=== PATIENT | female | born 1955 | race Caucasian/White ===

== ENCOUNTER → 2017-01-03 | Outpatient (CLI) | payer MEDICARE, OTHER ==
[2017-01-03 11:48] LABS: Basophils # (A) 0.1 k/uL (0-0.2); Basophils % (A) 1 %; CH 28.5; CHCM 31.5; Eosinophils # (A) 0.2 k/uL (0-0.7); Eosinophils % (A) 2 %; HCT 40.1 % (34.0-46.0); HDW 2.63; HGB 12.7 gm/dL (11.4-16.0); Hypochromasia Slight; Luc # (Auto) 0.17; Luc % (Auto) 3; Lymphocytes # (A) 1.4 k/uL (1.0-4.8); Lymphocytes % (A) 22 %; MCH 28.7 pg (25.0-35.0); MCHC 31.8 g/dL (31.0-37.0); MCV 90.5 fL (80.0-100.0); Mean Platelet Volume 6.4; Monocytes # (A) 0.2 k/uL (0-1.0); Monocytes % (A) 3 %; Neutrophils # (A) 4.5 k/uL (1.3-7.7); Neutrophils % (A) 69 %; RBC 4.43 m/uL (3.80-5.40); RDW 15.6 % (11.5-15.5); WBC 6.5 k/uL (3.8-10.6)
[2017-01-03 12:15] LABS: C Reactive Protein 9.5 mg/L (<10.0); Calcium 9.4 mg/dL (8.4-10.2); Potassium 4.6 mmol/L (3.5-5.1); Total Bilirubin 0.3 mg/dL (0.2-1.3); Total Protein 6.6 g/dL (6.3-8.2)
[2017-01-03 15:15] LABS: Appearance,CSF Clear
[2017-01-15 16:39] LABS: Mis test requested (Non-blood) ADmark Tau/AB42 CSF
== END | disposition home or self-care (01) ==
LOC: LABWHC1 10:58
PROVIDERS: ATTEND Psychiatry & Neurology Neurology
DX: R41.3 Other amnesia (principal)
CPT/HCPCS: 36415; 80053; 82306; 82607; 83520; 84157; 84207; 84439; 84443; 84481; 85025; 86140; 89050

== ENCOUNTER → 2017-01-10 | Outpatient (CLI) | payer MEDICARE, OTHER ==
--- NOTE | 2017-01-11 07:41 | NM ---
EXAMINATION TYPE: NM DatScan Brain SPECT DATE OF EXAM: 01/10/2017 3:07 PM COMPARISON: NONE HISTORY: Dissociation of amnesia TECHNIQUE: 10 drops of Lugol's solution was administered 1 hour prior to injection as a thyroid bloc maynor agent. After the administration of 4.44 mCi I-123 Ioflupane DaTscan. Images obtained 3 hours p ost injection. SPECT images of the brain were acquired with axial and coronal reconstructions. FINDINGS: There is normal focal uptake of radiotracer in the basal ganglia. A normal, shaped appearance is main tained. No abnormal uptake is seen. IMPRESSION: Normal nuclear medicine DATscan.
== END | disposition home or self-care (01) ==
LOC: RADNMMAIN 12-21 10:06
PROVIDERS: ATTEND Psychiatry & Neurology Neurology
DX: R41.3 Other amnesia (principal); G30.9 Alzheimer's disease, unspecified; F02.80 Dementia in other diseases classified elsewhere, unspecified severity, without behavioral disturbance, psychotic disturbance, mood disturbance, and anxiety
CPT/HCPCS: 78607; A9584

== ENCOUNTER → 2017-01-31 | Outpatient (CLI) | payer MEDICARE, OTHER ==
--- NOTE | 2017-01-31 14:20 | MR ---
EXAMINATION TYPE: MR brain wo/w con DATE OF EXAM: 01/31/2017 10:39 AM COMPARISON: NONE HISTORY: Memory loss CONTRAST: Performed utilizing 10 mL intravenous MultiHance gadolinium contrast. TECHNIQUE: Multiplanar, multiecho imaging on a 3.0 Iman magnet is performed through the brain. Stud y is performed within 24 hours of arrival to the hospital. The craniovertebral junction is normal. The pituitary is normal. 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 The cerebellar lobes appear hypoplastic. Large fluid-filled col lection is in the posterior fossa space. There is marked dilatation of the lateral ventricles. Temporal horns do not appear dilated. Third laron tricle is dilated. Sulci appear appropriate. Diffusion-weighted imaging is performed. No abnormal hyperintensity is present to suggest an acute i ntracranial infarct or acute ischemic change. Signal within the remaining visualized portions of the brain appear normal. Postcontrast imaging is performed. No suspicious enhancement is evident. IMPRESSIONS: 1. 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 2. Prominence of the ventricles without hydrocephalus.
== END ==
LOC: RADMRIMAIN 09:57
PROVIDERS: ATTEND Psychiatry & Neurology Pain Medicine
DX: Q04.3 Other reduction deformities of brain (principal); R41.3 Other amnesia
CPT/HCPCS: 70553; A9577

== ENCOUNTER → 2017-07-26 | Outpatient (CLI) | payer MEDICARE, OTHER ==
--- NOTE | 2017-07-26 10:23 | MR ---
EXAMINATION TYPE: MR knee RT wo con DATE OF EXAM: 07/26/2017 COMPARISON: NONE HISTORY: Rt Knee pain TECHNIQUE: Multiplanar, multisequence imaging of the right knee is performed without IV contrast. FINDINGS: MEDIAL MENISCUS: There is increased signal within the substance of the posterior horn medial meniscus . Radial tear may be present posteriorly. This could be some internal derangement. This greater than expected for typical ligament attachment. LATERAL MENISCUS: Anterior horn lateral meniscus has some increased signal within its substance clive tible with internal derangement. This may have some minimal communication with the inferior articular surface near the midline. Small tear is not excluded. There is increased signal within the substance of the lateral horn lateral meniscus with communication to the inferior articular surface compatible with an oblique tear and internal derangement. CRUCIATE LIGAMENTS: The anterior and posterior cruciate ligaments are intact and unremarkable. COLLATERAL LIGAMENTS: The medial collateral ligament and lateral collateral ligament complex are inta ct and unremarkable. EXTENSOR MECHANISM: Visualized quadriceps and patellar tendons are intact. EFFUSION: Small joint effusion is present. POPLITEAL CYST: There is a 6.3 x 1.4 cm popliteal cyst. TRICOMPARTMENT SPACES: There is narrowing of the joint space of the medial and lateral compartments. Patellofemoral joint space is moderately narrowed. CARTILAGE: There is thinning of the articular cartilage, greatest within the medial compartment. BONE MARROW SIGNAL: No focal abnormal marrow signal is appreciated. OTHER: No additional significant abnormality is appreciated. IMPRESSION: 1. Oblique tears of the anterior and posterior lateral meniscus. 2. Possible radial tear posterior horn medial meniscus. 3. Osteoarthritic degenerative change. 4. Small joint effusion. 5. Popliteal cyst
== END | disposition home or self-care (01) ==
LOC: RADMRIMAIN 07:53
PROVIDERS: ATTEND Orthopaedic Surgery
DX: S83.281A Other tear of lateral meniscus, current injury, right knee, initial encounter (principal); M17.11 Unilateral primary osteoarthritis, right knee; M71.21 Synovial cyst of popliteal space [Baker], right knee

== ENCOUNTER → 2017-08-23 | Outpatient (CLI) | payer MEDICARE, OTHER ==
[2017-08-23 10:54] LABS: EKG EKG PERFORMED
[2017-08-23 11:12] LABS: Basophils # (A) 0.1 k/uL (0-0.2); Basophils % (A) 1 %; CHCM 32.7; Eosinophils # (A) 0.2 k/uL (0-0.7); Eosinophils % (A) 3 %; HCT 41.3 % (34.0-46.0); HDW 2.55; HGB 13.7 gm/dL (11.4-16.0); Luc # (Auto) 0.18; Luc % (Auto) 3; Lymphocytes # (A) 1.7 k/uL (1.0-4.8); Lymphocytes % (A) 28 %; MCH 31.6 pg (25.0-35.0); MCHC 33.3 g/dL (31.0-37.0); Mean Platelet Volume 6.9; Monocytes # (A) 0.3 k/uL (0-1.0); Monocytes % (A) 5 %; Neutrophils # (A) 3.8 k/uL (1.3-7.7); Neutrophils % (A) 61 %; RBC 4.34 m/uL (3.80-5.40); WBC 6.2 k/uL (3.8-10.6); WBC (Perox) 6.41
[2017-08-23 12:16] LABS: Anion Gap 10 mmol/L; Carbon Dioxide 26 mmol/L (22-30); Chloride 106 mmol/L (98-107); Potassium 4.6 mmol/L (3.5-5.1); Sodium 142 mmol/L (137-145)
== END | disposition home or self-care (01) ==
LOC: LABPAT 10:18
PROVIDERS: ATTEND Orthopaedic Surgery
DX: Z01.810 Encounter for preprocedural cardiovascular examination (principal); Z01.812 Encounter for preprocedural laboratory examination
CPT/HCPCS: 36415; 80051; 85025; 93005

== ENCOUNTER 2017-09-19 08:02 | Day surgery (SDC) | payer MEDICARE, OTHER ==
[2017-09-12 13:18] VITALS: BMI 23.8
--- NOTE | 2017-09-18 14:34 | HP ---
HISTORY AND PHYSICAL REASON FOR ADMISSION: Surgery is 09/19/2017 HISTORY OF PRESENT ILLNESS: Tarsha Tobias is a 62-year-old patient seen with progressive right knee pain. After treatment options were discussed she elected to proceed with right knee arthroscopy, consent was obtained. Medical clearance provided by Dr. Olivarez. PAST MEDICAL HISTORY: Asthma, depression, [id number] diabetes, hyperlipidemia. PAST SURGICAL HISTORY: section. Knee arthroscopy, back surgery. MEDICATIONS: 1. Advair. 2. Albuterol. 3. Bentyl. 4. Flonase. 5. Lomotil. 6. Metformin. 7. Nystatin. 8. Premarin. 9. Symbicort. 10.Zetia. 11.Neurontin. ALLERGIES: PENICILLIN. SOCIAL HISTORY: The patient denies tobacco use. PHYSICAL EVALUATION: Evaluation of the right knee: Range of motion 0-120 degrees. Tenderness medial joint line. Tenderness lateral joint line. Positive medial Dorina's. Positive lateral Dorina's. Ligaments stable. Crepitus. Medial and patellofemoral compartments with range of motion. Hip rotation without pain. Distal neurovascular exam intact. Right knee radiographs revealed moderate medial and moderate patellofemoral compartment osteoarthritis. MRI right knee revealed lateral meniscal tear. Possible medial meniscal tear and osteoarthritis. IMPRESSION: Internal derangement, right knee with meniscal tears. PLAN: Right knee arthroscopy with partial meniscectomy and debridement. Surgery is scheduled for 09/19/2017. MMODL / IJN: [id number] /
[~2017-09-19 08:02] MED LIST: DEXAMETHASONE SOD PHOSPHATE 10 MG/ML 1 ML VIAL IV ONE; LACTATED RINGERS 1,000 ML IV SCH; MIDAZOLAM 2 MG/2 ML VIAL IV PRN; ONDANSETRON 4 MG/2 ML VIAL IVP ONE; ceFAZolin 1,000 MG in DEXTROSE/WATER 1 50ML.BAG IV ONE
[2017-09-19] MEDS ORDERED: LIDOCAINE 1% 20 ML VIAL (10MG/ML) FOR IV START INTRADERMA ONE (08:20)
[2017-09-19 08:22] LABS: Glucose,Whole Blood 119 mg/dL (75-99)
[2017-09-19] MEDS ORDERED: MIDAZOLAM 2 MG/2 ML VIAL ONE (09:38)
[2017-09-19] MEDS ORDERED: PROPOFOL 10 MG/ML 20 ML VIAL IV ONE (09:38)
[2017-09-19] MEDS ORDERED: SUCCINYLCHOLINE CHLORIDE 100 MG/5 ML SYR IV ONE (09:38)
[2017-09-19] MEDS ORDERED: LIDOCAINE 1% INJ 10MG/ML (20 ML MDV) ONE (09:38)
[2017-09-19] MEDS ORDERED: fentaNYL (PF) 50 MCG/ML 2 ML AMP ONE (09:38)
[2017-09-19] MEDS ORDERED: BUPIVACAINE (PF) 0.25% 30 ML VIAL INTRAARTIC ONE (10:07)
--- NOTE | 2017-09-19 10:36 | P.OP ---
Date of Procedure: 09/19/17 Preoperative Diagnosis: Internal derangement right knee Postoperative Diagnosis: 1. Tear medial and lateral meniscus right knee 2. Grade 2/3 chondromalacia medial femoral condyle right knee 3. 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 Partial ACL tear right knee 5. Reactive synovitis medial and suprapatellar compartments right knee Procedure(s) Performed: 1. Arthroscopic partial medial and lateral meniscectomy right knee 2. Arthroscopic chondroplasty medial femoral condyle right knee 3. Arthroscopic chondroplasty patella and femoral sulcus right knee 4. Arthroscopic debridement partial ACL tear right knee 5. Arthroscopic partial synovectomy medial and suprapatellar compartments right knee Anesthesia: ANICETOA, local Surgeon: Joseph Mcclain Estimated Blood Loss (ml): 10 Pathology: none sent Condition: stable Disposition: PACU Indications for Procedure: 62-year-old patient seen with progressive right knee pain. After treatment options were discussed, she elected to proceed with arthroscopy. Operative Findings: See description of procedure Description of Procedure: Patient was taken to the operative suite. Patient underwent a general anesthetic by the department of anesthesia. Patient was given preoperative antibiotics. The right lower extremity was placed in a well-padded arthroscopic leg cooper. The right leg was prepped and draped in the normal sterile orthopedic fashion. A lateral parapatellar and suprapatellar incision was made. Trochars were inserted. Arthroscopy was initiated. Suprapatellar pouch revealed thick reactive synovitis. The patellofemoral joint appeared to articulate congruently. There as grade 3/4 chondromalacia patella and grade 4 chondromalacia of the femoral sulcus. Diffuse osteochondral tears were present on both size.. The scope was guided into the medial gutter. No loose bodies or plica were identified The scope was then guided into the medial compartment. A medial parapatellar incision was made. Trocar inserted followed by probe. There was a complex tear involving the posterior horn of the medial meniscus. There were grade 2/3 Minna malacia changes of the medial femoral condyle with some osteochondral tears present. There was reactive synovitis anteriorly. A partial medial meniscectomy was performed down to stable tissue. I performed a chondroplasty of the medial femoral condyle down to stable tissue and partial synovectomy. The residual meniscus was stable as was the residual osteochondral surface. Scope and probe were then guided into the intercondylar notch. Cruciates were identified, there was some partial tearing of the ACL present anteriorly. I introduced a motorized shaver and debrided that area. It was approximately 20 or 30% of the ACL and the remaining 70-80% was stable. The PCL was stable.. The scope and probe were then guided into lateral compartment. There was a radial tear involving the midbody and posterior horn lateral meniscus. There were grade 1 chondromalacia changes lateral condyle and tibial plateau. I performed a partial lateral meniscectomy down to stable tissue. The residual meniscus was stable. The scope was in guided back into the suprapatellar compartment. I introduced a motorized shaver into the suprapatellar compartment. I performed a chondroplasty of both the patella and femoral sulcus getting down to stable articular tissue. There were again grade 4 chondromalacia changes with exposed bone on both size. I debrided some piecemeal fragments of meniscus I encountered and performed a partial synovectomy. I took one more look on the entire knee, no residual debris. Instruments were now removed from the joint. The joint was infiltrated with .25% Marcaine. Steri-Strips were applied to the portal sites. Sterile dressings were applied. The patient was placed into a OSKAR hose. No tourniquet was utilized. The patient was awakened, transferred to a bed and taken to recovery stable satisfactory condition.
[2017-09-19 10:37] VITALS: TEMP 97
[2017-09-19 10:57] LABS: Glucose,Whole Blood 136 mg/dL (75-99)
[2017-09-19 10:58] VITALS: RESP 16
[2017-09-19 11:38] VITALS: BP 121/73; PULSE 95
== END 2017-09-19 12:24 | disposition home or self-care (01) ==
LOC: OR 08:02
PROVIDERS: ATTEND Orthopaedic Surgery
DX: S83.231A Complex tear of medial meniscus, current injury, right knee, initial encounter (principal); S83.281A Other tear of lateral meniscus, current injury, right knee, initial encounter; M94.261 Chondromalacia, right knee; M22.41 Chondromalacia patellae, right knee; S83.511A Sprain of anterior cruciate ligament of right knee, initial encounter; M65.861 Other synovitis and tenosynovitis, right lower leg; X58.XXXA Exposure to other specified factors, initial encounter; J32.9 Chronic sinusitis, unspecified; Z96.659 Presence of unspecified artificial knee joint; J45.909 Unspecified asthma, uncomplicated; Q03.1 Atresia of foramina of Magendie and Luschka; F03.90 Unspecified dementia, unspecified severity, without behavioral disturbance, psychotic disturbance, mood disturbance, and anxiety; F32.9 Major depressive disorder, single episode, unspecified; E11.9 Type 2 diabetes mellitus without complications; E78.5 Hyperlipidemia, unspecified; Z88.0 Allergy status to penicillin; Z79.82 Long term (current) use of aspirin; Z79.51 Long term (current) use of inhaled steroids; Z79.899 Other long term (current) drug therapy; Z79.84 Long term (current) use of oral hypoglycemic drugs; Z79.1 Long term (current) use of non-steroidal anti-inflammatories (NSAID)
CPT/HCPCS: 29880; J2250; J1100; J2405; J2001; J3010; J0690; J0330; J2704

== ENCOUNTER → 2017-12-25 | Outpatient (CLI) | payer MEDICARE, OTHER ==
--- NOTE | 2017-12-25 13:11 | MR ---
MR brain without contrast HISTORY: R 41.3, amnesia Exam correlated to prior brain MRI 01/31/2017 Multiplanar multisequence imaging through the brain There is no restricted diffusion. 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 Ventricles are pr ominent as on prior exam. No evident hemorrhage. Corpus callosum, pituitary, cervical medullary junct ion, cerebellopontine angles show a stable appearance. There are normal vascular flow voids. Mucosal changes present within the right maxillary sinus, slight mucosal irregularity present along the phary ngeal soft tissues is indeterminate, recommend direct visualization. Brain signal is stable, some sca ttered hyperintensities are present within the deep white matter periventricular location inversion c overing and T2-weighted sequences as on prior. Orbits show symmetric appearance. IMPRESSION: Stable exam. Findings compatible with Dandy-Walker malformation. Consider direct visualiz ation of the posterior pharyngeal soft tissues. Nonspecific white matter demyelination is stable.
== END | disposition home or self-care (01) ==
LOC: RADMRIMAIN 10:39
PROVIDERS: ATTEND Psychiatry & Neurology Pain Medicine
DX: G37.8 Other specified demyelinating diseases of central nervous system (principal); R41.3 Other amnesia
CPT/HCPCS: 70551

== ENCOUNTER → 2018-04-10 | Outpatient (CLI) | payer MEDICARE, OTHER ==
--- NOTE | 2018-04-11 13:17 | MM ---
Reason for exam: screening (asymptomatic). Last mammogram was performed 4 years and 7 months ago. History: Patient is postmenopausal. Reductions of both breasts, 1979. Physical Findings: A clinical breast exam by your physician is recommended on an annual basis and results should be correlated with mammographic findings. MG 3D Screening Mammo W/Cad Bilateral CC and MLO view(s) were taken. Prior study comparison: August 26, 2013, mammogram, performed at [facility]. August 22, 2011, mammogram, performed at [facility]. August 03, 2010, mammogram, performed at [facility]. February 08, 2010, mammogram, performed at [facility]. The breast tissue is heterogeneously dense. This may lower the sensitivity of mammography. No suspicious abnormality. No significant changes when compared with prior studies. ASSESSMENT: Negative, BI-RAD 1 RECOMMENDATION: Routine screening mammogram of both breasts in 1 year.
== END | disposition home or self-care (01) ==
LOC: RADMAMWWP 17:07
PROVIDERS: ATTEND Family Medicine
DX: Z12.31 Encounter for screening mammogram for malignant neoplasm of breast (principal)
CPT/HCPCS: 77063; 77067

== ENCOUNTER 2019-03-02 13:19 | Emergency (ER) | payer MEDICARE, OTHER ==
[2019-03-02 13:26] VITALS: TEMP 97.6
[2019-03-02] MEDS ORDERED: SODIUM CHLORIDE 0.9% 1,000 ML IV STA (14:01)
[2019-03-02] MEDS ORDERED: FAMOTIDINE 20 MG/2 ML VIAL IV STA (14:02)
[2019-03-02] MEDS ORDERED: MORPHINE SULFATE 2 MG/ML SYRINGE IVP STA (14:02)
--- NOTE | 2019-03-02 14:07 | ED ---
General Adult HPI - General Chief complaint: Nausea/Vomiting/Diarrhea Stated complaint: Diarrhea Time Seen by Provider: 03/02/19 13:42 Source: patient, family, RN notes reviewed Mode of arrival: ambulatory - History of Present Illness Initial comments: Patient is a pleasant 63-year-old female presenting to the emergency Department with complaints of diarrhea. Symptoms have been occurring for the past one to 2 weeks. Patient is having multiple episodes per day, sometimes up to 8. Patient has abdominal cramping. Patient has had decreased appetite. Patient feels whenever she eats she has diarrhea. No fevers. No vomiting. Daughter helps provide history secondary to patient having history of dementia. - Related Data Home Medications Medication Instructions Recorded Confirmed Amitriptyline HCl [Elavil] 10 mg PO HS 07/09/14 03/02/19 Citalopram Hydrobromide 60 mg PO QAM 07/09/14 03/02/19 [Citalopram HBr] Docusate Sodium [Stool Softener] 100 mg PO BID 07/09/14 03/02/19 Ibuprofen [Motrin] 800 mg PO Q8HR PRN 07/09/14 03/02/19 Montelukast [Singulair] 10 mg PO HS 07/09/14 03/02/19 Fluticasone Nasal Nora [Flonase 2 spray EA NOSTRIL DAILY 09/21/15 03/02/19 Nasal Nora] Levocetirizine Dihydrochloride 5 mg PO HS 09/21/15 03/02/19 [Xyzal] Multivitamins, Thera [Theragran] 1 tab PO DAILY 09/21/15 03/02/19 Gabapentin [Neurontin] 300 mg PO TID 05/10/16 03/02/19 Albuterol Inhaler [Ventolin Hfa 1 - 2 puff INHALATION RT-Q6H PRN 09/12/17 03/02/19 Inhaler] Cetirizine HCl 10 mg PO DAILY 09/12/17 03/02/19 Fluticasone/Salmeterol [Advair 1 puff INHALATION RT-BID 09/12/17 03/02/19 500-50 Diskus] Omeprazole 20 mg PO QAM 09/12/17 03/02/19 Turmeric Root Extract [Turmeric] 500 mg PO DAILY 09/12/17 03/02/19 metFORMIN HCL [Glucophage] 500 mg PO BID 09/12/17 03/02/19 Aspirin EC [Ecotrin Low Dose] 81 mg PO Q48H 03/02/19 03/02/19 Bismuth Subsalicylate 524 mg PO Q4H PRN 03/02/19 03/02/19 [Pepto-Bismol] Donepezil [Aricept] 10 mg PO HS 03/02/19 03/02/19 Ezetimibe [Zetia] 10 mg PO DAILY 03/02/19 03/02/19 Glucosamine Sulfate 500 mg PO DAILY 03/02/19 03/02/19 Loperamide HCl [Imodium A-D] 2 mg PO Q2H PRN 03/02/19 03/02/19 Memantine [Namenda] 10 mg PO DAILY 03/02/19 03/02/19 Ranitidine HCl [Zantac] 150 mg PO BID 03/02/19 03/02/19 levOCARNitine [l-Carnitine] 500 mg PO DAILY 03/02/19 03/02/19 Previous Rx's Medication Instructions Recorded Dicyclomine [Bentyl] 20 mg PO QID #15 tablet 03/02/19 Allergies Allergy/AdvReac Type Severity Reaction Status Date / Time nickel Allergy Itchy Red Verified 03/02/19 13:59 Skin & Area gets infected Penicillins AdvReac Severe Severe Verified 03/02/19 13:59 Headache, Nausea & Vomiting Review of Systems ROS Statement: Those systems with pertinent positive or pertinent negative responses have been documented in the HPI. ROS Other: All systems not noted in ROS Statement are negative. Constitutional: Denies: fever Eyes: Denies: eye pain ENT: Denies: ear pain Respiratory: Denies: cough Cardiovascular: Denies: chest pain Endocrine: Denies: fatigue Gastrointestinal: Reports: abdominal pain, diarrhea. Denies: nausea, vomiting Genitourinary: Denies: dysuria Musculoskeletal: Denies: back pain Skin: Denies: rash Past Medical History Past Medical History: Asthma, Dementia, GERD/Reflux, Musculoskeletal Disorder, Neurologic Disorder, Osteoarthritis (OA) Additional Past Medical History / Comment(s): FELL 2012 ON BACK & INJURED LT KNEE, LOW BACK PAIN, SOME SHORT TERM MEMORY DYSFUNCTION, DX. with Dandy-Walker Syndrome. History of Any Multi-Drug Resistant Organisms: None Reported Past Surgical History: Back Surgery, Joint Replacement, Orthopedic Surgery, Tubal Ligation Additional Past Surgical History / Comment(s): TOTAL L knee replacement, had a allergic reaction to the hardware and had it removed.-BACK SURGERY(LUMBAR FUSION) 2011,EGD/COLONOSCOPY. Past Anesthesia/Blood Transfusion Reactions: Postoperative Nausea & Vomiting (PONV) Past Psychological History: Anxiety, Depression Smoking Status: Former smoker Past Alcohol Use History: Rare Past Drug Use History: None Reported - Past Family History Mother Family Medical History: Dementia Father Family Medical History: Coronary Artery Disease (CAD), Deep Vein Thrombosis (DVT) Additional Family Medical History / Comment(s): CABG X 2 General Exam Limitations: no limitations General appearance: alert, in no apparent distress Head exam: Present: atraumatic Eye exam: Present: normal appearance, PERRL ENT exam: Present: normal oropharynx Neck exam: Present: normal inspection Respiratory exam: Present: normal lung sounds bilaterally Cardiovascular Exam: Present: regular rate, normal rhythm GI/Abdominal exam: Present: soft, tenderness (Patient is mild to moderate diffuse tenderness), normal bowel sounds. Absent: distended, guarding, rebound, rigid, pulsatile mass Extremities exam: Present: normal inspection Neurological exam: Present: alert Psychiatric exam: Present: normal affect, normal mood Skin exam: Present: normal color Course Vital Signs 03/02/19 13:21 Temperature 97.6 F Pulse Rate 106 H Respiratory 18 Rate Blood Pressure 143/82 O2 Sat by Pulse 98 Oximetry Medical Decision Making - Medical Decision Making Patient reevaluated and is somewhat improved. Patient and family updated on results and need for follow-up. Patient has not had a bowel movement while in the emergency department. - Lab Data Result diagrams: 03/02/19 14:10 03/02/19 14:10 Lab Results 03/02/19 03/02/19 03/02/19 Range/Units 14:10 14:10 14:10 WBC 6.0 (3.8-10.6) k/uL RBC 4.77 (3.80-5.40) m/uL Hgb 13.6 (11.4-16.0) gm/dL Hct 41.7 (34.0-46.0) % MCV 87.5 (80.0-100.0) fL MCH 28.5 (25.0-35.0) pg MCHC 32.5 (31.0-37.0) g/dL RDW 13.5 (11.5-15.5) % Plt Count 348 (150-450) k/uL Neutrophils % 63 % Lymphocytes % 25 % Monocytes % 5 % Eosinophils % 3 % Basophils % 1 % Neutrophils # 3.8 (1.3-7.7) k/uL Lymphocytes # 1.5 (1.0-4.8) k/uL Monocytes # 0.3 (0-1.0) k/uL Eosinophils # 0.2 (0-0.7) k/uL Basophils # 0.0 (0-0.2) k/uL Sodium 140 (137-145) mmol/L Potassium 5.0 (3.5-5.1) mmol/L Chloride 105 (98-107) mmol/L Carbon Dioxide 27 (22-30) mmol/L Anion Gap 8 mmol/L BUN 19 H (7-17) mg/dL Creatinine 0.93 (0.52-1.04) mg/dL Est GFR (CKD-EPI)AfAm 77 (>60 ml/min/1.73 sqM) Est GFR (CKD-EPI)NonAf 67 (>60 ml/min/1.73 sqM) Glucose 125 H (74-99) mg/dL Calcium 9.9 (8.4-10.2) mg/dL Total Bilirubin 0.4 (0.2-1.3) mg/dL AST 21 (14-36) U/L ALT 27 (9-52) U/L Alkaline Phosphatase 75 (38-126) U/L Total Protein 6.8 (6.3-8.2) g/dL Albumin 4.1 (3.5-5.0) g/dL Amylase 47 (30-110) U/L Lipase 83 (23-300) U/L Urine Color Yellow Urine Appearance Cloudy H (Clear) Urine pH 5.5 (5.0-8.0) Ur Specific [place] 1.021 (1.001-1.035) Urine Protein Negative (Negative) Urine Glucose (UA) Negative (Negative) Urine Ketones Negative (Negative) Urine Blood Negative (Negative) Urine Nitrite Negative (Negative) Urine Bilirubin Negative (Negative) Urine Urobilinogen <2.0 (<2.0) mg/dL Ur Leukocyte Esterase Negative (Negative) Urine RBC 1 (0-5) /hpf Urine WBC 4 (0-5) /hpf Ur Squamous Epith Cells <1 (0-4) /hpf Urine Mucus Few H (None) /hpf - Radiology Data Radiology results: report reviewed (Computed tomography scan of the abdomen pelvis: Correlate for enteritis.) Disposition Clinical Impression: Diarrhea in adult patient Disposition: HOME SELF-CARE Condition: Stable Instructions (If sedation given, give patient instructions): Acute Diarrhea (ED) Additional Instructions: Please follow-up with primary care physician in the next couple days for recheck. If diarrhea continues stool studies may be needed. Return for fevers, increased pain, uncontrolled diarrhea, not tolerating oral intake, worsening symptoms or other concerns. Prescriptions: Dicyclomine [Bentyl] 20 mg PO QID #15 tablet Is patient prescribed a controlled substance at d/c from ED?: No Referrals: Jv Olivarez MD [Primary Care Provider] - 1-2 days Time of Disposition: 16:05
[2019-03-02 14:28] LABS: Basophils % (A) 1 %; Eosinophils # (A) 0.2 k/uL (0-0.7); Eosinophils % (A) 3 %; HCT 41.7 % (34.0-46.0); HGB 13.6 gm/dL (11.4-16.0); Lymphocytes # (A) 1.5 k/uL (1.0-4.8); Lymphocytes % (A) 25 %; MCH 28.5 pg (25.0-35.0); MCHC 32.5 g/dL (31.0-37.0); MCV 87.5 fL (80.0-100.0); Mean Platelet Volume 6.8; Monocytes # (A) 0.3 k/uL (0-1.0); Monocytes % (A) 5 %; Neutrophils # (A) 3.8 k/uL (1.3-7.7); Neutrophils % (A) 63 %; Platelet Count 348 k/uL (150-450); RBC 4.77 m/uL (3.80-5.40); RDW 13.5 % (11.5-15.5)
[2019-03-02 14:34] LABS: Albumin 4.1 g/dL (3.5-5.0); Calcium 9.9 mg/dL (8.4-10.2); Total Bilirubin 0.4 mg/dL (0.2-1.3); Total Protein 6.8 g/dL (6.3-8.2)
[2019-03-02 15:03] LABS: Appearance,Urine Cloudy (Clear); Bilirubin,Urine Negative (Negative); Blood,Urine Negative (Negative); Color,Urine Yellow; Glucose,Urine (UA) Negative (Negative); Ketones,Urine Negative (Negative); Leukocyte Esterase,Urine Negative (Negative); Mucus,Urine Few /hpf; Nitrite,Urine Negative (Negative); PH, Urine 5.5 (5.0-8.0); Protein,Urine Negative (Negative); RBC,Urine 1 /hpf (0-5); Specific Gravity,Urine 1.021 (1.001-1.035); Squamous Epithelial Cell,Urine <1 /hpf (0-4); Urobilinogen,Urine <2.0 mg/dL (<2.0); WBC,Urine 4 /hpf (0-5)
--- NOTE | 2019-03-02 15:24 | CT ---
EXAMINATION TYPE: CT abdomen pelvis w con DATE OF EXAM: 03/02/2019 COMPARISON: CT 08/11/2014 HISTORY: Abdominal pain and diarrhea x [address] DLP: 637.8 mGycm Automated exposure control for dose reduction was used. TECHNIQUE: Helical acquisition of images from the lung bases through the pelvis have been completed. CONTRAST: Performed without Oral Contrast and with IV Contrast, patient injected with 100 mL of Isovue M300. FINDINGS: There is a hiatal hernia with partial intrathoracic stomach present LUNG BASES: No significant abnormality is appreciated. AORTA: No significant abnormality is appreciated. LIVER/GB: No significant abnormality is appreciated. PANCREAS: No significant abnormality is seen. SPLEEN: No significant abnormality is seen. ADRENALS: No significant abnormality is seen. 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 Postop change noted to the sigmoid colon as on p revious exam, appendix not seen with certainty, some small bowel folds are somewhat thickened. FREE AIR: No Free Air visible. ASCITES: None visible. PELVIC ADENOPATHY: None visualized. RETROPERITONEAL ADENOPATHY: No Retroperitoneal Adenopathy visible. URINARY BLADDER: No significant abnormality is seen. OSSEOUS STRUCTURES: Postop change to the lumbar spine, degenerative disc changes again noted. Superi or endplate T11 shows some mild loss of height. Vacuum phenomenon present at the intervertebral level s. There is a spinal curvature. IMPRESSION: CORRELATE FOR POSSIBLE ENTERITIS. HIATAL HERNIA WITH PARTIAL INTRATHORACIC STOMACH HAS PROGRESSED IN THE INTERVAL. POSTOP CHANGES.
[2019-03-02 16:24] VITALS: BP 124/88; PULSE 100; RESP 16
== END 2019-03-02 16:25 | disposition home or self-care (01) ==
LOC: EC 13:19
DX: R19.7 Diarrhea, unspecified (principal); R63.8 Other symptoms and signs concerning food and fluid intake; R25.2 Cramp and spasm; F03.90 Unspecified dementia, unspecified severity, without behavioral disturbance, psychotic disturbance, mood disturbance, and anxiety; Q03.1 Atresia of foramina of Magendie and Luschka; J45.909 Unspecified asthma, uncomplicated; K21.9 Gastro-esophageal reflux disease without esophagitis; M19.90 Unspecified osteoarthritis, unspecified site; F32.9 Major depressive disorder, single episode, unspecified; F41.9 Anxiety disorder, unspecified; Z87.891 Personal history of nicotine dependence; Z88.0 Allergy status to penicillin; Z91.048 Other nonmedicinal substance allergy status; Z79.51 Long term (current) use of inhaled steroids; Z79.82 Long term (current) use of aspirin; Z79.84 Long term (current) use of oral hypoglycemic drugs; Z79.899 Other long term (current) drug therapy; Z96.652 Presence of left artificial knee joint; Z98.1 Arthrodesis status
CPT/HCPCS: 36415; 80053; 82150; 83690; 85025; 81001; 74177; 99284; 96374; 96375; 96361; J2270; Q9967

== ENCOUNTER → 2019-07-23 | Outpatient (CLI) | payer MEDICARE, OTHER ==
--- NOTE | 2019-07-23 16:08 | CT ---
EXAMINATION TYPE: CT lumbar spine wo con DATE OF EXAM: 07/23/2019 4:01 PM COMPARISON: CT abdomen and pelvis of 12/21/2018 HISTORY: Lumbar pain. Pt fall injury around 9 years ago. Having pain when essentially doing any activ ity CT DLP: 525.70 mGycm Automated exposure control for dose reduction was used. Unenhanced CT of the lumbar spine was performed. Bone and soft tissue window settings are submitted as well as coronal and sagittal reconstructions. There are 5 lumbar type vertebra redemonstrated. There is persistent fairly severe narrowing with mod erate spurring and subchondral cystic change T12-L1 level. There is mild compression fracture T11 lev el redemonstrated. Posterior interpedicular rods and screws transfix L4-S1 levels bilaterally. Artifi cial disc material at these levels is again seen. There is grade 1 anterolisthesis L4 on L5 redemonst rated. Stable measuring 7 mm on sagittal images. Spinal canal is grossly preserved on sagittal images . Axial images at T12-L1 level show posterior spurring mildly effaces the anterior thecal sac. Axial images at L2-L3 level show mild to moderate broad disc bulge mildly effacing anterior thecal sa c. There is posterior decompression lower lumbar levels on axial images. Artifact from metallic hardware makes evaluation suboptimal. No suspicious incidental adjacent finding. IMPRESSION: Postsurgical changes L4-S1 level with stable spondylolisthesis of L4 on L5. Fairly advanc ed degenerative change T12-L1 level redemonstrated. Mild chronic compression fracture T11 level redem onstrated. Other findings as noted above.
== END ==
LOC: RADCTMAIN 15:28
PROVIDERS: ATTEND Family Medicine
DX: M51.26 Other intervertebral disc displacement, lumbar region (principal); M43.16 Spondylolisthesis, lumbar region; M48.54XA Collapsed vertebra, not elsewhere classified, thoracic region, initial encounter for fracture; Z98.890 Other specified postprocedural states
CPT/HCPCS: 72131

== ENCOUNTER 2019-08-03 17:18 | Emergency (ER) | payer MEDICARE, OTHER ==
[2019-08-03 17:27] VITALS: RESP 18
[2019-08-03] MEDS ORDERED: ORPHENADRINE 30 MG/ML 2 ML VIAL IVP STA (17:41)
[2019-08-03] MEDS ORDERED: KETOROLAC 30 MG/ML 1 ML VIAL IVP STA (17:41)
--- NOTE | 2019-08-03 17:47 | ED ---
Chest Pain HPI - General Chief Complaint: Chest Pain Stated Complaint: chest pain Time Seen by Provider: 08/03/19 17:35 Source: patient, RN notes reviewed Mode of arrival: wheelchair Limitations: no limitations - History of Present Illness Initial Comments: This is a 64-year-old female who states she had the onset this morning of chest pain sharp in nature very severe 8 or 9/10 severity she states it starts in her left sided mid to lateral back and shoots to the front. She does state his shoots to the right side. She does relate this possibly starting after she was told by a dog was on a leash. She also complains of pain underneath her right breast. Slight cough no fevers chills nausea vomiting sweats or other symptoms she did take a Motrin this morning without any relief. She denies any other trauma any other symptoms no other modifying factors MD Complaint: chest pain - Related Data Home Medications Medication Instructions Recorded Confirmed Amitriptyline HCl [Elavil] 10 mg PO HS 07/09/14 08/03/19 Citalopram Hydrobromide 60 mg PO DAILY 07/09/14 08/03/19 [Citalopram HBr] Docusate Sodium [Stool Softener] 100 mg PO BID 07/09/14 08/03/19 Ibuprofen [Motrin] 800 mg PO BID 07/09/14 08/03/19 Montelukast [Singulair] 10 mg PO HS 07/09/14 08/03/19 Fluticasone Nasal [place] [Flonase 1 spray EA NOSTRIL BID 09/21/15 08/03/19 Nasal [place]] Levocetirizine Dihydrochloride 5 mg PO HS 09/21/15 08/03/19 [Xyzal] Multivitamins, Thera [Theragran] 1 tab PO DAILY 09/21/15 08/03/19 Gabapentin [Neurontin] 300 mg PO TID 05/10/16 08/03/19 Albuterol Inhaler [Ventolin Hfa 1 - 2 puff INHALATION RT-Q6H PRN 09/12/17 08/03/19 Inhaler] Cetirizine HCl 10 mg PO DAILY 09/12/17 08/03/19 Fluticasone/Salmeterol [Advair 1 puff INHALATION RT-BID 10/12/17 09/02/19 500-50 Diskus] Omeprazole 20 mg PO BID 09/12/17 08/03/19 Turmeric Root Extract [Turmeric] 500 mg PO DAILY 09/12/17 08/03/19 metFORMIN HCL [Glucophage] 500 mg PO BID 09/12/17 08/03/19 Aspirin EC [Ecotrin Low Dose] 81 mg PO MOWEFR 03/02/19 08/03/19 Bismuth Subsalicylate 524 mg PO Q4H PRN 03/02/19 08/03/19 [Pepto-Bismol] Donepezil [Aricept] 10 mg PO HS 03/02/19 08/03/19 Ezetimibe [Zetia] 10 mg PO DAILY 03/02/19 08/03/19 Glucosamine Sulfate 500 mg PO DAILY 03/02/19 08/03/19 Loperamide HCl [Imodium A-D] 2 mg PO Q2H PRN 03/02/19 08/03/19 Memantine [Namenda] 10 mg PO DAILY 03/02/19 08/03/19 Ranitidine HCl [Zantac] 150 mg PO BID 03/02/19 08/03/19 Previous Rx's Medication Instructions Recorded Cyclobenzaprine [Flexeril] 10 mg PO TID #14 tab 08/03/19 Ibuprofen 800 mg PO Q6HR PRN #20 tablet 08/03/19 Allergies Allergy/AdvReac Type Severity Reaction Status Date / Time nickel Allergy Itchy Red Verified 08/03/19 18:16 Skin & Area gets infected Penicillins AdvReac Severe Severe Verified 08/03/19 18:16 Headache, Nausea & Vomiting Review of Systems ROS Statement: Those systems with pertinent positive or pertinent negative responses have been documented in the HPI. ROS Other: All systems not noted in ROS Statement are negative. EKG Findings - EKG Results: EKG: interpreted by ERMD, sinus rhythm (EKG doesn't time of his admission showed a normal sinus rhythm a 94. Interval 134 QRS duration 100 QT since QTC 390/47 minimal voltage criteria for LVH poor R-wave progression noted) Past Medical History Past Medical History: Asthma, Dementia, GERD/Reflux, Musculoskeletal Disorder, Neurologic Disorder, Osteoarthritis (OA) Additional Past Medical History / Comment(s): FELL 2011 ON BACK & INJURED LT KNEE, LOW BACK PAIN, SOME SHORT TERM MEMORY DYSFUNCTION, DX. with Dandy-Walker Syndrome. History of Any Multi-Drug Resistant Organisms: None Reported Past Surgical History: Back Surgery, Joint Replacement, Orthopedic Surgery, Tubal Ligation Additional Past Surgical History / Comment(s): TOTAL L knee replacement, had a allergic reaction to the hardware and had it removed.-BACK SURGERY(LUMBAR FUSION) 2011,EGD/COLONOSCOPY. Past Anesthesia/Blood Transfusion Reactions: Postoperative Nausea & Vomiting (PONV) Past Psychological History: Anxiety, Depression Smoking Status: Former smoker Past Alcohol Use History: Rare Past Drug Use History: None Reported - Past Family History Mother Family Medical History: Dementia Father Family Medical History: Coronary Artery Disease (CAD), Deep Vein Thrombosis (DVT) Additional Family Medical History / Comment(s): CABG X 2 General Exam - General Exam Comments Initial Comments: This is a well-developed sec appearing female was awake alert oriented 3 Limitations: no limitations General appearance: alert, anxious Head exam: Present: atraumatic, normocephalic, normal inspection Eye exam: Present: normal appearance, PERRL, EOMI. Absent: scleral icterus, conjunctival injection, periorbital swelling ENT exam: Present: normal exam, mucous membranes moist Neck exam: Present: normal inspection, full ROM, other (No stridor JVD or bruits). Absent: tenderness, meningismus, lymphadenopathy Respiratory exam: Present: normal lung sounds bilaterally, chest wall tenderness (Tenderness palpation of left anterior chest wall and breast area no step-off or crepitation also tenderness palpation along the paraspinous muscles on the left the level was shoulder blade and paraspinous musculature.). Absent: respiratory distress, wheezes, rales, rhonchi, stridor Cardiovascular Exam: Present: regular rate, normal rhythm, normal heart sounds. Absent: systolic murmur, diastolic murmur, rubs, gallop, clicks GI/Abdominal exam: Present: soft, normal bowel sounds. Absent: distended, tenderness, guarding, rebound, rigid Extremities exam: Present: normal inspection, full ROM, normal capillary refill. Absent: tenderness, pedal edema, joint swelling, calf tenderness Back exam: Present: normal inspection Neurological exam: Present: alert, oriented X3, CN II-XII intact Psychiatric exam: Present: normal affect, normal mood Skin exam: Present: warm, dry, intact, normal color. Absent: rash Course Vital Signs 08/03/19 08/03/19 08/03/19 17:26 17:52 19:21 Temperature 98.4 F Pulse Rate 90 86 Pulse Rate [ 75 [employer] ] Respiratory 18 18 Rate Blood Pressure 153/94 145/95 O2 Sat by Pulse 98 96 Oximetry 08/03/19 21:02 Temperature Pulse Rate 84 Pulse Rate [ Ski [employer]r ] Respiratory 18 Rate Blood Pressure 160/97 O2 Sat by Pulse 94 L Oximetry - Reevaluation(s) Reevaluation #1: 08/03/19 17:50 PA supervision: I personally do a [id number] evaluation the patient did discuss the findings with her and her . Patient does demonstrate evidence of abdominal pain likely secondary to spastic colon versus enteritis. Patient is showing much improved at this time will be discharged. I do agree with the assessment and plan. Reevaluation #2: 08/03/19 21:31 Was feeling improved after the medication rendered. Chest Pain MDM - MDM I did review the imaging and report no evidence of pulmonary emboli. No acute findings. Patient did get improvement she presents with chest pain consistent with myofascial strain. She'll be discharged on appropriate medication she is a follow-up with her doctor for further evaluation of her abdominal pain that she did also complain of this patient going on for quite some time to continue the workup. Disposition Clinical Impression: Costalchondritis, Chest wall syndrome, Acute myofascial strain Disposition: HOME SELF-CARE Condition: Good Instructions (If sedation given, give patient instructions): Costochondritis (ED), Chest Wall Pain (ED) Additional Instructions: Prescription sent to your [facility] pharmacy Prescriptions: Cyclobenzaprine [Flexeril] 10 mg PO TID #14 tab Ibuprofen 800 mg PO Q6HR PRN #20 tablet PRN Reason: Pain Is patient prescribed a controlled substance at d/c from ED?: No Referrals: Jv Olivarez MD [Primary Care Provider] - 1-2 days
[2019-08-03 18:01] LABS: Basophils # (A) 0.1 k/uL (0-0.2); Basophils % (A) 1 %; Eosinophils # (A) 0.2 k/uL (0-0.7); Eosinophils % (A) 3 %; HCT 40.2 % (34.0-46.0); HGB 13.2 gm/dL (11.4-16.0); Lymphocytes # (A) 1.3 k/uL (1.0-4.8); Lymphocytes % (A) 14 %; MCHC 32.8 g/dL (31.0-37.0); MCV 91.6 fL (80.0-100.0); Mean Platelet Volume 7.1; Monocytes # (A) 0.4 k/uL (0-1.0); Monocytes % (A) 4 %; Neutrophils # (A) 7.2 k/uL (1.3-7.7); Neutrophils % (A) 78 %; Platelet Count 287 k/uL (150-450); RBC 4.39 m/uL (3.80-5.40); RDW 15.1 % (11.5-15.5); WBC 9.2 k/uL (3.8-10.6)
[2019-08-03 18:12] LABS: Albumin 4.2 g/dL (3.5-5.0); Calcium 9.4 mg/dL (8.4-10.2); Magnesium 1.7 mg/dL (1.6-2.3); Potassium 4.3 mmol/L (3.5-5.1); Total Bilirubin 0.2 mg/dL (0.2-1.3); Total Protein 6.7 g/dL (6.3-8.2)
[2019-08-03 18:15] LABS: INR 0.9 (<1.2); Partial Thromboplastin Time 23.8 sec (22.0-30.0); Prothrombin Time 9.8 sec (9.0-12.0)
[2019-08-03 18:31] LABS: D-Dimer 1.45 mg/L FEU (<0.60)
[2019-08-03] MEDS ORDERED: SODIUM CHLORIDE 0.9% 1,000 ML IV STA (18:36)
--- NOTE | 2019-08-03 20:42 | XR ---
EXAMINATION TYPE: XR chest 2V DATE OF EXAM: 08/03/2019 COMPARISON: 08/10/2014 HISTORY: Short of breath TECHNIQUE: Frontal and lateral views of the chest are obtained. FINDINGS: There is no heart failure nor confluent pneumonic infiltrate. Costophrenic angles are yennifer r. There are chest leads. Thoracic aorta is atheromatous. There is mild anterior wedging of T12 and L 1. IMPRESSION: No active cardiopulmonary disease. No change.
--- NOTE | 2019-08-03 20:45 | CT ---
EXAMINATION TYPE: CT angio chest DATE OF EXAM: 08/03/2019 8:28 PM COMPARISON: None HISTORY: Right sided chest pain. CT DLP: 318.8 mGycm Automated exposure control for dose reduction was used. CONTRAST: CTA scan of the thorax is performed with IV Contrast, patient injected with 80 mL of Isovue 370, pulm onary embolism protocol. There are 3-D post processed images.. FINDINGS: There is mild scarring and subsegmental atelectasis at the lung bases. There is no pleural effusion. There is no evidence of a pulmonary mass. There is hiatal hernia. There is no pericardial effusion. Thoracic aorta shows no evidence of aneurysm or dissection. I see no filling defects in the pulmonary arteries. There is anterior wedging of T11 and T12 vertebra with up to 25% loss of height. There is degenerative spur formation in the thoracic spine. I see no definite acute fracture. IMPRESSION: NO EVIDENCE OF PULMONARY EMBOLISM. MINIMAL FIBROTIC CHANGES OR SUBSEGMENTAL ATELECTASIS AT THE LUNG B ASES. HIATAL HERNIA.
[2019-08-03 21:50] VITALS: BP 156/89; PULSE 74; TEMP 97.8
== END 2019-08-03 21:50 | disposition home or self-care (01) ==
LOC: EC 17:18
DX: S29.011A Strain of muscle and tendon of front wall of thorax, initial encounter (principal); J45.909 Unspecified asthma, uncomplicated; F03.90 Unspecified dementia, unspecified severity, without behavioral disturbance, psychotic disturbance, mood disturbance, and anxiety; K21.9 Gastro-esophageal reflux disease without esophagitis; M19.90 Unspecified osteoarthritis, unspecified site; F32.9 Major depressive disorder, single episode, unspecified; F41.9 Anxiety disorder, unspecified; Z87.891 Personal history of nicotine dependence; Z88.0 Allergy status to penicillin; Z91.048 Other nonmedicinal substance allergy status; Z79.1 Long term (current) use of non-steroidal anti-inflammatories (NSAID); Z79.51 Long term (current) use of inhaled steroids; Z79.82 Long term (current) use of aspirin; Z79.84 Long term (current) use of oral hypoglycemic drugs; Z79.899 Other long term (current) drug therapy; Z98.1 Arthrodesis status; Z96.652 Presence of left artificial knee joint; Z82.49 Family history of ischemic heart disease and other diseases of the circulatory system; X58.XXXA Exposure to other specified factors, initial encounter
CPT/HCPCS: 99285; 96374; 96375; 96361 ×3; 36415; 93005; 85379; 83880; 80053; 82550; 83690; 83735; 84484; 85025; 85610; 85730; 71046; 71275; J2360; J1885; Q9967

== ENCOUNTER → 2019-08-25 | Outpatient (CLI) | payer MEDICARE, OTHER ==
[2019-08-25 11:42] VITALS: BP 164/97; PULSE 95; RESP 18
--- NOTE | 2019-08-25 14:07 | P.PAINPG ---
Subjective Progress Note Date: 08/25/19 Krishna is a 64-year-old diabetic female who is well-known to our clinic. She was last seen 2 years ago for bilateral SI joint injections. She had excellent results with the injections essentially 100% pain relief for about a year. In the past year she is been trying to put off the injection, however pain associated significant that she would like another injection. Otherwise she is in the same state of her health, she does report that she has some dementia. Her daughter was in the room with her. She is taking Neurontin 300 times a day and Motrin 800 times a day, not prescribed by us. He is using director of critical care and massage therapy. Today she states that all of her pain is centrally on the right side, there is the same pain she had prior to her bilateral SI joint injection. Objective - Vital Signs Vital signs: Vital Signs Temp Pulse 95 08/25/19 11:38 Resp 18 08/25/19 11:38 BP 164/97 08/25/19 11:38 Pulse Ox 98 08/25/19 11:38 Intake & Output 08/24/19 08/25/19 08/25/19 18:59 06:59 18:59 Weight 57.606 kg 58.967 kg - Exam Vital Signs: Reviewed in EMR GENERAL: Well appearing, in no acute distress, daughter present in the room PSYCH: Mood and affect is appropriate. Awake, alert, and oriented SKIN: Skin color, texture, turgor normal, no rashes or lesions HEENT: Normocephalic, atraumatic. EOM intact CV: No pedal edema RESP: Respirations are unlabored, no audible wheezing GI: Abdomen non-distended MUSCULOSKELETAL: Bilateral upper and lower extremity strength is normal and symmetric. She does appear to have some lower extremity atrophy Buttocks: Pain to palpation over the right PSIS. Faustino's test, SI joint compression and Charleston's test were positive Extremities: Peripheral joint ROM is full and pain free without obvious instability or laxity in all four extremities. No edema or skin discolorations noted. Gait: Gait is anantalgic NEUR: Bilateral upper and lower extremity coordination and muscle stretch reflexes are physiologic and symmetric. No loss of sensation is noted. Cranial nerves are grossly intact. Assessment and Plan Assessment: Assessment: 1. Right SI joint dysfunction 2. Obesity 3. Diabetes mellitus Plan: 1. Explanation: I explained to her the procedure. She did have greater than one year pain relief with the last injection.. 2. Opioid agreement: None 3. Counseling: The patient was counseled extensively on BODY MASS INDEX, EXERCISE. Specifically, the patient was instructed regarding the importance of weight control, and exercise in the context of both chronic pain and overall health. 4. Procedures: Right SI joint injection, will likely continue with just steroid injections as she gets such prolonged benefit with these. 5. Consultations: None 6. Investigations: MRI reviewed 7. Medications: Encouraged patient to have discussions with primary care physician 8. Disposition: For right SI joint injection , PQRS Measure Charge Sheet PQRS Narrative: Smoking Status Former smoker Blood Pressure 164/97 Pain Intensity [Back] 8 Scale Used Numeric (1 - 10) Hx Alcohol Use (MH) No Home Medications: Ambulatory Orders Amitriptyline HCl [Elavil] 10 mg PO HS 07/09/14 Citalopram Hydrobromide [Citalopram HBr] 60 mg PO DAILY 07/09/14 Docusate Sodium [Stool Softener] 100 mg PO BID 07/09/14 Ibuprofen [Motrin] 800 mg PO TID 07/09/14 Montelukast [Singulair] 10 mg PO HS 07/09/14 Fluticasone Nasal [place] [Flonase Nasal [place]] 1 spray EA NOSTRIL BID 09/21/15 Levocetirizine Dihydrochloride [Xyzal] 5 mg PO HS 09/21/15 Multivitamins, Thera [Theragran] 1 tab PO DAILY 09/21/15 Gabapentin [Neurontin] 300 mg PO TID 05/10/16 Albuterol Inhaler [Ventolin Hfa Inhaler] 1 - 2 puff INHALATION RT-Q6H PRN 09/12/17 Cetirizine HCl 10 mg PO DAILY 09/12/17 Fluticasone/Salmeterol [Advair 500-50 Diskus] 1 puff INHALATION RT-BID 09/12/17 Omeprazole 20 mg PO BID 09/12/17 Turmeric Root Extract [Turmeric] 500 mg PO DAILY 09/12/17 metFORMIN HCL [Glucophage] 500 mg PO BID 09/12/17 Aspirin EC [Ecotrin Low Dose] 81 mg PO MOWEFR 03/02/19 Ezetimibe [Zetia] 10 mg PO DAILY 03/02/19 Glucosamine Sulfate 500 mg PO DAILY 03/02/19 Loperamide HCl [Imodium A-D] 2 mg PO Q2H PRN 03/02/19 Memantine [Namenda] 10 mg PO DAILY 03/02/19 Ranitidine HCl [Zantac] 150 mg PO BID 03/02/19 Controlled Substance Measures - Controlled Substance Measures Is patient prescribed a controlled substance at discharge?: No
== END | disposition home or self-care (01) ==
LOC: PNWHC3 11:24
PROVIDERS: ATTEND Student in an Organized Health Care Education/Training Program
DX: M53.3 Sacrococcygeal disorders, not elsewhere classified (principal); E11.9 Type 2 diabetes mellitus without complications; E66.9 Obesity, unspecified; Z87.891 Personal history of nicotine dependence; Z79.891 Long term (current) use of opiate analgesic; Z79.82 Long term (current) use of aspirin; Z79.84 Long term (current) use of oral hypoglycemic drugs; Z79.899 Other long term (current) drug therapy
CPT/HCPCS: 99211

== ENCOUNTER 2019-09-03 06:24 | Day surgery (SDC) | payer MEDICARE, OTHER ==
[2019-09-02 13:14] VITALS: BMI 22.6
[~2019-09-03 06:24] MED LIST changes: -DEXAMETHASONE SOD PHOSPHATE 10 MG/ML 1 ML VIAL IV ONE; -MIDAZOLAM 2 MG/2 ML VIAL IV PRN; -ONDANSETRON 4 MG/2 ML VIAL IVP ONE; -ceFAZolin 1,000 MG in DEXTROSE/WATER 1 50ML.BAG IV ONE
[2019-09-03 07:11] LABS: Glucose,Whole Blood 119 mg/dL (75-99)
[2019-09-03 07:13] VITALS: TEMP 97.7
[2019-09-03] MEDS ORDERED: LIDOCAINE 1% 20 ML VIAL (10MG/ML) FOR IV START INTRADERMA ONE (07:13)
--- NOTE | 2019-09-03 07:45 | P.PCN ---
Date of Procedure: 09/03/19 Surgeon: Jeny Linda Pathology: none sent Condition: stable Disposition: PACU Description of Procedure: Preoperative diagnoses= sacroiliac joint dysfunction and sacroiliitis on the Rt side Postoperative diagnoses= same as preoperative diagnosis. Procedure= sacroiliac joint steroid injection under fluoroscopic guidance. Anesthesia= local anesthesia with lidocaine 1% and IV moderate conscious sedation with fentanyl and Versed Estimated blood loss=minimal. Procedure indication= the patient had a history of severe chronic low back pain, diagnosed with sacroiliitis and lumbar sacral facet arthropathy unresponsive to conservative treatment. Procedure description= the patient was seen and identified in the preoperative holding area, risks and benefits and alternative of the procedure and possible complications discussed with the patient, patient signed the consent. an IV was started, and vital signs were monitored and were stable throughout the proce dure, patient was placed in the prone position or table and the lumbosacral area was prepped and draped with a sterile fashion, vital signs were closely monitored during the procedure.The sacroiliac joint was identified on the AP view of fluoroscopy then the C-arm was tilted to the contralateral oblique position to superimpose the anterior and posterior joint lines on each other and to have a unified joint line with the target point at the inferior one third of this line. I used 22-gauge 3-1/2 inch Quincke spinal needle for this procedure and after getting into the sacroiliac joint I injected 40 mg of Kenalog +2 MLS of Ropivacaine 0.5%. Patient tolerated the procedure well without any complication, The patient returned to supine position after the back was cleaned and a Band- Aid applied, the patient transported to recovery room in stable condition and he was monitored for 30 minutes before he was discharged home and then patient was reexamined before going home and patient was discharged in stable condition and patient will follow up with the pain clinic in a few weeks
[2019-09-03] MEDS ORDERED: IV FLUID CONTINUATION 600 ML IV ONE (07:52)
[2019-09-03 07:58] VITALS: RESP 18
[2019-09-03 08:10] VITALS: BP 151/90; PULSE 90
== END 2019-09-03 08:23 | disposition home or self-care (01) ==
LOC: ORPAIN 06:24
PROVIDERS: ATTEND Anesthesiology
DX: G89.29 Other chronic pain (principal); M53.3 Sacrococcygeal disorders, not elsewhere classified; M46.1 Sacroiliitis, not elsewhere classified; E11.9 Type 2 diabetes mellitus without complications; Z79.899 Other long term (current) drug therapy; E66.9 Obesity, unspecified; Z68.24 Body mass index [BMI] 24.0-24.9, adult; Z87.891 Personal history of nicotine dependence; Z79.1 Long term (current) use of non-steroidal anti-inflammatories (NSAID); Z79.51 Long term (current) use of inhaled steroids
CPT/HCPCS: J2250; J3301; G0260; 27096

== ENCOUNTER 2019-09-07 06:52 | Day surgery (SDC) | payer MEDICARE, OTHER ==
[2019-09-02 13:28] VITALS: BMI 22.6
--- NOTE | 2019-09-03 08:40 | FL ---
EXAMINATION TYPE: FL guided pain mgmt statistic DATE OF EXAM: 09/03/2019 FLUOROSCOPY Fluoroscopy time of 9 seconds was used during right SI joint injection. 1 image/s document/s the pro cedure.
[~2019-09-07 06:52] MED LIST changes: +LIDOCAINE 1% 20 ML VIAL (10MG/ML) FOR IV START INTRADERMA PRN
[2019-09-07 07:14] VITALS: TEMP 97.6
[2019-09-07] MEDS ORDERED: SCOPOLAMINE 1.5MG/72HR PATCH TRANSDERM ONE (07:30)
[2019-09-07] MEDS ORDERED: ONDANSETRON 4 MG/2 ML VIAL IVP ONE (07:30)
[2019-09-07] MEDS ORDERED: DEXAMETHASONE SOD PHOSPHATE 10 MG/ML 1 ML VIAL IV ONE (07:30)
[2019-09-07 07:32] LABS: Glucose,Whole Blood 143 mg/dL (75-99)
[2019-09-07] MEDS ORDERED: LIDOCAINE 1% INJ 10MG/ML (20 ML MDV) ONE (07:39)
[2019-09-07] MEDS ORDERED: PROPOFOL 10 MG/ML 20 ML VIAL IV ONE (07:39)
[2019-09-07 08:21] VITALS: RESP 16
--- NOTE | 2019-09-07 08:26 | P.PCN ---
Date of Procedure: 09/07/19 Description of Procedure: Brief history: Patient is a pleasant scheduled for an elective upper endoscopy as well as colonoscopy as a part of evaluation of Procedure performed: Esophagogastroduodenoscopy with biopsy Colonoscopy with polypectomy Estimated blood loss: Minimal. Preoperative diagnosis: Bloating, abdominal pain, change in bowel habits Anesthesia: MAC Procedure: After informed consent was obtained from the patient was brought into the endoscopy unit and IV sedation was administered by anesthesia under continuous monitoring. Initially upper endoscopy was done. The Olympus GF 190 video endoscope was inserted inserted into the mouth and esophagus intubated without any difficulty and was gradually advanced into the stomach and duodenum and carefully examined. The bulb and second part of the duodenum appeared normal, with biopsies taken. The scope was then withdrawn into the stomach adequately insufflated with air and upon careful examination the antrum and body, cardia and fundus appeared normal, with erythema and superficial erosions in the antrum and body suggestive of moderate gastritis with biopsies of the antrum and body taken. The scope was then withdrawn into the esophagus. The GE junction was located at 41 cm to the incisors, with a 3 cm hiatal hernia noted. LA grade a esophagitis in the distal esophagus noted with biopsies of the distal esophagus taken. Patient tolerated the procedure well. At this time the patient continued to remain sedation. Initial digital rectal examination was normal. Olympus CF 190 video colonoscope was then inserted into the rectum and gradually advanced to the cecum without any difficulty. Careful examination was performed as the scope was gradually being withdrawn. The prep was good. The cecum, ascending colon, transverse colon, descending colon, sigmoid colon and rectum appeared normal, with sessile 1 mm hepatic flexure polyp removed with cold forcep polypectomy. Retroflexion was performed in the rectum and no lesions were noted. Patient tolerated the procedure well. Impression: 1. Moderate gastritis antrum and body, biopsied. Distal LA grade a esophagitis with the distal esophagus biopsied. Duodenal biopsies. 2. Diminutive hepatic flexure polyp removed with cold forceps. Otherwise normal-appearing colon from rectum to cecum. Recommendations: Findings of this examination were discussed with the patient as well as and her [id number]. Okay to resume diet and medications. Await pathology from polypectomy and biopsies. Anticipate repeat colonoscopy in 5 years for history of colon polyps. Continue omeprazole therapy.
[2019-09-07 08:42] VITALS: BP 141/73; PULSE 89
== END 2019-09-07 09:27 | disposition home or self-care (01) ==
LOC: ORWHC2ENDO 06:52
PROVIDERS: ATTEND Internal Medicine
DX: K63.5 Polyp of colon (principal); K29.50 Unspecified chronic gastritis without bleeding; K31.89 Other diseases of stomach and duodenum; K44.9 Diaphragmatic hernia without obstruction or gangrene; K20.9 Esophagitis, unspecified; Z86.010 Personal history of colon polyps; E78.5 Hyperlipidemia, unspecified; J45.909 Unspecified asthma, uncomplicated; F03.90 Unspecified dementia, unspecified severity, without behavioral disturbance, psychotic disturbance, mood disturbance, and anxiety; M19.90 Unspecified osteoarthritis, unspecified site; Q03.1 Atresia of foramina of Magendie and Luschka; K21.9 Gastro-esophageal reflux disease without esophagitis; Z87.891 Personal history of nicotine dependence; Z90.710 Acquired absence of both cervix and uterus; Z98.51 Tubal ligation status; Z96.652 Presence of left artificial knee joint; Z79.84 Long term (current) use of oral hypoglycemic drugs; Z79.1 Long term (current) use of non-steroidal anti-inflammatories (NSAID); Z79.82 Long term (current) use of aspirin; Z79.899 Other long term (current) drug therapy; Z88.0 Allergy status to penicillin; Z91.048 Other nonmedicinal substance allergy status; Z91.09 Other allergy status, other than to drugs and biological substances
CPT/HCPCS: 88305; 45380; 43239; J1100; J2405; J2001; J2704

== ENCOUNTER → 2019-10-20 | Outpatient (CLI) | payer MEDICARE, OTHER ==
[2019-10-20 13:50] VITALS: BP 147/91; PULSE 105; RESP 18
--- NOTE | 2019-10-20 14:41 | P.PAINPG ---
Subjective Progress Note Date: 10/20/19 This is 64-year-old diabetic female who is well-known to our clinic. Have prolonged benefit with previous bilateral SI joint injections, she most recently had a right SI joint injection. However now she is having pain in both sides. She is interested in having another injection, she states that her hemoglobin A1c is well controlled to 6 and 7. Of note she was diagnosed with dementia, however she is a good historian. Otherwise she denies any new symptoms Objective - Vital Signs Vital signs: Vital Signs Temp Pulse 105 H 10/20/19 13:40 Resp 18 10/20/19 13:40 BP 147/91 10/20/19 13:40 Pulse Ox 96 10/20/19 13:40 - Exam Vital Signs: Reviewed in EMR GENERAL: Well appearing, in no acute distress, PSYCH: Mood and affect is appropriate. Awake, alert, and oriented SKIN: Skin color, texture, turgor normal, no rashes or lesions HEENT: Normocephalic, atraumatic. EOM intact CV: No pedal edema RESP: Respirations are unlabored, no audible wheezing GI: Abdomen non-distended MUSCULOSKELETAL: Bilateral upper and lower extremity strength is normal and symmetric. No atrophy or tone abnormalities are noted. Buttocks: Positive to palpation on the PSIS, while the Faustino's test is negative, her Carol is positive, Extremities: Peripheral joint ROM is full and pain free without obvious instability or laxity in all four extremities. No edema or skin discolorations noted. Gait: Gait is anantalgic NEUR:No loss of sensation is noted. Cranial nerves are grossly intact. , Assessment and Plan Assessment: Assessment: 1. Bilateral SI joint dysfunction 2. Diabetes 3. Early dementia Plan: 1. Explanation: I explained to her how the injections work, and how we are not changing and it anatomy rather we are just reducing inflammation 2. Opioid agreement: None 3. Counseling: The patient was counseled extensively on BODY MASS INDEX, EXERCISE. Specifically, the patient was instructed regarding the importance of weight control, and exercise in the context of both chronic pain and overall health. 4. Procedures: Bilateral SI joint injections 5. Consultations: None 6. Investigations: None 7. Medications: Encouraged patient to have discussions with primary care physician 8. Disposition: For her Bilateral SI joint injections , PQRS Measure Charge Sheet Measure #226: Tobacco Use: Screen & Cessation Intervention: Pt not a tobacco user Measure #111: Pneumonia Vaccination: Pneumococcal vaccine administered or previously received Measure #47: Advance Care Plan: Advance care planning discussed & documented, pt chose/unable to give Measure #412: Opioid Treatment Agreement: No documentation of signed opioid treatment agreement Measure #131: Pain Assessment & Follow-up: Pain positive & plan documented, Follow-up scheduled PQRS Narrative: Smoking Status Former smoker Blood Pressure 147/91 Pain Intensity [Bilateral 10 Lower Posterior Back] Scale Used Numeric (1 - 10) Hx Alcohol Use (MH) No Home Medications: Ambulatory Orders Amitriptyline HCl [Elavil] 10 mg PO HS 07/09/14 Citalopram Hydrobromide [Citalopram HBr] 60 mg PO QAM 07/09/14 Docusate Sodium [Stool Softener] 100 mg PO BID 07/09/14 Ibuprofen [Motrin] 800 mg PO TID 07/09/14 Montelukast [Singulair] 10 mg PO HS 07/09/14 Fluticasone Nasal [place] [Flonase Nasal [place]] 1 spray EA NOSTRIL BID 09/21/15 Multivitamins, Thera [Theragran] 1 tab PO DAILY 09/21/15 Gabapentin [Neurontin] 300 mg PO TID 05/10/16 Albuterol Inhaler [Ventolin Hfa Inhaler] 1 - 2 puff INHALATION RT-Q6H PRN 09/12/17 Cetirizine HCl 10 mg PO DAILY 09/12/17 Fluticasone/Salmeterol [Advair 500-50 Diskus] 1 puff INHALATION RT-BID 09/12/17 Turmeric Root Extract [Turmeric] 500 mg PO DAILY 09/12/17 metFORMIN HCL [Glucophage] 500 mg PO BID 09/12/17 Aspirin EC [Ecotrin Low Dose] 81 mg PO MOWEFR 03/02/19 Ezetimibe [Zetia] 10 mg PO DAILY 03/02/19 Glucosamine Sulfate 500 mg PO DAILY 03/02/19 Memantine [Namenda] 10 mg PO DAILY 03/02/19 Acetylcarnitine 1 tab PO DAILY 09/02/19 Cannabidiol (Cbd) Extract [Epidiolex] 1 dose PO DAILY PRN 09/02/19 Levocetirizine Dihydrochloride [Xyzal] 5 mg PO DAILY 09/02/19 Pantoprazole Sodium [Protonix] 40 mg PO DAILY 10/20/19 Controlled Substance Measures - Controlled Substance Measures Is patient prescribed a controlled substance at discharge?: No
== END | disposition home or self-care (01) ==
LOC: PNWHC3 13:10
PROVIDERS: ATTEND Student in an Organized Health Care Education/Training Program
DX: M53.3 Sacrococcygeal disorders, not elsewhere classified (principal); E11.9 Type 2 diabetes mellitus without complications; F03.90 Unspecified dementia, unspecified severity, without behavioral disturbance, psychotic disturbance, mood disturbance, and anxiety; Z87.891 Personal history of nicotine dependence; Z79.1 Long term (current) use of non-steroidal anti-inflammatories (NSAID); Z79.51 Long term (current) use of inhaled steroids; Z79.84 Long term (current) use of oral hypoglycemic drugs; Z79.82 Long term (current) use of aspirin; Z79.899 Other long term (current) drug therapy
CPT/HCPCS: 99211

== ENCOUNTER → 2019-10-27 | Day surgery (SDC) | payer MEDICARE, OTHER ==
[2019-10-26 11:11] VITALS: BMI 23.8
[~2019-10-27] MED LIST changes: +IV FLUID CONTINUATION 1,000 ML IV ONE; +LACTATED RINGERS 1,000 ML IV ONE; +LIDOCAINE 1% 20 ML VIAL (10MG/ML) FOR IV START INTRADERMA ONE; -LIDOCAINE 1% 20 ML VIAL (10MG/ML) FOR IV START INTRADERMA PRN
[2019-10-27 07:33] VITALS: RESP 18; TEMP 99
[2019-10-27 07:45] LABS: Glucose,Whole Blood 127 mg/dL (75-99)
--- NOTE | 2019-10-27 08:02 | P.PCN ---
Date of Procedure: 10/27/19 Procedure(s) Performed: Procedure= bilateral sacral iliac joints steroid injection under fluoroscopy guidance (fluoroscopy image stored on file in the radiology Department ) Preoperative diagnosis= 1-sacroiliitis 2-sacroiliac joint dysfunction Postoperative diagnosis=1-sacroiliitis 2-sacroiliac joint dysfunction Complication = none Condition= stable Fluoroscopy time = seconds Anesthesia= moderate sedation with intravenous Versed 2 mg , and fentanyl 50 micrograms and local infiltration with lidocaine 1% 4 mL Indication for the procedure= patient complaining of low back pain , examination was positive for severe tenderness over the sacroiliac joints bilaterally and patient diagnosed with sacroiliitis, for this reason , she was good candidate for sacroiliac joint steroid injection. Description of the procedure= procedure risk and benefits discussed with the patient, including but not limited, risk of infection and bleeding, and ALLERGIC reaction to the medication and not complete pain relief and patient agreed with the preceding patient taken to the operating room, placed in prone position or standard monitors applied to the patient then after induction of anesthesia back prepped with chlorhexidine 3 times , Then under strict sterile technique, first I did the right sacroiliac joint the which was identified under fluoroscopy guidance been local infiltration of the skin and subcu interstitial with lidocaine 1% then 22-gauge Quincke Needle advanced slowly under fluoroscopy and placed in the right sacroiliac joint needle placement confirmed with AP and oblique and lateral view and after appropriate needle placement confirmed and after negative aspiration, or heme , then Ropivacaine 0.5% 3 mL, and 40 mg of Depo-Medrol mixed together and injected in the right sacroiliac joint after negative aspiration patient tolerated the procedure well without any complication. Then the left sacroiliac joint steroid injection done under strict sterile technique local infiltration of the skin and subcu interstitial at the location of the left sacroiliac joint then a 22-gauge Quincke Needle advanced slowly under fluoroscopy time placed in the left sacroiliac joint, needle placement confirmed with AP and oblique and lateral view then after appropriate needle placement confirmed and after negative aspiration 0.5% Marcaine 3 mL and 40 mg of Depo-Medrol injected in the left sacroiliac joint after negative aspiration patient tolerated the procedure well that any complications and she will follow up in clinic 3 weeks
--- NOTE | 2019-10-27 08:20 | FL ---
EXAMINATION TYPE: FL guided pain mgmt statistic DATE OF EXAM: 10/27/2019 FLUOROSCOPY Fluoroscopy time of 3 seconds was used during bilateral SI joint injection. 2 image/s document/s the procedure.
[2019-10-27 08:34] VITALS: BP 123/74; PULSE 88
== END ==
LOC: ORPAIN 07:04
PROVIDERS: ATTEND Specialist
DX: Z91.09 Other allergy status, other than to drugs and biological substances (principal)
CPT/HCPCS: J2250; J1030; J3010; G0260

== ENCOUNTER → 2019-12-03 | Outpatient (CLI) | payer MEDICARE, OTHER ==
[2019-12-03 13:39] VITALS: BP 131/84; PULSE 98; RESP 16
--- NOTE | 2019-12-04 09:51 | P.PAINPG ---
Subjective Progress Note Date: 12/03/19 This is 64-year-old diabetic female who is well-known to our clinic, patient gets prolonged benefit with previous bilateral SI joint injections, she most recently had bilateral SI joint injections on 10/27/2019. She returns today for follow-up. She reports good relief from this procedure, almost 100% for 1 month, and greater than 50% lasting approximately 2 and half months. Her pain is rated as 3/10 today. For medications, she takes Motrin 800 when necessary and gabapentin. She denies side effects from the medications. Of note she was diagnosed with dementia, however she is a good historian. Otherwise she denies any new symptoms Review of systems is negative for chest pain, shortness of breath, new onset weakness, numbness/tingling, abdominal pain, malaise, fever, night sweats, chills, homicidal or suicidal ideation, or bowel or bladder incontinence. Objective - Exam Vital Signs: Reviewed in EMR GENERAL: Well appearing, in no acute distress, PSYCH: Mood and affect is appropriate. Awake, alert, and oriented SKIN: Skin color, texture, turgor normal, no rashes or lesions HEENT: Normocephalic, atraumatic. EOM intact CV: No pedal edema RESP: Respirations are unlabored, no audible wheezing GI: Abdomen non-distended MUSCULOSKELETAL: Bilateral lower extremity strength is normal and symmetric. No atrophy or tone abnormalities are noted. Buttocks: Positive to palpation on the bilateral PSIS, while the Faustino's test is negative, her Carol is positive bilaterally, sacral thrust positive bilaterally Extremities: Peripheral joint ROM is full and pain free without obvious instability or laxity in all four extremities. No edema or skin discolorations noted. Gait: Gait is anantalgic NEUR:No loss of sensation is noted. Cranial nerves are grossly intact. Assessment and Plan Assessment: Assessment: 1. Bilateral SI joint dysfunction 2. Diabetes 3. Early dementia Plan: 1. Explanation: I explained the long-term side effects of steroids and the need to perform physical therapy to focus on SI joint dysfunction. 2. Opioid agreement: None 3. Counseling: The patient was counseled extensively on the importance of EXERCISE. 4. Procedures: Bilateral SI joint injections in approximately 4 weeks 5. Consultations: Referral to physical therapy given for SI joint exercises 6. Investigations: None 7. Medications: No changes 8. Disposition: For her Bilateral SI joint injections , PQRS Measure Charge Sheet Measure #130: Documentation of Current Meds in Medical Chart: Patient's medications documented in chart Measure #226: Tobacco Use: Screen & Cessation Intervention: Pt not a tobacco user Measure #111: Pneumonia Vaccination: Pneumococcal vaccine NOT administered or previously given Measure #47: Advance Care Plan: Advance care planning discussed & documented, pt chose/unable to give Measure #412: Opioid Treatment Agreement: No documentation of signed opioid treatment agreement Measure #408: Opioid Therapy Follow-up Evaluation: Patient had NO f/u eval minimum every 3 months during opioid therapy Measure #317: Preventitive Care & Scrn High Bld Press & F/U: Normal blood pressure, f/u not required Measure #128: Body Mass Index (BMI) Screening & Follow-up: BMI documented within normal parameters Measure #131: Pain Assessment & Follow-up: Pain positive & plan documented, Follow-up scheduled Measure #431: Unhealthy Alcohol Use Preventative Care & Scrn: Patient not identified as an unhealthy alcohol user PQRS Narrative: Smoking Status Former smoker Hx Alcohol Use (MH) No Home Medications: Ambulatory Orders Amitriptyline HCl [Elavil] 10 mg PO HS 07/09/14 Citalopram Hydrobromide [Citalopram HBr] 60 mg PO QAM 07/09/14 Docusate Sodium [Stool Softener] 100 mg PO BID 07/09/14 Ibuprofen [Motrin] 800 mg PO TID 07/09/14 Montelukast [Singulair] 10 mg PO HS 07/09/14 Fluticasone Nasal [place] [Flonase Nasal [place]] 1 spray EA NOSTRIL BID 09/21/15 Multivitamins, Thera [Theragran] 1 tab PO DAILY 09/21/15 Gabapentin [Neurontin] 300 mg PO TID 05/10/16 Albuterol Inhaler [Ventolin Hfa Inhaler] 1 - 2 puff INHALATION RT-Q6H PRN 09/12/17 Cetirizine HCl 10 mg PO DAILY 09/12/17 Fluticasone/Salmeterol [Advair 500-50 Diskus] 1 puff INHALATION RT-BID 09/12/17 Turmeric Root Extract [Turmeric] 500 mg PO DAILY 09/12/17 metFORMIN HCL [Glucophage] 500 mg PO BID 09/12/17 Aspirin EC [Ecotrin Low Dose] 81 mg PO MOWEFR 03/02/19 Ezetimibe [Zetia] 10 mg PO DAILY 03/02/19 Glucosamine Sulfate 500 mg PO DAILY 03/02/19 Memantine [Namenda] 10 mg PO DAILY 03/02/19 Acetylcarnitine 1 tab PO DAILY 09/02/19 Cannabidiol (Cbd) Extract [Epidiolex] 1 dose PO DAILY PRN 09/02/19 Levocetirizine Dihydrochloride [Xyzal] 5 mg PO DAILY 09/02/19 Pantoprazole Sodium [Protonix] 40 mg PO DAILY 10/20/19 Controlled Substance Measures - Controlled Substance Measures Is patient prescribed a controlled substance at discharge?: No
== END | disposition home or self-care (01) ==
LOC: PNWHC3 13:03
PROVIDERS: ATTEND Anesthesiology
DX: M53.3 Sacrococcygeal disorders, not elsewhere classified (principal); E11.9 Type 2 diabetes mellitus without complications; F03.90 Unspecified dementia, unspecified severity, without behavioral disturbance, psychotic disturbance, mood disturbance, and anxiety; Z87.891 Personal history of nicotine dependence; Z79.1 Long term (current) use of non-steroidal anti-inflammatories (NSAID); Z79.84 Long term (current) use of oral hypoglycemic drugs; Z79.82 Long term (current) use of aspirin; Z79.899 Other long term (current) drug therapy
CPT/HCPCS: 99211

== ENCOUNTER → 2020-01-11 | Day surgery (SDC) | payer MEDICARE, OTHER ==
[2020-01-08 09:46] VITALS: BMI 23.6
[~2020-01-11] MED LIST changes: +BUPIVACAINE (PF) 0.5% 30 ML VIAL ONE; -LIDOCAINE 1% 20 ML VIAL (10MG/ML) FOR IV START INTRADERMA ONE; +MIDAZOLAM 2 MG/2 ML VIAL ONE; +fentaNYL (PF) 50 MCG/ML 2 ML AMP ONE; +methylPREDNISolone ACETATE 40 MG/ML 1 ML VIAL ONE
[2020-01-11 09:44] VITALS: RESP 18; TEMP 97.8
[2020-01-11 09:50] LABS: Glucose,Whole Blood 126 mg/dL (75-99)
--- NOTE | 2020-01-11 10:32 | P.PCN ---
Date of Procedure: 01/11/20 Procedure(s) Performed: Procedure= bilateral sacral iliac joints steroid injection under fluoroscopy guidance (fluoroscopy image stored on file in the radiology Department ) Preoperative diagnosis= 1-sacroiliitis 2-sacroiliac joint dysfunction Postoperative diagnosis=1-sacroiliitis 2-sacroiliac joint dysfunction Complication = none Condition= stable Anesthesia= moderate sedation with intravenous Versed 2 mg , and fentanyl 50 micrograms and local infiltration with lidocaine 1% 4 mL Indication for the procedure= patient complaining of low back pain , examination was positive for severe tenderness over the sacroiliac joints bilaterally and patient diagnosed with sacroiliitis, for this reason , she was good candidate for sacroiliac joint steroid injection. Description of the procedure= procedure risk and benefits discussed with the patient, including but not limited, risk of infection and bleeding, and ALLERGIC reaction to the medication and not complete pain relief and patient agreed with the preceding patient taken to the operating room, placed in prone position or standard monitors applied to the patient then after induction of anesthesia back prepped with chlorhexidine 3 times , Then under strict sterile technique, first I did the right sacroiliac joint the which was identified under fluoroscopy guidance been local infiltration of the skin and subcu interstitial with lidocaine 1% then 22-gauge Quincke Needle advanced slowly under fluoroscopy and placed in the right sacroiliac joint needle placement confirmed with AP and oblique and lateral view and after appropriate needle placement confirmed and after negative aspiration, or heme , then Ropivacaine 0.5% 3 mL, and 20 mg of Depo-Medrol mixed together and injected in the right sacroiliac joint after negative aspiration patient tolerated the procedure well without any complication. Then the left sacroiliac joint steroid injection done under strict sterile technique local infiltration of the skin and subcu interstitial at the location of the left sacroiliac joint then a 22-gauge Quincke Needle advanced slowly under fluoroscopy time placed in the left sacroiliac joint, needle placement confirmed with AP and oblique and lateral view then after appropriate needle placement confirmed and after negative aspiration 0.5% Marcaine 3 mL and 20 mg of Depo-Medrol injected in the left sacroiliac joint after negative aspiration patient tolerated the procedure well that any complications and she will follow up in clinic 3 weeks
--- NOTE | 2020-01-11 10:53 | FL ---
Fluoroscopy INDICATION: Pain FINDINGS: Fluoroscopy time: 7 seconds. Images obtained: 2. IMPRESSIONS: 1. Documentation of fluoroscopy.
[2020-01-11 11:01] VITALS: BP 138/70; PULSE 86
== END ==
LOC: ORPAIN 09:25
PROVIDERS: ATTEND Specialist
DX: M46.1 Sacroiliitis, not elsewhere classified (principal); M53.3 Sacrococcygeal disorders, not elsewhere classified; Z90.710 Acquired absence of both cervix and uterus; Z91.048 Other nonmedicinal substance allergy status; Z91.09 Other allergy status, other than to drugs and biological substances; Z88.0 Allergy status to penicillin; Z91.018 Allergy to other foods
CPT/HCPCS: J2250; J1030; J3010; G0260

== ENCOUNTER → 2020-02-02 | Outpatient (CLI) | payer MEDICARE, OTHER ==
--- NOTE | 2020-02-02 12:43 | P.PAINPG ---
Subjective Progress Note Date: 02/02/20 This is a follow-up visit for this 65 years old female with a chronic history of severe low back pain she is diagnosed with, sacroiliitis, bilateral sacroiliac joint dysfunction, and lumbar spondylosis, previously we have done bilateral sacroiliac joint steroid injections 2, she got excellent pain relief for a few weeks, her pain level was 8/10 dropped to 2-3/10 for several weeks, currently she is complaining of severe low back pain,more sever on the left side radiated to the buttock bilaterally, she is able to ambulate on her own she denies any motor or sensory deficit she denies any fever or night sweats which she denies any change in the bowel movement or urination, she continue to use Motrin when necessary, amitriptyline 10 mg daily at bedtime and she is getting prescription refills from her primary care Objective - Exam Physical Examinations : -Constitutiona : Cooperative , not in acute distress . -HEENT : nech : supple , no Lymphadenopathy , normal thyroid size . : eyes : no ptosis , no icterus, no photophobia . - neurologic : Cranial nerve II to XII intact , no focal neurological deffecit . -psychatric : alert , oriented X 3 , appropriate affect , intact judgment and insight . -Lymphatic : no Lymphadenopathy . - musculoskeltal : Lumber spine moter stegnth lower extremities ,thigh and legs 5/5 Right side , 5/5 Left side deep tendon reflexes : normal Knee Jerk , normal ankle Jerk lumber facet Loading Test =positive Right , positive Left Range of motion of the lumbar spine Flexion 30 degrees, extension 10 degrees strait leg raising test = negative Fabere test= negative Sever tenderness over the Sacroiliac joint on the Right , and Left sides Gaenslen test= positive right ,and positive left . Seated flexion test= positive right ,and positive Left . Assessment and Plan Plan: Assessment and plan=1-bilateral sacroiliitis. 2-bilateral sacroiliac joint dysfunction. 3-lumbar spondylosis. Patient had 70% improvement of her low back pain after bilateral sacroiliac joint steroid injection,x2 , She will be good candidate to have RFA of the L5- S1 dorsal ramus ,and RFA lateral branches S1,S2,S3 Time with Patient: Less than 30 PQRS Measure Charge Sheet Measure #130: Documentation of Current Meds in Medical Chart: Patient's medications documented in chart Measure #226: Tobacco Use: Screen & Cessation Intervention: Pt not a tobacco user Measure #111: Pneumonia Vaccination: Pneumococcal vaccine NOT administered or previously given Measure #47: Advance Care Plan: Advance care planning discussed & documented, pt chose/unable to give Measure #412: Opioid Treatment Agreement: No documentation of signed opioid treatment agreement Measure #408: Opioid Therapy Follow-up Evaluation: Patient had NO f/u eval min imum every 3 months during opioid therapy Measure #317: Preventitive Care & Scrn High Bld Press & F/U: Normal blood pressure, f/u not required Measure #128: Body Mass Index (BMI) Screening & Follow-up: BMI documented within normal parameters Measure #131: Pain Assessment & Follow-up: Pain positive & plan documented, Follow-up scheduled Measure #431: Unhealthy Alcohol Use Preventative Care & Scrn: Patient not identified as an unhealthy alcohol user PQRS Narrative: Smoking Status Former smoker Pain Intensity [Back] 4 Scale Used Numeric (1 - 10) Hx Alcohol Use (MH) No Home Medications: Ambulatory Orders Amitriptyline HCl [Elavil] 10 mg PO HS 07/09/14 Citalopram Hydrobromide [Citalopram HBr] 60 mg PO QAM 07/09/14 Docusate Sodium [Stool Softener] 100 mg PO BID 07/09/14 Ibuprofen [Motrin] 800 mg PO TID 07/09/14 Montelukast [Singulair] 10 mg PO HS 07/09/14 Fluticasone Nasal [place] [Flonase Nasal [place]] 1 spray EA NOSTRIL BID 09/21/15 Multivitamins, Thera [Theragran] 1 tab PO DAILY 09/21/15 Albuterol Inhaler [Ventolin Hfa Inhaler] 1 - 2 puff INHALATION RT-Q6H PRN 09/12/17 Fluticasone/Salmeterol [Advair 500-50 Diskus] 1 puff INHALATION RT-BID 09/12/17 Turmeric Root Extract [Turmeric] 500 mg PO DAILY 09/12/17 metFORMIN HCL [Glucophage] 500 mg PO BID 09/12/17 Aspirin EC [Ecotrin Low Dose] 81 mg PO MOWEFR 03/02/19 Ezetimibe [Zetia] 10 mg PO DAILY 03/02/19 Glucosamine Sulfate 500 mg PO DAILY 03/02/19 Memantine [Namenda] 10 mg PO DAILY 03/02/19 Acetylcarnitine 1 tab PO DAILY 09/02/19 Cannabidiol (Cbd) Extract [Epidiolex] 1 dose PO DAILY PRN 09/02/19 Levocetirizine Dihydrochloride [Xyzal] 5 mg PO DAILY 09/02/19 Pantoprazole Sodium [Protonix] 60 mg PO DAILY 10/20/19 Controlled Substance Measures - Controlled Substance Measures Is patient prescribed a controlled substance at discharge?: No
== END | disposition home or self-care (01) ==
LOC: PNWHC3 12:00
PROVIDERS: ATTEND Anesthesiology
DX: G89.29 Other chronic pain (principal); M47.816 Spondylosis without myelopathy or radiculopathy, lumbar region; M46.1 Sacroiliitis, not elsewhere classified; M53.3 Sacrococcygeal disorders, not elsewhere classified; Z87.891 Personal history of nicotine dependence; Z79.84 Long term (current) use of oral hypoglycemic drugs; Z79.82 Long term (current) use of aspirin; Z79.1 Long term (current) use of non-steroidal anti-inflammatories (NSAID); Z79.899 Other long term (current) drug therapy
CPT/HCPCS: 99211

== ENCOUNTER → 2021-02-02 | Outpatient (CLI) | payer MEDICARE, OTHER ==
--- NOTE | 2021-02-02 14:05 | CT ---
EXAMINATION TYPE: CT ChestAbdPelvis w con DATE OF EXAM: 02/02/2021 COMPARISON: CT chest 08/03/[address] abdomen and pelvis 03/02/2019 HISTORY: 65-year-old female R63.4 Abnormal weight loss TECHNIQUE: Contiguous axial scanning of the chest, abdomen, and pelvis performed with IV Contrast, pa tient injected with 80 mL of Isovue 300. Delayed images through the kidneys were obtained. Coronal/sa gittal reconstructions performed. CT DLP: 872 mGycm Automated exposure control for dose reduction was used. FINDINGS: CHEST: Heart normal size without pericardial effusion. Aorta normal caliber with conventional arch vessel branching anatomy. No thoracic lymphadenopathy by CT size criteria. Some strandy atelectasis in the lower lungs. No consolidation or pleural effusion. ABDOMEN: Moderate sized hiatal hernia. No focal liver lesion or biliary ductal dilatation. Portal venous system is patent. Gallbladder, adrenal glands, left kidney, spleen, and pancreas appear within normal limits. Redemonstrated slightly malrotated right kidney. There are scattered prominent small bowel loops throughout. Loops in the pelvis have not yet opacifie d and show prominent fluid. There may be some scattered wall thickening throughout the jejunal loops in the left side of the abdomen. No abnormal dilatation is identified. There is some mild twisting of the mesentery in the right lower quadrant and secondary short segment narrowing of the distal ileum, refer to axial image 69 and further, images 66 through 70. The cecum i s located in the right upper quadrant and there is a large overall stool burden. There appears to be surgical material at the distal sigmoid related to previous resection and re-anas tomosis. PELVIS: Bladder partially distended. Multiple pelvic phleboliths. Uterus is anteverted. Both ovaries are visu alized. No abnormal fluid collection in the pelvis. A few borderline size left external iliac chain lymph nodes measuring up to 7 mm are unchanged. BONES: Moderate degenerative changes left SI joint. Mild degenerative changes both hips. Previous L4-S1 post erior fusion with a fixed grade 1 anterolisthesis at L4-L5. Mild superior end plate deformity of T11 unchanged from 03/02/2019. Moderately advanced degenerative disc disease lower thoracic spine. No osseo us destructive process seen. IMPRESSION: 1. THE CECUM IS NOW LOCATED IN THE RIGHT UPPER QUADRANT. SMALL BOWEL LOOPS SHOW PROMINENT FLUID THROU GHOUT. THERE IS THE APPEARANCE OF SLIGHT TWISTING OF THE MESENTERY IN THE RIGHT LOWER QUADRANT. [place] AN INTERMITTENT SUBTLE MESENTERIC VOLVULUS AND RESULTING PARTIAL SMALL BOWEL OBSTRUCTION. 2. ALTERNATIVELY, GIVEN THE APPEARANCE OF SOME FOLD THICKENING OF LEFT-SIDED JEJUNAL LOOPS AND PROMIN ENT SMALL BOWEL FLUID, CORRELATE TO EXCLUDE ENTERITIS INCLUDING ETIOLOGIES SUCH CELIAC DISEASE. 3. LARGE STOOL BURDEN SUGGESTING CONSTIPATION. CONSIDER A CLEANSING ENEMA. PREVIOUS RESECTION AND CYNTHIA NASTOMOSIS AT THE DISTAL SIGMOID COLON. 4. REDEMONSTRATED MODERATE-SIZED HIATAL HERNIA.
== END ==
LOC: RADCTMAIN 10:56
PROVIDERS: ATTEND Internal Medicine Gastroenterology
DX: K44.9 Diaphragmatic hernia without obstruction or gangrene (principal); R63.4 Abnormal weight loss
CPT/HCPCS: 82565; 84520; 71260; 74177; 36415; Q9967 ×2

== ENCOUNTER 2021-04-27 00:05 | Emergency (ER) | payer MEDICARE, OTHER ==
[2021-04-27] MEDS ORDERED: LIDOCAINE VISCOUS 2% 15 ML CUP MUCOUS MEM STA (00:40)
--- NOTE | 2021-04-27 00:44 | ED ---
ENT HPI - General Chief complaint: ENT Stated complaint: Sore Throat Time Seen by Provider: 04/27/21 00:07 Source: patient, EMS Mode of arrival: EMS Limitations: no limitations - History of Present Illness MD complaint: sore throat, difficulty swallowing Onset/Timin -: hour(s) Location: throat Severity: moderate Quality: burning, aching Consistency: constant Improves with: none Worsens with: swallowing, eating Associated Symptoms: sore throat - Related Data Home Medications Medication Instructions Recorded Confirmed Amitriptyline HCl [Elavil] 10 mg PO HS 07/09/14 02/02/20 Citalopram Hydrobromide 60 mg PO QAM 07/09/14 02/02/20 [Citalopram HBr] Docusate Sodium [Stool Softener] 100 mg PO BID 07/09/14 02/02/20 Ibuprofen [Motrin] 800 mg PO TID 07/09/14 02/02/20 Montelukast [Singulair] 10 mg PO HS 07/09/14 02/02/20 Fluticasone Nasal Nelson [Flonase 1 spray EA NOSTRIL BID 09/21/15 02/02/20 Nasal Nelson] Multivitamins, Thera [Theragran] 1 tab PO DAILY 09/21/15 02/02/20 Albuterol Inhaler (Mhu) [Ventolin 1 - 2 puff INHALATION RT-Q6H PRN 09/12/17 02/02/20 Hfa Inhaler] Fluticasone/Salmeterol [Advair 1 puff INHALATION RT-BID 09/12/17 02/02/20 500-50 Diskus] Turmeric Root Extract [Turmeric] 500 mg PO DAILY 09/12/17 02/02/20 metFORMIN HCL [Glucophage] 500 mg PO BID 09/12/17 02/02/20 Aspirin EC [Ecotrin Low Dose] 81 mg PO MOWEFR 03/02/19 02/02/20 Ezetimibe [Zetia] 10 mg PO DAILY 03/02/19 02/02/20 Glucosamine Sulfate 500 mg PO DAILY 03/02/19 02/02/20 Memantine [Namenda] 10 mg PO DAILY 03/02/19 02/02/20 Acetylcarnitine 1 tab PO DAILY 09/02/19 02/02/20 Cannabidiol (Cbd) [Epidiolex] 1 dose PO DAILY PRN 09/02/19 02/02/20 Levocetirizine Dihydrochloride 5 mg PO DAILY 09/02/19 02/02/20 [Xyzal] Pantoprazole Sodium [Protonix] 60 mg PO DAILY 10/20/19 02/02/20 Previous Rx's Medication Instructions Recorded Cephalexin [Keflex] 500 mg PO Q6HR #28 cap 04/27/21 Allergies Allergy/AdvReac Type Severity Reaction Status Date / Time adhesive tape Allergy tears skin Verified 02/02/20 12:12 "paper tape is ok" chocolate flavor Allergy Itching Verified 02/02/20 12:12 grass pollen Allergy Itching Verified 02/02/20 12:12 mold Allergy Itching Verified 02/02/20 12:12 nickel Allergy Itchy Red Verified 02/02/20 12:12 Skin & Area gets infected tomato Allergy Itching Verified 02/02/20 12:12 Penicillins AdvReac Severe Severe Verified 02/02/20 12:12 Headache, Nausea & Vomiting Review of Systems ROS Statement: Those systems with pertinent positive or pertinent negative responses have been documented in the HPI. ROS Other: All systems not noted in ROS Statement are negative. Constitutional: Denies: fever, chills ENT: Reports: throat pain. 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 with Dandy-Walker Syndrome. History of Any Multi-Drug Resistant Organisms: None Reported Past Surgical History: Back Surgery, Section, Hysterectomy, Joint Replacement, Orthopedic Surgery, Tubal Ligation Additional Past Surgical History / Comment(s): epidurals for pain, TOTAL L knee replacement, had a allergic reaction to the hardware and had it removed.-BACK SURGERY(LUMBAR FUSION) 2011,EGD/COLONOSCOPY. pain clinic procedure Past Anesthesia/Blood Transfusion Reactions: Postoperative Nausea & Vomiting (PONV) Past Psychological History: Anxiety, Depression Smoking Status: Never smoker Past Alcohol Use History: Rare Past Drug Use History: None Reported - Past Family History Mother Family Medical History: Dementia Father Family Medical History: Coronary Artery Disease (CAD), Deep Vein Thrombosis (DVT) Additional Family Medical History / Comment(s): CABG X 2 General Exam Limitations: no limitations General appearance: alert, in no apparent distress Head exam: Present: atraumatic, normocephalic Eye exam: Present: normal appearance. Absent: scleral icterus, conjunctival injection Respiratory exam: Present: normal lung sounds bilaterally. Absent: respiratory distress, wheezes, rales, rhonchi, stridor Cardiovascular Exam: Present: regular rate, normal rhythm, normal heart sounds. Absent: systolic murmur, diastolic murmur, rubs, gallop GI/Abdominal exam: Present: soft. Absent: tenderness Neurological exam: Present: alert Skin exam: Present: warm, dry, intact, normal color. Absent: rash Course Vital Signs 04/27/21 00:07 Temperature 98.4 F Pulse Rate 87 Respiratory 16 Rate Blood Pressure 143/84 O2 Sat by Pulse 97 Oximetry Medical Decision Making - Lab Data Result diagrams: 04/27/21 02:25 04/27/21 02:25 Lab Results 04/27/21 04/27/21 04/27/21 Range/Units 00:53 02:25 02:25 WBC 13.1 H (3.8-10.6) k/uL RBC 4.25 (3.80-5.40) m/uL Hgb 12.9 (11.4-16.0) gm/dL Hct 40.3 (34.0-46.0) % MCV 94.8 (80.0-100.0) fL MCH 30.4 (25.0-35.0) pg MCHC 32.1 (31.0-37.0) g/dL RDW 13.4 (11.5-15.5) % Plt Count 237 (150-450) k/uL MPV 6.7 Neutrophils % 87 % Lymphocytes % 7 % Monocytes % 3 % Eosinophils % 2 % Basophils % 0 % Neutrophils # 11.4 H (1.3-7.7) k/uL Lymphocytes # 0.9 L (1.0-4.8) k/uL Monocytes # 0.4 (0-1.0) k/uL Eosinophils # 0.3 (0-0.7) k/uL Basophils # 0.0 (0-0.2) k/uL Sodium 135 L (137-145) mmol/L Potassium 3.7 (3.5-5.1) mmol/L Chloride 103 (98-107) mmol/L Carbon Dioxide 27 (22-30) mmol/L Anion Gap 5 mmol/L BUN 20 H (7-17) mg/dL Creatinine 0.98 (0.52-1.04) mg/dL Est GFR (CKD-EPI)AfAm 71 (>60 ml/min/1.73 sqM) Est GFR (CKD-EPI)NonAf 61 (>60 ml/min/1.73 sqM) Glucose 143 H (74-99) mg/dL Calcium 9.2 (8.4-10.2) mg/dL Group A Strep Rapid Negative (Negative) Disposition Clinical Impression: Pharyngitis Disposition: HOME SELF-CARE Condition: Good Instructions (If sedation given, give patient instructions): Pharyngitis (ED) Prescriptions: Cephalexin [Keflex] 500 mg PO Q6HR #28 cap Is patient prescribed a controlled substance at d/c from ED?: No Referrals: Jv Olivarez MD [Primary Care Provider] - 1-2 days
[2021-04-27 01:16] VITALS: TEMP 98.4
--- NOTE | 2021-04-27 01:50 | XR ---
EXAM: XR Soft Tissue Neck CLINICAL HISTORY: ITS.REASON XR Reason: dysphagia TECHNIQUE: Frontal and lateral views of the soft tissues of the neck. COMPARISON: No relevant prior studies available. FINDINGS: Airway: The hypopharynx is distended with air. Abnormal soft tissue in the lower aspect of the hypopharynx is below the level of hyoid. No air is seen in the upper cervical esophagus. The epiglottis is not well defined but does not appear enlarged. Bones/joints: Advanced degenerative changes in the cervical spine with reversal of the normal cervical lordosis. No acute bone changes. Soft tissues: Unremarkable. No abnormal soft tissue prominence. Normal epiglottis. IMPRESSION: Appearance of abnormally prominent soft tissue in the inferior aspect of the hypopharynx. Direct visualization and/or CT recommended.
[2021-04-27 02:43] LABS: Basophils % (A) 0 %; Eosinophils # (A) 0.3 k/uL (0-0.7); Eosinophils % (A) 2 %; HCT 40.3 % (34.0-46.0); HGB 12.9 gm/dL (11.4-16.0); Lymphocytes # (A) 0.9 k/uL (1.0-4.8); Lymphocytes % (A) 7 %; MCH 30.4 pg (25.0-35.0); MCHC 32.1 g/dL (31.0-37.0); MCV 94.8 fL (80.0-100.0); Mean Platelet Volume 6.7; Monocytes # (A) 0.4 k/uL (0-1.0); Monocytes % (A) 3 %; Neutrophils # (A) 11.4 k/uL (1.3-7.7); Neutrophils % (A) 87 %; Platelet Count 237 k/uL (150-450); RBC 4.25 m/uL (3.80-5.40); RDW 13.4 % (11.5-15.5); WBC 13.1 k/uL (3.8-10.6)
[2021-04-27] MEDS ORDERED: MORPHINE SULFATE 4 MG/ML SYRINGE IV STA (02:43)
[2021-04-27 02:59] LABS: Calcium 9.2 mg/dL (8.4-10.2); Potassium 3.7 mmol/L (3.5-5.1)
--- NOTE | 2021-04-27 04:12 | CT ---
EXAM: CT Neck With Intravenous Contrast CLINICAL HISTORY: ITS.REASON CT Reason: infection TECHNIQUE: Axial computed tomography images of the neck with intravenous contrast. CTDI is 7.4 mGy and DLP is 231.5 mGy-cm. This CT exam was performed using one or more of the following dose reduction techniques: automated exposure control, adjustment of the mA and/or kV according to patient size, and/or use of iterative reconstruction technique. COMPARISON: No relevant prior studies available. 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 Oropharynx: No significant tonsillar enlargement. No peritonsillar abscess. Hypopharynx: Swollen and thickened hypopharynx Larynx: Normal epiglottis. Trachea: Unremarkable. Retropharyngeal space: Unremarkable. Submandibular/parotid glands: Glands are normal in size. Thyroid: No nodules. Bones/joints: No acute fracture. Soft tissues: Unremarkable. Vasculature: Unremarkable. Lymph nodes: No lymphadenopathy. Sinuses: Unremarkable. No acute sinusitis. Mastoid air cells: Unremarkable. No mastoid effusion. Lung apices: Unremarkable. IMPRESSION: Thickened and swollen hypopharynx consistent with pharyngitis. This results in moderate airway narrowing at this level. 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 This is chronic.
[2021-04-27] MEDS ORDERED: CEPHALEXIN 500MG STARTER PACK 4 CAP BTL PO STA (04:23)
[2021-04-27 04:52] VITALS: BP 116/74; PULSE 94; RESP 18
== END 2021-04-27 04:51 | disposition home or self-care (01) ==
LOC: EC 00:05
DX: J02.9 Acute pharyngitis, unspecified (principal); E78.5 Hyperlipidemia, unspecified; F03.90 Unspecified dementia, unspecified severity, without behavioral disturbance, psychotic disturbance, mood disturbance, and anxiety; F32.9 Major depressive disorder, single episode, unspecified; J45.909 Unspecified asthma, uncomplicated; K21.9 Gastro-esophageal reflux disease without esophagitis; M19.90 Unspecified osteoarthritis, unspecified site; Z79.1 Long term (current) use of non-steroidal anti-inflammatories (NSAID); Z79.51 Long term (current) use of inhaled steroids; Z79.82 Long term (current) use of aspirin; Z79.84 Long term (current) use of oral hypoglycemic drugs; Z79.899 Other long term (current) drug therapy; Z82.49 Family history of ischemic heart disease and other diseases of the circulatory system; Z88.0 Allergy status to penicillin; Z88.8 Allergy status to other drugs, medicaments and biological substances
CPT/HCPCS: 36415; 80048; 85025; 87081; 87430; 70360; 70491; 99284; 96374; J2270; Q9967

== ENCOUNTER → 2021-08-02 | Outpatient (CLI) | payer MEDICARE, OTHER ==
[2021-08-04 22:55] LABS: Chocolate IgG 2.7 mcg/mL (<2.0); Cow's Milk IgG 82.2 mcg/mL (<2.0); Peanut IgG 5.7 mcg/mL (<2.0); Pork IgG 8.4 mcg/mL (<2.0); Soybean IgG 3.2 mcg/mL (<2.0); Tomato IgG 2.6 mcg/mL (<2.0)
[2021-08-04 22:56] LABS: Chicken Meat IgG <2.0 mcg/mL (<2.0); Corn IgG 8.2 mcg/mL (<2.0); Potato IgG <2.0 mcg/mL (<2.0); Wheat IgG 5.4 mcg/mL (<2.0)
== END | disposition home or self-care (01) ==
LOC: LABWHC1 12:03
PROVIDERS: ATTEND Otolaryngology
DX: J30.89 Other allergic rhinitis (principal)
CPT/HCPCS: 36415; 86001

== ENCOUNTER → 2021-10-05 | Outpatient (CLI) | payer MEDICARE, OTHER ==
--- NOTE | 2021-10-05 08:35 | CT ---
EXAMINATION TYPE: CT knee LT wo con DATE OF EXAM: 10/05/2021 COMPARISON: Outside left knee x-ray September 26, 2021 HISTORY: Left TKA instability, pain after surgery CT DLP: 444 mGycm Automated exposure control for dose reduction was used. FINDINGS: Longstem metallic prosthesis in the distal femur and proximal tibia are redemonstrated. Streak artif act particularly at the distal femoral articulation makes evaluation suboptimal. Prosthetic Position felt satisfactory. There is posterior positioning of the tibial prosthesis relative to the distal fem oral prosthesis and sagittal images corresponding with lateral x-ray. Subtle lucency at the graft mat erial bone interface posteriorly proximal tibial level correlates with the x-ray from reference sagit dany image 22, this lucency measures up to 2.8 mm in thickness on axial image 74. No cortical breakthr ough noted. Subtle lucency anterior aspect of the distal femoral diaphysis is noted seen better on pl ain film. There is a curvilinear bony projection anteriorly seen best sagittal image 22 corresponding to plain film just above the lucency. This could reflect product of postsurgical change. Muscle bulk fairly well maintained. No concerning focal fluid collection is seen. IMPRESSION: Findings as detailed above. Instability is present. Subtle lucent areas should be correla symone with more immediate postoperative films to assess for possible loosening.
== END | disposition home or self-care (01) ==
LOC: RADCTMAIN 07:44
PROVIDERS: ATTEND Orthopaedic Surgery
DX: M25.362 Other instability, left knee (principal); Z96.652 Presence of left artificial knee joint

== ENCOUNTER 2022-06-01 12:03 | Inpatient (IN) | payer MEDICARE, OTHER ==
[2022-06-01] MEDS ORDERED: SODIUM CHLORIDE 0.9% 1,000 ML IV STA (12:26)
[2022-06-01] MEDS ORDERED: MORPHINE SULFATE 4 MG/ML SYRINGE IV STA (12:26)
--- NOTE | 2022-06-01 12:39 | ED ---
General Adult HPI - General Chief complaint: Abdominal Pain Stated complaint: Nausea,Abd pain Time Seen by Provider: 06/01/22 12:05 Source: patient, EMS Mode of arrival: EMS Limitations: no limitations - History of Present Illness Initial comments: Dictation was produced using [employer] dictation software. please excuse any grammatical, word or spelling errors. Chief Complaint: 67-year-old female presents to the emergency department for abdominal pain History of Present Illness: An is a 67-year-old female she has multiple comorbidities she states that she is here today for evaluation of abdominal pain. Patient specifies that her abdominal pain has been ongoing for the last couple days. She states that it's epigastric but radiates to the bilateral flanks. Patient has nausea and bilious vomiting. She still passing gas. Faraz es diarrhea or constitutional symptoms. Patient does have history of bowel obstruction. She does have history of abdominal surgery. Patient states that it is painful constant and severe. She feels as though her abdomen is distended. Patient denies any history of widened aorta The ROS documented in this emergency department record has been reviewed and confirmed by me. Those systems with pertinent positive or negative responses have been documented in the HPI. All other systems are other negative and/or noncontributory. PHYSICAL EXAM: General Impression: Alert and oriented x3, acute distress secondary to pain HEENT: Normocephalic atraumatic, extra-ocular movements intact, pupils equal and reactive to light bilaterally, mucous membranes moist. Cardiovascular: Heart regular rate and rhythm Chest: Able to complete full sentences, no retractions, no tachypnea Abdomen: abdomen soft, diffuse palpatory tenderness to the bilateral upper quadrants, mildly tympany to percussion Musculoskeletal: Pulses present and equal in all extremities, no peripheral edema Motor: no focal deficits noted Neurological: CN II-XII grossly intact, no focal motor or sensory deficits noted Skin: Intact with no visualized rashes Psych: Normal affect and mood ED course: 67-year-old female presents emergency department for acute abdominal pain. Vital signs upon arrival are within acceptable limits. Laboratory evaluation shows leukocytosis of 14.9, coag panels within acceptable limits. Metabolic panel is unremarkable. Abdominal labs are negative. Computed tomography scan of the abdomen pelvis shows mild acute diverticulitis, hydropic gallbladder. Patient reevaluated at the bedside at 3:30 PM. She is still having some mild pain however slightly improved. Disposition options were discussed. Patient is worried about being discharged home if her pain starts to become severe again. Patient be admitted to [facility] hospitalist group. Case discussed with Dr. Staton who is willing to be on consult. started on antibiotics. EKG interpretation: Ventricular rate 91, sinus rhythm, IL interval 135, QRS 108, QTC 452. No IL prolongation, no QTC prolongation, no ST or T-wave changes noted. EKG compared to August 03 2019 showing no changes. Overall, this EKG is unremarkable - Related Data Home Medications Medication Instructions Recorded Confirmed Amitriptyline HCl [Elavil] 10 mg PO HS 07/09/14 02/02/20 Citalopram Hydrobromide 60 mg PO QAM 07/09/14 02/02/20 [Citalopram HBr] Docusate Sodium [Stool Softener] 100 mg PO BID 07/09/14 02/02/20 Ibuprofen [Motrin] 800 mg PO TID 07/09/14 02/02/20 Montelukast [Singulair] 10 mg PO HS 07/09/14 02/02/20 Fluticasone Nasal Golden [Flonase 1 spray EA NOSTRIL BID 09/21/15 02/02/20 Nasal Golden] Multivitamins, Thera [Theragran] 1 tab PO DAILY 09/21/15 02/02/20 Albuterol Inhaler [Ventolin Hfa 1 - 2 puff INHALATION RT-Q6H PRN 09/12/17 02/02/20 Inhaler] Fluticasone Propion/Salmeterol 1 puff INHALATION RT-BID 09/12/17 02/02/20 [Advair 500-50 Diskus] Turmeric Root Extract [Turmeric] 500 mg PO DAILY 09/12/17 02/02/20 metFORMIN HCL [Glucophage] 500 mg PO BID 09/12/17 02/02/20 Aspirin EC [Ecotrin Low Dose] 81 mg PO MOWEFR 03/02/19 02/02/20 Ezetimibe [Zetia] 10 mg PO DAILY 03/02/19 02/02/20 Glucosamine Sulfate 500 mg PO DAILY 03/02/19 02/02/20 Memantine [Namenda] 10 mg PO DAILY 03/02/19 02/02/20 Acetylcarnitine 1 tab PO DAILY 09/02/19 02/02/20 Cannabidiol (Cbd) [Epidiolex] 1 dose PO DAILY PRN 09/02/19 02/02/20 Levocetirizine Dihydrochloride 5 mg PO DAILY 09/02/19 02/02/20 [Xyzal] Pantoprazole Sodium [Protonix] 60 mg PO DAILY 10/20/19 02/02/20 Previous Rx's Medication Instructions Recorded Cephalexin [Keflex] 500 mg PO Q6HR #28 cap 04/27/21 Allergies Allergy/AdvReac Type Severity Reaction Status Date / Time adhesive tape Allergy tears skin Verified 02/02/20 12:12 "paper tape is ok" chocolate flavor Allergy Itching Verified 02/02/20 12:12 grass pollen Allergy Itching Verified 02/02/20 12:12 mold Allergy Itching Verified 02/02/20 12:12 nickel Allergy Itchy Red Verified 02/02/20 12:12 Skin & Area gets infected tomato Allergy Itching Verified 02/02/20 12:12 Penicillins AdvReac Severe Severe Verified 02/02/20 12:12 Headache, Nausea & Vomiting Review of Systems ROS Statement: Those systems with pertinent positive or pertinent negative responses have been documented in the HPI. ROS Other: All systems not noted in ROS Statement are negative. 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 with Dandy-Walker Syndrome. History of Any Multi-Drug Resistant Organisms: None Reported Past Surgical History: Back Surgery, Section, Hysterectomy, Joint Replacement, Orthopedic Surgery, Tubal Ligation Additional Past Surgical History / Comment(s): epidurals for pain, TOTAL L knee replacement, had a allergic reaction to the hardware and had it removed.-BACK SURGERY(LUMBAR FUSION) 2011,EGD/COLONOSCOPY. pain clinic procedure Past Anesthesia/Blood Transfusion Reactions: Postoperative Nausea & Vomiting (PONV) Past Psychological History: Anxiety, Depression Smoking Status: Never smoker Past Alcohol Use History: Rare Past Drug Use History: None Reported - Past Family History Mother Family Medical History: Dementia Father Family Medical History: Coronary Artery Disease (CAD), Deep Vein Thrombosis (DVT) Additional Family Medical History / Comment(s): CABG X 2 General Exam Limitations: no limitations Course Vital Signs 06/01/22 06/01/22 12:07 14:39 Temperature 98.3 F Pulse Rate 86 92 Respiratory 18 18 Rate Blood Pressure 165/101 147/95 O2 Sat by Pulse 100 95 Oximetry Medical Decision Making - Lab Data Result diagrams: 06/01/22 12:30 06/01/22 12:30 Lab Results 06/01/22 06/01/22 06/01/22 Range/Units 12:30 12:30 12:30 WBC 14.9 H (3.8-10.6) k/uL RBC 4.58 (3.80-5.40) m/uL Hgb 14.3 (11.4-16.0) gm/dL Hct 42.4 (34.0-46.0) % MCV 92.6 (80.0-100.0) fL MCH 31.1 (25.0-35.0) pg MCHC 33.6 (31.0-37.0) g/dL RDW 13.4 (11.5-15.5) % Plt Count 280 (150-450) k/uL MPV 7.7 Neutrophils % 85 % Lymphocytes % 8 % Monocytes % 4 % Eosinophils % 2 % Basophils % 1 % Neutrophils # 12.7 H (1.3-7.7) k/uL Lymphocytes # 1.1 (1.0-4.8) k/uL Monocytes # 0.6 (0-1.0) k/uL Eosinophils # 0.2 (0-0.7) k/uL Basophils # 0.1 (0-0.2) k/uL PT 11.1 (9.0-12.0) sec INR 1.0 (<1.2) APTT 21.4 L (22.0-30.0) sec Sodium 136 L (137-145) mmol/L Potassium 3.8 (3.5-5.1) mmol/L Chloride 101 (98-107) mmol/L Carbon Dioxide 23 (22-30) mmol/L Anion Gap 12 mmol/L BUN 14 (7-17) mg/dL Creatinine 0.84 (0.52-1.04) mg/dL Est GFR (CKD-EPI)AfAm 84 (>60 ml/min/1.73 sqM) Est GFR (CKD-EPI)NonAf 73 (>60 ml/min/1.73 sqM) Glucose 200 H (74-99) mg/dL Plasma Lactic Acid Robert (0.7-2.0) mmol/L Calcium 9.7 (8.4-10.2) mg/dL Magnesium 1.3 L (1.6-2.3) mg/dL Total Bilirubin 0.7 (0.2-1.3) mg/dL AST 24 (14-36) U/L ALT 17 (4-34) U/L Alkaline Phosphatase 79 (38-126) U/L Troponin I (0.000-0.034) ng/mL Total Protein 7.1 (6.3-8.2) g/dL Albumin 4.6 (3.5-5.0) g/dL Lipase 75 (23-300) U/L 06/01/22 06/01/22 Range/Units 12:30 12:30 WBC (3.8-10.6) k/uL RBC (3.80-5.40) m/uL Hgb (11.4-16.0) gm/dL Hct (34.0-46.0) % MCV (80.0-100.0) fL MCH (25.0-35.0) pg MCHC (31.0-37.0) g/dL RDW (11.5-15.5) % Plt Count (150-450) k/uL MPV Neutrophils % % Lymphocytes % % Monocytes % % Eosinophils % % Basophils % % Neutrophils # (1.3-7.7) k/uL Lymphocytes # (1.0-4.8) k/uL Monocytes # (0-1.0) k/uL Eosinophils # (0-0.7) k/uL Basophils # (0-0.2) k/uL PT (9.0-12.0) sec INR (<1.2) APTT (22.0-30.0) sec Sodium (137-145) mmol/L Potassium (3.5-5.1) mmol/L Chloride (98-107) mmol/L Carbon Dioxide (22-30) mmol/L Anion Gap mmol/L BUN (7-17) mg/dL Creatinine (0.52-1.04) mg/dL Est GFR (CKD-EPI)AfAm (>60 ml/min/1.73 sqM) Est GFR (CKD-EPI)NonAf (>60 ml/min/1.73 sqM) Glucose (74-99) mg/dL Plasma Lactic Acid Robert 1.8 (0.7-2.0) mmol/L Calcium (8.4-10.2) mg/dL Magnesium (1.6-2.3) mg/dL Total Bilirubin (0.2-1.3) mg/dL AST (14-36) U/L ALT (4-34) U/L Alkaline Phosphatase (38-126) U/L Troponin I <0.012 (0.000-0.034) ng/mL Total Protein (6.3-8.2) g/dL Albumin (3.5-5.0) g/dL Lipase (23-300) U/L Disposition Clinical Impression: Diverticulitis Disposition: ADMITTED IP TO THIS [facility] Condition: Fair Referrals: Jv Olivarez MD [Primary Care Provider] - 1-2 days Decision Time: 15:29
[2022-06-01 12:59] LABS: Basophils # (A) 0.1 k/uL (0-0.2); Basophils % (A) 1 %; Eosinophils # (A) 0.2 k/uL (0-0.7); Eosinophils % (A) 2 %; HCT 42.4 % (34.0-46.0); HGB 14.3 gm/dL (11.4-16.0); Lymphocytes # (A) 1.1 k/uL (1.0-4.8); Lymphocytes % (A) 8 %; MCH 31.1 pg (25.0-35.0); MCHC 33.6 g/dL (31.0-37.0); MCV 92.6 fL (80.0-100.0); Mean Platelet Volume 7.7; Monocytes # (A) 0.6 k/uL (0-1.0); Monocytes % (A) 4 %; Neutrophils # (A) 12.7 k/uL (1.3-7.7); Neutrophils % (A) 85 %; Platelet Count 280 k/uL (150-450); RBC 4.58 m/uL (3.80-5.40); RDW 13.4 % (11.5-15.5); WBC 14.9 k/uL (3.8-10.6)
[2022-06-01 13:09] LABS: Albumin 4.6 g/dL (3.5-5.0); Calcium 9.7 mg/dL (8.4-10.2); Magnesium 1.3 mg/dL (1.6-2.3); Potassium 3.8 mmol/L (3.5-5.1); Total Bilirubin 0.7 mg/dL (0.2-1.3); Total Protein 7.1 g/dL (6.3-8.2)
[2022-06-01 13:19] LABS: Partial Thromboplastin Time 21.4 sec (22.0-30.0); Prothrombin Time 11.1 sec (9.0-12.0)
[2022-06-01] MEDS: MAGNESIUM SULFATE-D5W PMX 1 GM in DEXTROSE/WATER 1 100ML.BAG IVPB SCH ×2 (14:39→18:20)
--- NOTE | 2022-06-01 15:01 | CT ---
EXAMINATION TYPE: CT abdomen pelvis w con DATE OF EXAM: 06/01/2022 COMPARISON: 02/02/2021 HISTORY: 67-year-old female severe abdominal pain TECHNIQUE: Contiguous axial scanning of the abdomen and pelvis following administration of 100 ml Iso [place] 300 IV contrast. Delayed images through the kidneys and coronal/sagittal reconstructions perform ed. CT DLP: 595.8 mGycm Automated exposure control for dose reduction was used. FINDINGS: Heart upper limits of normal in size without pericardial effusion. Lung bases clear without pleural e ffusion. There is a moderate-sized hilar hernia involving approximately half of the stomach in the lower chest . No focal liver lesion or biliary ductal dilatation. Portal venous system is patent. Gallbladder hydropic measuring 5.5 mm wide. No surrounding inflammatory change. Adrenal glands and spleen within normal limits. Some excreted contrast is noted from the bilateral kidneys. The right kidney is slightly malrotated. There is a 1.3 cm nodule along the anterior pancreatic body, superiorly, axial image 17 not well seen previously. When correlating with the other planes, this appears to represent partial volume averagi ng artifact between the fractured fat and a pancreatic lobule. Mild to moderate atherosclerotic calcifications abdominal aorta. Moderate atelectatic change common i liac arteries. No dilated small bowel, free fluid, or free air. However, there appears to be a large, 4.7 cm round d iverticulum extending off the left abdominal jejunal lobe, axial image 31 and coronal image 20. There is subtle surrounding inflammatory fat stranding here. There is moderate to large stool burden. Redundant ascending colon. Staple line related to prior rese ction and re-anastomosis of the distal sigmoid. Bladder is nondistended. Uterus anteverted. Unable to exclude some endometrial thickening up to 9 mm, sagittal image 67. Nonemergent follow-up pelvic ultrasound can be performed in the absence of any po stmenopausal bleeding. Numerous pelvic phlebolith. Prominent distention of the rectum with stool up t o 5.9 cm wide. No abnormal fluid collection in the pelvis or pelvic lymphadenopathy. Bones: Status post L4-S1 posterior and interbody fusion with laminectomies at L5. Grade 1, nearly gra de 2 retrolisthesis L2-L3 with severe degenerative disc disease. Chronic superior endplate deformity of T11. Baastrup's disease. 6 grade 2 anterolisthesis L4-L5. IMPRESSION: 1. THERE APPEARS TO BE A LARGE 4.7 CM DIVERTICULUM FILLED WITH STOOL COMING OFF A JEJUNAL LOOP IN THE ANTERIOR LEFT PARAMEDIAN MID ABDOMEN (AXIAL IMAGE 31 AND CORONAL IMAGE 20). THERE IS SUBTLE SURROUND ING INFLAMMATORY FAT STRANDING HERE SUGGESTING MILD ACUTE DIVERTICULITIS OF THIS SMALL BOWEL DIVERTIC ULUM. NO ABSCESS OR FREE AIR. 2. MODERATE TO LARGE STOOL BURDEN. CORRELATE FOR CONSTIPATION. 3. HYDROPIC GALLBLADDER BUT WITHOUT ANY SURROUNDING INFLAMMATORY CHANGE. IF RIGHT UPPER QUADRANT PAIN DEVELOPS OR THERE IS CONCERN FOR EARLY ACUTE CHOLECYSTITIS, HIDA SCAN CAN BE PERFORMED. 4. REDEMONSTRATED MODERATE-SIZED HIATAL HERNIA WITH HALF THE STOMACH IN THE LOWER CHEST.
[2022-06-01] MEDS ORDERED: CEFEPIME 2 GM in SODIUM CHLORIDE 0.9% 100 ML IVPB STA (15:17)
[2022-06-01] MEDS ORDERED: NALOXONE 0.4 MG/ML 1 ML VIAL IV PRN (15:26)
--- NOTE | 2022-06-01 17:14 | XR ---
EXAMINATION TYPE: XR chest 1V portable DATE OF EXAM: 06/01/2022 4:57 PM COMPARISON: Multiple radiographs, with the most recent on 08/03/2019 TECHNIQUE: XR chest 1V portable Frontal view of the chest. CLINICAL INDICATION:Female, 67 years old with history of chf; FINDINGS: Lungs/Pleura: There is no evidence of pleural effusion, focal consolidation, or pneumothorax. Pulmonary vascularity: Unremarkable. Heart/mediastinum: Cardiomediastinal silhouette is prominent in size. Musculoskeletal: No acute osseous pathology. IMPRESSION: No acute cardiopulmonary disease/process.
[2022-06-01] MEDS: MORPHINE SULFATE 4 MG/ML SYRINGE IV PRN ×2 (17:18→21:40)
[2022-06-01] MEDS: ACETAMINOPHEN TAB 325 MG TAB PO PRN (18:19)
[2022-06-01] MEDS: SODIUM CHLORIDE 0.9% 1,000 ML IV SCH (18:22)
--- NOTE | 2022-06-01 19:44 | HP ---
HISTORY AND PHYSICAL CHIEF COMPLAINT: Abdominal pain. HISTORY OF PRESENT ILLNESS: This 67-year-old woman with a past medical history of multiple medical problems, including asthma, dementia and GERD had severe abdominal pain. Abdominal pain was diffuse in character, mostly situated in the lower part of the abdomen, with some tenderness. The patient was found to have features of acute diverticulitis in the CT scan of the abdomen and pelvis, which was reviewed personally by me. CT scan of the abdomen and pelvis also showed a 4.7 cm diverticulum filled with stool, coming off a jejunal loop in the anterior left abdomen. Mild diverticulosis is also suspected. There is no history of fever, rigor or chills at this time. PAST MEDICAL HISTORY: History includes asthma, dementia, GERD. MEDICATIONS: Home medications are reviewed and include metformin. Doses and the rest of the medications are noted. ALLERGIES: ALLERGIES INCLUDE ADHESIVES. FAMILY HISTORY: History of dementia, CABG. SOCIAL HISTORY: No history of smoking. REVIEW OF SYSTEMS: Fourteen-point review of systems negative except as mentioned earlier. PHYSICAL EXAMINATION: Pulse is 92, blood pressure 147/94, respiration 18. HEENT: Conjunctivae normal. NECK: No jugular venous distention. CARDIOVASCULAR: S1, S2 muffled. RESPIRATION: Breath sounds diminished at the bases. No rhonchi. No crackles. ABDOMEN: Soft. Diffuse distention present. Mild diffuse tenderness also present. No guarding. No rigidity. Bowel sounds diminished. LEGS: No edema. No swelling. NERVOUS SYSTEM: Higher functions as mentioned earlier. Moves all 4 limbs. No focal motor or sensory deficit. LYMPHATICS: No lymph node palpable in neck, axillae or groin. SKIN: No ulcer, rash, bleeding. JOINTS: No active deforming arthropathy. LABS: WBC 14.9. ASSESSMENT: 1. Abdominal pain with possible jejunal diverticulitis. Rule out peritonitis. 2. Hydropic gallbladder. 3. History of asthma. 4. Dementia. 5. Hyperlipidemia. 6. Multiple medical issues. RECOMMENDATIONS AND DISCUSSION: In this 67-year-old woman who presented with multiple complex medical issues, we will monitor the patient closely. Will initiate cultures. Broad-spectrum antibiotics for possible sepsis. I would also recommend infectious disease evaluation and surgical evaluation. Prognosis is guarded because of multiple complex medical issues. Further recommendations to follow. See orders for further details. DVT prophylaxis. Resume the home medications. Further recommendations to follow. MMODL / IJN: [id number] / MTDD
[2022-06-01] MEDS ORDERED: ALBUTEROL NEBULIZED 2.5 MG/3 ML INHALATION PRN (20:30)
[2022-06-01 20:31] LABS: Glucose,Whole Blood 208 mg/dL (70-110)
[2022-06-01] MEDS: metFORMIN 500 MG TAB PO SCH (21:32)
[2022-06-01] MEDS: FAMOTIDINE 20 MG TAB PO SCH (21:32)
[2022-06-01] MEDS: DOCUSATE 100 MG CAP PO SCH (21:32)
[2022-06-01] MEDS: MONTELUKAST 10 MG TAB PO SCH (21:32)
[2022-06-01] MEDS: ASPIRIN 81 MG PO SCH (21:33)
[2022-06-01] MEDS: traZODone HCL 100 MG TAB PO SCH (21:33)
[2022-06-01] MEDS: GABAPENTIN 300 MG CAP PO SCH (21:33)
[2022-06-01] MEDS: MEMANTINE 10 MG TAB PO SCH (21:33)
[2022-06-01] MEDS: PANTOPRAZOLE 40 MG TABLET PO SCH (21:35)
[2022-06-01] MEDS: AMITRIPTYLINE HCL 10 MG TAB PO SCH (22:53)
[2022-06-02] MEDS: SODIUM CHLORIDE 0.9% 1,000 ML IV SCH ×2 (05:59→08:04)
[2022-06-02 07:03] LABS: Glucose,Whole Blood 164 mg/dL (70-110)
[2022-06-02] MEDS: SYMBICORT 160-4.5 MCG INHALER INHALATION SCH ×2 (07:28→20:47)
[2022-06-02] MEDS: MORPHINE SULFATE 4 MG/ML SYRINGE IV PRN ×3 (08:03→22:21)
[2022-06-02] MEDS: INSULIN ASPART (NovoLOG) 100 UNIT/ML VIAL SQ SCH ×4 (09:10→22:18)
[2022-06-02] MEDS: metFORMIN 500 MG TAB PO SCH ×2 (09:11→22:16)
[2022-06-02] MEDS: PANTOPRAZOLE 40 MG TABLET PO SCH ×2 (09:11→17:18)
[2022-06-02] MEDS: GABAPENTIN 300 MG CAP PO SCH ×3 (09:11→22:14)
[2022-06-02] MEDS: MULTIVITAMINS, THERA 1 EACH TAB PO SCH (09:11)
[2022-06-02] MEDS: LORATADINE 10 MG TAB PO SCH (09:11)
[2022-06-02] MEDS: DOCUSATE 100 MG CAP PO SCH ×2 (09:11→22:15)
[2022-06-02] MEDS: EZETIMIBE 10 MG TAB PO SCH (09:11)
[2022-06-02] MEDS: CITALOPRAM HYDROBROMIDE 20 MG TAB PO SCH (09:12)
[2022-06-02] MEDS: FLUTICASONE 50MCG/SPRAY NASAL 16GM EA NOSTRIL SCH (09:12)
[2022-06-02] MEDS: levOCARNitine (WITH SUGAR) 100 MG/ML BOTTLE PO SCH (09:13)
--- NOTE | 2022-06-02 11:28 | P.GSCN ---
History of Present Illness Consult date: 06/02/22 Reason for Consult: Abdominal pain, diverticulitis, intrathoracic stomach History of present illness: Is a 67-year-old female is in the hospital complaints of abdominal pain. Patient was worked up on CAT scan found evidence of diverticulitis as well as a jejunal 4 cm diverticular pocket. Patient states her pain is better. Patient also has a intrathoracic stomach. Approximately August stomach is in her chest due to a large paraesophageal hiatal hernia. She's had intermittent problems with dysphagia. 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 with Dandy-Walker Syndrome. History of Any Multi-Drug Resistant Organisms: None Reported Past Surgical History: Back Surgery, Section, Hysterectomy, Joint Replacement, Orthopedic Surgery, Tubal Ligation Additional Past Surgical History / Comment(s): epidurals for pain, TOTAL L knee replacement, had a allergic reaction to the hardware and had it removed.-BACK SURGERY(LUMBAR FUSION) 2011,EGD/COLONOSCOPY. pain clinic procedure Past Anesthesia/Blood Transfusion Reactions: Postoperative Nausea & Vomiting (PONV) Past Psychological History: Anxiety, Depression Smoking Status: Former smoker Past Alcohol Use History: Rare Additional Past Alcohol Use History / Comment(s): QUIT IN THE 1970S. ONLY SOCIAL. Past Drug Use History: None Reported - Past Family History Mother Family Medical History: Dementia Father Family Medical History: Coronary Artery Disease (CAD), Deep Vein Thrombosis (DVT) Additional Family Medical History / Comment(s): CABG X 2 Medications and Allergies Home Medications Medication Instructions Recorded Confirmed Type Amitriptyline HCl [Elavil] 10 mg PO HS 07/09/14 06/01/22 History Citalopram Hydrobromide 60 mg PO DAILY 07/09/14 06/01/22 History [Citalopram HBr] Docusate Sodium [Stool Softener] 100 mg PO BID 07/09/14 06/01/22 History Ibuprofen [Motrin] 800 mg PO TID 07/09/14 06/01/22 History Montelukast [Singulair] 10 mg PO HS 07/09/14 06/01/22 History Fluticasone Nasal [place] [Flonase 2 spr EA NOSTRIL DAILY 09/21/15 06/01/22 His tory Nasal [place]] Multivitamins, Thera [Theragran] 1 tab PO DAILY 09/21/15 06/01/22 History Albuterol Inhaler [Ventolin Hfa 2 puff INHALATION RT-Q6H PRN 09/12/17 06/01/22 History Inhaler] Fluticasone Propion/Salmeterol 1 puff INHALATION RT-BID 09/12/17 06/01/22 History [Advair 500-50 Diskus] Turmeric Root Extract [Turmeric] 1,500 mg PO DAILY 09/12/17 06/01/22 History metFORMIN HCL [Glucophage] 500 mg PO BID 09/12/17 06/01/22 History Aspirin EC [Ecotrin Low Dose] 81 mg PO Q48H 03/02/19 06/01/22 History Ezetimibe [Zetia] 10 mg PO DAILY 03/02/19 06/01/22 History Memantine [Namenda] 20 mg PO HS 03/02/19 06/01/22 History Levocetirizine Dihydrochloride 5 mg PO HS 09/02/19 06/01/22 History [Xyzal] Acetyl L Carnitine Hcl 1000mg 1 tab PO DAILY 06/01/22 06/01/22 History Cetirizine HCl [Zyrtec] 10 mg PO DAILY 06/01/22 06/01/22 History Famotidine 20 mg PO HS 06/01/22 06/01/22 History Gabapentin 300 mg PO TID 06/01/22 06/01/22 History Glucosam/Gonzalo-Msm1/C/Christian/Bosw 1 tab PO DAILY 06/01/22 06/01/22 History [Glucosamine-Chondroitin Tablet] Mexiletine [Mexitil] 150 mg PO HS 06/01/22 06/01/22 History Pantoprazole [Protonix] 40 mg PO BID 06/01/22 06/01/22 History Sucralfate [Carafate] 1 gm PO AC-TID 06/01/22 06/01/22 History predniSONE 1 dose PO DIRECTED 06/01/22 06/01/22 History traZODone HCL [Desyrel] 100 mg PO HS 06/01/22 06/01/22 History Allergies Allergy/AdvReac Type Severity Reaction Status Date / Time adhesive tape Allergy tears skin Verified 06/01/22 17:30 "paper tape is ok" chocolate flavor Allergy Itching Verified 06/01/22 17:30 grass pollen Allergy Itching Verified 06/01/22 17:30 mold Allergy Itching Verified 06/01/22 17:30 nickel Allergy Itchy Red Verified 06/01/22 17:30 Skin & Area gets infected tomato Allergy Itching Verified 06/01/22 17:30 Penicillins AdvReac Severe Severe Verified 06/01/22 17:30 Headache, Nausea & Vomiting Surgical - Exam Vital Signs Temp Pulse Resp BP Pulse Ox 98.3 F 86 18 165/101 100 06/01/22 12:07 06/01/22 12:07 06/01/22 12:07 06/01/22 12:07 06/01/22 12:07 - General well developed, well nourished, no distress - Eyes PERRL, normal ocular movement - ENT normal pinna - Neck no masses - Respiratory normal expansion - Cardiovascular Rhythm: regular - Abdomen Minimal tenderness. There is no rebound or guarding. Abdomen: soft Results - Labs 06/01/22 12:30 06/01/22 12:30 Abnormal Lab Results - Last 24 Hours (Table) 06/01/22 06/01/22 06/01/22 Range/Units 12:30 12:30 12:30 WBC 14.9 H (3.8-10.6) k/uL Neutrophils # 12.7 H (1.3-7.7) k/uL APTT 21.4 L (22.0-30.0) sec Sodium 136 L (137-145) mmol/L Glucose 200 H (74-99) mg/dL POC Glucose (mg/dL) (70-110) mg/dL Magnesium 1.3 L (1.6-2.3) mg/dL 06/01/22 06/02/22 Range/Units 20:29 07:00 WBC (3.8-10.6) k/uL Neutrophils # (1.3-7.7) k/uL APTT (22.0-30.0) sec Sodium (137-145) mmol/L Glucose (74-99) mg/dL POC Glucose (mg/dL) 208 H 164 H (70-110) mg/dL Magnesium (1.6-2.3) mg/dL Diabetes panel 06/01/22 Range/Units 12:30 Sodium 136 L (137-145) mmol/L Potassium 3.8 (3.5-5.1) mmol/L Chloride 101 (98-107) mmol/L Carbon Dioxide 23 (22-30) mmol/L BUN 14 (7-17) mg/dL Creatinine 0.84 (0.52-1.04) mg/dL Glucose 200 H (74-99) mg/dL Calcium 9.7 (8.4-10.2) mg/dL AST 24 (14-36) U/L ALT 17 (4-34) U/L Alkaline Phosphatase 79 (38-126) U/L Total Protein 7.1 (6.3-8.2) g/dL Albumin 4.6 (3.5-5.0) g/dL Calcium panel 06/01/22 Range/Units 12:30 Calcium 9.7 (8.4-10.2) mg/dL Albumin 4.6 (3.5-5.0) g/dL Pituitary panel 06/01/22 Range/Units 12:30 Sodium 136 L (137-145) mmol/L Potassium 3.8 (3.5-5.1) mmol/L Chloride 101 (98-107) mmol/L Carbon Dioxide 23 (22-30) mmol/L BUN 14 (7-17) mg/dL Creatinine 0.84 (0.52-1.04) mg/dL Glucose 200 H (74-99) mg/dL Calcium 9.7 (8.4-10.2) mg/dL Adrenal panel 06/01/22 Range/Units 12:30 Sodium 136 L (137-145) mmol/L Potassium 3.8 (3.5-5.1) mmol/L Chloride 101 (98-107) mmol/L Carbon Dioxide 23 (22-30) mmol/L BUN 14 (7-17) mg/dL Creatinine 0.84 (0.52-1.04) mg/dL Glucose 200 H (74-99) mg/dL Calcium 9.7 (8.4-10.2) mg/dL Total Bilirubin 0.7 (0.2-1.3) mg/dL AST 24 (14-36) U/L ALT 17 (4-34) U/L Alkaline Phosphatase 79 (38-126) U/L Total Protein 7.1 (6.3-8.2) g/dL Albumin 4.6 (3.5-5.0) g/dL Assessment and Plan Plan: Diverticulitis Large paraesophageal hernia Patient will be observed currently. She'll continue IV antibiotics.
[2022-06-02 11:34] LABS: Basophils # (A) 0.03 X 10*3/uL (0.00-0.10); Basophils % (A) 0.2 %; Eosinophils # (A) 0.01 X 10*3/uL (0.04-0.35); Eosinophils % (A) 0.1 %; HCT 36.4 % (37.2-46.3); HGB 11.5 g/dL (12.0-15.0); Immature Grans, Automated 0.5 %; Lymphocytes # (A) 0.62 X 10*3/uL (0.90-5.00); Lymphocytes % (A) 5.2 %; MCHC 31.6 g/dL (32.0-37.0); MCV 91.7 fL (80.0-97.0); Monocytes % (A) 7.5 %; NRBC Per 100 WBC 0 /100 WBCS (0.0-0.0); Neutrophils % (A) 86.5 %; Platelet Count 239 X 10*3/uL (140-440); RBC 3.97 X 10*6/uL (4.10-5.20); RDW 14.2 % (11.5-14.5); WBC 12.02 X 10*3/uL (4.50-10.00)
[2022-06-02 11:47] LABS: African American GFR (CKD) 77.8 (60.0-200.0); Anion Gap 8.9 mmol/L (10.00-18.00); Blood Urea Nitrogen 14.4 mg/dL (9.0-27.0); Calcium 8.7 mg/dL (8.7-10.3); Carbon Dioxide 23.1 mmol/L (20.0-27.5); Non-African American GFR(CKD) 67.1 (60.0-200.0); Potassium 3.6 mmol/L (3.5-5.5)
[2022-06-02 11:59] LABS: Glucose,Whole Blood 123 mg/dL (70-110)
--- NOTE | 2022-06-02 14:42 | PN ---
PROGRESS NOTE DATE OF SERVICE: 06/02/2022 This 67-year-old woman who was admitted with abdominal pain with possible acute jejunal diverticulitis is being closely monitored. No chest pain. No palpitations. No fever. Dr. Staton is following the patient closely. The patient is still complaining of abdominal pain and some distention, also. The patient also had intrathoracic stomach. PHYSICAL EXAMINATION: Pulse 87, blood pressure 97/53, respirations 16. HEENT: Conjunctivae normal. NECK: No jugular venous distention. CARDIOVASCULAR: S1, S2 muffled. RESPIRATION: Breath sounds diminished at the bases. ABDOMEN: Soft. Diffuse distention. Tenderness also present. No guarding. No rigidity. LEGS: No edema. No swelling. NERVOUS SYSTEM: No focal deficit. LABS: WBC 12.2. ASSESSMENT: 1. Abdominal pain with possible acute jejunal diverticulitis. Rule out peritonitis. 2. Hydropic gallbladder. 3. Intrathoracic stomach. 4. History of asthma. 5. Dementia. 6. Hyperlipidemia. 7. Multiple medical issues. RECOMMENDATIONS AND DISCUSSION: I recommend to continue current medications, continue with the monitoring, symptomatic treatment. Continue with the broad-spectrum IV antibiotics. Follow closely. Follow the cultures. Prognosis guarded. Further recommendations to follow. MMODL / IJN: [id number] /
[2022-06-02] MEDS: ACETAMINOPHEN TAB 325 MG TAB PO PRN (15:42)
[2022-06-02 16:38] LABS: Glucose,Whole Blood 146 mg/dL (70-110)
[2022-06-02 20:30] LABS: Glucose,Whole Blood 207 mg/dL (70-110)
[2022-06-02] MEDS: AMITRIPTYLINE HCL 10 MG TAB PO SCH (22:14)
[2022-06-02] MEDS: MEMANTINE 10 MG TAB PO SCH (22:14)
[2022-06-02] MEDS: traZODone HCL 100 MG TAB PO SCH (22:15)
[2022-06-02] MEDS: MONTELUKAST 10 MG TAB PO SCH (22:16)
[2022-06-02] MEDS: FAMOTIDINE 20 MG TAB PO SCH (22:16)
[2022-06-03 07:06] LABS: Glucose,Whole Blood 116 mg/dL (70-110)
[2022-06-03] MEDS: SYMBICORT 160-4.5 MCG INHALER INHALATION SCH ×2 (07:44→20:10)
[2022-06-03] MEDS: INSULIN ASPART (NovoLOG) 100 UNIT/ML VIAL SQ SCH ×4 (08:11→21:27)
[2022-06-03] MEDS: PANTOPRAZOLE 40 MG TABLET PO SCH ×2 (08:16→17:14)
[2022-06-03] MEDS: GABAPENTIN 300 MG CAP PO SCH ×3 (08:16→19:55)
[2022-06-03] MEDS: MULTIVITAMINS, THERA 1 EACH TAB PO SCH (08:16)
[2022-06-03] MEDS: SODIUM CHLORIDE 0.9% 1,000 ML IV SCH ×2 (08:16→23:13)
[2022-06-03] MEDS: LORATADINE 10 MG TAB PO SCH (08:16)
[2022-06-03] MEDS: CITALOPRAM HYDROBROMIDE 20 MG TAB PO SCH (08:16)
[2022-06-03] MEDS: DOCUSATE 100 MG CAP PO SCH ×2 (08:16→19:55)
[2022-06-03] MEDS: EZETIMIBE 10 MG TAB PO SCH (08:16)
[2022-06-03] MEDS: metFORMIN 500 MG TAB PO SCH ×2 (08:16→19:57)
[2022-06-03] MEDS: levOCARNitine (WITH SUGAR) 100 MG/ML BOTTLE PO SCH (08:17)
[2022-06-03] MEDS: FLUTICASONE 50MCG/SPRAY NASAL 16GM EA NOSTRIL SCH (08:19)
--- NOTE | 2022-06-03 10:18 | P.PN ---
Progress Note - Text Progress Note Date: 06/03/22 Patient feels slightly better. On exam vital signs are stable. Abdomen soft. There is some mild distention. There is no rebound or guarding. Resolving diverticulitis. Patient received supportive care. We will plan for outpatient repair of her paraesophageal hernia and jejunal diverticulum
[2022-06-03] MEDS: MORPHINE SULFATE 4 MG/ML SYRINGE IV PRN (10:47)
[2022-06-03] MEDS: ENOXAPARIN 40 MG/0.4 ML SYRINGE SQ SCH (10:55)
[2022-06-03] MEDS: CEFEPIME 2 GM in SODIUM CHLORIDE 0.9% 100 ML IVPB SCH ×2 (10:55→19:54)
[2022-06-03 11:43] LABS: Glucose,Whole Blood 105 mg/dL (70-110)
[2022-06-03] MEDS: ACETAMINOPHEN TAB 325 MG TAB PO PRN (14:28)
--- NOTE | 2022-06-03 14:30 | P.PN ---
Progress Note - Text Progress Note Date: 06/03/22 Hospital course: Patient with acute jejunal diverticulitis. 06/03/2022: I assumed care of patient today from [facility] hospitalist. Having abdominal pain. Clear liquids. IV cefepime added. Subcu Lovenox. Discussed with patient. At the patient sit up in a chair. Active Medications Acetaminophen (Acetaminophen Tab 325 Mg Tab) 650 mg PO Q6HR PRN PRN Reason: Mild Pain or Fever > 100.5 Last Admin: 06/02/22 15:42 Dose: 650 mg Albuterol Sulfate (Albuterol Nebulized 2.5 Mg/3 Ml) 2.5 mg INHALATION RT-Q6H PRN PRN Reason: Shortness Of Breath Amitriptyline HCl (Amitriptyline Hcl 10 Mg Tab) 10 mg PO [facility] Last Admin: 06/02/22 22:14 Dose: 10 mg Aspirin (Aspirin 81 Mg) 81 mg PO Q48H [facility] Last Admin: 06/01/22 21:33 Dose: 81 mg Budesonide/Formoterol Fumarate (Symbicort 160-4.5 Mcg Inhaler) 2 puff INHALATION RT-BID [facility] Last Admin: 06/03/22 07:44 Dose: 2 puff Citalopram Hydrobromide (Citalopram Hydrobromide 20 Mg Tab) 60 mg PO DAILY [facility] Last Admin: 06/03/22 08:16 Dose: 60 mg Docusate Sodium (Docusate 100 Mg Cap) 100 mg PO BID [facility] Last Admin: 06/03/22 08:16 Dose: 100 mg Ezetimibe (Ezetimibe 10 Mg Tab) 10 mg PO DAILY [facility] Last Admin: 06/03/22 08:16 Dose: 10 mg Enoxaparin Sodium (Enoxaparin 40 Mg/0.4 Ml Syringe) 40 mg SQ DAILY [facility] Last Admin: 06/03/22 10:55 Dose: 40 mg Famotidine (Famotidine 20 Mg Tab) 20 mg PO [facility] Last Admin: 06/02/22 22:16 Dose: 20 mg Fluticasone Propionate (Fluticasone 50mcg/[place] Nasal 16gm) 2 spray EA NOSTRIL DAILY [facility] Last Admin: 06/03/22 08:19 Dose: 2 spray Gabapentin (Gabapentin 300 Mg Cap) 300 mg PO TID [facility] Last Admin: 06/03/22 08:16 Dose: 300 mg Sodium Chloride (Saline 0.9%) 1,000 mls @ 75 mls/hr IV .[id number] [facility] Last Admin: 06/03/22 08:16 Dose: 75 mls/hr Cefepime HCl 2 gm/ Sodium (Chloride) 100 mls @ 25 mls/hr IVPB Q8H [facility]; Protocol Last Admin: 06/03/22 10:55 Dose: 25 mls/hr Insulin Aspart (Insulin Aspart (Novolog) 100 Unit/Ml Vial) 0 unit SQ ACHS [facility]; Protocol Last Admin: 06/03/22 12:10 Dose: Not Given Levocarnitine (Levocarnitine (With Sugar) 100 Mg/Ml Bottle) 1,000 mg PO DAILY [facility] Last Admin: 06/03/22 08:17 Dose: 1,000 mg Loratadine (Loratadine 10 Mg Tab) 10 mg PO DAILY [facility] Last Admin: 06/03/22 08:16 Dose: 10 mg Memantine (Memantine 10 Mg Tab) 20 mg PO [facility] Last Admin: 06/02/22 22:14 Dose: 20 mg Metformin HCl (Metformin 500 Mg Tab) 500 mg PO BID [facility] Last Admin: 06/03/22 08:16 Dose: 500 mg Montelukast Sodium (Montelukast 10 Mg Tab) 10 mg PO [facility] Last Admin: 06/02/22 22:16 Dose: 10 mg Morphine Sulfate (Morphine Sulfate 4 Mg/Ml Syringe) 4 mg IV Q4HR PRN PRN Reason: Severe Pain Last Admin: 06/03/22 10:47 Dose: 4 mg Multivitamins (Multivitamins, Thera 1 Each Tab) 1 each PO DAILY [facility] Last Admin: 06/03/22 08:16 Dose: 1 each Naloxone HCl (Naloxone 0.4 Mg/Ml 1 Ml Vial) 0.2 mg IV Q2M PRN PRN Reason: Opioid Reversal Pantoprazole Sodium (Pantoprazole 40 Mg Tablet) 40 mg PO AC-BID [facility] Last Admin: 06/03/22 08:16 Dose: 40 mg Trazodone HCl (Trazodone Hcl 100 Mg Tab) 100 mg PO HS [facility] Last Admin: 06/02/22 22:15 Dose: 100 mg On examination: VITAL SIGNS: [99, 92, 14, 120/74, 93% room air] GENERAL APPEARANCE: Laying in bed, tired HEENT: Normal external appearance of nose and ear. Oral cavity normal EYES: Pupils equal. Conjunctiva normal. NECK: JVD not raised. Mass not palpable. RESPIRATORY: Respiratory effort normal. Lungs clear to auscultation. CARDIOVASCULAR: First and second sounds normal. No edema. ABDOMEN: Soft. Liver and spleen not palpable. Tender/no guarding rigidity. No mass palpable. PSYCHIATRY: Alert and oriented x3. Mood and affect normal. INVESTIGATIONS, reviewed in the clinical context: June 02: White count 12 hemoglobin 11.5 platelets 239 potassium 3.6 creatinine 0.9 Computed tomography scan of the abdomen: Large 4.7 cm diverticulum coming of occasional low. Surrounding subtle inflammation. Hydropic gallbladder. Moderate-sized hiatal hernia. Assessment and plan: -Acute jejunal diverticulitis: Slow to respond IV cefepime. Clear liquid diet. -Hiatal hernia -Primary osteoarthritis -GERD Protonix 40 mg twice a day -Hyperlipidemia Zetia 10 mg a day -Mild cognitive impairment Namenda 20 mg daily at bedtime -Diabetes mellitus type 2 on oral hypoglycemic -Moderate persistent asthma Advair 500/50 one puff twice a day. Ventolin when necessary -Anxiety and depression IV cefepime. Clear liquid diet. Other medications to continue. Had a patient sitting up in a chair. Subcu Lovenox. Repeat labs. Discussed with patient.
[2022-06-03 17:01] LABS: Glucose,Whole Blood 132 mg/dL (70-110)
[2022-06-03] MEDS: MONTELUKAST 10 MG TAB PO SCH (19:55)
[2022-06-03] MEDS: FAMOTIDINE 20 MG TAB PO SCH (19:55)
[2022-06-03] MEDS: traZODone HCL 100 MG TAB PO SCH (19:55)
[2022-06-03] MEDS: ASPIRIN 81 MG PO SCH (19:55)
[2022-06-03] MEDS: AMITRIPTYLINE HCL 10 MG TAB PO SCH (19:55)
[2022-06-03] MEDS: MEMANTINE 10 MG TAB PO SCH (19:57)
[2022-06-03 20:18] LABS: Glucose,Whole Blood 144 mg/dL (70-110)
[2022-06-04] MEDS: CEFEPIME 2 GM in SODIUM CHLORIDE 0.9% 100 ML IVPB SCH ×3 (04:32→19:35)
[2022-06-04] MEDS: MORPHINE SULFATE 4 MG/ML SYRINGE IV PRN ×3 (06:26→22:26)
[2022-06-04 06:49] LABS: Glucose,Whole Blood 114 mg/dL (70-110)
[2022-06-04] MEDS: INSULIN ASPART (NovoLOG) 100 UNIT/ML VIAL SQ SCH ×4 (08:03→20:46)
[2022-06-04] MEDS: PANTOPRAZOLE 40 MG TABLET PO SCH ×2 (08:07→16:12)
[2022-06-04] MEDS: GABAPENTIN 300 MG CAP PO SCH ×3 (08:07→22:26)
[2022-06-04] MEDS: DOCUSATE 100 MG CAP PO SCH ×2 (08:07→20:41)
[2022-06-04] MEDS: MULTIVITAMINS, THERA 1 EACH TAB PO SCH (08:07)
[2022-06-04] MEDS: ENOXAPARIN 40 MG/0.4 ML SYRINGE SQ SCH (08:07)
[2022-06-04] MEDS: EZETIMIBE 10 MG TAB PO SCH (08:07)
[2022-06-04] MEDS: metFORMIN 500 MG TAB PO SCH ×2 (08:07→20:41)
[2022-06-04] MEDS: LORATADINE 10 MG TAB PO SCH (08:07)
[2022-06-04] MEDS: CITALOPRAM HYDROBROMIDE 20 MG TAB PO SCH (08:07)
[2022-06-04] MEDS: FLUTICASONE 50MCG/SPRAY NASAL 16GM EA NOSTRIL SCH (08:07)
[2022-06-04] MEDS: levOCARNitine (WITH SUGAR) 100 MG/ML BOTTLE PO SCH (08:12)
[2022-06-04] MEDS: SYMBICORT 160-4.5 MCG INHALER INHALATION SCH ×2 (08:49→20:25)
--- NOTE | 2022-06-04 10:13 | P.PN ---
Progress Note - Text Progress Note Date: 06/04/22 Patient feels better today. On exam vital signs are stable. Abdomen is soft. There is minimal tenderness. There is no rebound or guarding. Resolving diverticula is. Patient will have her diet advanced.
[2022-06-04 11:24] LABS: Glucose,Whole Blood 108 mg/dL (70-110)
[2022-06-04] MEDS: SODIUM CHLORIDE 0.9% 1,000 ML IV SCH (11:38)
--- NOTE | 2022-06-04 15:42 | P.PN ---
Progress Note - Text Progress Note Date: 06/04/22 Hospital course: Patient with acute jejunal diverticulitis. 06/03/2022: I assumed care of patient today from [facility] hospitalist. Having abdominal pain. Clear liquids. IV cefepime added. Subcu Lovenox. Discussed with patient. At the patient sit up in a chair. 06/04/2022: On IV cefepime. Some improvement in abdominal pain. Had a BM. Diet advanced by surgery. Had a BM today. Active Medications Acetaminophen (Acetaminophen Tab 325 Mg Tab) 650 mg PO Q6HR PRN PRN Reason: Mild Pain or Fever > 100.5 Last Admin: 06/03/22 14:28 Dose: 650 mg Albuterol Sulfate (Albuterol Nebulized 2.5 Mg/3 Ml) 2.5 mg INHALATION RT-Q6H PRN PRN Reason: Shortness Of Breath Amitriptyline HCl (Amitriptyline Hcl 10 Mg Tab) 10 mg PO HS [facility] Last Admin: 06/03/22 19:55 Dose: 10 mg Aspirin (Aspirin 81 Mg) 81 mg PO Q48H [facility] Last Admin: 06/03/22 19:55 Dose: 81 mg Budesonide/Formoterol Fumarate (Symbicort 160-4.5 Mcg Inhaler) 2 puff INHALATION RT-BID [facility] Last Admin: 06/04/22 08:49 Dose: 2 puff Citalopram Hydrobromide (Citalopram Hydrobromide 20 Mg Tab) 60 mg PO DAILY [facility] Last Admin: 06/04/22 08:07 Dose: 60 mg Docusate Sodium (Docusate 100 Mg Cap) 100 mg PO BID [facility] Last Admin: 06/04/22 08:07 Dose: 100 mg Ezetimibe (Ezetimibe 10 Mg Tab) 10 mg PO DAILY [facility] Last Admin: 06/04/22 08:07 Dose: 10 mg Enoxaparin Sodium (Enoxaparin 40 Mg/0.4 Ml Syringe) 40 mg SQ DAILY [facility] Last Admin: 06/04/22 08:07 Dose: 40 mg Famotidine (Famotidine 20 Mg Tab) 20 mg PO HS [facility] Last Admin: 06/03/22 19:55 Dose: 20 mg Fluticasone Propionate (Fluticasone 50mcg/[place] Nasal 16gm) 2 spray EA NOSTRIL DAILY [facility] Last Admin: 06/04/22 08:07 Dose: 2 spray Gabapentin (Gabapentin 300 Mg Cap) 300 mg PO TID [facility] Last Admin: 06/04/22 08:07 Dose: 300 mg Sodium Chloride (Saline 0.9%) 1,000 mls @ 75 mls/hr IV .[id number] [facility] Last Admin: 06/04/22 11:38 Dose: Not Given Cefepime HCl 2 gm/ Sodium (Chloride) 100 mls @ 25 mls/hr IVPB Q8H [facility]; Protocol Last Admin: 06/04/22 11:56 Dose: 25 mls/hr Insulin Aspart (Insulin Aspart (Novolog) 100 Unit/Ml Vial) 0 unit SQ ACHS [facility]; Protocol Last Admin: 06/04/22 11:41 Dose: Not Given Levocarnitine (Levocarnitine (With Sugar) 100 Mg/Ml Bottle) 1,000 mg PO DAILY [facility] Last Admin: 06/04/22 08:12 Dose: 1,000 mg Loratadine (Loratadine 10 Mg Tab) 10 mg PO DAILY [facility] Last Admin: 06/04/22 08:07 Dose: 10 mg Memantine (Memantine 10 Mg Tab) 20 mg PO HS [facility] Last Admin: 06/03/22 19:57 Dose: 20 mg Metformin HCl (Metformin 500 Mg Tab) 500 mg PO BID [facility] Last Admin: 06/04/22 08:07 Dose: 500 mg Montelukast Sodium (Montelukast 10 Mg Tab) 10 mg PO HS [facility] Last Admin: 06/03/22 19:55 Dose: 10 mg Morphine Sulfate (Morphine Sulfate 4 Mg/Ml Syringe) 4 mg IV Q4HR PRN PRN Reason: Severe Pain Last Admin: 06/04/22 06:26 Dose: 4 mg Multivitamins (Multivitamins, Thera 1 Each Tab) 1 each PO DAILY [facility] Last Admin: 06/04/22 08:07 Dose: 1 each Naloxone HCl (Naloxone 0.4 Mg/Ml 1 Ml Vial) 0.2 mg IV Q2M PRN PRN Reason: Opioid Reversal Pantoprazole Sodium (Pantoprazole 40 Mg Tablet) 40 mg PO AC-BID [facility] Last Admin: 06/04/22 08:07 Dose: 40 mg Trazodone HCl (Trazodone Hcl 100 Mg Tab) 100 mg PO [facility] Last Admin: 06/03/22 19:55 Dose: 100 mg On examination: VITAL SIGNS: 98.9, 95, 16, 120 on the 71, 92% room air GENERAL APPEARANCE: Laying in bed, tired HEENT: Normal external appearance of nose and ear. Oral cavity normal EYES: Pupils equal. Conjunctiva normal. NECK: JVD not raised. Mass not palpable. RESPIRATORY: Respiratory effort normal. Lungs clear to auscultation. CARDIOVASCULAR: First and second sounds normal. No edema. ABDOMEN: Soft. Liver and spleen not palpable. Decreased Tender/no guarding rigidity. No mass palpable. PSYCHIATRY: Alert and oriented x3. Mood and affect normal. INVESTIGATIONS, reviewed in the clinical context: June 02: White count 12 hemoglobin 11.5 platelets 239 potassium 3.6 creatinine 0.9 Computed tomography scan of the abdomen: Large 4.7 cm diverticulum coming of occasional low. Surrounding subtle inflammation. Hydropic gallbladder. Moderate-sized hiatal hernia. Assessment and plan: -Acute jejunal diverticulitis: Some improvement IV cefepime. Diet advanced -Hiatal hernia -Primary osteoarthritis -GERD Protonix 40 mg twice a day -Hyperlipidemia Zetia 10 mg a day -Mild cognitive impairment Namenda 20 mg daily at bedtime -Diabetes mellitus type 2 on oral hypoglycemic -Moderate persistent asthma Advair 500/50 one puff twice a day. Ventolin when necessary -Anxiety and depression IV cefepime. Diet advanced per surgery. Discussed with patient.
[2022-06-04 16:23] LABS: Glucose,Whole Blood 165 mg/dL (70-110)
[2022-06-04 20:15] LABS: Glucose,Whole Blood 158 mg/dL (70-110)
[2022-06-04] MEDS: MONTELUKAST 10 MG TAB PO SCH (20:41)
[2022-06-04] MEDS: FAMOTIDINE 20 MG TAB PO SCH (20:41)
[2022-06-04] MEDS: traZODone HCL 100 MG TAB PO SCH (20:41)
[2022-06-04] MEDS: MEMANTINE 10 MG TAB PO SCH (20:41)
[2022-06-04] MEDS: AMITRIPTYLINE HCL 10 MG TAB PO SCH (20:41)
[2022-06-04] MEDS ORDERED: IPRATROPIUM-ALBUTEROL 3 ML NEB INHALATION STA (22:16)
[2022-06-05] MEDS: CEFEPIME 2 GM in SODIUM CHLORIDE 0.9% 100 ML IVPB SCH ×2 (03:50→16:19)
[2022-06-05 07:10] LABS: Glucose,Whole Blood 127 mg/dL (70-110)
[2022-06-05 08:00] LABS: Basophils % (A) 0 %; Eosinophils # (A) 0.2 k/uL (0-0.7); Eosinophils % (A) 2 %; Lymphocytes # (A) 0.7 k/uL (1.0-4.8); Lymphocytes % (A) 10 %; MCH 31.1 pg (25.0-35.0); MCHC 32.8 g/dL (31.0-37.0); MCV 94.9 fL (80.0-100.0); Monocytes # (A) 0.5 k/uL (0-1.0); Monocytes % (A) 8 %; Neutrophils # (A) 5.3 k/uL (1.3-7.7); Neutrophils % (A) 78 %; Platelet Count 226 k/uL (150-450); RBC 3.16 m/uL (3.80-5.40); RDW 14.2 % (11.5-15.5); WBC 6.9 k/uL (3.8-10.6)
[2022-06-05] MEDS: INSULIN ASPART (NovoLOG) 100 UNIT/ML VIAL SQ SCH ×4 (08:01→21:06)
[2022-06-05 08:03] LABS: HGB 9.8 gm/dL (11.4-16.0)
[2022-06-05] MEDS: PANTOPRAZOLE 40 MG TABLET PO SCH ×2 (08:12→16:28)
[2022-06-05] MEDS: SYMBICORT 160-4.5 MCG INHALER INHALATION SCH ×2 (08:51→19:58)
[2022-06-05 11:12] LABS: Glucose,Whole Blood 138 mg/dL (70-110)
[2022-06-05] MEDS: ENOXAPARIN 40 MG/0.4 ML SYRINGE SQ SCH (11:38)
[2022-06-05] MEDS: GABAPENTIN 300 MG CAP PO SCH ×3 (11:39→21:06)
[2022-06-05] MEDS: MULTIVITAMINS, THERA 1 EACH TAB PO SCH (11:39)
[2022-06-05] MEDS: CITALOPRAM HYDROBROMIDE 20 MG TAB PO SCH (11:40)
[2022-06-05] MEDS: EZETIMIBE 10 MG TAB PO SCH (11:41)
[2022-06-05] MEDS: metFORMIN 500 MG TAB PO SCH ×2 (11:41→21:05)
[2022-06-05] MEDS: LORATADINE 10 MG TAB PO SCH (11:41)
[2022-06-05] MEDS: FLUTICASONE 50MCG/SPRAY NASAL 16GM EA NOSTRIL SCH (11:47)
[2022-06-05] MEDS: levOCARNitine (WITH SUGAR) 100 MG/ML BOTTLE PO SCH (11:47)
--- NOTE | 2022-06-05 12:09 | XR ---
EXAMINATION TYPE: XR abdomen acute w cxr DATE OF EXAM: 06/05/2022 COMPARISON: NONE HISTORY: Pain TECHNIQUE: Single view of the chest and 2 views of the abdomen are submitted. FINDINGS: Single view of the chest fails demonstrate evidence for acute pulmonary disease. Basilar atelectasis noted. There is no evidence for pneumoperitoneum. The bowel gas pattern is unremarkable as there is air throughout nondilated small and large bowel. No sizeable air fluid levels.No mass effects are seen. No unusual calcifications. IMPRESSION: 1. Nonspecific nonobstructive bowel gas pattern.
[2022-06-05] MEDS: DOCUSATE 100 MG CAP PO SCH (12:52)
--- NOTE | 2022-06-05 13:30 | P.PN ---
Progress Note - Text Progress Note Date: 06/05/22 Hospital course: Patient with acute jejunal diverticulitis. 06/03/2022: I assumed care of patient today from [facility] hospitalist. Having abdominal pain. Clear liquids. IV cefepime added. Subcu Lovenox. Discussed with patient. At the patient sit up in a chair. 06/04/2022: On IV cefepime. Some improvement in abdominal pain. Had a BM. Diet advanced by surgery. Had a BM today. 06/05/2022: On IV cefepime. Slight decrease in abdominal distention. Had a BM. We will change diet to a ground diet. Abdominal tenderness still present though. Discussed with patient. Will watch another 24 hours. Abdominal x-ray reviewed. Some stool. No free air Active Medications Acetaminophen (Acetaminophen Tab 325 Mg Tab) 650 mg PO Q6HR PRN PRN Reason: Mild Pain or Fever > 100.5 Last Admin: 06/03/22 14:28 Dose: 650 mg Albuterol Sulfate (Albuterol Nebulized 2.5 Mg/3 Ml) 2.5 mg INHALATION RT-Q6H PRN PRN Reason: Shortness Of Breath Last Admin: 06/04/22 16:04 Dose: 2.5 mg Amitriptyline HCl (Amitriptyline Hcl 10 Mg Tab) 10 mg PO HS [facility] Last Admin: 06/04/22 20:41 Dose: 10 mg Aspirin (Aspirin 81 Mg) 81 mg PO Q48H [facility] Last Admin: 06/03/22 19:55 Dose: 81 mg Budesonide/Formoterol Fumarate (Symbicort 160-4.5 Mcg Inhaler) 2 puff INHALATION RT-BID [facility] Last Admin: 06/05/22 08:51 Dose: 2 puff Citalopram Hydrobromide (Citalopram Hydrobromide 20 Mg Tab) 60 mg PO DAILY [facility] Last Admin: 06/05/22 11:40 Dose: 60 mg Ezetimibe (Ezetimibe 10 Mg Tab) 10 mg PO DAILY [facility] Last Admin: 06/05/22 11:41 Dose: 10 mg Enoxaparin Sodium (Enoxaparin 40 Mg/0.4 Ml Syringe) 40 mg SQ DAILY [facility] Last Admin: 06/05/22 11:38 Dose: 40 mg Famotidine (Famotidine 20 Mg Tab) 20 mg PO HS [facility] Last Admin: 06/04/22 20:41 Dose: 20 mg Fluticasone Propionate (Fluticasone 50mcg/[place] Nasal 16gm) 2 spray EA NOSTRIL DAILY [facility] Last Admin: 06/05/22 11:47 Dose: 2 spray Gabapentin (Gabapentin 300 Mg Cap) 300 mg PO TID [facility] Last Admin: 06/05/22 11:39 Dose: 300 mg Cefepime HCl 2 gm/ Sodium (Chloride) 100 mls @ 25 mls/hr IVPB Q8H [facility]; Protocol Last Admin: 06/05/22 03:50 Dose: 25 mls/hr Insulin Aspart (Insulin Aspart (Novolog) 100 Unit/Ml Vial) 0 unit SQ ACHS [facility]; Protocol Last Admin: 06/05/22 12:59 Dose: 1 unit Levocarnitine (Levocarnitine (With Sugar) 100 Mg/Ml Bottle) 1,000 mg PO DAILY [facility] Last Admin: 06/05/22 11:47 Dose: 1,000 mg Loratadine (Loratadine 10 Mg Tab) 10 mg PO DAILY [facility] Last Admin: 06/05/22 11:41 Dose: 10 mg Memantine (Memantine 10 Mg Tab) 20 mg PO [facility] Last Admin: 06/04/22 20:41 Dose: 20 mg Metformin HCl (Metformin 500 Mg Tab) 500 mg PO BID [facility] Last Admin: 06/05/22 11:41 Dose: 500 mg Montelukast Sodium (Montelukast 10 Mg Tab) 10 mg PO [facility] Last Admin: 06/04/22 20:41 Dose: 10 mg Multivitamins (Multivitamins, Thera 1 Each Tab) 1 each PO DAILY [facility] Last Admin: 06/05/22 11:39 Dose: 1 each Naloxone HCl (Naloxone 0.4 Mg/Ml 1 Ml Vial) 0.2 mg IV Q2M PRN PRN Reason: Opioid Reversal Pantoprazole Sodium (Pantoprazole 40 Mg Tablet) 40 mg PO AC-BID [facility] Last Admin: 06/05/22 08:12 Dose: 40 mg Trazodone HCl (Trazodone Hcl 100 Mg Tab) 100 mg PO [facility] Last Admin: 06/04/22 20:41 Dose: 100 mg On examination: VITAL SIGNS: 98.3, 93, 19, 1 27 x 80, 92% room air GENERAL APPEARANCE: Laying in bed, tired HEENT: Normal external appearance of nose and ear. Oral cavity normal EYES: Pupils equal. Conjunctiva normal. NECK: JVD not raised. Mass not palpable. RESPIRATORY: Respiratory effort normal. Lungs clear to auscultation. CARDIOVASCULAR: First and second sounds normal. No edema. ABDOMEN: Soft. Liver and spleen not palpable. Some tenderness/no guarding rigidity. No mass palpable. PSYCHIATRY: Alert and oriented x3. Mood and affect normal. INVESTIGATIONS, reviewed in the clinical context: June 05: WBC 6.9 hemoglobin 9.8 pro-calcitonin 0.39 June 02: White count 12 hemoglobin 11.5 platelets 239 potassium 3.6 creatinine 0.9 Computed tomography scan of the abdomen: Large 4.7 cm diverticulum coming of occasional low. Surrounding subtle inflammation. Hydropic gallbladder. Moderate-sized hiatal hernia. Assessment and plan: -Acute jejunal diverticulitis: Slow improvement IV cefepime. Change diet to ground. -Hiatal hernia -Primary osteoarthritis -GERD Protonix 40 mg twice a day -Hyperlipidemia Zetia 10 mg a day -Mild cognitive impairment Namenda 20 mg daily at bedtime -Diabetes mellitus type 2 on oral hypoglycemic -Moderate persistent asthma Advair 500/50 one puff twice a day. Ventolin when necessary -Anxiety and depression IV cefepime. Change diet to ground diet. Abdominal x-ray reviewed. We will repeat a computed tomography scan of the abdomen. Discussed with patient and nurse. I spent today about 40 minutes with over 25 minutes of discussion.
[2022-06-05] MEDS: ACETAMINOPHEN TAB 325 MG TAB PO PRN (14:43)
[2022-06-05 16:18] LABS: Glucose,Whole Blood 120 mg/dL (70-110)
--- NOTE | 2022-06-05 17:30 | P.PN ---
Progress Note - Text Progress Note Date: 06/05/22 Patient's complaints of some abdominal pain today. On exam her vascular silk. Abdomen soft. There is decreased tenderness throughout. Resolving diverticulitis. Patient can receive supportive care.
[2022-06-05 20:15] LABS: Glucose,Whole Blood 168 mg/dL (70-110)
[2022-06-05] MEDS: AMITRIPTYLINE HCL 10 MG TAB PO SCH (21:05)
[2022-06-05] MEDS: MEMANTINE 10 MG TAB PO SCH (21:05)
[2022-06-05] MEDS: MONTELUKAST 10 MG TAB PO SCH (21:05)
[2022-06-05] MEDS: ASPIRIN 81 MG PO SCH (21:05)
[2022-06-05] MEDS: traZODone HCL 100 MG TAB PO SCH (21:06)
[2022-06-05] MEDS: FAMOTIDINE 20 MG TAB PO SCH (21:06)
[2022-06-06] MEDS: CEFEPIME 2 GM in SODIUM CHLORIDE 0.9% 100 ML IVPB SCH ×4 (01:30→23:37)
[2022-06-06 06:59] LABS: Glucose,Whole Blood 106 mg/dL (70-110)
[2022-06-06] MEDS: INSULIN ASPART (NovoLOG) 100 UNIT/ML VIAL SQ SCH ×4 (07:56→21:55)
[2022-06-06] MEDS: SYMBICORT 160-4.5 MCG INHALER INHALATION SCH ×2 (08:10→19:55)
[2022-06-06] MEDS: GABAPENTIN 300 MG CAP PO SCH ×3 (08:16→21:57)
[2022-06-06] MEDS: MULTIVITAMINS, THERA 1 EACH TAB PO SCH (08:16)
[2022-06-06] MEDS: CITALOPRAM HYDROBROMIDE 20 MG TAB PO SCH (08:16)
[2022-06-06] MEDS: metFORMIN 500 MG TAB PO SCH (08:16)
[2022-06-06] MEDS: PANTOPRAZOLE 40 MG TABLET PO SCH ×2 (08:16→17:19)
[2022-06-06] MEDS: LORATADINE 10 MG TAB PO SCH (08:16)
[2022-06-06] MEDS: ENOXAPARIN 40 MG/0.4 ML SYRINGE SQ SCH (08:17)
[2022-06-06] MEDS: FLUTICASONE 50MCG/SPRAY NASAL 16GM EA NOSTRIL SCH (08:17)
[2022-06-06] MEDS: EZETIMIBE 10 MG TAB PO SCH (08:17)
[2022-06-06] MEDS: levOCARNitine (WITH SUGAR) 100 MG/ML BOTTLE PO SCH (08:18)
[2022-06-06] MEDS: ACETAMINOPHEN TAB 325 MG TAB PO PRN ×2 (08:20→15:46)
[2022-06-06 11:33] LABS: Glucose,Whole Blood 175 mg/dL (70-110)
[2022-06-06] MEDS: IOPAMIDOL CONTRAST (ORAL USE) VIAL PO PRN ×2 (12:03→13:03)
--- NOTE | 2022-06-06 13:11 | P.PN ---
Subjective Progress Note Date: 06/06/22 CHIEF COMPLAINT: Abdominal pain HISTORY OF PRESENT ILLNESS: Patient is complaining of abdominal pain that is worse with movement. She rates her pain about a 5-8 out of 10. She complains more of a left-sided lower back pain. She reports that pain is chronic. She denies any nausea or vomiting. She has been having bowel movements. White count is normal at 6.9 she's afebrile. She reported to the medicine doctor that she was having more of right upper quadrant pain. They have ordered a computed tomography scan of the abdomen and pelvis with oral contrast. Patient reports no increase in pain after eating. Currently on a ground diet. Patient seen and examined with Dr. lemus PHYSICAL EXAM: VITAL SIGNS: Reviewed. GENERAL: Well-developed in no acute distress. HEENT: No sclera icterus. Extraocular movements grossly intact. Moist buccal mucosa. Head is atraumatic, normocephalic. ABDOMEN: Soft. Nondistended. Decreased abdominal tenderness NEUROLOGIC: Alert and oriented. Cranial nerves II through XII grossly intact. ASSESSMENT: 1. Acute sigmoid diverticulitis 2. Jejunal diverticulum 3. Moderate sized Paraesophageal hernia PLAN: -Follow up on repeat computed tomography scan abdomen and pelvis with oral contrast -Continue antibiotics -Continue supportive care -Continue ground diet Physician [employer] Operative note has been reviewed by physician. Signing provider agrees with the documented findings, assessment, and plan of care. Objective - Vital Signs Vital signs: Vital Signs Temp 98.7 F 06/06/22 06:56 Pulse 89 06/06/22 06:56 Resp 12 06/06/22 08:20 BP 135/72 06/06/22 06:56 Pulse Ox 90 L 06/06/22 06:56 FiO2 Intake & Output 06/05/22 06/06/22 06/06/22 18:59 06:59 18:59 Intake Total 360 Balance 360 Intake: Oral 360 Other: Voiding Method Toilet # Voids 4 # Bowel Movements 1 - Labs CBC & Chem 7: 06/05/22 05:41 06/02/22 07:04 Labs: Abnormal Lab Results - Last 24 Hours (Table) 06/05/22 06/05/22 06/06/22 Range/Units 16:17 20:12 11:32 POC Glucose (mg/dL) 120 H 168 H 175 H (70-110) mg/dL
--- NOTE | 2022-06-06 15:15 | CT ---
EXAMINATION TYPE: CT abdomen pelvis w con CT DLP: 749.1 mGycm, Automated exposure control for dose reduction was used. DATE OF EXAM: 06/06/2022 1:58 PM COMPARISON: CT abdomen pelvis most recent from 06/01/2022. CLINICAL INDICATION:Female, 67 years old with history of f/u diverticulitis; abdominal pain TECHNIQUE: Standard CT of the abdomen and pelvis following the administration of 100 cc of Isovue 3 00 IV contrast material and oral contrast. Coronal and sagittal reformats were performed. FINDINGS: LOWER CHEST: New trace bilateral pleural effusions, left greater than right. ABDOMEN LIVER: Unremarkable GALLBLADDER AND BILE DUCTS: Unremarkable. PANCREAS: Unremarkable. SPLEEN: Unremarkable. ADRENAL GLANDS: Unremarkable. KIDNEYS AND URETERS: No evidence of hydronephrosis or renal calculus. The ureters are unremarkable. PELVIS BLADDER: Unremarkable REPRODUCTIVE: Unremarkable. ABDOMEN & PELVIS STOMACH AND BOWEL: There is a large diverticulum again measuring up to 4.7 cm in the left upper quadr ant containing oral contrast. There is inflammation changes around this diverticulum. There is a larg e stool burden throughout the colon. No evidence of bowel obstruction. There is a moderate sized hiat al hernia present. PERITONEUM: No evidence of pneumoperitoneum or free fluid. VASCULATURE: No evidence of aortic aneurysm. MUSCULOSKELETAL: No acute osseous abnormalities. Post fixation changes to L4-L5 and S1. There is mult ilevel disc degeneration changes seen throughout the spine. LYMPH NODES: No gross evidence for lymphadenopathy. SOFT TISSUE/ABDOMINAL WALL: Subcutaneous gas seen in the anterior abdomen likely from medicine inject ions. IMPRESSION: 1. Small bowel Jejunum diverticulitis which now has increased surrounding inflammation changes clive red to 06/01/2022. No evidence of organizing fluid collection or perforation/pneumoperitoneum. 2. Moderate hiatal hernia. 3. Large stool burden throughout the colon. 4. New trace bilateral pleural effusions left greater than right.
[2022-06-06 16:19] LABS: Glucose,Whole Blood 168 mg/dL (70-110)
--- NOTE | 2022-06-06 16:36 | P.PN ---
Progress Note - Text Progress Note Date: 06/06/22 Hospital course: Patient with acute jejunal diverticulitis. 06/03/2022: I assumed care of patient today from [facility] hospitalist. Having abdominal pain. Clear liquids. IV cefepime added. Subcu Lovenox. Discussed with patient. At the patient sit up in a chair. 06/04/2022: On IV cefepime. Some improvement in abdominal pain. Had a BM. Diet advanced by surgery. Had a BM today. 06/05/2022: On IV cefepime. Slight decrease in abdominal distention. Had a BM. We will change diet to a ground diet. Abdominal tenderness still present though. Discussed with patient. Will watch another 24 hours. Abdominal x-ray reviewed. Some stool. No free air 06/06/2022: Remains on IV cefepime. Still having significant right sided abdominal pain. Had a small BM. Discussed with surgery. Repeat computed tomography scan showing worsening diverticulitis in the jejunal area. No perforation. Change diet to clear liquids. Significant stool burden. Soapsuds enema ordered. Active Medications Acetaminophen (Acetaminophen Tab 325 Mg Tab) 650 mg PO Q6HR PRN PRN Reason: Mild Pain or Fever > 100.5 Last Admin: 06/06/22 15:46 Dose: 650 mg Albuterol Sulfate (Albuterol Nebulized 2.5 Mg/3 Ml) 2.5 mg INHALATION RT-Q6H PRN PRN Reason: Shortness Of Breath Last Admin: 06/04/22 16:04 Dose: 2.5 mg Amitriptyline HCl (Amitriptyline Hcl 10 Mg Tab) 10 mg PO HS [facility] Last Admin: 06/05/22 21:05 Dose: 10 mg Aspirin (Aspirin 81 Mg) 81 mg PO Q48H [facility] Last Admin: 06/05/22 21:05 Dose: 81 mg Budesonide/Formoterol Fumarate (Symbicort 160-4.5 Mcg Inhaler) 2 puff INHALATION RT-BID [facility] Last Admin: 06/06/22 08:10 Dose: 2 puff Citalopram Hydrobromide (Citalopram Hydrobromide 20 Mg Tab) 60 mg PO DAILY [facility] Last Admin: 06/06/22 08:16 Dose: 60 mg Ezetimibe (Ezetimibe 10 Mg Tab) 10 mg PO DAILY [facility] Last Admin: 06/06/22 08:17 Dose: 10 mg Enoxaparin Sodium (Enoxaparin 40 Mg/0.4 Ml Syringe) 40 mg SQ DAILY [facility] Last Admin: 06/06/22 08:17 Dose: 40 mg Famotidine (Famotidine 20 Mg Tab) 20 mg PO HS [facility] Last Admin: 06/05/22 21:06 Dose: 20 mg Fluticasone Propionate (Fluticasone 50mcg/[place] Nasal 16gm) 2 spray EA NOSTRIL DAILY [facility] Last Admin: 06/06/22 08:17 Dose: 2 spray Gabapentin (Gabapentin 300 Mg Cap) 300 mg PO TID [facility] Last Admin: 06/06/22 15:46 Dose: 300 mg Cefepime HCl 2 gm/ Sodium (Chloride) 100 mls @ 25 mls/hr IVPB Q8HR [facility]; Protocol Last Admin: 06/06/22 15:47 Dose: 25 mls/hr Insulin Aspart (Insulin Aspart (Novolog) 100 Unit/Ml Vial) 0 unit SQ ACHS [facility]; Protocol Last Admin: 06/06/22 12:52 Dose: Not Given Levocarnitine (Levocarnitine (With Sugar) 100 Mg/Ml Bottle) 1,000 mg PO DAILY [facility] Last Admin: 06/06/22 08:18 Dose: 1,000 mg Loratadine (Loratadine 10 Mg Tab) 10 mg PO DAILY [facility] Last Admin: 06/06/22 08:16 Dose: 10 mg Memantine (Memantine 10 Mg Tab) 20 mg PO HS [facility] Last Admin: 06/05/22 21:05 Dose: 20 mg Metformin HCl (Metformin 500 Mg Tab) 500 mg PO BID [facility] Montelukast Sodium (Montelukast 10 Mg Tab) 10 mg PO HS [facility] Last Admin: 06/05/22 21:05 Dose: 10 mg Multivitamins (Multivitamins, Thera 1 Each Tab) 1 each PO DAILY [facility] Last Admin: 06/06/22 08:16 Dose: 1 each Naloxone HCl (Naloxone 0.4 Mg/Ml 1 Ml Vial) 0.2 mg IV Q2M PRN PRN Reason: Opioid Reversal Pantoprazole Sodium (Pantoprazole 40 Mg Tablet) 40 mg PO AC-BID [facility] Last Admin: 06/06/22 08:16 Dose: 40 mg Trazodone HCl (Trazodone Hcl 100 Mg Tab) 100 mg PO HS [facility] Last Admin: 06/05/22 21:06 Dose: 100 mg On examination: VITAL SIGNS: 98.7, 89, 20, 1:30/72, 90% on room air GENERAL APPEARANCE: Laying in bed, not in distress HEENT: Normal external appearance of nose and ear. Oral cavity normal EYES: Pupils equal. Conjunctiva normal. NECK: JVD not raised. Mass not palpable. RESPIRATORY: Respiratory effort normal. Lungs clear to auscultation. CARDIOVASCULAR: First and second sounds normal. No edema. ABDOMEN: Soft. Liver and spleen not palpable. Tenderness on the right site./no guarding rigidity. No mass palpable. PSYCHIATRY: Alert and oriented x3. Mood and affect normal. INVESTIGATIONS, reviewed in the clinical context: June 05: WBC 6.9 hemoglobin 9.8 pro-calcitonin 0.39 June 02: White count 12 hemoglobin 11.5 platelets 239 potassium 3.6 creatinine 0.9 Computed tomography scan of the abdomen: Large 4.7 cm diverticulum coming of occasional low. Surrounding subtle inflammation. Hydropic gallbladder. Moderate-sized hiatal hernia. Assessment and plan: -Acute jejunal diverticulitis: With radiological worsening. No perforation.: Slow to respond IV cefepime. Change diet to clear liquids -Hiatal hernia -Primary osteoarthritis Tylenol as needed -GERD Protonix 40 mg twice a day -Hyperlipidemia Zetia 10 mg a day -Mild cognitive impairment Namenda 20 mg daily at bedtime -Diabetes mellitus type 2 on oral hypoglycemic -Moderate persistent asthma Advair 500/50 one puff twice a day. Ventolin when necessary -Anxiety and depression -Significant constipation Soapsuds enema Computed tomography scan showing worsening diverticulitis. No perforation. Change diet to clear liquids. Continue IV cefepime. Soapsuds enema today.
[2022-06-06] MEDS: metroNIDAZOLE 500 MG TAB PO SCH ×2 (17:19→21:52)
[2022-06-06 21:28] LABS: Glucose,Whole Blood 221 mg/dL (70-110)
[2022-06-06] MEDS: MONTELUKAST 10 MG TAB PO SCH (21:52)
[2022-06-06] MEDS: MEMANTINE 10 MG TAB PO SCH (21:52)
[2022-06-06] MEDS: traZODone HCL 100 MG TAB PO SCH (21:53)
[2022-06-06] MEDS: FAMOTIDINE 20 MG TAB PO SCH (21:53)
[2022-06-06] MEDS: AMITRIPTYLINE HCL 10 MG TAB PO SCH (21:53)
[2022-06-07] MEDS: SYMBICORT 160-4.5 MCG INHALER INHALATION SCH ×2 (07:06→20:15)
[2022-06-07 07:11] LABS: Glucose,Whole Blood 128 mg/dL (70-110)
[2022-06-07] MEDS: INSULIN ASPART (NovoLOG) 100 UNIT/ML VIAL SQ SCH ×4 (07:23→21:43)
[2022-06-07] MEDS: PANTOPRAZOLE 40 MG TABLET PO SCH ×2 (07:27→17:22)
[2022-06-07] MEDS: CITALOPRAM HYDROBROMIDE 20 MG TAB PO SCH (09:29)
[2022-06-07] MEDS: MULTIVITAMINS, THERA 1 EACH TAB PO SCH (09:29)
[2022-06-07] MEDS: GABAPENTIN 300 MG CAP PO SCH ×3 (09:30→21:44)
[2022-06-07] MEDS: LORATADINE 10 MG TAB PO SCH (09:30)
[2022-06-07] MEDS: ENOXAPARIN 40 MG/0.4 ML SYRINGE SQ SCH (09:30)
[2022-06-07] MEDS: EZETIMIBE 10 MG TAB PO SCH (09:30)
[2022-06-07] MEDS: ACETAMINOPHEN TAB 325 MG TAB PO PRN ×2 (09:32→15:47)
[2022-06-07] MEDS: metroNIDAZOLE 500 MG TAB PO SCH ×4 (09:33→21:44)
[2022-06-07] MEDS: FLUTICASONE 50MCG/SPRAY NASAL 16GM EA NOSTRIL SCH (09:34)
[2022-06-07] MEDS: levOCARNitine (WITH SUGAR) 100 MG/ML BOTTLE PO SCH (09:34)
[2022-06-07 09:48] LABS: Basophils % (A) 1 %; Eosinophils # (A) 0.3 k/uL (0-0.7); Eosinophils % (A) 6 %; HCT 32.5 % (34.0-46.0); HGB 10.8 gm/dL (11.4-16.0); Lymphocytes # (A) 0.9 k/uL (1.0-4.8); Lymphocytes % (A) 18 %; MCH 30.7 pg (25.0-35.0); MCHC 33.3 g/dL (31.0-37.0); MCV 92.2 fL (80.0-100.0); Mean Platelet Volume 7.8; Monocytes # (A) 0.4 k/uL (0-1.0); Monocytes % (A) 8 %; Neutrophils % (A) 65 %; Platelet Count 294 k/uL (150-450); RBC 3.52 m/uL (3.80-5.40); RDW 13.7 % (11.5-15.5); WBC 4.7 k/uL (3.8-10.6)
[2022-06-07] MEDS: CEFEPIME 2 GM in SODIUM CHLORIDE 0.9% 100 ML IVPB SCH ×2 (10:21→15:42)
[2022-06-07 11:38] LABS: Glucose,Whole Blood 182 mg/dL (70-110)
--- NOTE | 2022-06-07 12:54 | P.PN ---
Progress Note - Text Progress Note Date: 06/07/22 Hospital course: Patient with acute jejunal diverticulitis. 06/03/2022: I assumed care of patient today from [facility] hospitalist. Having abdominal pain. Clear liquids. IV cefepime added. Subcu Lovenox. Discussed with patient. At the patient sit up in a chair. 06/04/2022: On IV cefepime. Some improvement in abdominal pain. Had a BM. Diet advanced by surgery. Had a BM today. 06/05/2022: On IV cefepime. Slight decrease in abdominal distention. Had a BM. We will change diet to a ground diet. Abdominal tenderness still present though. Discussed with patient. Will watch another 24 hours. Abdominal x-ray reviewed. Some stool. No free air 06/06/2022: Remains on IV cefepime. Still having significant right sided abdominal pain. Had a small BM. Discussed with surgery. Repeat computed tomography scan showing worsening diverticulitis in the jejunal area. No perforation. Change diet to clear liquids. Significant stool burden. Soapsuds enema ordered. June 07 2222: Patient is put on clear liquids yesterday. Slight improvement in abdominal pain. Some nausea. Also patient sit up in a chair. Increase activity. IV Flagyl was added yesterday. Active Medications Acetaminophen (Acetaminophen Tab 325 Mg Tab) 650 mg PO Q6HR PRN PRN Reason: Mild Pain or Fever > 100.5 Last Admin: 06/07/22 09:32 Dose: 650 mg Albuterol Sulfate (Albuterol Nebulized 2.5 Mg/3 Ml) 2.5 mg INHALATION RT-Q6H PRN PRN Reason: Shortness Of Breath Last Admin: 06/04/22 16:04 Dose: 2.5 mg Amitriptyline HCl (Amitriptyline Hcl 10 Mg Tab) 10 mg PO HS [facility] Last Admin: 06/06/22 21:53 Dose: 10 mg Aspirin (Aspirin 81 Mg) 81 mg PO Q48H [facility] Last Admin: 06/05/22 21:05 Dose: 81 mg Budesonide/Formoterol Fumarate (Symbicort 160-4.5 Mcg Inhaler) 2 puff INHALATION RT-BID [facility] Last Admin: 06/07/22 07:06 Dose: 2 puff Citalopram Hydrobromide (Citalopram Hydrobromide 20 Mg Tab) 60 mg PO DAILY [facility] Last Admin: 06/07/22 09:29 Dose: 60 mg Ezetimibe (Ezetimibe 10 Mg Tab) 10 mg PO DAILY [facility] Last Admin: 06/07/22 09:30 Dose: 10 mg Enoxaparin Sodium (Enoxaparin 40 Mg/0.4 Ml Syringe) 40 mg SQ DAILY [facility] Last Admin: 06/07/22 09:30 Dose: 40 mg Famotidine (Famotidine 20 Mg Tab) 20 mg PO [facility] Last Admin: 06/06/22 21:53 Dose: 20 mg Fluticasone Propionate (Fluticasone 50mcg/[place] Nasal 16gm) 2 spray EA NOSTRIL DAILY [facility] Last Admin: 06/07/22 09:34 Dose: 2 spray Gabapentin (Gabapentin 300 Mg Cap) 300 mg PO TID [facility] Last Admin: 06/07/22 09:30 Dose: 300 mg Cefepime HCl 2 gm/ Sodium (Chloride) 100 mls @ 25 mls/hr IVPB Q8HR [facility]; Protocol Last Admin: 06/07/22 10:21 Dose: 25 mls/hr Insulin Aspart (Insulin Aspart (Novolog) 100 Unit/Ml Vial) 0 unit SQ ACHS [facility]; Protocol Last Admin: 06/07/22 07:23 Dose: Not Given Levocarnitine (Levocarnitine (With Sugar) 100 Mg/Ml Bottle) 1,000 mg PO DAILY [facility] Last Admin: 06/07/22 09:34 Dose: 1,000 mg Loratadine (Loratadine 10 Mg Tab) 10 mg PO DAILY [facility] Last Admin: 06/07/22 09:30 Dose: 10 mg Memantine (Memantine 10 Mg Tab) 20 mg PO [facility] Last Admin: 06/06/22 21:52 Dose: 20 mg Metformin HCl (Metformin 500 Mg Tab) 500 mg PO BID [facility] Metronidazole (Metronidazole 500 Mg Tab) 500 mg PO QID [facility]; Protocol Last Admin: 06/07/22 09:33 Dose: 500 mg Montelukast Sodium (Montelukast 10 Mg Tab) 10 mg PO [facility] Last Admin: 06/06/22 21:52 Dose: 10 mg Multivitamins (Multivitamins, Thera 1 Each Tab) 1 each PO DAILY [facility] Last Admin: 06/07/22 09:29 Dose: 1 each Naloxone HCl (Naloxone 0.4 Mg/Ml 1 Ml Vial) 0.2 mg IV Q2M PRN PRN Reason: Opioid Reversal Pantoprazole Sodium (Pantoprazole 40 Mg Tablet) 40 mg PO AC-BID [facility] Last Admin: 06/07/22 07:27 Dose: 40 mg Trazodone HCl (Trazodone Hcl 100 Mg Tab) 100 mg PO HS [facility] Last Admin: 06/06/22 21:53 Dose: 100 mg On examination: VITAL SIGNS: 97.9, 80, 16, 139/80, 96% room air GENERAL APPEARANCE: Laying in bed, not in distress HEENT: Normal external appearance of nose and ear. Oral cavity normal EYES: Pupils equal. Conjunctiva normal. NECK: JVD not raised. Mass not palpable. RESPIRATORY: Respiratory effort normal. Lungs clear to auscultation. CARDIOVASCULAR: First and second sounds normal. No edema. ABDOMEN: Soft. Liver and spleen not palpable. Tenderness on the right abdomen./no guarding rigidity. No mass palpable. PSYCHIATRY: Alert and oriented x3. Mood and affect normal. INVESTIGATIONS, reviewed in the clinical context: June 07: WBC 4.7 hemoglobin 10.8 June 05: WBC 6.9 hemoglobin 9.8 pro-calcitonin 0.39 June 02: White count 12 hemoglobin 11.5 platelets 239 potassium 3.6 creatinine 0.9 Computed tomography scan of the abdomen: Large 4.7 cm diverticulum coming of occasional low. Surrounding subtle inflammation. Hydropic gallbladder. Moderate-sized hiatal hernia. Assessment and plan: -Acute jejunal diverticulitis: With radiological worsening. No perforation.: Slow to respond IV cefepime. IV Flagyl Continue clear liquids -Hiatal hernia -Primary osteoarthritis Tylenol as needed -GERD Protonix 40 mg twice a day -Hyperlipidemia Zetia 10 mg a day -Mild cognitive impairment Namenda 20 mg daily at bedtime -Diabetes mellitus type 2 on oral hypoglycemic -Moderate persistent asthma Advair 500/50 one puff twice a day. Ventolin when necessary -Anxiety and depression -Significant constipation Soapsuds enema Continue with clear liquids. IV cefepime IV Flagyl. May advance to full liquids tomorrow morning. Increase activity.
[2022-06-07 13:41] VITALS: BMI 20.1
--- NOTE | 2022-06-07 13:42 | P.PN ---
Subjective Progress Note Date: 06/07/22 CHIEF COMPLAINT: Abdominal pain HISTORY OF PRESENT ILLNESS: Patient complains of left lower quadrant abdominal pain. She reports that she has not had much improvement in her pain. She does rate her pain about a 4 out of 10. Also complains of nausea. Computed tomography scan from yesterday show small bowel jejunal diverticulitis which now has increased surrounding inflammation changes compared to the 06/01/2022 CAT scan. No evidence of organized fluid collection or perforation/no peritoneum. Moderate hiatal hernia. Large stool burden throughout the colon. New trace bilateral pleural effusions left greater than right. Patient does report having bowel movements after the enema she received yesterday. WBC 4.7 Hgb 10.8 platelets 294 Patient seen and examined with Dr. lemus PHYSICAL EXAM: VITAL SIGNS: Reviewed. GENERAL: Well-developed in no acute distress. HEENT: No sclera icterus. Extraocular movements grossly intact. Moist buccal mucosa. Head is atraumatic, normocephalic. ABDOMEN: Soft. Nondistended. Tenderness to palpation left lower quadrant NEUROLOGIC: Alert and oriented. Cranial nerves II through XII grossly intact. ASSESSMENT: 1. Acute sigmoid diverticulitis 2. Jejunal diverticulitis 3. Moderate sized Paraesophageal hernia PLAN: -Patient scheduled for small bowel resection of the jejunum diverticulum 06/11/[address] lemus -Downgrade diet nothing by mouth -Continue antibiotics -Continue supportive care Physician [employer] Adviser note has been reviewed by physician. Signing provider agrees with the documented findings, assessment, and plan of care. Objective - Vital Signs Vital signs: Vital Signs Temp 97.9 F 06/07/22 02:00 Pulse 80 06/07/22 02:00 Resp 16 06/07/22 02:00 BP 139/80 06/07/22 02:00 Pulse Ox 96 06/07/22 02:00 FiO2 Intake & Output 06/06/22 06/07/22 06/07/22 18:59 06:59 18:59 Intake Total 1080 180 Balance 1080 180 Intake: Oral 1080 180 Other: Voiding Method Toilet # Voids 3 # Bowel Movements 2 - Labs CBC & Chem 7: 06/07/22 09:19 06/02/22 07:04 Labs: Abnormal Lab Results - Last 24 Hours (Table) 06/06/22 06/06/22 06/07/22 Range/Units 16:18 21:27 07:09 RBC (3.80-5.40) m/uL Hgb (11.4-16.0) gm/dL Hct (34.0-46.0) % Lymphocytes # (1.0-4.8) k/uL POC Glucose (mg/dL) 168 H 221 H 128 H (70-110) mg/dL 06/07/22 06/07/22 Range/Units 09:19 11:36 RBC 3.52 L (3.80-5.40) m/uL Hgb 10.8 L (11.4-16.0) gm/dL Hct 32.5 L (34.0-46.0) % Lymphocytes # 0.9 L (1.0-4.8) k/uL POC Glucose (mg/dL) 182 H (70-110) mg/dL
[2022-06-07 16:23] LABS: Glucose,Whole Blood 85 mg/dL (70-110)
[2022-06-07 20:49] LABS: Glucose,Whole Blood 141 mg/dL (70-110)
[2022-06-07] MEDS: ASPIRIN 81 MG PO SCH (20:50)
[2022-06-07] MEDS: traZODone HCL 100 MG TAB PO SCH (21:44)
[2022-06-07] MEDS: FAMOTIDINE 20 MG TAB PO SCH (21:44)
[2022-06-07] MEDS: MEMANTINE 10 MG TAB PO SCH (21:44)
[2022-06-07] MEDS: MONTELUKAST 10 MG TAB PO SCH (21:44)
[2022-06-07] MEDS: AMITRIPTYLINE HCL 10 MG TAB PO SCH (21:44)
[2022-06-08] MEDS: CEFEPIME 2 GM in SODIUM CHLORIDE 0.9% 100 ML IVPB SCH ×3 (00:58→16:52)
[2022-06-08 07:20] LABS: Glucose,Whole Blood 126 mg/dL (70-110)
[2022-06-08] MEDS: INSULIN ASPART (NovoLOG) 100 UNIT/ML VIAL SQ SCH ×4 (07:28→22:05)
[2022-06-08] MEDS: SYMBICORT 160-4.5 MCG INHALER INHALATION SCH ×2 (08:25→20:15)
[2022-06-08] MEDS: MULTIVITAMINS, THERA 1 EACH TAB PO SCH (08:27)
[2022-06-08] MEDS: PANTOPRAZOLE 40 MG TABLET PO SCH ×2 (08:27→18:06)
[2022-06-08] MEDS: metroNIDAZOLE 500 MG TAB PO SCH ×4 (08:27→22:03)
[2022-06-08] MEDS: EZETIMIBE 10 MG TAB PO SCH (08:27)
[2022-06-08] MEDS: LORATADINE 10 MG TAB PO SCH (08:27)
[2022-06-08] MEDS: GABAPENTIN 300 MG CAP PO SCH ×3 (08:27→22:03)
[2022-06-08] MEDS: CITALOPRAM HYDROBROMIDE 20 MG TAB PO SCH (08:27)
[2022-06-08] MEDS: levOCARNitine (WITH SUGAR) 100 MG/ML BOTTLE PO SCH (08:28)
[2022-06-08] MEDS: ENOXAPARIN 40 MG/0.4 ML SYRINGE SQ SCH (08:28)
[2022-06-08] MEDS: FLUTICASONE 50MCG/SPRAY NASAL 16GM EA NOSTRIL SCH (08:29)
[2022-06-08 10:43] LABS: Basophils # (A) 0.08 X 10*3/uL (0.00-0.10); Basophils % (A) 1.6 %; Eosinophils # (A) 0.28 X 10*3/uL (0.04-0.35); Eosinophils % (A) 5.7 %; HCT 33.9 % (37.2-46.3); HGB 10.8 g/dL (12.0-15.0); Lymphocytes % (A) 22.4 %; MCHC 31.9 g/dL (32.0-37.0); MCV 90.9 fL (80.0-97.0); Mean Platelet Volume 9.9 fL (9.5-12.2); Monocytes # (A) 0.59 X 10*3/uL (0.20-1.00); NRBC Per 100 WBC 0 /100 WBCS (0.0-0.0); Neutrophils # (A) 2.76 X 10*3/uL (1.80-7.70); Neutrophils % (A) 56.3 %; Platelet Count 330 X 10*3/uL (140-440); RBC 3.73 X 10*6/uL (4.10-5.20); RDW 14.2 % (11.5-14.5); WBC 4.91 X 10*3/uL (4.50-10.00)
[2022-06-08 11:11] LABS: Glucose,Whole Blood 128 mg/dL (70-110)
[2022-06-08] MEDS: ACETAMINOPHEN TAB 325 MG TAB PO PRN (11:41)
--- NOTE | 2022-06-08 13:07 | P.PN ---
Subjective Progress Note Date: 06/08/22 CHIEF COMPLAINT: Abdominal pain HISTORY OF PRESENT ILLNESS: Patient's abdominal pain has shown improvement. She was made nothing by mouth yesterday. She rates her pain about a 1 out of 10. Pain still located in the left lower quadrant and mid upper abdomen. Denies any nausea or vomiting. Afebrile. WBC is 4.7. Patient seen and examined with Dr. lemus PHYSICAL EXAM: VITAL SIGNS: Reviewed. GENERAL: Well-developed in no acute distress. HEENT: No sclera icterus. Extraocular movements grossly intact. Moist buccal mucosa. Head is atraumatic, normocephalic. ABDOMEN: Soft. Nondistended. Tenderness to palpation left lower quadrant and mid upper abdomen NEUROLOGIC: Alert and oriented. Cranial nerves II through XII grossly intact. ASSESSMENT: 1. Acute sigmoid diverticulitis 2. Jejunal diverticulitis 3. Moderate sized Paraesophageal hernia PLAN: -Patient scheduled for small bowel resection of the jejunum diverticulum 06/11/[address] lemus -Advance diet to full liquids -Continue antibiotics -Continue supportive care Physician [employer] note has been reviewed by physician. Signing provider agrees with the documented findings, assessment, and plan of care. Objective - Vital Signs Vital signs: Vital Signs Temp 98.7 F 06/08/22 05:47 Pulse 81 06/08/22 05:47 Resp 16 06/08/22 05:47 BP 147/87 06/08/22 05:47 Pulse Ox 95 06/08/22 05:47 FiO2 Intake & Output 06/07/22 06/08/22 06/08/22 18:59 06:59 18:59 Intake Total 180 1080 Balance 180 1080 Weight 49.895 kg Intake: Oral 180 1080 Other: # Voids 5 # Bowel Movements 0 - Labs CBC & Chem 7: 06/08/22 06:48 06/02/22 07:04 Labs: Abnormal Lab Results - Last 24 Hours (Table) 06/07/22 06/07/22 06/08/22 Range/Units 06:22 20:47 06:48 RBC 3.73 L (4.10-5.20) X 10*6/uL Hgb 10.8 L (12.0-15.0) g/dL Hct 33.9 L (37.2-46.3) % MCHC 31.9 L (32.0-37.0) g/dL Immature Gran # 0.10 H (0.00-0.04) X 10*3/uL POC Glucose (mg/dL) 141 H (70-110) mg/dL Procalcitonin 0.27 H (0.02-0.09) ng/mL 06/08/22 06/08/22 Range/Units 07:19 11:09 RBC (4.10-5.20) X 10*6/uL Hgb (12.0-15.0) g/dL Hct (37.2-46.3) % MCHC (32.0-37.0) g/dL Immature Gran # (0.00-0.04) X 10*3/uL POC Glucose (mg/dL) 126 H 128 H (70-110) mg/dL Procalcitonin (0.02-0.09) ng/mL
[2022-06-08 16:51] LABS: Glucose,Whole Blood 314 mg/dL (70-110)
--- NOTE | 2022-06-08 17:18 | P.PN ---
Progress Note - Text Progress Note Date: 06/08/22 Hospital course: Patient with acute jejunal diverticulitis. 06/03/2022: I assumed care of patient today from [facility] hospitalist. Having abdominal pain. Clear liquids. IV cefepime added. Subcu Lovenox. Discussed with patient. At the patient sit up in a chair. 06/04/2022: On IV cefepime. Some improvement in abdominal pain. Had a BM. Diet advanced by surgery. Had a BM today. 06/05/2022: On IV cefepime. Slight decrease in abdominal distention. Had a BM. We will change diet to a ground diet. Abdominal tenderness still present though. Discussed with patient. Will watch another 24 hours. Abdominal x-ray reviewed. Some stool. No free air 06/06/2022: Remains on IV cefepime. Still having significant right sided abdominal pain. Had a small BM. Discussed with surgery. Repeat computed tomography scan showing worsening diverticulitis in the jejunal area. No perforation. Change diet to clear liquids. Significant stool burden. Soapsuds enema ordered. June 07 2222: Patient is put on clear liquids yesterday. Slight improvement in abdominal pain. Some nausea. Also patient sit up in a chair. Increase activity. IV Flagyl was added yesterday. June 08: 2021: Abdominal pain better. On clear liquids. A small bowel movement. Feeling better. Only taking Tylenol for pain. Has been scheduled for surgery by Dr. Staton on Saturday. Active Medications Acetaminophen (Acetaminophen Tab 325 Mg Tab) 650 mg PO Q6HR PRN PRN Reason: Mild Pain or Fever > 100.5 Last Admin: 06/08/22 11:41 Dose: 650 mg Albuterol Sulfate (Albuterol Nebulized 2.5 Mg/3 Ml) 2.5 mg INHALATION RT-Q6H PRN PRN Reason: Shortness Of Breath Last Admin: 06/04/22 16:04 Dose: 2.5 mg Amitriptyline HCl (Amitriptyline Hcl 10 Mg Tab) 10 mg PO HS [facility] Last Admin: 06/07/22 21:44 Dose: 10 mg Aspirin (Aspirin 81 Mg) 81 mg PO Q48H [facility] Last Admin: 06/07/22 20:50 Dose: 81 mg Budesonide/Formoterol Fumarate (Symbicort 160-4.5 Mcg Inhaler) 2 puff INHALATION RT-BID [facility] Last Admin: 06/08/22 08:25 Dose: 2 puff Citalopram Hydrobromide (Citalopram Hydrobromide 20 Mg Tab) 60 mg PO DAILY [facility] Last Admin: 06/08/22 08:27 Dose: 60 mg Ezetimibe (Ezetimibe 10 Mg Tab) 10 mg PO DAILY [facility] Last Admin: 06/08/22 08:27 Dose: 10 mg Enoxaparin Sodium (Enoxaparin 40 Mg/0.4 Ml Syringe) 40 mg SQ DAILY [facility] Last Admin: 06/08/22 08:28 Dose: 40 mg Famotidine (Famotidine 20 Mg Tab) 20 mg PO [facility] Last Admin: 06/07/22 21:44 Dose: 20 mg Fluticasone Propionate (Fluticasone 50mcg/[place] Nasal 16gm) 2 spray EA NOSTRIL DAILY [facility] Last Admin: 06/08/22 08:29 Dose: 2 spray Gabapentin (Gabapentin 300 Mg Cap) 300 mg PO TID [facility] Last Admin: 06/08/22 16:52 Dose: 300 mg Cefepime HCl 2 gm/ Sodium (Chloride) 100 mls @ 25 mls/hr IVPB Q8HR [facility]; Protocol Last Admin: 06/08/22 16:52 Dose: 25 mls/hr Insulin Aspart (Insulin Aspart (Novolog) 100 Unit/Ml Vial) 0 unit SQ ACHS [facility]; Protocol Last Admin: 06/08/22 11:44 Dose: Not Given Levocarnitine (Levocarnitine (With Sugar) 100 Mg/Ml Bottle) 1,000 mg PO DAILY [facility] Last Admin: 06/08/22 08:28 Dose: 1,000 mg Loratadine (Loratadine 10 Mg Tab) 10 mg PO DAILY [facility] Last Admin: 06/08/22 08:27 Dose: 10 mg Memantine (Memantine 10 Mg Tab) 20 mg PO [facility] Last Admin: 06/07/22 21:44 Dose: 20 mg Metformin HCl (Metformin 500 Mg Tab) 500 mg PO BID [facility] Metronidazole (Metronidazole 500 Mg Tab) 500 mg PO QID [facility]; Protocol Last Admin: 06/08/22 13:20 Dose: 500 mg Montelukast Sodium (Montelukast 10 Mg Tab) 10 mg PO [facility] Last Admin: 06/07/22 21:44 Dose: 10 mg Multivitamins (Multivitamins, Thera 1 Each Tab) 1 each PO DAILY [facility] Last Admin: 06/08/22 08:27 Dose: 1 each Naloxone HCl (Naloxone 0.4 Mg/Ml 1 Ml Vial) 0.2 mg IV Q2M PRN PRN Reason: Opioid Reversal Pantoprazole Sodium (Pantoprazole 40 Mg Tablet) 40 mg PO AC-BID [facility] Last Admin: 06/08/22 08:27 Dose: 40 mg Trazodone HCl (Trazodone Hcl 100 Mg Tab) 100 mg PO HS [facility] Last Admin: 06/07/22 21:44 Dose: 100 mg On examination: VITAL SIGNS: 98.8, 86, 18, 1 5787, 95% room air GENERAL APPEARANCE: Laying in bed, more comfortable HEENT: Normal external appearance of nose and ear. Oral cavity normal EYES: Pupils equal. Conjunctiva normal. NECK: JVD not raised. Mass not palpable. RESPIRATORY: Respiratory effort normal. Lungs clear to auscultation. CARDIOVASCULAR: First and second sounds normal. No edema. ABDOMEN: Soft. Liver and spleen not palpable. Much improved Tenderness on the right abdomen./no guarding rigidity. No mass palpable. PSYCHIATRY: Alert and oriented x3. Mood and affect normal. INVESTIGATIONS, reviewed in the clinical context: June 08: WBC 4.19 in the globin 10.8 June 07: WBC 4.7 hemoglobin 10.8 June 05: WBC 6.9 hemoglobin 9.8 pro-calcitonin 0.39 June 02: White count 12 hemoglobin 11.5 platelets 239 potassium 3.6 creatinine 0.9 Computed tomography scan of the abdomen: Large 4.7 cm diverticulum coming of occasional low. Surrounding subtle inflammation. Hydropic gallbladder. Moderate-sized hiatal hernia. Assessment and plan: -Acute jejunal diverticulitis: With radiological worsening. No perforation.: Improving IV cefepime. IV Flagyl advanced to full liquids. Being scheduled for surgery by Dr. Staton -Hiatal hernia -Primary osteoarthritis Tylenol as needed -GERD Protonix 40 mg twice a day -Hyperlipidemia Zetia 10 mg a day -Mild cognitive impairment Namenda 20 mg daily at bedtime -Diabetes mellitus type 2 on oral hypoglycemic -Moderate persistent asthma Advair 500/50 one puff twice a day. Ventolin when necessary -Anxiety and depression -Significant constipation Soapsuds enema Doing better. Continue IV cefepime IV Flagyl. Full liquids. Dr. Staton's clinic for surgery on Saturday.
[2022-06-08 20:56] LABS: Glucose,Whole Blood 65 mg/dL (70-110)
[2022-06-08 21:29] LABS: Glucose,Whole Blood 141 mg/dL (70-110)
[2022-06-08] MEDS: FAMOTIDINE 20 MG TAB PO SCH (22:03)
[2022-06-08] MEDS: MEMANTINE 10 MG TAB PO SCH (22:03)
[2022-06-08] MEDS: AMITRIPTYLINE HCL 10 MG TAB PO SCH (22:03)
[2022-06-08] MEDS: MONTELUKAST 10 MG TAB PO SCH (22:03)
[2022-06-08] MEDS: traZODone HCL 100 MG TAB PO SCH (22:04)
[2022-06-08] MEDS: metFORMIN 500 MG TAB PO SCH (22:32)
[2022-06-09] MEDS: CEFEPIME 2 GM in SODIUM CHLORIDE 0.9% 100 ML IVPB SCH ×3 (00:10→15:41)
[2022-06-09] MEDS: ACETAMINOPHEN TAB 325 MG TAB PO PRN ×2 (00:13→16:25)
[2022-06-09 06:55] LABS: Glucose,Whole Blood 136 mg/dL (70-110)
[2022-06-09] MEDS: INSULIN ASPART (NovoLOG) 100 UNIT/ML VIAL SQ SCH ×4 (07:19→21:32)
[2022-06-09] MEDS: CITALOPRAM HYDROBROMIDE 20 MG TAB PO SCH (07:55)
[2022-06-09] MEDS: PANTOPRAZOLE 40 MG TABLET PO SCH ×2 (07:55→17:05)
[2022-06-09] MEDS: ENOXAPARIN 40 MG/0.4 ML SYRINGE SQ SCH (07:56)
[2022-06-09] MEDS: EZETIMIBE 10 MG TAB PO SCH (07:56)
[2022-06-09] MEDS: LORATADINE 10 MG TAB PO SCH (07:56)
[2022-06-09] MEDS: GABAPENTIN 300 MG CAP PO SCH ×3 (07:56→21:32)
[2022-06-09] MEDS: FLUTICASONE 50MCG/SPRAY NASAL 16GM EA NOSTRIL SCH (07:56)
[2022-06-09] MEDS: metroNIDAZOLE 500 MG TAB PO SCH ×4 (07:57→21:32)
[2022-06-09] MEDS: metFORMIN 500 MG TAB PO SCH ×2 (07:57→21:32)
[2022-06-09] MEDS: MULTIVITAMINS, THERA 1 EACH TAB PO SCH (07:57)
[2022-06-09] MEDS: levOCARNitine (WITH SUGAR) 100 MG/ML BOTTLE PO SCH (07:57)
--- NOTE | 2022-06-09 09:05 | P.PN ---
Subjective Progress Note Date: 06/09/22 Principal diagnosis: Diverticulitis Patient doing well today. Says her pain is improved. Tolerating full liquid diet. No nausea or vomiting. Objective - Vital Signs Vital signs: Vital Signs Temp 98.4 F 06/09/22 08:00 Pulse 82 06/09/22 08:00 Resp 17 06/09/22 08:00 BP 135/81 06/09/22 08:00 Pulse Ox 98 06/09/22 08:00 FiO2 Intake & Output 06/08/22 06/09/22 06/09/22 18:59 06:59 18:59 Intake Total 600 120 Balance 600 120 Intake: Intake, IV Titration 100 Amount Cefepime 2 gm In Sodium 100 Chloride 0.9% 100 ml @ 25 mls/hr IVPB Q8HR [facility] Rx# :[id number] Oral 500 120 Other: # Voids 7 3 - Exam Abdomen: Soft, nondistended, mild left-sided tenderness - Labs CBC & Chem 7: 06/08/22 06:48 06/02/22 07:04 Labs: Abnormal Lab Results - Last 24 Hours (Table) 06/08/22 06/08/22 06/08/22 Range/Units 06:48 11:09 16:49 RBC 3.73 L (4.10-5.20) X 10*6/uL Hgb 10.8 L (12.0-15.0) g/dL Hct 33.9 L (37.2-46.3) % MCHC 31.9 L (32.0-37.0) g/dL Immature Gran # 0.10 H (0.00-0.04) X 10*3/uL POC Glucose (mg/dL) 128 H 314 H (70-110) mg/dL 06/08/22 06/08/22 06/09/22 Range/Units 20:54 21:28 06:52 RBC (4.10-5.20) X 10*6/uL Hgb (12.0-15.0) g/dL Hct (37.2-46.3) % MCHC (32.0-37.0) g/dL Immature Gran # (0.00-0.04) X 10*3/uL POC Glucose (mg/dL) 65 L 141 H 136 H (70-110) mg/dL Assessment and Plan (1) Diverticulitis Narrative/Plan: Patient doing well at this time. Continue antibiotics. Plans for jejunal resection on Saturday. Current Visit: Yes Status: Acute Code(s): K57.92 - DVTRCLI OF INTEST, PART UNSP, W/O PERF OR ABSCESS W/O BLEED SNOMED Code(s): 130475236
[2022-06-09] MEDS: SYMBICORT 160-4.5 MCG INHALER INHALATION SCH ×2 (09:10→20:35)
[2022-06-09 11:08] LABS: Glucose,Whole Blood 198 mg/dL (70-110)
[2022-06-09 16:33] LABS: Glucose,Whole Blood 125 mg/dL (70-110)
--- NOTE | 2022-06-09 16:56 | P.PN ---
Progress Note - Text Progress Note Date: 06/09/22 Hospital course: Patient with acute jejunal diverticulitis. 06/03/2022: I assumed care of patient today from [facility] hospitalist. Having abdominal pain. Clear liquids. IV cefepime added. Subcu Lovenox. Discussed with patient. At the patient sit up in a chair. 06/04/2022: On IV cefepime. Some improvement in abdominal pain. Had a BM. Diet advanced by surgery. Had a BM today. 06/05/2022: On IV cefepime. Slight decrease in abdominal distention. Had a BM. We will change diet to a ground diet. Abdominal tenderness still present though. Discussed with patient. Will watch another 24 hours. Abdominal x-ray reviewed. Some stool. No free air 06/06/2022: Remains on IV cefepime. Still having significant right sided abdominal pain. Had a small BM. Discussed with surgery. Repeat computed tomography scan showing worsening diverticulitis in the jejunal area. No perforation. Change diet to clear liquids. Significant stool burden. Soapsuds enema ordered. June 07 2222: Patient is put on clear liquids yesterday. Slight improvement in abdominal pain. Some nausea. Also patient sit up in a chair. Increase activity. IV Flagyl was added yesterday. June 08: 2021: Abdominal pain better. On clear liquids. A small bowel movement. Feeling better. Only taking Tylenol for pain. Has been scheduled for surgery by Dr. Staton on Saturday. 06/19/2022: Abdominal pain pretty much resolved. On full liquids. Advance to ground diet. Current antibiotics. Discussed with patient.. Active Medications Acetaminophen (Acetaminophen Tab 325 Mg Tab) 650 mg PO Q6HR PRN PRN Reason: Mild Pain or Fever > 100.5 Last Admin: 06/09/22 16:25 Dose: 650 mg Albuterol Sulfate (Albuterol Nebulized 2.5 Mg/3 Ml) 2.5 mg INHALATION RT-Q6H PRN PRN Reason: Shortness Of Breath Last Admin: 06/04/22 16:04 Dose: 2.5 mg Amitriptyline HCl (Amitriptyline Hcl 10 Mg Tab) 10 mg PO HS [facility] Last Admin: 06/08/22 22:03 Dose: 10 mg Aspirin (Aspirin 81 Mg) 81 mg PO Q48H [facility] Last Admin: 06/07/22 20:50 Dose: 81 mg Budesonide/Formoterol Fumarate (Symbicort 160-4.5 Mcg Inhaler) 2 puff INHALATION RT-BID [facility] Last Admin: 06/09/22 09:10 Dose: 2 puff Citalopram Hydrobromide (Citalopram Hydrobromide 20 Mg Tab) 60 mg PO DAILY [facility] Last Admin: 06/09/22 07:55 Dose: 60 mg Ezetimibe (Ezetimibe 10 Mg Tab) 10 mg PO DAILY [facility] Last Admin: 06/09/22 07:56 Dose: 10 mg Enoxaparin Sodium (Enoxaparin 40 Mg/0.4 Ml Syringe) 40 mg SQ DAILY [facility] Last Admin: 06/09/22 07:56 Dose: 40 mg Famotidine (Famotidine 20 Mg Tab) 20 mg PO HS [facility] Last Admin: 06/08/22 22:03 Dose: 20 mg Fluticasone Propionate (Fluticasone 50mcg/[place] Nasal 16gm) 2 spray EA NOSTRIL DAILY [facility] Last Admin: 06/09/22 07:56 Dose: 2 spray Gabapentin (Gabapentin 300 Mg Cap) 300 mg PO TID [facility] Last Admin: 06/09/22 15:42 Dose: 300 mg Cefepime HCl 2 gm/ Sodium (Chloride) 100 mls @ 25 mls/hr IVPB Q8HR [facility]; Protocol Last Admin: 06/09/22 15:41 Dose: 25 mls/hr Insulin Aspart (Insulin Aspart (Novolog) 100 Unit/Ml Vial) 0 unit SQ ACHS [facility]; Protocol Last Admin: 06/09/22 16:46 Dose: Not Given Levocarnitine (Levocarnitine (With Sugar) 100 Mg/Ml Bottle) 1,000 mg PO DAILY [facility] Last Admin: 06/09/22 07:57 Dose: 1,000 mg Loratadine (Loratadine 10 Mg Tab) 10 mg PO DAILY [facility] Last Admin: 06/09/22 07:56 Dose: 10 mg Memantine (Memantine 10 Mg Tab) 20 mg PO HS [facility] Last Admin: 06/08/22 22:03 Dose: 20 mg Metformin HCl (Metformin 500 Mg Tab) 500 mg PO BID [facility] Last Admin: 06/09/22 07:57 Dose: 500 mg Metronidazole (Metronidazole 500 Mg Tab) 500 mg PO QID [facility]; Protocol Last Admin: 06/09/22 12:02 Dose: 500 mg Montelukast Sodium (Montelukast 10 Mg Tab) 10 mg PO [facility] Last Admin: 06/08/22 22:03 Dose: 10 mg Multivitamins (Multivitamins, Thera 1 Each Tab) 1 each PO DAILY [facility] Last Admin: 06/09/22 07:57 Dose: 1 each Naloxone HCl (Naloxone 0.4 Mg/Ml 1 Ml Vial) 0.2 mg IV Q2M PRN PRN Reason: Opioid Reversal Pantoprazole Sodium (Pantoprazole 40 Mg Tablet) 40 mg PO AC-BID [facility] Last Admin: 06/09/22 07:55 Dose: 40 mg Trazodone HCl (Trazodone Hcl 100 Mg Tab) 100 mg PO [facility] Last Admin: 06/08/22 22:04 Dose: 100 mg On examination: VITAL SIGNS: 98.7, 95, 18, 120 with 79, 97% room air GENERAL APPEARANCE: Laying in bed, comfortable HEENT: Normal external appearance of nose and ear. Oral cavity normal EYES: Pupils equal. Conjunctiva normal. NECK: JVD not raised. Mass not palpable. RESPIRATORY: Respiratory effort normal. Lungs clear to auscultation. CARDIOVASCULAR: First and second sounds normal. No edema. ABDOMEN: Soft. Liver and spleen not palpable. No tenderness,/no guarding rigidity. No mass palpable. PSYCHIATRY: Alert and oriented x3. Mood and affect normal. INVESTIGATIONS, reviewed in the clinical context: June 08: WBC 4.19 in the globin 10.8 June 07: WBC 4.7 hemoglobin 10.8 June 05: WBC 6.9 hemoglobin 9.8 pro-calcitonin 0.39 June 02: White count 12 hemoglobin 11.5 platelets 239 potassium 3.6 creatinine 0.9 Computed tomography scan of the abdomen: Large 4.7 cm diverticulum coming of occasional low. Surrounding subtle inflammation. Hydropic gallbladder. Moderate-sized hiatal hernia. Assessment and plan: -Acute jejunal diverticulitis: With radiological worsening. No perforation.: Much improved IV cefepime. IV Flagyl . Advance diet to ground diet. -Hiatal hernia -Primary osteoarthritis Tylenol as needed -GERD Protonix 40 mg twice a day -Hyperlipidemia Zetia 10 mg a day -Mild cognitive impairment Namenda 20 mg daily at bedtime -Diabetes mellitus type 2 on oral hypoglycemic -Moderate persistent asthma Advair 500/50 one puff twice a day. Ventolin when necessary -Anxiety and depression -Significant constipation Soapsuds enema No abdominal pain. Continue IV antibiotics. Change to ground diet. Discussed with patient. Possibility of sending home with antibiotics and follow with Dr. Staton's outpatient evaluated for surgery
[2022-06-09 21:00] LABS: Glucose,Whole Blood 147 mg/dL (70-110)
[2022-06-09] MEDS: ASPIRIN 81 MG PO SCH (21:32)
[2022-06-09] MEDS: MEMANTINE 10 MG TAB PO SCH (21:32)
[2022-06-09] MEDS: FAMOTIDINE 20 MG TAB PO SCH (21:32)
[2022-06-09] MEDS: MONTELUKAST 10 MG TAB PO SCH (21:32)
[2022-06-09] MEDS: traZODone HCL 100 MG TAB PO SCH (21:32)
[2022-06-09] MEDS: AMITRIPTYLINE HCL 10 MG TAB PO SCH (21:47)
[2022-06-10] MEDS: CEFEPIME 2 GM in SODIUM CHLORIDE 0.9% 100 ML IVPB SCH ×3 (00:16→15:26)
[2022-06-10] MEDS: ACETAMINOPHEN TAB 325 MG TAB PO PRN ×3 (00:16→19:04)
[2022-06-10 07:13] LABS: Glucose,Whole Blood 129 mg/dL (70-110)
[2022-06-10 07:42] LABS: Basophils # (A) 0.1 k/uL (0-0.2); Basophils % (A) 2 %; Eosinophils # (A) 0.4 k/uL (0-0.7); Eosinophils % (A) 6 %; HCT 37.3 % (34.0-46.0); HGB 11.9 gm/dL (11.4-16.0); Lymphocytes # (A) 1.3 k/uL (1.0-4.8); Lymphocytes % (A) 20 %; MCH 29.8 pg (25.0-35.0); MCHC 31.8 g/dL (31.0-37.0); MCV 93.8 fL (80.0-100.0); Monocytes # (A) 0.4 k/uL (0-1.0); Monocytes % (A) 6 %; Neutrophils # (A) 3.9 k/uL (1.3-7.7); Neutrophils % (A) 63 %; Platelet Count 433 k/uL (150-450); RBC 3.98 m/uL (3.80-5.40); WBC 6.2 k/uL (3.8-10.6)
[2022-06-10] MEDS: SYMBICORT 160-4.5 MCG INHALER INHALATION SCH ×2 (07:48→19:33)
[2022-06-10] MEDS: INSULIN ASPART (NovoLOG) 100 UNIT/ML VIAL SQ SCH ×4 (08:48→21:16)
[2022-06-10] MEDS: MULTIVITAMINS, THERA 1 EACH TAB PO SCH (08:55)
[2022-06-10] MEDS: metFORMIN 500 MG TAB PO SCH ×2 (08:55→21:14)
[2022-06-10] MEDS: LORATADINE 10 MG TAB PO SCH (08:55)
[2022-06-10] MEDS: GABAPENTIN 300 MG CAP PO SCH ×3 (08:55→21:14)
[2022-06-10] MEDS: EZETIMIBE 10 MG TAB PO SCH (08:55)
[2022-06-10] MEDS: CITALOPRAM HYDROBROMIDE 20 MG TAB PO SCH (08:55)
[2022-06-10] MEDS: PANTOPRAZOLE 40 MG TABLET PO SCH ×2 (08:56→17:08)
[2022-06-10] MEDS: FLUTICASONE 50MCG/SPRAY NASAL 16GM EA NOSTRIL SCH (08:57)
[2022-06-10] MEDS: ENOXAPARIN 40 MG/0.4 ML SYRINGE SQ SCH (08:58)
[2022-06-10] MEDS: levOCARNitine (WITH SUGAR) 100 MG/ML BOTTLE PO SCH (09:01)
[2022-06-10] MEDS: metroNIDAZOLE 500 MG TAB PO SCH ×4 (09:04→21:14)
--- NOTE | 2022-06-10 09:24 | P.PN ---
Subjective Progress Note Date: 06/10/22 Principal diagnosis: Diverticulitis Patient says her pain is morning is worse again in the left upper quadrant. No nausea or vomiting. She has been tolerating her diet today she apparently was provided with regular food and she ate at. Objective - Vital Signs Vital signs: Vital Signs Temp 98.4 F 06/10/22 07:43 Pulse 86 06/10/22 07:43 Resp 17 06/10/22 07:43 BP 148/83 06/10/22 07:43 Pulse Ox 99 06/10/22 07:43 FiO2 Intake & Output 06/09/22 06/10/22 06/10/22 18:59 06:59 18:59 Intake Total 360 700 Balance 360 700 Intake: Intake, IV Titration 200 Amount Cefepime 2 gm In Sodium 200 Chloride 0.9% 100 ml @ 25 mls/hr IVPB Q8HR [facility] Rx# :[id number] Oral 360 500 Other: Voiding Method Toilet # Voids 3 3 - Exam Abdomen: Soft, nondistended, mild left upper quadrant tenderness - Labs CBC & Chem 7: 06/10/22 07:14 06/02/22 07:04 Labs: Abnormal Lab Results - Last 24 Hours (Table) 06/09/22 06/09/22 06/09/22 Range/Units 11:07 16:31 20:58 POC Glucose (mg/dL) 198 H 125 H 147 H (70-110) mg/dL 06/10/22 Range/Units 07:11 POC Glucose (mg/dL) 129 H (70-110) mg/dL Assessment and Plan (1) Diverticulitis Narrative/Plan: Switched to clear liquids for now. Nothing by mouth after midnight. Patient scheduled for surgery tomorrow. Current Visit: Yes Status: Acute Code(s): K57.92 - DVTRCLI OF INTEST, PART UNSP, W/O PERF OR ABSCESS W/O BLEED SNOMED Code(s): 367882065
[2022-06-10 11:18] LABS: Glucose,Whole Blood 157 mg/dL (70-110)
--- NOTE | 2022-06-10 15:36 | P.PN ---
Progress Note - Text Progress Note Date: 06/10/22 Hospital course: Patient with acute jejunal diverticulitis. 06/03/2022: I assumed care of patient today from [facility] hospitalist. Having abdominal pain. Clear liquids. IV cefepime added. Subcu Lovenox. Discussed with patient. At the patient sit up in a chair. 06/04/2022: On IV cefepime. Some improvement in abdominal pain. Had a BM. Diet advanced by surgery. Had a BM today. 06/05/2022: On IV cefepime. Slight decrease in abdominal distention. Had a BM. We will change diet to a ground diet. Abdominal tenderness still present though. Discussed with patient. Will watch another 24 hours. Abdominal x-ray reviewed. Some stool. No free air 06/06/2022: Remains on IV cefepime. Still having significant right sided abdominal pain. Had a small BM. Discussed with surgery. Repeat computed tomography scan showing worsening diverticulitis in the jejunal area. No perforation. Change diet to clear liquids. Significant stool burden. Soapsuds enema ordered. June 07 2222: Patient is put on clear liquids yesterday. Slight improvement in abdominal pain. Some nausea. Also patient sit up in a chair. Increase activity. IV Flagyl was added yesterday. June 082021: Abdominal pain better. On clear liquids. A small bowel movement. Feeling better. Only taking Tylenol for pain. Has been scheduled for surgery by Dr. Staton on Saturday. 06/09/2022: Abdominal pain pretty much resolved. On full liquids. Advance to ground diet. Current antibiotics. Discussed with patient.. 06/10/2022: Abdominal pain has resurfaced. Put back on clear liquids. Discussed with patient. For surgery tomorrow by Dr. Staton. Active Medications Acetaminophen (Acetaminophen Tab 325 Mg Tab) 650 mg PO Q6HR PRN PRN Reason: Mild Pain or Fever > 100.5 Last Admin: 06/10/22 10:51 Dose: 650 mg Albuterol Sulfate (Albuterol Nebulized 2.5 Mg/3 Ml) 2.5 mg INHALATION RT-Q6H PRN PRN Reason: Shortness Of Breath Last Admin: 06/04/22 16:04 Dose: 2.5 mg Amitriptyline HCl (Amitriptyline Hcl 10 Mg Tab) 10 mg PO HS [facility] Last Admin: 06/09/22 21:47 Dose: 10 mg Aspirin (Aspirin 81 Mg) 81 mg PO Q48H [facility] Last Admin: 06/09/22 21:32 Dose: 81 mg Budesonide/Formoterol Fumarate (Symbicort 160-4.5 Mcg Inhaler) 2 puff INHALATION RT-BID [facility] Last Admin: 06/10/22 07:48 Dose: 2 puff Citalopram Hydrobromide (Citalopram Hydrobromide 20 Mg Tab) 60 mg PO DAILY [facility] Last Admin: 06/10/22 08:55 Dose: 60 mg Ezetimibe (Ezetimibe 10 Mg Tab) 10 mg PO DAILY [facility] Last Admin: 06/10/22 08:55 Dose: 10 mg Enoxaparin Sodium (Enoxaparin 40 Mg/0.4 Ml Syringe) 40 mg SQ DAILY [facility] Last Admin: 06/10/22 08:58 Dose: 40 mg Famotidine (Famotidine 20 Mg Tab) 20 mg PO HS [facility] Last Admin: 06/09/22 21:32 Dose: 20 mg Fluticasone Propionate (Fluticasone 50mcg/[place] Nasal 16gm) 2 spray EA NOSTRIL DAILY [facility] Last Admin: 06/10/22 08:57 Dose: 2 spray Gabapentin (Gabapentin 300 Mg Cap) 300 mg PO TID [facility] Last Admin: 06/10/22 15:26 Dose: 300 mg Cefepime HCl 2 gm/ Sodium (Chloride) 100 mls @ 25 mls/hr IVPB Q8HR [facility]; Protocol Last Admin: 06/10/22 15:26 Dose: 25 mls/hr Insulin Aspart (Insulin Aspart (Novolog) 100 Unit/Ml Vial) 0 unit SQ ACHS [facility]; Protocol Last Admin: 06/10/22 12:01 Dose: 1 unit Levocarnitine (Levocarnitine (With Sugar) 100 Mg/Ml Bottle) 1,000 mg PO DAILY [facility] Last Admin: 06/10/22 09:01 Dose: 1,000 mg Loratadine (Loratadine 10 Mg Tab) 10 mg PO DAILY [facility] Last Admin: 06/10/22 08:55 Dose: 10 mg Memantine (Memantine 10 Mg Tab) 20 mg PO HS [facility] Last Admin: 06/09/22 21:32 Dose: 20 mg Metformin HCl (Metformin 500 Mg Tab) 500 mg PO BID [facility] Last Admin: 06/10/22 08:55 Dose: 500 mg Metronidazole (Metronidazole 500 Mg Tab) 500 mg PO QID [facility]; Protocol Last Admin: 06/10/22 12:02 Dose: 500 mg Montelukast Sodium (Montelukast 10 Mg Tab) 10 mg PO [facility] Last Admin: 06/09/22 21:32 Dose: 10 mg Multivitamins (Multivitamins, Thera 1 Each Tab) 1 each PO DAILY [facility] Last Admin: 06/10/22 08:55 Dose: Not Given Naloxone HCl (Naloxone 0.4 Mg/Ml 1 Ml Vial) 0.2 mg IV Q2M PRN PRN Reason: Opioid Reversal Pantoprazole Sodium (Pantoprazole 40 Mg Tablet) 40 mg PO AC-BID [facility] Last Admin: 06/10/22 08:56 Dose: 40 mg Trazodone HCl (Trazodone Hcl 100 Mg Tab) 100 mg PO [facility] Last Admin: 06/09/22 21:32 Dose: 100 mg On examination: VITAL SIGNS: 98.5, 96, 17, 1:30 with 79, 99% room air GENERAL APPEARANCE: Laying in bed, awake HEENT: Normal external appearance of nose and ear. Oral cavity normal EYES: Pupils equal. Conjunctiva normal. NECK: JVD not raised. Mass not palpable. RESPIRATORY: Respiratory effort normal. Lungs clear to auscultation. CARDIOVASCULAR: First and second sounds normal. No edema. ABDOMEN: Soft. Liver and spleen not palpable. Right abdominal tenderness,/no guarding rigidity. No mass palpable. PSYCHIATRY: Alert and oriented x3. Mood and affect normal. INVESTIGATIONS, reviewed in the clinical context: June 10: WBC 6.2 hemoglobin 11.9 June 08: WBC 4.19 in the globin 10.8 June 07: WBC 4.7 hemoglobin 10.8 June 05: WBC 6.9 hemoglobin 9.8 pro-calcitonin 0.39 June 02: White count 12 hemoglobin 11.5 platelets 239 potassium 3.6 creatinine 0.9 Computed tomography scan of the abdomen: Large 4.7 cm diverticulum coming of occasional low. Surrounding subtle inflammation. Hydropic gallbladder. Moderate-sized hiatal hernia. Assessment and plan: -Acute jejunal diverticulitis: With radiological worsening. No perforation.: Worsening IV cefepime. IV Flagyl . Change diet to clear liquids. Pending surgery -Hiatal hernia -Primary osteoarthritis Tylenol as needed -GERD Protonix 40 mg twice a day -Hyperlipidemia Zetia 10 mg a day -Mild cognitive impairment Namenda 20 mg daily at bedtime -Diabetes mellitus type 2 on oral hypoglycemic Follow Accu-Cheks -Moderate persistent asthma Advair 500/50 one puff twice a day. Ventolin when necessary -Anxiety and depression -Significant constipation Soapsuds enema Continue IV by antibiotics. Clear liquids. Discussed with patient. This scheduled for surgery with Dr. Staton tomorrow.
[2022-06-10 16:33] LABS: Glucose,Whole Blood 121 mg/dL (70-110)
[2022-06-10 20:46] LABS: Glucose,Whole Blood 171 mg/dL (70-110)
[2022-06-10] MEDS: AMITRIPTYLINE HCL 10 MG TAB PO SCH (21:13)
[2022-06-10] MEDS: MEMANTINE 10 MG TAB PO SCH (21:14)
[2022-06-10] MEDS: MONTELUKAST 10 MG TAB PO SCH (21:14)
[2022-06-10] MEDS: FAMOTIDINE 20 MG TAB PO SCH (21:14)
[2022-06-10] MEDS: traZODone HCL 100 MG TAB PO SCH (21:14)
[2022-06-11] MEDS: CEFEPIME 2 GM in SODIUM CHLORIDE 0.9% 100 ML IVPB SCH ×3 (00:03→16:32)
[2022-06-11 07:02] LABS: Glucose,Whole Blood 125 mg/dL (70-110)
[2022-06-11] MEDS: INSULIN ASPART (NovoLOG) 100 UNIT/ML VIAL SQ SCH ×4 (07:06→21:19)
[2022-06-11] MEDS: SYMBICORT 160-4.5 MCG INHALER INHALATION SCH ×2 (07:36→20:14)
[2022-06-11] MEDS: ENOXAPARIN 40 MG/0.4 ML SYRINGE SQ SCH ×2 (08:35→14:15)
[2022-06-11] MEDS: metFORMIN 500 MG TAB PO SCH ×2 (08:36→21:14)
[2022-06-11] MEDS: EZETIMIBE 10 MG TAB PO SCH (08:37)
[2022-06-11] MEDS: CITALOPRAM HYDROBROMIDE 20 MG TAB PO SCH (08:37)
[2022-06-11] MEDS: GABAPENTIN 300 MG CAP PO SCH ×3 (08:37→22:24)
[2022-06-11] MEDS: metroNIDAZOLE 500 MG TAB PO SCH ×4 (08:37→22:24)
[2022-06-11] MEDS: LORATADINE 10 MG TAB PO SCH (08:37)
[2022-06-11] MEDS: PANTOPRAZOLE 40 MG TABLET PO SCH ×2 (08:37→16:31)
[2022-06-11] MEDS: FLUTICASONE 50MCG/SPRAY NASAL 16GM EA NOSTRIL SCH (08:38)
[2022-06-11] MEDS: levOCARNitine (WITH SUGAR) 100 MG/ML BOTTLE PO SCH (08:38)
[2022-06-11] MEDS: MULTIVITAMINS, THERA 1 EACH TAB PO SCH (08:39)
[2022-06-11 11:14] LABS: Glucose,Whole Blood 127 mg/dL (70-110)
[2022-06-11 11:18] LABS: ALT 28 U/L (4-34); AST 46 U/L (14-36); African American GFR (CKD) 83 (>60 ml/min/1.73 sqM); Albumin 3.6 g/dL (3.5-5.0); Albumin/Globulin Ratio 1.4; Alkaline Phosphatase 75 U/L (38-126); Anion Gap 10 mmol/L; Blood Urea Nitrogen 9 mg/dL (7-17); Calcium 9.2 mg/dL (8.4-10.2); Carbon Dioxide 21 mmol/L (22-30); Chloride 106 mmol/L (98-107); Globulin 2.5 g/dL; Glucose 126 mg/dL (74-99); Non-African American GFR(CKD) 72 (>60 ml/min/1.73 sqM); Potassium 5.1 mmol/L (3.5-5.1); Sodium 137 mmol/L (137-145); Total Bilirubin 0.3 mg/dL (0.2-1.3); Total Protein 6.1 g/dL (6.3-8.2)
[2022-06-11 11:38] LABS: INR 1.2 (<1.2); Partial Thromboplastin Time 25.7 sec (22.0-30.0); Prothrombin Time 12.4 sec (9.0-12.0)
[2022-06-11] MEDS ORDERED: ONDANSETRON 4 MG/2 ML VIAL ONE (13:37)
[2022-06-11 13:40] LABS: Glucose,Whole Blood 122 mg/dL (70-110)
[2022-06-11] MEDS ORDERED: MIDAZOLAM 2 MG/2 ML VIAL IVP ONE (13:43)
[2022-06-11] MEDS ORDERED: LACTATED RINGERS 1,000 ML IV ONE (13:46)
[2022-06-11] MEDS ORDERED: DEXAMETHASONE SOD PHOSPHATE 4 MG/ML 1 ML VIAL IVP ONE (13:47)
[2022-06-11] MEDS ORDERED: ONDANSETRON 4 MG/2 ML VIAL IVP ONE (13:47)
[2022-06-11] MEDS ORDERED: SUCCINYLCHOLINE CHLORIDE 100 MG/5 ML SYR IV ONE (14:13)
[2022-06-11] MEDS ORDERED: NEOSTIGMINE 1 MG/ML 10 ML VIAL ONE (14:13)
[2022-06-11] MEDS ORDERED: GLYCOPYRROLATE 0.2 MG/ML 2 ML VIAL ONE (14:13)
[2022-06-11] MEDS ORDERED: fentaNYL (PF) 50 MCG/ML 2 ML AMP ONE (14:13)
[2022-06-11] MEDS ORDERED: ROPIVACAINE 5 MG/ML 30 ML VIAL ONE (14:13)
[2022-06-11] MEDS ORDERED: MIDAZOLAM 2 MG/2 ML VIAL ONE (14:13)
[2022-06-11] MEDS ORDERED: ROCURONIUM 10 MG/ML (5 ML VIAL) IV ONE (14:13)
[2022-06-11] MEDS ORDERED: PROPOFOL 10 MG/ML 20 ML VIAL IV ONE (14:13)
[2022-06-11] MEDS ORDERED: PHENYLEPHRINE-0.9% NACL SYG 1,000 MCG/10 ML SYRINGE ONE (14:13)
[2022-06-11] MEDS ORDERED: LIDOCAINE 2% INJ 20 MG/ML (2 ML VIAL) ONE (14:13)
--- NOTE | 2022-06-11 14:31 | P.ANPRN ---
Procedure Note - Anesthesia - Nerve Block Performed Bilateral Rectus Abdominis Single Time Out Performed: Yes (1343) Date of Procedure: 06/11/22 Procedure Start Time: 13:44 Procedure Stop Time: 13:48 Location of Patient: PreOp Indication: Acute Post-Operative Pain, Requested by Surgeon Specifically requested for management of pain by DrMilo: Karan Staton Sedation Type: Sedate with meaningful contact maintained Preparation: Sterile Prep Position: Supine Catheter: None Needle Types: Pajunk Needle Gauge: 21 Ultrasound used to visualize needle placement: Yes Ultrasound used to observe medication spread: Yes Injectate: 0.5% Ropivacaine (see comment for volume) (15cc + 10cc nacl each side) Blood Aspirated: No Pain Paresthesia on Injection Noted: No Resistance on Injection: Normal Image Stored and Saved: Yes Events: Uneventful and Well Tolerated
[2022-06-11] MEDS ORDERED: BENZOCAINE/MENTHOL LOZENG 1 EACH LOZENGE MUCOUS MEM PRN (15:06)
--- NOTE | 2022-06-11 15:06 | P.OP ---
Date of Procedure: 06/11/22 Preoperative Diagnosis: Jejunal diverticulitis Postoperative Diagnosis: Jejunal diverticulitis Procedure(s) Performed: Exploratory laparotomy Small bowel resection Anesthesia: AMIRAH Surgeon: Karan Staton Estimated Blood Loss (ml): 5 Pathology: other (Jejunum) Condition: stable Disposition: PACU Description of Procedure: The patient's placed on the operating table in supine position. She received general endotracheal tube anesthesia. Her abdomen was prepped and draped usual fashion. The skin was incised through a midline incision. The Bookwalterwound in the wound.. The bowel was then run. There was a small bowel inflammatory mass in the proximal jejunum adhered to the omentum. There were several other small diverticulum seen in this area. At this point decided do a small bowel resection. The bowel was transected proximally and distally. With a GI stapler. Then using the Enseal device mesentery the bowel was divided. A [id number] functional end-to-end staple anastomosis created with the NEFTALI and TA stapler. A 3-0 GI silks suture was used as a crotch stitch. The window in the mesentery was a large enough size. It was not closed suture. The fascia was then closed with looped #1 PDS suture. Skin was then closed henny. Patient top she will was sent to recovery room stable condition.
[2022-06-11] MEDS ORDERED: HYDROmorphone 0.5 MG/0.5 ML SYRINGE IVP ONE ×2 (15:20→15:26)
[2022-06-11] MEDS: KETOROLAC 15 MG/ML 1 ML VIAL IVP PRN ×2 (15:20→22:40)
[2022-06-11 15:37] LABS: Glucose,Whole Blood 154 mg/dL (70-110)
[2022-06-11] MEDS ORDERED: SODIUM CHLORIDE 0.9% 1,000 ML IV ONE (16:05)
[2022-06-11 16:28] LABS: Glucose,Whole Blood 187 mg/dL (70-110)
--- NOTE | 2022-06-11 17:33 | P.PN ---
Progress Note - Text Progress Note Date: 06/11/22 Hospital course: Patient with acute jejunal diverticulitis. 06/03/2022: I assumed care of patient today from [facility] hospitalist. Having abdominal pain. Clear liquids. IV cefepime added. Subcu Lovenox. Discussed with patient. At the patient sit up in a chair. 06/04/2022: On IV cefepime. Some improvement in abdominal pain. Had a BM. Diet advanced by surgery. Had a BM today. 06/05/2022: On IV cefepime. Slight decrease in abdominal distention. Had a BM. We will change diet to a ground diet. Abdominal tenderness still present though. Discussed with patient. Will watch another 24 hours. Abdominal x-ray reviewed. Some stool. No free air 06/06/2022: Remains on IV cefepime. Still having significant right sided abdominal pain. Had a small BM. Discussed with surgery. Repeat computed tomography scan showing worsening diverticulitis in the jejunal area. No perforation. Change diet to clear liquids. Significant stool burden. Soapsuds enema ordered. June 07 2222: Patient is put on clear liquids yesterday. Slight improvement in abdominal pain. Some nausea. Also patient sit up in a chair. Increase activity. IV Flagyl was added yesterday. June 082021: Abdominal pain better. On clear liquids. A small bowel movement. Feeling better. Only taking Tylenol for pain. Has been scheduled for surgery by Dr. Staton on Saturday. 06/09/2022: Abdominal pain pretty much resolved. On full liquids. Advance to ground diet. Current antibiotics. Discussed with patient.. 06/10/2022: Abdominal pain has resurfaced. Put back on clear liquids. Discussed with patient. For surgery tomorrow by Dr. Staton. 06/11/2022: Patient was seen this morning. Abdominal pain significant. Tender. Later patient went down for surgery. Small bowel resection carried out. Active Medications Acetaminophen (Acetaminophen Tab 325 Mg Tab) 650 mg PO Q6HR PRN PRN Reason: Mild Pain or Fever > 100.5 Last Admin: 06/10/22 19:04 Dose: 650 mg Albuterol Sulfate (Albuterol Nebulized 2.5 Mg/3 Ml) 2.5 mg INHALATION RT-Q6H PRN PRN Reason: Shortness Of Breath Last Admin: 06/04/22 16:04 Dose: 2.5 mg Alvimopan (Alvimopan 12 Mg Capsule) 12 mg PO BID [facility] Stop: 06/18/22 21:01 Amitriptyline HCl (Amitriptyline Hcl 10 Mg Tab) 10 mg PO HS [facility] Last Admin: 06/10/22 21:13 Dose: 10 mg Aspirin (Aspirin 81 Mg) 81 mg PO Q48H [facility] Last Admin: 06/09/22 21:32 Dose: 81 mg Benzocaine/Menthol (Benzocaine/Menthol Lozeng 1 Each Lozenge) 1 each MUCOUS MEM Q1HR PRN PRN Reason: Sore Throat Budesonide/Formoterol Fumarate (Symbicort 160-4.5 Mcg Inhaler) 2 puff INHALATION RT-BID [facility] Last Admin: 06/11/22 07:36 Dose: 2 puff Citalopram Hydrobromide (Citalopram Hydrobromide 20 Mg Tab) 60 mg PO DAILY [facility] Last Admin: 06/11/22 08:37 Dose: 60 mg Ezetimibe (Ezetimibe 10 Mg Tab) 10 mg PO DAILY [facility] Last Admin: 06/11/22 08:37 Dose: 10 mg Enoxaparin Sodium (Enoxaparin 40 Mg/0.4 Ml Syringe) 40 mg SQ DAILY [facility] Last Admin: 06/11/22 14:15 Dose: 40 mg Famotidine (Famotidine 20 Mg Tab) 20 mg PO HS [facility] Last Admin: 06/10/22 21:14 Dose: 20 mg Fluticasone Propionate (Fluticasone 50mcg/[place] Nasal 16gm) 2 spray EA NOSTRIL DAILY [facility] Last Admin: 06/11/22 08:38 Dose: 2 spray Gabapentin (Gabapentin 300 Mg Cap) 300 mg PO TID [facility] Last Admin: 06/11/22 16:31 Dose: Not Given Cefepime HCl 2 gm/ Sodium (Chloride) 100 mls @ 25 mls/hr IVPB Q8HR [facility]; Protocol Last Admin: 06/11/22 16:32 Dose: 25 mls/hr Potassium Chloride/Dextrose/Sod Cl (D5%-1/2ns-Kcl 20 Meq/L Iv Solution) 1,000 mls @ 125 mls/hr IV .Q8H [facility] Insulin Aspart (Insulin Aspart (Novolog) 100 Unit/Ml Vial) 0 unit SQ ACHS [facility]; Protocol Last Admin: 06/11/22 16:36 Dose: 2 unit Ketorolac Tromethamine (Ketorolac 15 Mg/Ml 1 Ml Vial) 15 mg IVP Q6HR PRN PRN Reason: Mild to Moderate Pain Stop: 06/13/22 15:07 Last Admin: 06/11/22 15:20 Dose: 15 mg Levocarnitine (Levocarnitine (With Sugar) 100 Mg/Ml Bottle) 1,000 mg PO DAILY [facility] Last Admin: 06/11/22 08:38 Dose: 1,000 mg Loratadine (Loratadine 10 Mg Tab) 10 mg PO DAILY [facility] Last Admin: 06/11/22 08:37 Dose: 10 mg Memantine (Memantine 10 Mg Tab) [address] [facility] Last Admin: 06/10/22 21:14 Dose: 20 mg Metformin HCl (Metformin 500 Mg Tab) 500 mg PO BID [facility] Last Admin: 06/11/22 08:36 Dose: Not Given Metronidazole (Metronidazole 500 Mg Tab) 500 mg PO QID [facility]; Protocol Last Admin: 06/11/22 16:31 Dose: Not Given Montelukast Sodium (Montelukast 10 Mg Tab) [address] [facility] Last Admin: 06/10/22 21:14 Dose: 10 mg Multivitamins (Multivitamins, Thera 1 Each Tab) 1 each PO DAILY [facility] Last Admin: 06/11/22 08:39 Dose: Not Given Naloxone HCl (Naloxone 0.4 Mg/Ml 1 Ml Vial) 0.2 mg IV Q2M PRN PRN Reason: Opioid Reversal Ondansetron HCl (Ondansetron 4 Mg/2 Ml Vial) 4 mg IVP Q8HR PRN PRN Reason: Nausea And Vomiting Pantoprazole Sodium (Pantoprazole 40 Mg Tablet) 40 mg PO AC-BID [facility] Last Admin: 06/11/22 16:31 Dose: Not Given Trazodone HCl (Trazodone Hcl 100 Mg Tab) [address] [facility] Last Admin: 06/10/22 21:14 Dose: 100 mg On examination: VITAL SIGNS: 97.1, 98, 12, 140/80, 96% on 2 L GENERAL APPEARANCE: Laying in bed, awake HEENT: Normal external appearance of nose and ear. Oral cavity normal EYES: Pupils equal. Conjunctiva normal. NECK: JVD not raised. Mass not palpable. RESPIRATORY: Respiratory effort normal. Lungs clear to auscultation. CARDIOVASCULAR: First and second sounds normal. No edema. ABDOMEN: Soft. Liver and spleen not palpable. Right abdominal tenderness,/no guarding rigidity. No mass palpable. PSYCHIATRY: Alert and oriented x3. Mood and affect normal. INVESTIGATIONS, reviewed in the clinical context: June 11: Potassium 5.1 creatinine 0.86 June 10: WBC 6.2 hemoglobin 11.9 June 08: WBC 4.19 in the globin 10.8 June 07: WBC 4.7 hemoglobin 10.8 June 05: WBC 6.9 hemoglobin 9.8 pro-calcitonin 0.39 June 02: White count 12 hemoglobin 11.5 platelets 239 potassium 3.6 creatinine 0.9 Computed tomography scan of the abdomen: Large 4.7 cm diverticulum coming of occasional low. Surrounding subtle inflammation. Hydropic gallbladder. Moderate-sized hiatal hernia. Assessment and plan: -Acute jejunal diverticulitis: Worsening. IV cefepime. IV Flagyl . June 11 underwent small bowel resection by Dr. Staton. -Hiatal hernia -Primary osteoarthritis Tylenol as needed -GERD Protonix 40 mg twice a day -Hyperlipidemia Zetia 10 mg a day -Mild cognitive impairment Namenda 20 mg daily at bedtime -Diabetes mellitus type 2 on oral hypoglycemic Follow Accu-Cheks -Moderate persistent asthma Advair 500/50 one puff twice a day. Ventolin when necessary -Anxiety and depression -Significant constipation Soapsuds enema On IV cefepime IV Flagyl. Later this afternoon underwent small bowel resection. Follow postop surgical orders..
[2022-06-11 18:19] LABS: Basophils # (A) 0.1 k/uL (0-0.2); Basophils % (A) 1 %; Eosinophils # (A) 0.1 k/uL (0-0.7); Eosinophils % (A) 0 %; HCT 35.8 % (34.0-46.0); HGB 11.3 gm/dL (11.4-16.0); Hypochromasia Slight; Lymphocytes # (A) 0.5 k/uL (1.0-4.8); Lymphocytes % (A) 5 %; MCH 29.8 pg (25.0-35.0); MCHC 31.5 g/dL (31.0-37.0); MCV 94.7 fL (80.0-100.0); Monocytes # (A) 0.1 k/uL (0-1.0); Monocytes % (A) 1 %; Neutrophils # (A) 11.2 k/uL (1.3-7.7); Neutrophils % (A) 93 %; Platelet Count 413 k/uL (150-450); RBC 3.78 m/uL (3.80-5.40); RDW 14.1 % (11.5-15.5)
[2022-06-11 18:21] LABS: African American GFR (CKD) 81 (>60 ml/min/1.73 sqM); Anion Gap 5 mmol/L; Blood Urea Nitrogen 12 mg/dL (7-17); Calcium 8.8 mg/dL (8.4-10.2); Carbon Dioxide 22 mmol/L (22-30); Chloride 107 mmol/L (98-107); Glucose 178 mg/dL (74-99); Non-African American GFR(CKD) 70 (>60 ml/min/1.73 sqM); Potassium 4.8 mmol/L (3.5-5.1); Sodium 134 mmol/L (137-145)
[2022-06-11 21:13] LABS: Glucose,Whole Blood 213 mg/dL (70-110)
[2022-06-11] MEDS: AMITRIPTYLINE HCL 10 MG TAB PO SCH (21:14)
[2022-06-11] MEDS: MEMANTINE 10 MG TAB PO SCH (21:14)
[2022-06-11] MEDS: FAMOTIDINE 20 MG TAB PO SCH (21:14)
[2022-06-11] MEDS: MONTELUKAST 10 MG TAB PO SCH (21:14)
[2022-06-11] MEDS: ACETAMINOPHEN TAB 325 MG TAB PO PRN (21:14)
[2022-06-11] MEDS: traZODone HCL 100 MG TAB PO SCH (21:14)
[2022-06-11] MEDS: ASPIRIN 81 MG PO SCH (21:21)
[2022-06-12 03:04] LABS: Basophils % (A) 1 %; Eosinophils # (A) 0.1 k/uL (0-0.7); Eosinophils % (A) 1 %; HCT 31.1 % (34.0-46.0); HGB 10.2 gm/dL (11.4-16.0); Hypochromasia Slight; Lymphocytes % (A) 13 %; MCHC 32.9 g/dL (31.0-37.0); MCV 94.2 fL (80.0-100.0); Mean Platelet Volume 7.2; Monocytes # (A) 0.2 k/uL (0-1.0); Monocytes % (A) 3 %; Neutrophils # (A) 5.9 k/uL (1.3-7.7); Neutrophils % (A) 81 %; Platelet Count 404 k/uL (150-450); RBC 3.31 m/uL (3.80-5.40); RDW 14.1 % (11.5-15.5); WBC 7.3 k/uL (3.8-10.6)
[2022-06-12] MEDS: D5-0.45% NACL WITH KCL 20MEQ/L 1,000 ML IV SCH ×5 (03:55→23:59)
[2022-06-12] MEDS: CEFEPIME 2 GM in SODIUM CHLORIDE 0.9% 100 ML IVPB SCH ×2 (06:18→18:13)
[2022-06-12 06:56] LABS: Glucose,Whole Blood 183 mg/dL (70-110)
[2022-06-12 07:17] LABS: Basophils # (A) 0.1 k/uL (0-0.2); Basophils % (A) 1 %; Eosinophils # (A) 0.1 k/uL (0-0.7); Eosinophils % (A) 1 %; HCT 30.5 % (34.0-46.0); HGB 9.9 gm/dL (11.4-16.0); Lymphocytes # (A) 1.4 k/uL (1.0-4.8); Lymphocytes % (A) 19 %; MCH 30.6 pg (25.0-35.0); MCHC 32.5 g/dL (31.0-37.0); MCV 94.1 fL (80.0-100.0); Mean Platelet Volume 7.4; Monocytes # (A) 0.4 k/uL (0-1.0); Monocytes % (A) 6 %; Neutrophils # (A) 5.1 k/uL (1.3-7.7); Neutrophils % (A) 71 %; Platelet Count 383 k/uL (150-450); RBC 3.24 m/uL (3.80-5.40); RDW 14.1 % (11.5-15.5); WBC 7.2 k/uL (3.8-10.6)
[2022-06-12] MEDS: ALVIMOPAN 12 MG CAPSULE PO SCH ×2 (07:38→21:35)
[2022-06-12] MEDS: GABAPENTIN 300 MG CAP PO SCH ×3 (07:38→21:35)
[2022-06-12] MEDS: metroNIDAZOLE 500 MG TAB PO SCH ×4 (07:38→21:35)
[2022-06-12] MEDS: FLUTICASONE 50MCG/SPRAY NASAL 16GM EA NOSTRIL SCH (07:39)
[2022-06-12] MEDS: EZETIMIBE 10 MG TAB PO SCH (07:39)
[2022-06-12] MEDS: levOCARNitine (WITH SUGAR) 100 MG/ML BOTTLE PO SCH (07:39)
[2022-06-12] MEDS: PANTOPRAZOLE 40 MG TABLET PO SCH ×2 (07:39→18:11)
[2022-06-12] MEDS: metFORMIN 500 MG TAB PO SCH ×2 (07:39→21:35)
[2022-06-12] MEDS: INSULIN ASPART (NovoLOG) 100 UNIT/ML VIAL SQ SCH ×4 (07:39→21:34)
[2022-06-12] MEDS: CITALOPRAM HYDROBROMIDE 20 MG TAB PO SCH (07:39)
[2022-06-12] MEDS: LORATADINE 10 MG TAB PO SCH (07:40)
[2022-06-12] MEDS: MULTIVITAMINS, THERA 1 EACH TAB PO SCH (07:40)
[2022-06-12] MEDS: SYMBICORT 160-4.5 MCG INHALER INHALATION SCH ×2 (08:01→19:39)
[2022-06-12] MEDS: ACETAMINOPHEN TAB 325 MG TAB PO PRN (08:44)
[2022-06-12] MEDS: HYDROmorphone 0.5 MG/0.5 ML SYRINGE IVP PRN ×2 (09:15→15:38)
[2022-06-12] MEDS ORDERED: SODIUM CHLORIDE 0.9% 500 ML 500 ML IV ONE (09:28)
[2022-06-12 11:19] LABS: Glucose,Whole Blood 128 mg/dL (70-110)
[2022-06-12 11:49] LABS: Basophils % (A) 1 %; Eosinophils # (A) 0.1 k/uL (0-0.7); Eosinophils % (A) 1 %; HCT 29.7 % (34.0-46.0); HGB 9.5 gm/dL (11.4-16.0); Hypochromasia Slight; Lymphocytes # (A) 1.4 k/uL (1.0-4.8); Lymphocytes % (A) 18 %; MCH 30.8 pg (25.0-35.0); MCHC 32.1 g/dL (31.0-37.0); MCV 95.8 fL (80.0-100.0); Mean Platelet Volume 7.2; Monocytes # (A) 0.3 k/uL (0-1.0); Monocytes % (A) 4 %; Neutrophils # (A) 5.5 k/uL (1.3-7.7); Neutrophils % (A) 74 %; Platelet Count 429 k/uL (150-450); RDW 14.5 % (11.5-15.5); WBC 7.5 k/uL (3.8-10.6)
[2022-06-12] MEDS: ACETAMINOPHEN IV (For NPO) 1,000 MG in EMPTY BAG 1 BAG IVPB SCH ×2 (13:19→18:11)
--- NOTE | 2022-06-12 14:02 | P.PN ---
Subjective Progress Note Date: 06/12/22 CHIEF COMPLAINT: Abdominal pain HISTORY OF PRESENT ILLNESS: Patient status post exploratory laparotomy and small bowel resection for jejunal diverticulitis. Postop day #1 Patient had significant amount of bleeding from her abdominal incision through the night. She saturated to incisional dressings. The Rodney compression dressing and abdominal binder. Patient had gone without pain medication throughout the night. Patient was found to have continuous blood oozing at the top portion of her incision. Patient examined in the morning and then reexamined again later in the morning with Dr. lemus in which he applied sutures to the incision. Patient reports feeling dizzy and lightheaded. And also was feeling dry and thirsty. Urine output has been adequate. She was started on IV Dilaudid for pain. She was reporting pain 8 out of 10. Afebrile. BP have been on the lower side 108/66. WBC 7.2 hemoglobin 9.9 Patient seen and examined with Dr. lemus PHYSICAL EXAM: VITAL SIGNS: Reviewed. GENERAL: Well-developed in no acute distress. HEENT: No sclera icterus. Extraocular movements grossly intact. Moist buccal mucosa. Head is atraumatic, normocephalic. ABDOMEN: Soft. Mildly distended. Resuming at the top portion of the incision site. Dressing was completely soaked with blood. And there is evidence of clots NEUROLOGIC: Alert and oriented. Cranial nerves II through XII grossly intact. ASSESSMENT: 1. Jejunal diverticulitis status post exploratory laparotomy and small bowel resection 2. Acute sigmoid diverticulitis 3. Moderate sized Paraesophageal hernia PLAN: -Sutures applied to area of bleeding at incision site by Dr. lemus. New dressing applied. New abdominal binder ordered -Dilaudid 0.5 mg IV every 3 hours PRN pain -IV Tylenol added for pain -Normal saline 1 liter fluid bolus given for dehydration, dizziness, dark urine -Repeat CBC at noon showed stable HGB 9.5 -Keep patient NPO -Continue IV fluids -DVT prophylaxis on hold due to bleeding from incision site. SCDs ordered Physician Theater Set Production Designer note has been reviewed by physician. Signing provider agrees with the documented findings, assessment, and plan of care. Objective - Vital Signs Vital signs: Vital Signs Temp 98.1 F 06/12/22 07:06 Pulse 75 06/12/22 07:06 Resp 16 06/12/22 07:06 BP 108/66 07/12/22 07:06 Pulse Ox 98 06/12/22 08:02 FiO2 Intake & Output 06/11/22 06/12/22 06/12/22 18:59 06:59 18:59 Intake Total 1000 Output Total 110 300 Balance 890 -300 Intake: IV 1000 Output: Urine 100 300 Estimated Blood Loss 10 Other: Voiding Method Indwelling Catheter - Labs CBC & Chem 7: 06/12/22 11:34 06/11/22 17:54 Labs: Abnormal Lab Results - Last 24 Hours (Table) 06/11/22 06/11/22 06/11/22 Range/Units 15:34 16:27 17:54 WBC 12.0 H (3.8-10.6) k/uL RBC 3.78 L (3.80-5.40) m/uL Hgb 11.3 L (11.4-16.0) gm/dL Hct (34.0-46.0) % Neutrophils # 11.2 H (1.3-7.7) k/uL Lymphocytes # 0.5 L (1.0-4.8) k/uL Sodium (137-145) mmol/L Glucose (74-99) mg/dL POC Glucose (mg/dL) 154 H 187 H (70-110) mg/dL 06/11/22 06/11/22 06/12/22 Range/Units 17:54 21:12 02:52 WBC (3.8-10.6) k/uL RBC 3.31 L (3.80-5.40) m/uL Hgb 10.2 L (11.4-16.0) gm/dL Hct 31.1 L (34.0-46.0) % Neutrophils # (1.3-7.7) k/uL Lymphocytes # (1.0-4.8) k/uL Sodium 134 L (137-145) mmol/L Glucose 178 H (74-99) mg/dL POC Glucose (mg/dL) 213 H (70-110) mg/dL 06/12/22 06/12/22 06/12/22 Range/Units 06:37 06:54 11:15 WBC (3.8-10.6) k/uL RBC 3.24 L (3.80-5.40) m/uL Hgb 9.9 L (11.4-16.0) gm/dL Hct 30.5 L (34.0-46.0) % Neutrophils # (1.3-7.7) k/uL Lymphocytes # (1.0-4.8) k/uL Sodium (137-145) mmol/L Glucose (74-99) mg/dL POC Glucose (mg/dL) 183 H 128 H (70-110) mg/dL 06/12/22 Range/Units 11:34 WBC (3.8-10.6) k/uL RBC 3.10 L (3.80-5.40) m/uL Hgb 9.5 L (11.4-16.0) gm/dL Hct 29.7 L (34.0-46.0) % Neutrophils # (1.3-7.7) k/uL Lymphocytes # (1.0-4.8) k/uL Sodium (137-145) mmol/L Glucose (74-99) mg/dL POC Glucose (mg/dL) (70-110) mg/dL
--- NOTE | 2022-06-12 16:15 | P.PN ---
Progress Note - Text Progress Note Date: 06/12/22 Hospital course: Patient with acute jejunal diverticulitis. 06/03/2022: I assumed care of patient today from [facility] hospitalist. Having abdominal pain. Clear liquids. IV cefepime added. Subcu Lovenox. Discussed with patient. At the patient sit up in a chair. 06/04/2022: On IV cefepime. Some improvement in abdominal pain. Had a BM. Diet advanced by surgery. Had a BM today. 06/05/2022: On IV cefepime. Slight decrease in abdominal distention. Had a BM. We will change diet to a ground diet. Abdominal tenderness still present though. Discussed with patient. Will watch another 24 hours. Abdominal x-ray reviewed. Some stool. No free air 06/06/2022: Remains on IV cefepime. Still having significant right sided abdominal pain. Had a small BM. Discussed with surgery. Repeat computed tomography scan showing worsening diverticulitis in the jejunal area. No perforation. Change diet to clear liquids. Significant stool burden. Soapsuds enema ordered. June 07 2222: Patient is put on clear liquids yesterday. Slight improvement in abdominal pain. Some nausea. Also patient sit up in a chair. Increase activity. IV Flagyl was added yesterday. June 082021: Abdominal pain better. On clear liquids. A small bowel movement. Feeling better. Only taking Tylenol for pain. Has been scheduled for surgery by Dr. Staton on Saturday. 06/09/2022: Abdominal pain pretty much resolved. On full liquids. Advance to ground diet. Current antibiotics. Discussed with patient.. 06/10/2022: Abdominal pain has resurfaced. Put back on clear liquids. Discussed with patient. For surgery tomorrow by Dr. Staton. 06/11/2022: Patient was seen this morning. Abdominal pain significant. Tender. Later patient went down for surgery. Small bowel resection carried out. 06/12/2022: Patient overnight was oozing from the incision site. Dressing was soaked. This morning required stitches and incision. Feeling tired. Remains nothing by mouth. IV fluids can by surgery. Active Medications Albuterol Sulfate (Albuterol Nebulized 2.5 Mg/3 Ml) 2.5 mg INHALATION RT-Q6H PRN PRN Reason: Shortness Of Breath Last Admin: 06/04/22 16:04 Dose: 2.5 mg Alvimopan (Alvimopan 12 Mg Capsule) 12 mg PO BID [facility] Stop: 06/18/22 21:01 Last Admin: 06/12/22 07:38 Dose: 12 mg Amitriptyline HCl (Amitriptyline Hcl 10 Mg Tab) 10 mg PO HS [facility] Last Admin: 06/11/22 21:14 Dose: 10 mg Benzocaine/Menthol (Benzocaine/Menthol Lozeng 1 Each Lozenge) 1 each MUCOUS MEM Q1HR PRN PRN Reason: Sore Throat Budesonide/Formoterol Fumarate (Symbicort 160-4.5 Mcg Inhaler) 2 puff INHALATION RT-BID [facility] Last Admin: 06/12/22 08:01 Dose: 2 puff Citalopram Hydrobromide (Citalopram Hydrobromide 20 Mg Tab) 60 mg PO DAILY [facility] Last Admin: 06/12/22 07:39 Dose: Not Given Ezetimibe (Ezetimibe 10 Mg Tab) 10 mg PO DAILY [facility] Last Admin: 06/12/22 07:39 Dose: Not Given Famotidine (Famotidine 20 Mg Tab) 20 mg PO [facility] Last Admin: 06/11/22 21:14 Dose: 20 mg Fluticasone Propionate (Fluticasone 50mcg/[place] Nasal 16gm) 2 spray EA NOSTRIL DAILY [facility] Last Admin: 06/12/22 07:39 Dose: Not Given Gabapentin (Gabapentin 300 Mg Cap) 300 mg PO TID [facility] Last Admin: 06/12/22 07:38 Dose: 300 mg Hydromorphone HCl (Hydromorphone 0.5 Mg/0.5 Ml Syringe) 0.5 mg IVP Q3HR PRN PRN Reason: Severe Pain Last Admin: 06/12/22 15:38 Dose: 0.5 mg Potassium Chloride/Dextrose/Sod Cl (D5%-1/2ns-Kcl 20 Meq/L Iv Solution) 1,000 mls @ 125 mls/hr IV .Q8H [facility] Last Admin: 06/12/22 07:45 Dose: Not Given Cefepime HCl 2 gm/ Sodium (Chloride) 100 mls @ 25 mls/hr IVPB Q12H [facility]; Protocol Last Admin: 06/12/22 06:18 Dose: 25 mls/hr Acetaminophen 1,000 mg/ IV (Solution) 100 mls @ 400 mls/hr IVPB Q6HR [facility] Stop: 06/13/22 06:14 Last Admin: 06/12/22 13:19 Dose: 400 mls/hr Insulin Aspart (Insulin Aspart (Novolog) 100 Unit/Ml Vial) 0 unit SQ ACHS [facility]; Protocol Last Admin: 06/12/22 11:26 Dose: Not Given Ketorolac Tromethamine (Ketorolac 15 Mg/Ml 1 Ml Vial) 15 mg IVP Q6HR PRN PRN Reason: Mild to Moderate Pain Stop: 06/13/22 15:07 Last Admin: 06/11/22 22:40 Dose: 15 mg Levocarnitine (Levocarnitine (With Sugar) 100 Mg/Ml Bottle) 1,000 mg PO DAILY [facility] Last Admin: 06/12/22 07:39 Dose: Not Given Loratadine (Loratadine 10 Mg Tab) 10 mg PO DAILY [facility] Last Admin: 06/12/22 07:40 Dose: Not Given Memantine (Memantine 10 Mg Tab) 20 mg PO [facility] Last Admin: 06/11/22 21:14 Dose: 20 mg Metformin HCl (Metformin 500 Mg Tab) 500 mg PO BID [facility] Last Admin: 06/12/22 07:39 Dose: 500 mg Metronidazole (Metronidazole 500 Mg Tab) 500 mg PO QID [facility]; Protocol Last Admin: 06/12/22 13:22 Dose: 500 mg Montelukast Sodium (Montelukast 10 Mg Tab) 10 mg PO [facility] Last Admin: 06/11/22 21:14 Dose: 10 mg Multivitamins (Multivitamins, Thera 1 Each Tab) 1 each PO DAILY [facility] Last Admin: 06/12/22 07:40 Dose: Not Given Naloxone HCl (Naloxone 0.4 Mg/Ml 1 Ml Vial) 0.2 mg IV Q2M PRN PRN Reason: Opioid Reversal Ondansetron HCl (Ondansetron 4 Mg/2 Ml Vial) 4 mg IVP Q8HR PRN PRN Reason: Nausea And Vomiting Pantoprazole Sodium (Pantoprazole 40 Mg Tablet) 40 mg PO AC-BID [facility] Last Admin: 06/12/22 07:39 Dose: 40 mg Trazodone HCl (Trazodone Hcl 100 Mg Tab) 100 mg PO [facility] Last Admin: 06/11/22 21:14 Dose: 100 mg On examination: VITAL SIGNS: 98.3, 88, 17, 107.61, 98% room air GENERAL APPEARANCE: Laying in bed, awake, tired HEENT: Normal external appearance of nose and ear. Oral cavity normal EYES: Pupils equal. Conjunctiva normal. NECK: JVD not raised. Mass not palpable. RESPIRATORY: Respiratory effort normal. Lungs clear to auscultation. CARDIOVASCULAR: First and second sounds normal. No edema. ABDOMEN: Soft. Liver and spleen not palpable. . No mass palpable. Tender. Binder in place over dressing PSYCHIATRY: Alert and oriented x3. Mood and affect normal. INVESTIGATIONS, reviewed in the clinical context: June 12: Hemoglobin 9.5 June 11: Potassium 5.1 creatinine 0.86 June 10: WBC 6.2 hemoglobin 11.9 June 08: WBC 4.19 in the globin 10.8 June 07: WBC 4.7 hemoglobin 10.8 June 05: WBC 6.9 hemoglobin 9.8 pro-calcitonin 0.39 June 02: White count 12 hemoglobin 11.5 platelets 239 potassium 3.6 creatinine 0.9 Computed tomography scan of the abdomen: Large 4.7 cm diverticulum coming of occasional low. Surrounding subtle inflammation. Hydropic gallbladder. Moderate-sized hiatal hernia. Assessment and plan: -Acute jejunal diverticulitis: Followed by small bowel resection by Dr. Staton June 11 IV cefepime. Flagyl . -Postoperative bleeding at the surgical site. Stitches. Placed this morning. Dressing changes with abdominal binder -Hiatal hernia -Primary osteoarthritis Tylenol as needed -GERD Protonix 40 mg twice a day -Hyperlipidemia Zetia 10 mg a day -Mild cognitive impairment Namenda 20 mg daily at bedtime -Diabetes mellitus type 2 on oral hypoglycemic Follow Accu-Cheks -Moderate persistent asthma Advair 500/50 one puff twice a day. Ventolin when necessary -Anxiety and depression -Significant constipation Soapsuds enema On IV cefepime , Flagyl. Patient has bleeding overnight, and the surgical incision site. This morning required stitches. Binder has been placed. Follow H&H. IV fluids.
[2022-06-12 16:33] LABS: Glucose,Whole Blood 158 mg/dL (70-110)
[2022-06-12 20:39] LABS: Glucose,Whole Blood 165 mg/dL (70-110)
[2022-06-12] MEDS: traZODone HCL 100 MG TAB PO SCH (21:35)
[2022-06-12] MEDS: MEMANTINE 10 MG TAB PO SCH (21:35)
[2022-06-12] MEDS: FAMOTIDINE 20 MG TAB PO SCH (21:35)
[2022-06-12] MEDS: MONTELUKAST 10 MG TAB PO SCH (21:35)
[2022-06-12] MEDS: AMITRIPTYLINE HCL 10 MG TAB PO SCH (21:36)
[2022-06-12] MEDS: KETOROLAC 15 MG/ML 1 ML VIAL IVP PRN (21:57)
[2022-06-13] MEDS: ACETAMINOPHEN IV (For NPO) 1,000 MG in EMPTY BAG 1 BAG IVPB SCH ×4 (01:27→17:18)
[2022-06-13] MEDS: CEFEPIME 2 GM in SODIUM CHLORIDE 0.9% 100 ML IVPB SCH ×2 (05:15→18:16)
[2022-06-13] MEDS ORDERED: SODIUM CHLORIDE 0.9% 500 ML 500 ML IV ONE (05:33)
[2022-06-13 06:29] LABS: Basophils % (A) 0 %; Eosinophils # (A) 0.2 k/uL (0-0.7); Eosinophils % (A) 3 %; HCT 25.1 % (34.0-46.0); Hypochromasia Slight; Lymphocytes # (A) 1.4 k/uL (1.0-4.8); Lymphocytes % (A) 18 %; MCH 30.2 pg (25.0-35.0); MCHC 31.8 g/dL (31.0-37.0); MCV 95.2 fL (80.0-100.0); Mean Platelet Volume 7.2; Monocytes # (A) 0.3 k/uL (0-1.0); Monocytes % (A) 3 %; Neutrophils # (A) 5.8 k/uL (1.3-7.7); Neutrophils % (A) 74 %; Platelet Count 350 k/uL (150-450); RBC 2.63 m/uL (3.80-5.40); RDW 14.5 % (11.5-15.5); WBC 7.9 k/uL (3.8-10.6)
[2022-06-13 06:39] LABS: African American GFR (CKD) 75 (>60 ml/min/1.73 sqM); Anion Gap 3 mmol/L; Blood Urea Nitrogen 14 mg/dL (7-17); Calcium 7.8 mg/dL (8.4-10.2); Carbon Dioxide 19 mmol/L (22-30); Chloride 110 mmol/L (98-107); Glucose 111 mg/dL (74-99); Non-African American GFR(CKD) 65 (>60 ml/min/1.73 sqM); Potassium 4.5 mmol/L (3.5-5.1); Sodium 132 mmol/L (137-145)
[2022-06-13] MEDS: D5-0.45% NACL WITH KCL 20MEQ/L 1,000 ML IV SCH ×2 (07:11→15:33)
[2022-06-13 07:43] LABS: Glucose,Whole Blood 130 mg/dL (70-110)
[2022-06-13] MEDS: SYMBICORT 160-4.5 MCG INHALER INHALATION SCH ×2 (08:13→19:46)
[2022-06-13] MEDS: INSULIN ASPART (NovoLOG) 100 UNIT/ML VIAL SQ SCH ×5 (08:18→21:31)
[2022-06-13] MEDS: FLUTICASONE 50MCG/SPRAY NASAL 16GM EA NOSTRIL SCH (08:22)
[2022-06-13] MEDS: EZETIMIBE 10 MG TAB PO SCH (08:29)
[2022-06-13] MEDS: MULTIVITAMINS, THERA 1 EACH TAB PO SCH (08:30)
[2022-06-13] MEDS: GABAPENTIN 300 MG CAP PO SCH ×3 (08:30→21:16)
[2022-06-13] MEDS: metroNIDAZOLE 500 MG TAB PO SCH (08:30)
[2022-06-13] MEDS: levOCARNitine (WITH SUGAR) 100 MG/ML BOTTLE PO SCH (08:30)
[2022-06-13] MEDS: CITALOPRAM HYDROBROMIDE 20 MG TAB PO SCH (08:30)
[2022-06-13] MEDS: LORATADINE 10 MG TAB PO SCH (08:30)
[2022-06-13] MEDS: ALVIMOPAN 12 MG CAPSULE PO SCH ×2 (08:30→21:16)
[2022-06-13] MEDS: PANTOPRAZOLE 40 MG TABLET PO SCH (08:30)
[2022-06-13] MEDS: metFORMIN 500 MG TAB PO SCH ×2 (08:30→21:16)
[2022-06-13] MEDS: ONDANSETRON 4 MG/2 ML VIAL IVP PRN (08:42)
[2022-06-13] MEDS: HYDROmorphone 0.5 MG/0.5 ML SYRINGE IVP PRN ×2 (09:40→15:22)
[2022-06-13] MEDS: KETOROLAC 15 MG/ML 1 ML VIAL IVP SCH ×3 (10:57→21:17)
[2022-06-13] MEDS: PANTOPRAZOLE 40 MG/10 ML VIAL IVP SCH ×2 (10:58→21:17)
[2022-06-13 11:35] LABS: Glucose,Whole Blood 147 mg/dL (70-110)
--- NOTE | 2022-06-13 14:16 | P.PN ---
Subjective Progress Note Date: 06/13/22 CHIEF COMPLAINT: Abdominal pain HISTORY OF PRESENT ILLNESS: Patient status post exploratory laparotomy and small bowel resection for jejunal diverticulitis. Postop day #2 patient had 2 episodes of vomiting during the night. She still complaining of abdominal pain. She was hypotensive required another 1 L fluid bolus. She rates her abdominal pain 8 out of 10. She's had no further bleeding at the incision site. Patient denies any flatus or BM. Afebrile. WBC is 7.9 Hgb down from 9.5-8.0 platelets 350 sodium 132 creatinine 0.93 Patient seen and examined with Dr. lemus PHYSICAL EXAM: VITAL SIGNS: Reviewed. GENERAL: Well-developed in no acute distress. HEENT: No sclera icterus. Extraocular movements grossly intact. Moist buccal mucosa. Head is atraumatic, normocephalic. ABDOMEN: Soft. Mildly distended. Incision site no further bleeding noted. NEUROLOGIC: Alert and oriented. Cranial nerves II through XII grossly intact. ASSESSMENT: 1. Jejunal diverticulitis status post exploratory laparotomy and small bowel resection 2. Acute sigmoid diverticulitis 3. Moderate sized Paraesophageal hernia 4. Hypotension PLAN: -Start clear liquid diet -Continue Zofran as needed -Continue pain management -Changed Toradol to scheduled -Continue IV fluids -Encouraged patient to increase activity level -Encouraged patient to use incentive spirometer -Continue to monitor hemoglobin -DVT prophylaxis on hold due to bleeding from incision site. SCDs ordered Physician Regional Liaison note has been reviewed by physician. Signing provider agrees with the documented findings, assessment, and plan of care. Objective - Vital Signs Vital signs: Vital Signs Temp 98.4 F 06/13/22 07:00 Pulse 91 06/13/22 07:00 Resp 18 06/13/22 08:00 BP 128/74 06/13/22 07:00 Pulse Ox 96 06/13/22 08:14 FiO2 Intake & Output 06/12/22 06/13/22 06/13/22 18:59 06:59 18:59 Intake Total 400 Output Total 834 816 6531 Balance -320 -900 -850 Intake: Oral 400 Output: Urine 466 145 1788 Uretheral ([place]) 700 Other: Voiding Method Indwelling Catheter Indwelling Catheter # Voids 3 # Bowel Movements 0 0 - Labs CBC & Chem 7: 06/13/22 06:06 06/13/22 06:06 Labs: Abnormal Lab Results - Last 24 Hours (Table) 06/12/22 06/12/22 06/13/22 Range/Units 16:31 20:36 06:06 RBC 2.63 L (3.80-5.40) m/uL Hgb 8.0 L D (11.4-16.0) gm/dL Hct 25.1 L (34.0-46.0) % Sodium (137-145) mmol/L Chloride (98-107) mmol/L Carbon Dioxide (22-30) mmol/L Glucose (74-99) mg/dL POC Glucose (mg/dL) 158 H 165 H (70-110) mg/dL Calcium (8.4-10.2) mg/dL 06/13/22 06/13/22 06/13/22 Range/Units 06:06 07:36 11:34 RBC (3.80-5.40) m/uL Hgb (11.4-16.0) gm/dL Hct (34.0-46.0) % Sodium 132 L (137-145) mmol/L Chloride 110 H (98-107) mmol/L Carbon Dioxide 19 L (22-30) mmol/L Glucose 111 H (74-99) mg/dL POC Glucose (mg/dL) 130 H 147 H (70-110) mg/dL Calcium 7.8 L (8.4-10.2) mg/dL
[2022-06-13 16:06] LABS: Glucose,Whole Blood 168 mg/dL (70-110)
[2022-06-13] MEDS: metroNIDAZOLE-NS PMX 500 MG in SALINE 1 100ML.BAG IVPB SCH (17:11)
[2022-06-13 20:31] LABS: Glucose,Whole Blood 142 mg/dL (70-110)
[2022-06-13] MEDS: MONTELUKAST 10 MG TAB PO SCH (21:16)
[2022-06-13] MEDS: FAMOTIDINE 20 MG TAB PO SCH (21:16)
[2022-06-13] MEDS: MEMANTINE 10 MG TAB PO SCH (21:16)
[2022-06-13] MEDS: traZODone HCL 100 MG TAB PO SCH (21:16)
[2022-06-13] MEDS: AMITRIPTYLINE HCL 10 MG TAB PO SCH (21:30)
--- NOTE | 2022-06-13 23:01 | P.PN ---
Progress Note - Text Progress Note Date: 06/13/22 Hospital course: Patient with acute jejunal diverticulitis. 06/03/2022: I assumed care of patient today from [facility] hospitalist. Having abdominal pain. Clear liquids. IV cefepime added. Subcu Lovenox. Discussed with patient. At the patient sit up in a chair. 06/04/2022: On IV cefepime. Some improvement in abdominal pain. Had a BM. Diet advanced by surgery. Had a BM today. 06/05/2022: On IV cefepime. Slight decrease in abdominal distention. Had a BM. We will change diet to a ground diet. Abdominal tenderness still present though. Discussed with patient. Will watch another 24 hours. Abdominal x-ray reviewed. Some stool. No free air 06/06/2022: Remains on IV cefepime. Still having significant right sided abdominal pain. Had a small BM. Discussed with surgery. Repeat computed tomography scan showing worsening diverticulitis in the jejunal area. No perforation. Change diet to clear liquids. Significant stool burden. Soapsuds enema ordered. June 07 2222: Patient is put on clear liquids yesterday. Slight improvement in abdominal pain. Some nausea. Also patient sit up in a chair. Increase activity. IV Flagyl was added yesterday. June 082021: Abdominal pain better. On clear liquids. A small bowel movement. Feeling better. Only taking Tylenol for pain. Has been scheduled for surgery by Dr. Staton on Saturday. 06/09/2022: Abdominal pain pretty much resolved. On full liquids. Advance to ground diet. Current antibiotics. Discussed with patient.. 06/10/2022: Abdominal pain has resurfaced. Put back on clear liquids. Discussed with patient. For surgery tomorrow by Dr. Staton. 06/11/2022: Patient was seen this morning. Abdominal pain significant. Tender. Later patient went down for surgery. Small bowel resection carried out. 06/12/2022: Patient overnight was oozing from the incision site. Dressing was soaked. This morning required stitches and incision. Feeling tired. Remains nothing by mouth. IV fluids can by surgery. June 13: No further bleeding from incision site. Abdominal binder in place. She remains nothing by mouth. No flatus. Tired. Active Medications Albuterol Sulfate (Albuterol Nebulized 2.5 Mg/3 Ml) 2.5 mg INHALATION RT-Q6H PRN PRN Reason: Shortness Of Breath Last Admin: 06/04/22 16:04 Dose: 2.5 mg Alvimopan (Alvimopan 12 Mg Capsule) 12 mg PO BID [facility] Stop: 06/18/22 21:01 Last Admin: 06/13/22 21:16 Dose: 12 mg Amitriptyline HCl (Amitriptyline Hcl 10 Mg Tab) 10 mg PO [facility] Last Admin: 06/13/22 21:30 Dose: 10 mg Benzocaine/Menthol (Benzocaine/Menthol Lozeng 1 Each Lozenge) 1 each MUCOUS MEM Q1HR PRN PRN Reason: Sore Throat Budesonide/Formoterol Fumarate (Symbicort 160-4.5 Mcg Inhaler) 2 puff INHALATION RT-BID [facility] Last Admin: 06/13/22 19:46 Dose: 2 puff Citalopram Hydrobromide (Citalopram Hydrobromide 20 Mg Tab) 60 mg PO DAILY [facility] Last Admin: 06/13/22 08:30 Dose: 60 mg Ezetimibe (Ezetimibe 10 Mg Tab) 10 mg PO DAILY [facility] Last Admin: 06/13/22 08:29 Dose: 10 mg Famotidine (Famotidine 20 Mg Tab) 20 mg PO HS [facility] Last Admin: 06/13/22 21:16 Dose: 20 mg Fluticasone Propionate (Fluticasone 50mcg/[place] Nasal 16gm) 2 spray EA NOSTRIL DAILY [facility] Last Admin: 06/13/22 08:22 Dose: 2 spray Gabapentin (Gabapentin 300 Mg Cap) 300 mg PO TID [facility] Last Admin: 06/13/22 21:16 Dose: 300 mg Hydromorphone HCl (Hydromorphone 0.5 Mg/0.5 Ml Syringe) 0.5 mg IVP Q3HR PRN PRN Reason: Severe Pain Last Admin: 06/13/22 15:22 Dose: 0.5 mg Potassium Chloride/Dextrose/Sod Cl (D5%-1/2ns-Kcl 20 Meq/L Iv Solution) 1,000 mls @ 125 mls/hr IV .Q8H [facility] Last Admin: 06/13/22 15:33 Dose: 125 mls/hr Cefepime HCl 2 gm/ Sodium (Chloride) 100 mls @ 25 mls/hr IVPB Q12H [facility]; Protocol Last Admin: 06/13/22 18:16 Dose: 25 mls/hr Acetaminophen 1,000 mg/ IV (Solution) 100 mls @ 400 mls/hr IVPB Q6HR [facility] Stop: 06/14/22 06:14 Last Admin: 06/13/22 17:18 Dose: 400 mls/hr Metronidazole 500 mg/ IV (Solution) 100 mls @ 100 mls/hr IVPB Q8HR [facility]; Protocol Last Admin: 06/13/22 17:11 Dose: 100 mls/hr Insulin Aspart (Insulin Aspart (Novolog) 100 Unit/Ml Vial) 0 unit SQ ACHS [facility]; Protocol Last Admin: 06/13/22 21:31 Dose: Not Given Ketorolac Tromethamine (Ketorolac 15 Mg/Ml 1 Ml Vial) 15 mg IVP Q6H [facility] Stop: 06/15/22 09:01 Last Admin: 06/13/22 21:17 Dose: Not Given Levocarnitine (Levocarnitine (With Sugar) 100 Mg/Ml Bottle) 1,000 mg PO DAILY [facility] Last Admin: 06/13/22 08:30 Dose: 1,000 mg Loratadine (Loratadine 10 Mg Tab) 10 mg PO DAILY [facility] Last Admin: 06/13/22 08:30 Dose: 10 mg Memantine (Memantine 10 Mg Tab) 20 mg PO HS [facility] Last Admin: 06/13/22 21:16 Dose: 20 mg Metformin HCl (Metformin 500 Mg Tab) 500 mg PO BID [facility] Last Admin: 06/13/22 21:16 Dose: 500 mg Montelukast Sodium (Montelukast 10 Mg Tab) 10 mg PO HS [facility] Last Admin: 06/13/22 21:16 Dose: 10 mg Multivitamins (Multivitamins, Thera 1 Each Tab) 1 each PO DAILY [facility] Last Admin: 06/13/22 08:30 Dose: 1 each Naloxone HCl (Naloxone 0.4 Mg/Ml 1 Ml Vial) 0.2 mg IV Q2M PRN PRN Reason: Opioid Reversal Ondansetron HCl (Ondansetron 4 Mg/2 Ml Vial) 4 mg IVP Q8HR PRN PRN Reason: Nausea And Vomiting Last Admin: 06/13/22 08:42 Dose: 4 mg Pantoprazole Sodium (Pantoprazole 40 Mg/10 Ml Vial) 40 mg IVP BID [facility] Last Admin: 06/13/22 21:17 Dose: 40 mg Trazodone HCl (Trazodone Hcl 100 Mg Tab) 100 mg PO HS [facility] Last Admin: 06/13/22 21:16 Dose: 100 mg On examination: VITAL SIGNS: 98.6, 103, 17, 1 38 x 84, 91% room air GENERAL APPEARANCE: Laying in bed, awake, tired HEENT: Normal external appearance of nose and ear. Oral cavity normal EYES: Pupils equal. Conjunctiva normal. NECK: JVD not raised. Mass not palpable. RESPIRATORY: Respiratory effort normal. Lungs clear to auscultation. CARDIOVASCULAR: First and second sounds normal. No edema. ABDOMEN: Soft. Liver and spleen not palpable. . No mass palpable. Tender. Binder in place over dressing PSYCHIATRY: Alert and oriented x3. Mood and affect normal. INVESTIGATIONS, reviewed in the clinical context: June 13: Hemoglobin 8 potassium 4.5 creatinine 0.93 June 12: Hemoglobin 9.5 June 11: Potassium 5.1 creatinine 0.86 June 10: WBC 6.2 hemoglobin 11.9 June 08: WBC 4.19 in the globin 10.8 June 07: WBC 4.7 hemoglobin 10.8 June 05: WBC 6.9 hemoglobin 9.8 pro-calcitonin 0.39 June 02: White count 12 hemoglobin 11.5 platelets 239 potassium 3.6 creatinine 0.9 Computed tomography scan of the abdomen: Large 4.7 cm diverticulum coming of occasional low. Surrounding subtle inflammation. Hydropic gallbladder. Moderate-sized hiatal hernia. Assessment and plan: -Acute jejunal diverticulitis: Followed by small bowel resection by Dr. Staton June 11 IV cefepime. Flagyl . -Postoperative bleeding at the surgical site. Stitches. Placed this morning. Dressing changes with abdominal binder -Acute blood loss anemia, with bleeding from abdominal incision site: Diagnosis Follow H&H -Hiatal hernia -Primary osteoarthritis Tylenol as needed -GERD Protonix 40 mg twice a day -Hyperlipidemia Zetia 10 mg a day -Mild cognitive impairment Namenda 20 mg daily at bedtime -Diabetes mellitus type 2 on oral hypoglycemic Follow Accu-Cheks -Moderate persistent asthma Advair 500/50 one puff twice a day. Ventolin when necessary -Anxiety and depression -Significant constipation Soapsuds enema On IV cefepime , Flagyl. Follow H&H. Abdominal binder. Remains nothing by mouth. IV fluids.
[2022-06-14] MEDS: ACETAMINOPHEN IV (For NPO) 1,000 MG in EMPTY BAG 1 BAG IVPB SCH ×2 (00:40→15:42)
[2022-06-14] MEDS: D5-0.45% NACL WITH KCL 20MEQ/L 1,000 ML IV SCH ×3 (00:45→20:40)
[2022-06-14] MEDS: metroNIDAZOLE-NS PMX 500 MG in SALINE 1 100ML.BAG IVPB SCH ×3 (01:35→15:13)
[2022-06-14] MEDS: KETOROLAC 15 MG/ML 1 ML VIAL IVP SCH ×4 (02:43→22:54)
[2022-06-14] MEDS: CEFEPIME 2 GM in SODIUM CHLORIDE 0.9% 100 ML IVPB SCH ×2 (05:20→16:41)
[2022-06-14 06:47] LABS: Glucose,Whole Blood 140 mg/dL (70-110)
[2022-06-14 07:15] LABS: Basophils # (A) 0.1 k/uL (0-0.2); Basophils % (A) 1 %; Eosinophils # (A) 0.2 k/uL (0-0.7); Eosinophils % (A) 4 %; Lymphocytes # (A) 1.4 k/uL (1.0-4.8); Lymphocytes % (A) 21 %; Monocytes # (A) 0.3 k/uL (0-1.0); Monocytes % (A) 4 %; Neutrophils # (A) 4.5 k/uL (1.3-7.7); Neutrophils % (A) 70 %
[2022-06-14 07:54] LABS: HCT 26.9 % (34.0-46.0); HGB 8.3 gm/dL (11.4-16.0); WBC 6.5 k/uL (3.8-10.6)
[2022-06-14 07:55] LABS: MCH 29.4 pg (25.0-35.0); MCHC 30.6 g/dL (31.0-37.0); Mean Platelet Volume 7.2; Platelet Count 405 k/uL (150-450); RDW 14.4 % (11.5-15.5)
[2022-06-14] MEDS: ALVIMOPAN 12 MG CAPSULE PO SCH ×2 (08:42→22:22)
[2022-06-14] MEDS: GABAPENTIN 300 MG CAP PO SCH ×3 (08:42→22:21)
[2022-06-14] MEDS: MULTIVITAMINS, THERA 1 EACH TAB PO SCH (08:42)
[2022-06-14] MEDS: EZETIMIBE 10 MG TAB PO SCH (08:42)
[2022-06-14] MEDS: LORATADINE 10 MG TAB PO SCH (08:42)
[2022-06-14] MEDS: metFORMIN 500 MG TAB PO SCH ×2 (08:42→22:21)
[2022-06-14] MEDS: levOCARNitine (WITH SUGAR) 100 MG/ML BOTTLE PO SCH (08:43)
[2022-06-14] MEDS: CITALOPRAM HYDROBROMIDE 20 MG TAB PO SCH (08:45)
[2022-06-14] MEDS: INSULIN ASPART (NovoLOG) 100 UNIT/ML VIAL SQ SCH ×4 (08:46→22:24)
[2022-06-14] MEDS: FLUTICASONE 50MCG/SPRAY NASAL 16GM EA NOSTRIL SCH (08:47)
[2022-06-14] MEDS: SYMBICORT 160-4.5 MCG INHALER INHALATION SCH ×2 (08:54→20:29)
[2022-06-14 10:56] LABS: African American GFR (CKD) 77.8 (60.0-200.0); Anion Gap 6.3 mmol/L (10.00-18.00); BUN/Creat Ratio 12.11 Ratio (12.00-20.00); Blood Urea Nitrogen 10.9 mg/dL (9.0-27.0); Calcium 8.4 mg/dL (8.7-10.3); Carbon Dioxide 20.7 mmol/L (20.0-27.5); Non-African American GFR(CKD) 67.1 (60.0-200.0); Potassium 5.1 mmol/L (3.5-5.5)
--- NOTE | 2022-06-14 11:07 | P.PN ---
Subjective Progress Note Date: 06/14/22 CHIEF COMPLAINT: Abdominal pain HISTORY OF PRESENT ILLNESS: Patient status post exploratory laparotomy and small bowel resection for jejunal diverticulitis. Postop day #3 patient reports feeling better today. She's had no further vomiting. She does have some mild nausea but again better than yesterday. She is having flatus. Her pain is also decreased. She reports her pain about 3 out of 10. She's had no further bleeding from her incision site. Afebrile. Mild tachycardia during the night. Hypotension has improved. She is on 3 liters oxygen. WBC is 6.5 Hgb has come up from 8-8.3 platelets 405 sodium 135 potassium is 5.1 creatinine 0.9 glucose 140 PHYSICAL EXAM: VITAL SIGNS: Reviewed. GENERAL: Well-developed in no acute distress. HEENT: No sclera icterus. Extraocular movements grossly intact. Moist buccal mucosa. Head is atraumatic, normocephalic. ABDOMEN: Soft. Nondistended. Incision site no further bleeding noted. Mild tenderness with palpation of the incision NEUROLOGIC: Alert and oriented. Cranial nerves II through XII grossly intact. ASSESSMENT: 1. Jejunal diverticulitis status post exploratory laparotomy and small bowel resection 2. Acute sigmoid diverticulitis 3. Moderate sized Paraesophageal hernia 4. Hypotension 5. Postoperative bleeding at surgical site status post stitches. Now resolved. PLAN: -Discontinue Ford catheter -Ok to shower -Continue clear liquid diet -Continue Zofran as needed -add [place] for oral pain med -Continue pain management -Continue IV fluids -Encouraged patient to ambulate -Encouraged patient to use incentive spirometer -Continue to monitor hemoglobin -DVT prophylaxis on hold due to bleeding from incision site. Continue SCDs Physician Television Anchor note has been reviewed by physician. Signing provider agrees with the documented findings, assessment, and plan of care. I have personally seen and examined the patient, reviewed the MACHINE SETTER SUPERVISOR /PAs history, exam and MDM and agree with the assessment and plan as written. Based on total visit time, I have performed more than 50% of the visit. As above: Patient doing well today. No bowel movement. No nausea or vomiting. Tolerating clear liquids. No bleeding. Labs noted. Will increase diet to full liquids tomorrow. Ambulate. May resume DVT prophylaxis. Objective - Vital Signs Vital signs: Vital Signs Temp 98.3 F 06/14/22 08:00 Pulse 84 06/14/22 08:00 Resp 15 06/14/22 08:00 BP 125/73 06/14/22 08:00 Pulse Ox 99 06/14/22 08:00 FiO2 Intake & Output 06/13/22 06/14/22 06/14/22 18:59 06:59 18:59 Intake Total 400 Output Total 2250 2400 Balance -1850 -2400 Intake: Oral 400 Output: Urine 2250 2400 Other: Voiding Method Indwelling Catheter Indwelling Catheter # Voids 3 # Bowel Movements 0 - Labs CBC & Chem 7: 06/14/22 06:59 06/14/22 06:59 Labs: Abnormal Lab Results - Last 24 Hours (Table) 06/13/22 06/13/22 06/13/22 Range/Units 11:34 15:47 20:29 RBC (3.80-5.40) m/uL Hgb (11.4-16.0) gm/dL Hct (34.0-46.0) % MCHC (31.0-37.0) g/dL Anion Gap (10.00-18.00) mmol/L Glucose (70-110) mg/dL POC Glucose (mg/dL) 147 H 168 H 142 H (70-110) mg/dL Calcium (8.7-10.3) mg/dL 06/14/22 06/14/22 06/14/22 Range/Units 06:45 06:59 06:59 RBC 2.80 L (3.80-5.40) m/uL Hgb 8.3 L (11.4-16.0) gm/dL Hct 26.9 L (34.0-46.0) % MCHC 30.6 L (31.0-37.0) g/dL Anion Gap 6.30 L (10.00-18.00) mmol/L Glucose 127 H (70-110) mg/dL POC Glucose (mg/dL) 140 H (70-110) mg/dL Calcium 8.4 L (8.7-10.3) mg/dL
[2022-06-14] MEDS: HYDROcodone/APAP 5-325MG 1 EACH TAB PO PRN ×3 (11:17→20:38)
[2022-06-14] MEDS: PANTOPRAZOLE 40 MG/10 ML VIAL IVP SCH ×2 (11:40→23:02)
[2022-06-14 11:53] LABS: Glucose,Whole Blood 167 mg/dL (70-110)
--- NOTE | 2022-06-14 16:24 | P.PN ---
Progress Note - Text Progress Note Date: 06/14/22 Hospital course: Patient with acute jejunal diverticulitis. 06/03/2022: I assumed care of patient today from [facility] hospitalist. Having abdominal pain. Clear liquids. IV cefepime added. Subcu Lovenox. Discussed with patient. At the patient sit up in a chair. 06/04/2022: On IV cefepime. Some improvement in abdominal pain. Had a BM. Diet advanced by surgery. Had a BM today. 06/05/2022: On IV cefepime. Slight decrease in abdominal distention. Had a BM. We will change diet to a ground diet. Abdominal tenderness still present though. Discussed with patient. Will watch another 24 hours. Abdominal x-ray reviewed. Some stool. No free air 06/06/2022: Remains on IV cefepime. Still having significant right sided abdominal pain. Had a small BM. Discussed with surgery. Repeat computed tomography scan showing worsening diverticulitis in the jejunal area. No perforation. Change diet to clear liquids. Significant stool burden. Soapsuds enema ordered. June 07 2222: Patient is put on clear liquids yesterday. Slight improvement in abdominal pain. Some nausea. Also patient sit up in a chair. Increase activity. IV Flagyl was added yesterday. June 082021: Abdominal pain better. On clear liquids. A small bowel movement. Feeling better. Only taking Tylenol for pain. Has been scheduled for surgery by Dr. Staton on Saturday. 06/09/2022: Abdominal pain pretty much resolved. On full liquids. Advance to ground diet. Current antibiotics. Discussed with patient.. 06/10/2022: Abdominal pain has resurfaced. Put back on clear liquids. Discussed with patient. For surgery tomorrow by Dr. Staton. 06/11/2022: Patient was seen this morning. Abdominal pain significant. Tender. Later patient went down for surgery. Small bowel resection carried out. 06/12/2022: Patient overnight was oozing from the incision site. Dressing was soaked. This morning required stitches and incision. Feeling tired. Remains nothing by mouth. IV fluids can by surgery. June 13: No further bleeding from incision site. Abdominal binder in place. She remains nothing by mouth. No flatus. Tired. June 14: Patient started on clear liquids yesterday. Did pass some flatus. Some abdominal pain. Laying in bed. IV fluids. Active Medications Hydrocodone Bitart/Acetaminophen (Hydrocodone/Apap 5-325mg 1 Each Tab) 1 each PO Q4HR PRN PRN Reason: Pain Last Admin: 06/14/22 11:17 Dose: 1 each Albuterol Sulfate (Albuterol Nebulized 2.5 Mg/3 Ml) 2.5 mg INHALATION RT-Q6H PRN PRN Reason: Shortness Of Breath Last Admin: 06/04/22 16:04 Dose: 2.5 mg Alvimopan (Alvimopan 12 Mg Capsule) 12 mg PO BID [facility] Stop: 06/18/22 21:01 Last Admin: 06/14/22 08:42 Dose: 12 mg Amitriptyline HCl (Amitriptyline Hcl 10 Mg Tab) 10 mg PO [facility] Last Admin: 06/13/22 21:30 Dose: 10 mg Benzocaine/Menthol (Benzocaine/Menthol Lozeng 1 Each Lozenge) 1 each MUCOUS MEM Q1HR PRN PRN Reason: Sore Throat Budesonide/Formoterol Fumarate (Symbicort 160-4.5 Mcg Inhaler) 2 puff INHALATION RT-BID [facility] Last Admin: 06/14/22 08:54 Dose: 2 puff Citalopram Hydrobromide (Citalopram Hydrobromide 20 Mg Tab) 60 mg PO DAILY [facility] Last Admin: 06/14/22 08:45 Dose: 60 mg Ezetimibe (Ezetimibe 10 Mg Tab) 10 mg PO DAILY [facility] Last Admin: 06/14/22 08:42 Dose: 10 mg Famotidine (Famotidine 20 Mg Tab) 20 mg PO HS [facility] Last Admin: 06/13/22 21:16 Dose: 20 mg Fluticasone Propionate (Fluticasone 50mcg/[place] Nasal 16gm) 2 spray EA NOSTRIL DAILY [facility] Last Admin: 06/14/22 08:47 Dose: 2 spray Gabapentin (Gabapentin 300 Mg Cap) 300 mg PO TID [facility] Last Admin: 06/14/22 15:10 Dose: 300 mg Heparin Sodium (Porcine) (Heparin Sodium,Porcine/Pf 5,000 Unit/0.5 Ml Syringe) 5,000 unit SQ Q12HR [facility] Hydromorphone HCl (Hydromorphone 0.5 Mg/0.5 Ml Syringe) 0.5 mg IVP Q3HR PRN PRN Reason: Severe Pain Last Admin: 06/13/22 15:22 Dose: 0.5 mg Potassium Chloride/Dextrose/Sod Cl (D5%-1/2ns-Kcl 20 Meq/L Iv Solution) 1,000 mls @ 125 mls/hr IV .Q8H [facility] Last Admin: 06/14/22 14:46 Dose: 125 mls/hr Cefepime HCl 2 gm/ Sodium (Chloride) 100 mls @ 25 mls/hr IVPB Q12H [facility]; Protocol Last Admin: 06/14/22 05:20 Dose: 25 mls/hr Metronidazole 500 mg/ IV (Solution) 100 mls @ 100 mls/hr IVPB Q8HR [facility]; Protocol Last Admin: 06/14/22 15:13 Dose: 100 mls/hr Insulin Aspart (Insulin Aspart (Novolog) 100 Unit/Ml Vial) 0 unit SQ ACHS [facility]; Protocol Last Admin: 06/14/22 12:06 Dose: 2 unit Ketorolac Tromethamine (Ketorolac 15 Mg/Ml 1 Ml Vial) 15 mg IVP Q6H [facility] Stop: 06/15/22 09:01 Last Admin: 06/14/22 11:39 Dose: 15 mg Levocarnitine (Levocarnitine (With Sugar) 100 Mg/Ml Bottle) 1,000 mg PO DAILY [facility] Last Admin: 06/14/22 08:43 Dose: 1,000 mg Loratadine (Loratadine 10 Mg Tab) 10 mg PO DAILY [facility] Last Admin: 06/14/22 08:42 Dose: 10 mg Memantine (Memantine 10 Mg Tab) 20 mg PO [facility] Last Admin: 06/13/22 21:16 Dose: 20 mg Metformin HCl (Metformin 500 Mg Tab) 500 mg PO BID [facility] Last Admin: 06/14/22 08:42 Dose: 500 mg Montelukast Sodium (Montelukast 10 Mg Tab) 10 mg PO [facility] Last Admin: 06/13/22 21:16 Dose: 10 mg Multivitamins (Multivitamins, Thera 1 Each Tab) 1 each PO DAILY [facility] Last Admin: 06/14/22 08:42 Dose: 1 each Naloxone HCl (Naloxone 0.4 Mg/Ml 1 Ml Vial) 0.2 mg IV Q2M PRN PRN Reason: Opioid Reversal Ondansetron HCl (Ondansetron 4 Mg/2 Ml Vial) 4 mg IVP Q8HR PRN PRN Reason: Nausea And Vomiting Last Admin: 06/13/22 08:42 Dose: 4 mg Pantoprazole Sodium (Pantoprazole 40 Mg/10 Ml Vial) 40 mg IVP BID [facility] Last Admin: 06/14/22 11:40 Dose: 40 mg Trazodone HCl (Trazodone Hcl 100 Mg Tab) 100 mg PO HS [facility] Last Admin: 06/13/22 21:16 Dose: 100 mg On examination: VITAL SIGNS: 98.3, 84, 15, 125.73, 99% on 3 L GENERAL APPEARANCE: Laying in bed, awake, tired HEENT: Normal external appearance of nose and ear. Oral cavity normal EYES: Pupils equal. Conjunctiva normal. NECK: JVD not raised. Mass not palpable. RESPIRATORY: Respiratory effort normal. Lungs clear to auscultation. CARDIOVASCULAR: First and second sounds normal. No edema. ABDOMEN: Soft. Liver and spleen not palpable. . No mass palpable. Tender. Binder in place over dressing. Mild tenderness PSYCHIATRY: Alert and oriented x3. Mood and affect normal. INVESTIGATIONS, reviewed in the clinical context: June 14: Hemoglobin 8.3 potassium 5.1 and 0.9 June 13: Hemoglobin 8 potassium 4.5 creatinine 0.93 June 12: Hemoglobin 9.5 June 11: Potassium 5.1 creatinine 0.86 June 10: WBC 6.2 hemoglobin 11.9 June 8: WBC 4.19 in the globin 10.8 June 07: WBC 4.7 hemoglobin 10.8 June 05: WBC 6.9 hemoglobin 9.8 pro-calcitonin 0.39 June 02: White count 12 hemoglobin 11.5 platelets 239 potassium 3.6 creatinine 0.9 Computed tomography scan of the abdomen: Large 4.7 cm diverticulum coming of occasional low. Surrounding subtle inflammation. Hydropic gallbladder. Moderate-sized hiatal hernia. Assessment and plan: -Acute jejunal diverticulitis: Followed by small bowel resection by Dr. Staton June 11 IV cefepime. Flagyl . Clear liquid diet -Postoperative bleeding at the surgical site. Stitches-Placed -Acute blood loss anemia, with bleeding from abdominal incision site: Follow H&H -Hiatal hernia -Primary osteoarthritis Tylenol as needed -GERD Protonix 40 mg twice a day -Hyperlipidemia Zetia 10 mg a day -Mild cognitive impairment Namenda 20 mg daily at bedtime -Diabetes mellitus type 2 on oral hypoglycemic Follow Accu-Cheks -Moderate persistent asthma Advair 500/50 one puff twice a day. Ventolin when necessary -Anxiety and depression On IV cefepime , Flagyl. Follow H&H. Abdominal binder. Clear liquid diet. IV fluids.
[2022-06-14 16:55] LABS: Glucose,Whole Blood 113 mg/dL (70-110)
[2022-06-14] MEDS: traZODone HCL 100 MG TAB PO SCH (22:21)
[2022-06-14] MEDS: MEMANTINE 10 MG TAB PO SCH (22:21)
[2022-06-14] MEDS: FAMOTIDINE 20 MG TAB PO SCH (22:21)
[2022-06-14] MEDS: HEPARIN SODIUM,PORCINE/PF 5,000 UNIT/0.5 ML SYRINGE SQ SCH (22:22)
[2022-06-14] MEDS: MONTELUKAST 10 MG TAB PO SCH (22:22)
[2022-06-14] MEDS: AMITRIPTYLINE HCL 10 MG TAB PO SCH (22:24)
[2022-06-14 22:28] LABS: Glucose,Whole Blood 151 mg/dL (70-110)
[2022-06-15] MEDS: metroNIDAZOLE-NS PMX 500 MG in SALINE 1 100ML.BAG IVPB SCH ×4 (01:26→23:00)
[2022-06-15] MEDS: D5-0.45% NACL WITH KCL 20MEQ/L 1,000 ML IV SCH ×2 (01:30→05:05)
[2022-06-15] MEDS: KETOROLAC 15 MG/ML 1 ML VIAL IVP SCH ×2 (03:28→09:29)
[2022-06-15] MEDS: CEFEPIME 2 GM in SODIUM CHLORIDE 0.9% 100 ML IVPB SCH ×2 (05:04→19:04)
[2022-06-15 07:04] LABS: Glucose,Whole Blood 161 mg/dL (70-110)
[2022-06-15] MEDS: SYMBICORT 160-4.5 MCG INHALER INHALATION SCH ×2 (07:36→18:55)
[2022-06-15 08:34] LABS: HCT 26.4 % (37.2-46.3); HGB 7.9 g/dL (12.0-15.0); MCH 28.9 pg (27.0-32.0); MCHC 29.9 g/dL (32.0-37.0); MCV 96.7 fL (80.0-97.0); Mean Platelet Volume 9.8 fL (9.5-12.2); NRBC Per 100 WBC 0 /100 WBCS (0.0-0.0); Platelet Count 392 X 10*3/uL (140-440); RBC 2.73 X 10*6/uL (4.10-5.20); RDW 15.1 % (11.5-14.5); WBC 7.16 X 10*3/uL (4.50-10.00)
[2022-06-15 09:12] LABS: African American GFR (CKD) 77.8 (60.0-200.0); BUN/Creat Ratio 8.33 Ratio (12.00-20.00); Blood Urea Nitrogen 7.5 mg/dL (9.0-27.0); Calcium 8.2 mg/dL (8.7-10.3); Non-African American GFR(CKD) 67.1 (60.0-200.0); Potassium 4.9 mmol/L (3.5-5.5)
[2022-06-15] MEDS: metFORMIN 500 MG TAB PO SCH ×2 (09:12→20:09)
[2022-06-15] MEDS: INSULIN ASPART (NovoLOG) 100 UNIT/ML VIAL SQ SCH ×4 (09:12→22:05)
[2022-06-15] MEDS: ALVIMOPAN 12 MG CAPSULE PO SCH ×2 (09:12→20:09)
[2022-06-15] MEDS: MULTIVITAMINS, THERA 1 EACH TAB PO SCH (09:12)
[2022-06-15] MEDS: LORATADINE 10 MG TAB PO SCH (09:12)
[2022-06-15] MEDS: CITALOPRAM HYDROBROMIDE 20 MG TAB PO SCH (09:12)
[2022-06-15] MEDS: EZETIMIBE 10 MG TAB PO SCH (09:12)
[2022-06-15] MEDS: GABAPENTIN 300 MG CAP PO SCH ×3 (09:12→22:55)
[2022-06-15] MEDS: levOCARNitine (WITH SUGAR) 100 MG/ML BOTTLE PO SCH (09:13)
[2022-06-15] MEDS: HEPARIN SODIUM,PORCINE/PF 5,000 UNIT/0.5 ML SYRINGE SQ SCH ×2 (09:13→20:11)
[2022-06-15] MEDS: FLUTICASONE 50MCG/SPRAY NASAL 16GM EA NOSTRIL SCH (09:14)
[2022-06-15] MEDS: PANTOPRAZOLE 40 MG/10 ML VIAL IVP SCH ×2 (09:14→20:10)
[2022-06-15 11:34] LABS: Glucose,Whole Blood 149 mg/dL (70-110)
[2022-06-15] MEDS: HYDROcodone/APAP 5-325MG 1 EACH TAB PO PRN ×3 (12:53→22:55)
--- NOTE | 2022-06-15 12:58 | P.PN ---
Subjective Progress Note Date: 06/15/22 CHIEF COMPLAINT: Abdominal pain HISTORY OF PRESENT ILLNESS: Patient status post exploratory laparotomy and small bowel resection for jejunal diverticulitis. Postop day #4 patient reports feeling better today. Patient reports having flatus. Denies any nausea vomiting. She reports her pain is controlled. Per nursing staff patient has not been up and ambulating very much. She's currently tolerating full liquid diet. Afebrile. Patient on room air. WBC is 7.16 HB7.9 platelets 392 sodium is 137 potassium is 4.9 creatinine 0.9 PHYSICAL EXAM: VITAL SIGNS: Reviewed. GENERAL: Well-developed in no acute distress. HEENT: No sclera icterus. Extraocular movements grossly intact. Moist buccal mucosa. Head is atraumatic, normocephalic. ABDOMEN: Soft. Nondistended. Incision site no further bleeding noted. Mild tenderness with palpation of the incision NEUROLOGIC: Alert and oriented. Cranial nerves II through XII grossly intact. ASSESSMENT: 1. Jejunal diverticulitis status post exploratory laparotomy and small bowel resection 2. Acute sigmoid diverticulitis 3. Moderate sized Paraesophageal hernia 4. Hypotension resolved 5. Postoperative bleeding at surgical site status post stitches. Now resolved. PLAN: -Ford catheter removed this morning -Continue full liquids -Discontinue IV fluids -Consult physical therapy to help ambulate patient -Continue pain management -Encouraged patient to ambulate -Encouraged patient to use incentive spirometer -Continue to monitor hemoglobin -DVT prophylaxis subcu heparin Physician Broadcast Director Operations note has been reviewed by physician. Signing provider agrees with the documented findings, assessment, and plan of care. I have personally seen and examined the patient, reviewed the SENIOR NURSE MANAGER /PAs history, exam and MDM and agree with the assessment and plan as written. Based on total visit time, I have performed more than 50% of the visit. As above: Patient doing well today. She does have mild nausea. Tolerating full liquids. No bowel movement. She is ambulating in the hallways. Labs noted. Continue full liquids until bowel function returns [place]. Possible discharge over the next 24-48 hours. Objective - Vital Signs Vital signs: Vital Signs Temp 98.1 F 06/15/22 07:51 Pulse 92 06/15/22 07:51 Resp 16 06/15/22 07:51 BP 122/75 06/15/22 07:51 Pulse Ox 94 L 06/15/22 07:51 FiO2 Intake & Output 06/14/22 06/15/22 06/15/22 18:59 06:59 18:59 Output Total 2400 1999 Balance -2399 -1999 Output: Urine 2399 1999 Uretheral (Ford) 1999 Other: Voiding Method Indwelling Catheter - Labs CBC & Chem 7: 06/15/22 06:13 06/15/22 06:13 Labs: Abnormal Lab Results - Last 24 Hours (Table) 06/14/22 06/14/22 06/15/22 Range/Units 16:53 22:21 06:13 RBC 2.73 L (4.10-5.20) X 10*6/uL Hgb 7.9 L (12.0-15.0) g/dL Hct 26.4 L (37.2-46.3) % MCHC 29.9 L (32.0-37.0) g/dL RDW 15.1 H (11.5-14.5) % Carbon Dioxide (20.0-27.5) mmol/L BUN (9.0-27.0) mg/dL BUN/Creatinine Ratio (12.00-20.00) Ratio POC Glucose (mg/dL) 113 H 151 H (70-110) mg/dL Calcium (8.7-10.3) mg/dL 06/15/22 06/15/22 06/15/22 Range/Units 06:13 07:03 11:33 RBC (4.10-5.20) X 10*6/uL Hgb (12.0-15.0) g/dL Hct (37.2-46.3) % MCHC (32.0-37.0) g/dL RDW (11.5-14.5) % Carbon Dioxide 17.0 L (20.0-27.5) mmol/L BUN 7.5 L (9.0-27.0) mg/dL BUN/Creatinine Ratio 8.33 L (12.00-20.00) Ratio POC Glucose (mg/dL) 161 H 149 H (70-110) mg/dL Calcium 8.2 L (8.7-10.3) mg/dL
--- NOTE | 2022-06-15 15:34 | P.PN ---
Progress Note - Text Progress Note Date: 06/15/22 Hospital course: Patient with acute jejunal diverticulitis. 06/03/2022: I assumed care of patient today from [facility] hospitalist. Having abdominal pain. Clear liquids. IV cefepime added. Subcu Lovenox. Discussed with patient. At the patient sit up in a chair. 06/04/2022: On IV cefepime. Some improvement in abdominal pain. Had a BM. Diet advanced by surgery. Had a BM today. 06/05/2022: On IV cefepime. Slight decrease in abdominal distention. Had a BM. We will change diet to a ground diet. Abdominal tenderness still present though. Discussed with patient. Will watch another 24 hours. Abdominal x-ray reviewed. Some stool. No free air 06/06/2022: Remains on IV cefepime. Still having significant right sided abdominal pain. Had a small BM. Discussed with surgery. Repeat computed tomography scan showing worsening diverticulitis in the jejunal area. No perforation. Change diet to clear liquids. Significant stool burden. Soapsuds enema ordered. June 07 2222: Patient is put on clear liquids yesterday. Slight improvement in abdominal pain. Some nausea. Also patient sit up in a chair. Increase activity. IV Flagyl was added yesterday. June 082021: Abdominal pain better. On clear liquids. A small bowel movement. Feeling better. Only taking Tylenol for pain. Has been scheduled for surgery by Dr. Staton on Saturday. 06/09/2022: Abdominal pain pretty much resolved. On full liquids. Advance to ground diet. Current antibiotics. Discussed with patient.. 06/10/2022: Abdominal pain has resurfaced. Put back on clear liquids. Discussed with patient. For surgery tomorrow by Dr. Staton. 06/11/2022: Patient was seen this morning. Abdominal pain significant. Tender. Later patient went down for surgery. Small bowel resection carried out. 06/12/2022: Patient overnight was oozing from the incision site. Dressing was soaked. This morning required stitches and incision. Feeling tired. Remains nothing by mouth. IV fluids can by surgery. June 13: No further bleeding from incision site. Abdominal binder in place. She remains nothing by mouth. No flatus. Tired. June 14: Patient started on clear liquids yesterday. Did pass some flatus. Some abdominal pain. Laying in bed. IV fluids. June 15: Feeling better. Past good flatus. Did walk in the hallway. Pain moderate. Advance to full liquids per surgery. Active Medications Hydrocodone Bitart/Acetaminophen (Hydrocodone/Apap 5-325mg 1 Each Tab) 1 each PO Q4HR PRN PRN Reason: Pain Last Admin: 06/15/22 12:53 Dose: 1 each Albuterol Sulfate (Albuterol Nebulized 2.5 Mg/3 Ml) 2.5 mg INHALATION RT-Q6H PRN PRN Reason: Shortness Of Breath Last Admin: 06/04/22 16:04 Dose: 2.5 mg Alvimopan (Alvimopan 12 Mg Capsule) 12 mg PO BID [facility] Stop: 06/18/22 21:01 Last Admin: 06/15/22 09:12 Dose: 12 mg Amitriptyline HCl (Amitriptyline Hcl 10 Mg Tab) 10 mg PO HS [facility] Last Admin: 06/14/22 22:24 Dose: 10 mg Benzocaine/Menthol (Benzocaine/Menthol Lozeng 1 Each Lozenge) 1 each MUCOUS MEM Q1HR PRN PRN Reason: Sore Throat Budesonide/Formoterol Fumarate (Symbicort 160-4.5 Mcg Inhaler) 2 puff INHALATION RT-BID [facility] Last Admin: 06/15/22 07:36 Dose: 2 puff Citalopram Hydrobromide (Citalopram Hydrobromide 20 Mg Tab) 60 mg PO DAILY [facility] Last Admin: 06/15/22 09:12 Dose: 60 mg Ezetimibe (Ezetimibe 10 Mg Tab) 10 mg PO DAILY [facility] Last Admin: 06/15/22 09:12 Dose: 10 mg Famotidine (Famotidine 20 Mg Tab) 20 mg PO HS [facility] Last Admin: 06/14/22 22:21 Dose: 20 mg Fluticasone Propionate (Fluticasone 50mcg/[place] Nasal 16gm) 2 spray EA NOSTRIL DAILY [facility] Last Admin: 06/15/22 09:14 Dose: 2 spray Gabapentin (Gabapentin 300 Mg Cap) 300 mg PO TID [facility] Last Admin: 06/15/22 09:12 Dose: 300 mg Heparin Sodium (Porcine) (Heparin Sodium,Porcine/Pf 5,000 Unit/0.5 Ml Syringe) 5,000 unit SQ Q12HR [facility] Last Admin: 06/15/22 09:13 Dose: 5,000 unit Hydromorphone HCl (Hydromorphone 0.5 Mg/0.5 Ml Syringe) 0.5 mg IVP Q3HR PRN PRN Reason: Severe Pain Last Admin: 06/13/22 15:22 Dose: 0.5 mg Cefepime HCl 2 gm/ Sodium (Chloride) 100 mls @ 25 mls/hr IVPB Q12H [facility]; Protocol Last Admin: 06/15/22 05:04 Dose: 25 mls/hr Metronidazole 500 mg/ IV (Solution) 100 mls @ 100 mls/hr IVPB Q8HR [facility]; Protocol Last Admin: 06/15/22 09:12 Dose: 100 mls/hr Insulin Aspart (Insulin Aspart (Novolog) 100 Unit/Ml Vial) 0 unit SQ ACHS [facility]; Protocol Last Admin: 06/15/22 12:53 Dose: 1 unit Levocarnitine (Levocarnitine (With Sugar) 100 Mg/Ml Bottle) 1,000 mg PO DAILY [facility] Last Admin: 06/15/22 09:13 Dose: 1,000 mg Loratadine (Loratadine 10 Mg Tab) 10 mg PO DAILY [facility] Last Admin: 06/15/22 09:12 Dose: 10 mg Memantine (Memantine 10 Mg Tab) 20 mg PO HS [facility] Last Admin: 06/14/22 22:21 Dose: 20 mg Metformin HCl (Metformin 500 Mg Tab) 500 mg PO BID [facility] Last Admin: 06/15/22 09:12 Dose: 500 mg Montelukast Sodium (Montelukast 10 Mg Tab) 10 mg PO HS [facility] Last Admin: 06/14/22 22:22 Dose: 10 mg Multivitamins (Multivitamins, Thera 1 Each Tab) 1 each PO DAILY [facility] Last Admin: 06/15/22 09:12 Dose: 1 each Naloxone HCl (Naloxone 0.4 Mg/Ml 1 Ml Vial) 0.2 mg IV Q2M PRN PRN Reason: Opioid Reversal Ondansetron HCl (Ondansetron 4 Mg/2 Ml Vial) 4 mg IVP Q8HR PRN PRN Reason: Nausea And Vomiting Last Admin: 06/13/22 08:42 Dose: 4 mg Pantoprazole Sodium (Pantoprazole 40 Mg/10 Ml Vial) 40 mg IVP BID [facility] Last Admin: 06/15/22 09:14 Dose: 40 mg Trazodone HCl (Trazodone Hcl 100 Mg Tab) 100 mg PO HS [facility] Last Admin: 06/14/22 22:21 Dose: 100 mg On examination: VITAL SIGNS: 98.1, 92, 16, 122.75, 94% room air GENERAL APPEARANCE: Laying in bed, awake, HEENT: Normal external appearance of nose and ear. Oral cavity normal EYES: Pupils equal. Conjunctiva normal. NECK: JVD not raised. Mass not palpable. RESPIRATORY: Respiratory effort normal. Lungs clear to auscultation. CARDIOVASCULAR: First and second sounds normal. No edema. ABDOMEN: Soft. Liver and spleen not palpable. . No mass palpable. Tender. Binder in place over dressing. Mild tenderness PSYCHIATRY: Alert and oriented x3. Mood and affect normal. INVESTIGATIONS, reviewed in the clinical context: June 15: White count 7.1 hemoglobin 7.9 potassium 4.9 creatinine 0.9 June 14: Hemoglobin 8.3 potassium 5.1 and 0.9 June 13: Hemoglobin 8 potassium 4.5 creatinine 0.93 June 12: Hemoglobin 9.5 June 11: Potassium 5.1 creatinine 0.86 June 10: WBC 6.2 hemoglobin 11.9 June 08: WBC 4.19 in the globin 10.8 June 07: WBC 4.7 hemoglobin 10.8 June 05: WBC 6.9 hemoglobin 9.8 pro-calcitonin 0.39 June 02: White count 12 hemoglobin 11.5 platelets 239 potassium 3.6 creatinine 0.9 Computed tomography scan of the abdomen: Large 4.7 cm diverticulum coming of occasional low. Surrounding subtle inflammation. Hydropic gallbladder. Moderate-sized hiatal hernia. Assessment and plan: -Acute jejunal diverticulitis: Followed by small bowel resection by Dr. Staton June 11 IV cefepime. Flagyl . Full liquid diet. -Postoperative bleeding at the surgical site. Stitches-Placed -Acute blood loss anemia, with bleeding from abdominal incision site: No stabilized Follow H&H -Hiatal hernia -Primary osteoarthritis Tylenol as needed -GERD Protonix 40 mg twice a day -Hyperlipidemia Zetia 10 mg a day -Mild cognitive impairment Namenda 20 mg daily at bedtime -Diabetes mellitus type 2 on oral hypoglycemic Follow Accu-Cheks -Moderate persistent asthma Advair 500/50 one puff twice a day. Ventolin when necessary -Anxiety and depression On IV cefepime , Flagyl. Abdominal binder. Activities tolerated. Advance to full liquid diet.
[2022-06-15 16:32] LABS: Glucose,Whole Blood 140 mg/dL (70-110)
[2022-06-15] MEDS: AMITRIPTYLINE HCL 10 MG TAB PO SCH (20:09)
[2022-06-15] MEDS: traZODone HCL 100 MG TAB PO SCH (20:09)
[2022-06-15] MEDS: MONTELUKAST 10 MG TAB PO SCH (20:09)
[2022-06-15] MEDS: MEMANTINE 10 MG TAB PO SCH (20:10)
[2022-06-15] MEDS: FAMOTIDINE 20 MG TAB PO SCH (20:10)
[2022-06-15] MEDS: ONDANSETRON 4 MG/2 ML VIAL IVP PRN (20:10)
[2022-06-15 20:51] LABS: Glucose,Whole Blood 111 mg/dL (70-110)
[2022-06-16] MEDS: CEFEPIME 2 GM in SODIUM CHLORIDE 0.9% 100 ML IVPB SCH ×2 (05:20→18:20)
[2022-06-16 06:47] LABS: Glucose,Whole Blood 133 mg/dL (70-110)
[2022-06-16] MEDS: EZETIMIBE 10 MG TAB PO SCH (08:13)
[2022-06-16] MEDS: LORATADINE 10 MG TAB PO SCH (08:13)
[2022-06-16] MEDS: INSULIN ASPART (NovoLOG) 100 UNIT/ML VIAL SQ SCH ×4 (08:13→22:01)
[2022-06-16] MEDS: MULTIVITAMINS, THERA 1 EACH TAB PO SCH (08:13)
[2022-06-16] MEDS: CITALOPRAM HYDROBROMIDE 20 MG TAB PO SCH (08:13)
[2022-06-16] MEDS: HYDROcodone/APAP 5-325MG 1 EACH TAB PO PRN ×4 (08:13→21:49)
[2022-06-16] MEDS: metroNIDAZOLE-NS PMX 500 MG in SALINE 1 100ML.BAG IVPB SCH ×2 (08:14→16:58)
[2022-06-16] MEDS: ALVIMOPAN 12 MG CAPSULE PO SCH ×2 (08:14→21:49)
[2022-06-16] MEDS: GABAPENTIN 300 MG CAP PO SCH ×3 (08:14→21:48)
[2022-06-16] MEDS: HEPARIN SODIUM,PORCINE/PF 5,000 UNIT/0.5 ML SYRINGE SQ SCH ×2 (08:14→21:50)
[2022-06-16] MEDS: metFORMIN 500 MG TAB PO SCH ×2 (08:14→21:50)
[2022-06-16] MEDS: PANTOPRAZOLE 40 MG/10 ML VIAL IVP SCH ×2 (08:14→21:48)
[2022-06-16] MEDS: levOCARNitine (WITH SUGAR) 100 MG/ML BOTTLE PO SCH (08:16)
[2022-06-16] MEDS: FLUTICASONE 50MCG/SPRAY NASAL 16GM EA NOSTRIL SCH (08:17)
[2022-06-16] MEDS: SYMBICORT 160-4.5 MCG INHALER INHALATION SCH ×2 (08:22→19:45)
[2022-06-16 11:24] LABS: Glucose,Whole Blood 177 mg/dL (70-110)
[2022-06-16 12:17] LABS: HCT 25.9 % (37.2-46.3); MCH 29.1 pg (27.0-32.0); MCHC 30.9 g/dL (32.0-37.0); MCV 94.2 fL (80.0-97.0); Mean Platelet Volume 9.6 fL (9.5-12.2); NRBC Per 100 WBC 0 /100 WBCS (0.0-0.0); Platelet Count 475 X 10*3/uL (140-440); RBC 2.75 X 10*6/uL (4.10-5.20); RDW 15.3 % (11.5-14.5); WBC 7.51 X 10*3/uL (4.50-10.00)
--- NOTE | 2022-06-16 13:49 | P.PN ---
Subjective Progress Note Date: 06/16/22 CHIEF COMPLAINT: Jejunal diverticulitis HISTORY OF PRESENT ILLNESS: The patient is a 67-year-old female status post small bowel resection for jejunal diverticulitis, 06/11/22. Patient tolerated full liquid diet. She reports increased belching. She has some flatus. She denies bowel movement. She is seeking increase in her diet. She reports her pain is unchanged from yesterday. ROS: No reports of nausea and vomiting. No fevers or chills. No new chest pain. No productive sputum PHYSICAL EXAM: VITAL SIGNS: Reviewed CONSTITUTIONAL: Well developed and in no acute distress. EYES: Conjuctivae without sclera icterus. Extraocular movements grossly intact. HEAD, EARS, NOSE, THROAT: Moist buccal mucosa. Head is atraumatic, normocephalic. Hears conversational speech. No nasal drainage. RESPIRATORY: Non-labored respirations and equal bilateral excursions. CARDIOVASCULAR: Palpable 2+ radial pulses. ABDOMEN: No peritonitis. MUSCULOSKELETAL: No gross deformity of the lower extremities noted. No clubbing. No cyanosis. SKIN: Good skin turgor. Well perfused. NEUROLOGIC: Cranial nerves II through XII grossly intact. No focal or lateralizing signs. PSYCH: Appropriate affect. Alert and oriented to person, place and time. CLINICAL LABS: Reviewed. WBC normal, 7.5. Hemoglobin stable 7.9 to 8.0 ASSESSMENT: 1. Jejunal diverticulitis. PLAN: 1. She has descrepancy in chart with her bowel movements. She denies bowel movements. 2. Patient tolerated full liquid diet. At this time, pending bowel function prior to advancing diet. Objective - Vital Signs Vital signs: Vital Signs Temp 98.3 F 06/16/22 13:40 Pulse 105 H 06/16/22 13:40 Resp 18 06/16/22 13:40 BP 111/71 06/16/22 13:40 Pulse Ox 96 06/16/22 13:40 FiO2 Intake & Output 06/15/22 06/16/22 06/16/22 18:59 06:59 18:59 Other: Voiding Method Bedside Commode Bedside Commode # Voids 3 # Bowel Movements 3 - Labs CBC & Chem 7: 06/16/22 06:15 06/15/22 06:13 Labs: Abnormal Lab Results - Last 24 Hours (Table) 07/06/15/22 06/16/22 Range/Units 16:31 20:49 06:15 RBC 2.75 L (4.10-5.20) X 10*6/uL Hgb 8.0 L (12.0-15.0) g/dL Hct 25.9 L (37.2-46.3) % MCHC 30.9 L (32.0-37.0) g/dL RDW 15.3 H (11.5-14.5) % Plt Count 475 H (140-440) X 10*3/uL POC Glucose (mg/dL) 140 H 111 H (70-110) mg/dL 06/16/22 06/16/22 Range/Units 06:46 11:23 RBC (4.10-5.20) X 10*6/uL Hgb (12.0-15.0) g/dL Hct (37.2-46.3) % MCHC (32.0-37.0) g/dL RDW (11.5-14.5) % Plt Count (140-440) X 10*3/uL POC Glucose (mg/dL) 133 H 177 H (70-110) mg/dL
--- NOTE | 2022-06-16 15:00 | P.PN ---
Progress Note - Text Progress Note Date: 06/16/22 Hospital course: Patient with acute jejunal diverticulitis. 06/03/2022: I assumed care of patient today from [facility] hospitalist. Having abdominal pain. Clear liquids. IV cefepime added. Subcu Lovenox. Discussed with patient. At the patient sit up in a chair. 06/04/2022: On IV cefepime. Some improvement in abdominal pain. Had a BM. Diet advanced by surgery. Had a BM today. 06/05/2022: On IV cefepime. Slight decrease in abdominal distention. Had a BM. We will change diet to a ground diet. Abdominal tenderness still present though. Discussed with patient. Will watch another 24 hours. Abdominal x-ray reviewed. Some stool. No free air 06/06/2022: Remains on IV cefepime. Still having significant right sided abdominal pain. Had a small BM. Discussed with surgery. Repeat computed tomography scan showing worsening diverticulitis in the jejunal area. No perforation. Change diet to clear liquids. Significant stool burden. Soapsuds enema ordered. June 07 2222: Patient is put on clear liquids yesterday. Slight improvement in abdominal pain. Some nausea. Also patient sit up in a chair. Increase activity. IV Flagyl was added yesterday. June 082021: Abdominal pain better. On clear liquids. A small bowel movement. Feeling better. Only taking Tylenol for pain. Has been scheduled for surgery by Dr. Staton on Saturday. 06/09/2022: Abdominal pain pretty much resolved. On full liquids. Advance to ground diet. Current antibiotics. Discussed with patient.. 06/10/2022: Abdominal pain has resurfaced. Put back on clear liquids. Discussed with patient. For surgery tomorrow by Dr. Staton. 06/11/2022: Patient was seen this morning. Abdominal pain significant. Tender. Later patient went down for surgery. Small bowel resection carried out. 06/12/2022: Patient overnight was oozing from the incision site. Dressing was soaked. This morning required stitches and incision. Feeling tired. Remains nothing by mouth. IV fluids can by surgery. June 13: No further bleeding from incision site. Abdominal binder in place. She remains nothing by mouth. No flatus. Tired. June 14: Patient started on clear liquids yesterday. Did pass some flatus. Some abdominal pain. Laying in bed. IV fluids. June 15: Feeling better. Past good flatus. Did walk in the hallway. Pain moderate. Advance to full liquids per surgery. June 16: Tolerating. full liquid diet. Had a large loose BM last night. Has been out of bed. Pain better. Active Medications Hydrocodone Bitart/Acetaminophen (Hydrocodone/Apap 5-325mg 1 Each Tab) 1 each PO Q4HR PRN PRN Reason: Pain Last Admin: 06/16/22 11:49 Dose: 1 each Albuterol Sulfate (Albuterol Nebulized 2.5 Mg/3 Ml) 2.5 mg INHALATION RT-Q6H PRN PRN Reason: Shortness Of Breath Last Admin: 06/04/22 16:04 Dose: 2.5 mg Alvimopan (Alvimopan 12 Mg Capsule) 12 mg PO BID [facility] Stop: 06/18/22 21:01 Last Admin: 06/16/22 08:14 Dose: Not Given Amitriptyline HCl (Amitriptyline Hcl 10 Mg Tab) 10 mg PO [facility] Last Admin: 06/15/22 20:09 Dose: 10 mg Benzocaine/Menthol (Benzocaine/Menthol Lozeng 1 Each Lozenge) 1 each MUCOUS MEM Q1HR PRN PRN Reason: Sore Throat Budesonide/Formoterol Fumarate (Symbicort 160-4.5 Mcg Inhaler) 2 puff INHALATION RT-BID [facility] Last Admin: 06/16/22 08:22 Dose: 2 puff Citalopram Hydrobromide (Citalopram Hydrobromide 20 Mg Tab) 60 mg PO DAILY [facility] Last Admin: 06/16/22 08:13 Dose: 60 mg Ezetimibe (Ezetimibe 10 Mg Tab) 10 mg PO DAILY [facility] Last Admin: 06/16/22 08:13 Dose: 10 mg Famotidine (Famotidine 20 Mg Tab) 20 mg PO [facility] Last Admin: 06/15/22 20:10 Dose: 20 mg Fluticasone Propionate (Fluticasone 50mcg/[place] Nasal 16gm) 2 spray EA NOSTRIL DAILY [facility] Last Admin: 06/16/22 08:17 Dose: 2 spray Gabapentin (Gabapentin 300 Mg Cap) 300 mg PO TID [facility] Last Admin: 06/16/22 08:14 Dose: 300 mg Heparin Sodium (Porcine) (Heparin Sodium,Porcine/Pf 5,000 Unit/0.5 Ml Syringe) 5,000 unit SQ Q12HR [facility] Last Admin: 06/16/22 08:14 Dose: 5,000 unit Hydromorphone HCl (Hydromorphone 0.5 Mg/0.5 Ml Syringe) 0.5 mg IVP Q3HR PRN PRN Reason: Severe Pain Last Admin: 06/13/22 15:22 Dose: 0.5 mg Cefepime HCl 2 gm/ Sodium (Chloride) 100 mls @ 25 mls/hr IVPB Q12H [facility]; Protocol Last Admin: 06/16/22 05:20 Dose: 25 mls/hr Metronidazole 500 mg/ IV (Solution) 100 mls @ 100 mls/hr IVPB Q8HR [facility]; Protocol Last Admin: 06/16/22 08:14 Dose: 100 mls/hr Insulin Aspart (Insulin Aspart (Novolog) 100 Unit/Ml Vial) 0 unit SQ ACHS [facility]; Protocol Last Admin: 06/16/22 11:46 Dose: 2 unit Levocarnitine (Levocarnitine (With Sugar) 100 Mg/Ml Bottle) 1,000 mg PO DAILY [facility] Last Admin: 06/16/22 08:16 Dose: 1,000 mg Loratadine (Loratadine 10 Mg Tab) 10 mg PO DAILY [facility] Last Admin: 06/16/22 08:13 Dose: 10 mg Memantine (Memantine 10 Mg Tab) 20 mg PO HS [facility] Last Admin: 06/15/22 20:10 Dose: 20 mg Metformin HCl (Metformin 500 Mg Tab) 500 mg PO BID [facility] Last Admin: 06/16/22 08:14 Dose: 500 mg Montelukast Sodium (Montelukast 10 Mg Tab) 10 mg PO HS [facility] Last Admin: 06/15/22 20:09 Dose: 10 mg Multivitamins (Multivitamins, Thera 1 Each Tab) 1 each PO DAILY [facility] Last Admin: 06/16/22 08:13 Dose: 1 each Naloxone HCl (Naloxone 0.4 Mg/Ml 1 Ml Vial) 0.2 mg IV Q2M PRN PRN Reason: Opioid Reversal Ondansetron HCl (Ondansetron 4 Mg/2 Ml Vial) 4 mg IVP Q8HR PRN PRN Reason: Nausea And Vomiting Last Admin: 06/15/22 20:10 Dose: 4 mg Pantoprazole Sodium (Pantoprazole 40 Mg/10 Ml Vial) 40 mg IVP BID [facility] Last Admin: 06/16/22 08:14 Dose: 40 mg Trazodone HCl (Trazodone Hcl 100 Mg Tab) 100 mg PO HS [facility] Last Admin: 06/15/22 20:09 Dose: 100 mg On examination: VITAL SIGNS: 98.3, 105, 18, 111/71, 96% room air GENERAL APPEARANCE: Sitting up in bed, more cheerful HEENT: Normal external appearance of nose and ear. Oral cavity normal EYES: Pupils equal. Conjunctiva normal. NECK: JVD not raised. Mass not palpable. RESPIRATORY: Respiratory effort normal. Lungs clear to auscultation. CARDIOVASCULAR: First and second sounds normal. No edema. ABDOMEN: Soft. Liver and spleen not palpable. . No mass palpable. Tender. Binder in place over dressing. Mild tenderness PSYCHIATRY: Alert and oriented x3. Mood and affect normal. INVESTIGATIONS, reviewed in the clinical context: June 16: WBC 7.5 hemoglobin 8 platelets 475 June 05: WBC 6.9 hemoglobin 9.8 pro-calcitonin 0.39 June 02: White count 12 hemoglobin 11.5 platelets 239 potassium 3.6 creatinine 0.9 Computed tomography scan of the abdomen: Large 4.7 cm diverticulum coming of occasional low. Surrounding subtle inflammation. Hydropic gallbladder. Moderate-sized hiatal hernia. Assessment and plan: -Acute jejunal diverticulitis: Followed by small bowel resection by Dr. Staton June 11 IV cefepime. Flagyl . Full liquid diet. -Postoperative bleeding at the surgical site. Stitches-Placed Stable -Acute blood loss anemia, with bleeding from abdominal incision site: No stabilized Follow H&H -Hiatal hernia -Primary osteoarthritis Tylenol as needed -GERD Protonix 40 mg twice a day -Hyperlipidemia Zetia 10 mg a day -Mild cognitive impairment Namenda 20 mg daily at bedtime -Diabetes mellitus type 2 on oral hypoglycemic Follow Accu-Cheks -Moderate persistent asthma Advair 500/50 one puff twice a day. Ventolin when necessary -Anxiety and depression On IV cefepime , Flagyl. Abdominal binder. Has been out of bed. Tolerating full liquid diet.
[2022-06-16 16:39] LABS: Glucose,Whole Blood 127 mg/dL (70-110)
[2022-06-16] MEDS: ONDANSETRON 4 MG/2 ML VIAL IVP PRN (18:21)
[2022-06-16 20:58] LABS: Glucose,Whole Blood 173 mg/dL (70-110)
[2022-06-16] MEDS: MONTELUKAST 10 MG TAB PO SCH (21:49)
[2022-06-16] MEDS: FAMOTIDINE 20 MG TAB PO SCH (21:49)
[2022-06-16] MEDS: traZODone HCL 100 MG TAB PO SCH (21:50)
[2022-06-16] MEDS: MEMANTINE 10 MG TAB PO SCH (21:50)
[2022-06-16] MEDS: AMITRIPTYLINE HCL 10 MG TAB PO SCH (22:01)
[2022-06-17] MEDS: metroNIDAZOLE-NS PMX 500 MG in SALINE 1 100ML.BAG IVPB SCH ×3 (00:49→15:13)
[2022-06-17] MEDS: HYDROcodone/APAP 5-325MG 1 EACH TAB PO PRN ×2 (02:49→14:26)
[2022-06-17] MEDS: CEFEPIME 2 GM in SODIUM CHLORIDE 0.9% 100 ML IVPB SCH ×2 (06:20→17:18)
[2022-06-17 07:03] LABS: Glucose,Whole Blood 129 mg/dL (70-110)
[2022-06-17] MEDS: INSULIN ASPART (NovoLOG) 100 UNIT/ML VIAL SQ SCH ×4 (07:23→20:22)
[2022-06-17] MEDS: EZETIMIBE 10 MG TAB PO SCH (07:29)
[2022-06-17] MEDS: MULTIVITAMINS, THERA 1 EACH TAB PO SCH (07:29)
[2022-06-17] MEDS: ALVIMOPAN 12 MG CAPSULE PO SCH (07:29)
[2022-06-17] MEDS: LORATADINE 10 MG TAB PO SCH (07:29)
[2022-06-17] MEDS: GABAPENTIN 300 MG CAP PO SCH ×3 (07:29→19:55)
[2022-06-17] MEDS: metFORMIN 500 MG TAB PO SCH ×2 (07:29→19:54)
[2022-06-17] MEDS: CITALOPRAM HYDROBROMIDE 20 MG TAB PO SCH (07:29)
[2022-06-17] MEDS: HEPARIN SODIUM,PORCINE/PF 5,000 UNIT/0.5 ML SYRINGE SQ SCH ×2 (07:29→19:54)
[2022-06-17] MEDS: FLUTICASONE 50MCG/SPRAY NASAL 16GM EA NOSTRIL SCH (07:30)
[2022-06-17] MEDS: PANTOPRAZOLE 40 MG/10 ML VIAL IVP SCH (07:30)
[2022-06-17] MEDS: SYMBICORT 160-4.5 MCG INHALER INHALATION SCH ×2 (07:40→19:56)
[2022-06-17] MEDS: levOCARNitine (WITH SUGAR) 100 MG/ML BOTTLE PO SCH (09:09)
--- NOTE | 2022-06-17 11:13 | P.PN ---
Progress Note - Text Progress Note Date: 06/17/22 Hospital course: Patient with acute jejunal diverticulitis. 06/03/2022: I assumed care of patient today from [facility] hospitalist. Having abdominal pain. Clear liquids. IV cefepime added. Subcu Lovenox. Discussed with patient. At the patient sit up in a chair. 06/04/2022: On IV cefepime. Some improvement in abdominal pain. Had a BM. Diet advanced by surgery. Had a BM today. 06/05/2022: On IV cefepime. Slight decrease in abdominal distention. Had a BM. We will change diet to a ground diet. Abdominal tenderness still present though. Discussed with patient. Will watch another 24 hours. Abdominal x-ray reviewed. Some stool. No free air 06/06/2022: Remains on IV cefepime. Still having significant right sided abdominal pain. Had a small BM. Discussed with surgery. Repeat computed tomography scan showing worsening diverticulitis in the jejunal area. No perforation. Change diet to clear liquids. Significant stool burden. Soapsuds enema ordered. June 07 2222: Patient is put on clear liquids yesterday. Slight improvement in abdominal pain. Some nausea. Also patient sit up in a chair. Increase activity. IV Flagyl was added yesterday. June 082021: Abdominal pain better. On clear liquids. A small bowel movement. Feeling better. Only taking Tylenol for pain. Has been scheduled for surgery by Dr. Staton on Saturday. 06/09/2022: Abdominal pain pretty much resolved. On full liquids. Advance to ground diet. Current antibiotics. Discussed with patient.. 06/10/2022: Abdominal pain has resurfaced. Put back on clear liquids. Discussed with patient. For surgery tomorrow by Dr. Staton. 06/11/2022: Patient was seen this morning. Abdominal pain significant. Tender. Later patient went down for surgery. Small bowel resection carried out. 06/12/2022: Patient overnight was oozing from the incision site. Dressing was soaked. This morning required stitches and incision. Feeling tired. Remains nothing by mouth. IV fluids can by surgery. June 13: No further bleeding from incision site. Abdominal binder in place. She remains nothing by mouth. No flatus. Tired. June 14: Patient started on clear liquids yesterday. Did pass some flatus. Some abdominal pain. Laying in bed. IV fluids. June 15: Feeling better. Past good flatus. Did walk in the hallway. Pain moderate. Advance to full liquids per surgery. June 16: Tolerating. full liquid diet. Had a large loose BM last night. Has been out of bed. Pain better. June 17: On full liquid diet. Had flatus. No BM. Some abdominal pain. Has been out of bed. No nausea vomiting Active Medications Hydrocodone Bitart/Acetaminophen (Hydrocodone/Apap 5-325mg 1 Each Tab) 1 each PO Q4HR PRN PRN Reason: Pain Last Admin: 06/17/22 02:49 Dose: 1 each Albuterol Sulfate (Albuterol Nebulized 2.5 Mg/3 Ml) 2.5 mg INHALATION RT-Q6H PRN PRN Reason: Shortness Of Breath Last Admin: 06/04/22 16:04 Dose: 2.5 mg Alvimopan (Alvimopan 12 Mg Capsule) 12 mg PO BID [facility] Stop: 06/18/22 21:01 Last Admin: 06/17/22 07:29 Dose: 12 mg Amitriptyline HCl (Amitriptyline Hcl 10 Mg Tab) 10 mg PO [facility] Last Admin: 06/16/22 22:01 Dose: 10 mg Benzocaine/Menthol (Benzocaine/Menthol Lozeng 1 Each Lozenge) 1 each MUCOUS MEM Q1HR PRN PRN Reason: Sore Throat Budesonide/Formoterol Fumarate (Symbicort 160-4.5 Mcg Inhaler) 2 puff INHALATION RT-BID [facility] Last Admin: 06/17/22 07:40 Dose: 2 puff Citalopram Hydrobromide (Citalopram Hydrobromide 20 Mg Tab) 60 mg PO DAILY [facility] Last Admin: 06/17/22 07:29 Dose: 60 mg Ezetimibe (Ezetimibe 10 Mg Tab) 10 mg PO DAILY [facility] Last Admin: 06/17/22 07:29 Dose: 10 mg Famotidine (Famotidine 20 Mg Tab) 20 mg PO HS [facility] Last Admin: 06/16/22 21:49 Dose: 20 mg Fluticasone Propionate (Fluticasone 50mcg/[place] Nasal 16gm) 2 spray EA NOSTRIL DAILY [facility] Last Admin: 06/17/22 07:30 Dose: 2 spray Gabapentin (Gabapentin 300 Mg Cap) 300 mg PO TID [facility] Last Admin: 06/17/22 07:29 Dose: 300 mg Heparin Sodium (Porcine) (Heparin Sodium,Porcine/Pf 5,000 Unit/0.5 Ml Syringe) 5,000 unit SQ Q12HR [facility]AYY Last Admin: 06/17/22 07:29 Dose: 5,000 unit Hydromorphone HCl (Hydromorphone 0.5 Mg/0.5 Ml Syringe) 0.5 mg IVP Q3HR PRN PRN Reason: Severe Pain Last Admin: 06/13/22 15:22 Dose: 0.5 mg Cefepime HCl 2 gm/ Sodium (Chloride) 100 mls @ 25 mls/hr IVPB Q12H [facility]; Protocol Last Admin: 06/17/22 06:20 Dose: 25 mls/hr Metronidazole 500 mg/ IV (Solution) 100 mls @ 100 mls/hr IVPB Q8HR [facility]; Protocol Last Admin: 06/17/22 09:09 Dose: 100 mls/hr Insulin Aspart (Insulin Aspart (Novolog) 100 Unit/Ml Vial) 0 unit SQ ACHS [facility]; Protocol Last Admin: 06/17/22 07:23 Dose: Not Given Levocarnitine (Levocarnitine (With Sugar) 100 Mg/Ml Bottle) 1,000 mg PO DAILY [facility] Last Admin: 06/17/22 09:09 Dose: 1,000 mg Loratadine (Loratadine 10 Mg Tab) 10 mg PO DAILY [facility] Last Admin: 06/17/22 07:29 Dose: 10 mg Memantine (Memantine 10 Mg Tab) 20 mg PO HS [facility] Last Admin: 06/16/22 21:50 Dose: 20 mg Metformin HCl (Metformin 500 Mg Tab) 500 mg PO BID [facility] Last Admin: 06/17/22 07:29 Dose: 500 mg Montelukast Sodium (Montelukast 10 Mg Tab) 10 mg PO HS [facility] Last Admin: 06/16/22 21:49 Dose: 10 mg Multivitamins (Multivitamins, Thera 1 Each Tab) 1 each PO DAILY [facility] Last Admin: 06/17/22 07:29 Dose: 1 each Naloxone HCl (Naloxone 0.4 Mg/Ml 1 Ml Vial) 0.2 mg IV Q2M PRN PRN Reason: Opioid Reversal Ondansetron HCl (Ondansetron 4 Mg/2 Ml Vial) 4 mg IVP Q8HR PRN PRN Reason: Nausea And Vomiting Last Admin: 06/16/22 18:21 Dose: 4 mg Pantoprazole Sodium (Pantoprazole 40 Mg/10 Ml Vial) 40 mg IVP BID [facility] Last Admin: 06/17/22 07:30 Dose: 40 mg Trazodone HCl (Trazodone Hcl 100 Mg Tab) 100 mg PO HS [facility] Last Admin: 06/16/22 21:50 Dose: 100 mg On examination: VITAL SIGNS: 98.3, 92, 16, 107/74, 95% room air GENERAL APPEARANCE: Reclining bed, awake, comfortable HEENT: Normal external appearance of nose and ear. Oral cavity normal EYES: Pupils equal. Conjunctiva normal. NECK: JVD not raised. Mass not palpable. RESPIRATORY: Respiratory effort normal. Lungs clear to auscultation. CARDIOVASCULAR: First and second sounds normal. No edema. ABDOMEN: Soft. Liver and spleen not palpable. . No mass palpable. Tender. Binder in place over dressing. Mild tenderness PSYCHIATRY: Alert and oriented x3. Mood and affect normal. INVESTIGATIONS, reviewed in the clinical context: June 16: WBC 7.5 hemoglobin 8 platelets 475 June 05: WBC 6.9 hemoglobin 9.8 pro-calcitonin 0.39 June 02: White count 12 hemoglobin 11.5 platelets 239 potassium 3.6 creatinine 0.9 Computed tomography scan of the abdomen: Large 4.7 cm diverticulum coming of occasional low. Surrounding subtle inflammation. Hydropic gallbladder. Moderate-sized hiatal hernia. Assessment and plan: -Acute jejunal diverticulitis: Followed by small bowel resection by Dr. Staton June 11 IV cefepime. Flagyl . Full liquid diet. -Postoperative bleeding at the surgical site. Stitches-Placed Stable -Acute blood loss anemia, with bleeding from abdominal incision site: No stabilized Follow H&H -Hiatal hernia -Primary osteoarthritis Tylenol as needed -GERD Protonix 40 mg twice a day -Hyperlipidemia Zetia 10 mg a day -Mild cognitive impairment Namenda 20 mg daily at bedtime -Diabetes mellitus type 2 on oral hypoglycemic Follow Accu-Cheks -Moderate persistent asthma Advair 500/50 one puff twice a day. Ventolin when necessary -Anxiety and depression IV cefepime , Flagyl. Abdominal binder. Increase activity. Full liquid diet.
[2022-06-17 11:42] LABS: Glucose,Whole Blood 153 mg/dL (70-110)
[2022-06-17] MEDS ORDERED: ACETAMINOPHEN TAB 325 MG TAB PO PRN (12:52)
--- NOTE | 2022-06-17 12:53 | P.PN ---
Subjective Progress Note Date: 06/17/22 CHIEF COMPLAINT: Jejunal diverticulitis HISTORY OF PRESENT ILLNESS: The patient is a 67-year-old female status post small bowel resection for jejunal diverticulitis, 06/11/22. Patient reports improved nausea. She is passing moderate flatus. She reports last bowel movement over 2 days ago. No reports of moderate abdominal pain. She is currently a full liquid diet. ROS: No reports of nausea and vomiting. No fevers or chills. No new chest pain. No productive sputum PHYSICAL EXAM: VITAL SIGNS: Reviewed CONSTITUTIONAL: Well developed and in no acute distress. EYES: Conjuctivae without sclera icterus. Extraocular movements grossly intact. HEAD, EARS, NOSE, THROAT: Moist buccal mucosa. Head is atraumatic, normocephalic. Hears conversational speech. No nasal drainage. RESPIRATORY: Non-labored respirations and equal bilateral excursions. CARDIOVASCULAR: Palpable 2+ radial pulses. ABDOMEN: No peritonitis. MUSCULOSKELETAL: No gross deformity of the lower extremities noted. No cl ubbing. No cyanosis. SKIN: Good skin turgor. Well perfused. NEUROLOGIC: Cranial nerves II through XII grossly intact. No focal or lateralizing signs. PSYCH: Appropriate affect. Alert and oriented to person, place and time. CLINICAL LABS: Reviewed. BSG 120 to 170 ASSESSMENT: 1. Jejunal diverticulitis. PLAN: 1. Advance diet to low fiber diet. 2. She is on Entereg. 3. Pain management adjusted to Tylenol as needed. Objective - Vital Signs Vital signs: Vital Signs Temp 98.3 F 06/17/22 07:44 Pulse 92 06/17/22 07:44 Resp 16 06/17/22 07:44 BP 107/74 06/17/22 07:44 Pulse Ox 95 06/17/22 07:44 FiO2 Intake & Output 06/16/22 06/17/22 06/17/22 18:59 06:59 18:59 Output Total 1500 Balance -1500 Output: Urine 1500 Other: Voiding Method Bedside Commode Bedside Commode Bedside Commode # Voids 5 4 - Labs CBC & Chem 7: 06/16/22 06:15 06/15/22 06:13 Labs: Abnormal Lab Results - Last 24 Hours (Table) 06/16/22 06/16/22 06/17/22 Range/Units 16:38 20:56 07:01 POC Glucose (mg/dL) 127 H 173 H 129 H (70-110) mg/dL 06/17/22 Range/Units 11:41 POC Glucose (mg/dL) 153 H (70-110) mg/dL
[2022-06-17 16:34] LABS: Glucose,Whole Blood 141 mg/dL (70-110)
[2022-06-17] MEDS: PANTOPRAZOLE 40 MG TABLET PO SCH (17:18)
[2022-06-17] MEDS: ONDANSETRON 4 MG/2 ML VIAL IVP PRN (19:52)
[2022-06-17] MEDS: MONTELUKAST 10 MG TAB PO SCH (19:54)
[2022-06-17] MEDS: metroNIDAZOLE 500 MG TAB PO SCH (19:54)
[2022-06-17] MEDS: MEMANTINE 10 MG TAB PO SCH (19:55)
[2022-06-17] MEDS: traZODone HCL 100 MG TAB PO SCH (19:55)
[2022-06-17] MEDS: FAMOTIDINE 20 MG TAB PO SCH (19:56)
[2022-06-17] MEDS: HYDROmorphone 0.5 MG/0.5 ML SYRINGE IVP PRN (20:01)
[2022-06-17 20:13] LABS: Glucose,Whole Blood 151 mg/dL (70-110)
[2022-06-17] MEDS: AMITRIPTYLINE HCL 10 MG TAB PO SCH (21:41)
[2022-06-18] MEDS: CEFEPIME 2 GM in SODIUM CHLORIDE 0.9% 100 ML IVPB SCH (05:44)
[2022-06-18] MEDS: ONDANSETRON 4 MG/2 ML VIAL IVP PRN (06:30)
[2022-06-18 06:48] LABS: Glucose,Whole Blood 133 mg/dL (70-110)
[2022-06-18] MEDS: SYMBICORT 160-4.5 MCG INHALER INHALATION SCH (08:29)
[2022-06-18] MEDS: CITALOPRAM HYDROBROMIDE 20 MG TAB PO SCH (08:33)
[2022-06-18] MEDS: INSULIN ASPART (NovoLOG) 100 UNIT/ML VIAL SQ SCH ×2 (08:33→12:55)
[2022-06-18] MEDS: EZETIMIBE 10 MG TAB PO SCH (08:33)
[2022-06-18] MEDS: PANTOPRAZOLE 40 MG TABLET PO SCH (08:33)
[2022-06-18] MEDS: GABAPENTIN 300 MG CAP PO SCH ×2 (08:33→15:44)
[2022-06-18] MEDS: metroNIDAZOLE 500 MG TAB PO SCH ×2 (08:34→15:44)
[2022-06-18] MEDS: metFORMIN 500 MG TAB PO SCH (08:34)
[2022-06-18] MEDS: levOCARNitine (WITH SUGAR) 100 MG/ML BOTTLE PO SCH (08:34)
[2022-06-18] MEDS: HEPARIN SODIUM,PORCINE/PF 5,000 UNIT/0.5 ML SYRINGE SQ SCH (08:34)
[2022-06-18] MEDS: MULTIVITAMINS, THERA 1 EACH TAB PO SCH (08:34)
[2022-06-18] MEDS: LORATADINE 10 MG TAB PO SCH (08:34)
[2022-06-18] MEDS: FLUTICASONE 50MCG/SPRAY NASAL 16GM EA NOSTRIL SCH (08:34)
[2022-06-18 11:53] LABS: Glucose,Whole Blood 131 mg/dL (70-110)
--- NOTE | 2022-06-18 13:43 | P.DS ---
Providers Date of admission: 06/01/22 15:26 Expected date of discharge: 06/18/22 Attending physician: Karan Lemus Consults: 06/01/22 15:26 Consult Physician Routine Consulting Provider: Berhane Simeon Consult Reason/Comments: diverticulitis Do you want consulting provider notified?: Already Contacted Primary care physician: Jv Sher [facility] Course: Discharge diagnosis 1. Jejunal diverticulitis status post exploratory laparotomy and small bowel resection 2. Acute sigmoid diverticulitis 3. Moderate sized Paraesophageal hernia 4. Hypotension resolved 5. Postoperative bleeding at surgical site status post stitches. Now resolved. Hospital course This is a 67-year-old female who presented to the hospital with abdominal pain. She had computed tomography scan evidence of diverticulitis as well as a jejunal 4 cm diverticular pocket. Patient started on IV antibiotics. And did not improve medically. Therefore she did require surgical intervention. She underwent exploratory laparotomy with small bowel resection with Dr. lemus. Patient tolerated surgery well. She did have bleeding from her incisional site postoperatively. Sutures were placed. The bleeding resolved. She has tolerated advancement of diet. She is having bowel movements. Her pain is controlled. She is afebrile. She is up and ambulating. She is stable for discharge. Patient completed antibiotic treatment during hospitalization. Please refer to chart for any further details. Physician Overnight Houseperson note has been reviewed by physician. Signing provider agrees with the documented findings, assessment, and plan of care. Patient Condition at Discharge: Stable Plan - Discharge Summary Discharge Rx Participant: Yes New Discharge Prescriptions: New HYDROcodone/APAP 5-325MG [[place] 5-325] 1 tab PO Q6HR PRN 3 Days #12 tab PRN Reason: Pain No Action Montelukast [Singulair] 10 mg PO HS Amitriptyline HCl [Elavil] 10 mg PO HS Ibuprofen [Motrin] 800 mg PO TID Docusate Sodium [Stool Softener] 100 mg PO BID Citalopram Hydrobromide [Citalopram HBr] 60 mg PO DAILY Multivitamins, Thera [Theragran] 1 tab PO DAILY Fluticasone Nasal [place] [Flonase Nasal [place]] 2 spr EA NOSTRIL DAILY Albuterol Inhaler [Ventolin Hfa Inhaler] 2 puff INHALATION RT-Q6H PRN PRN Reason: Shortness Of Breath Fluticasone Propion/Salmeterol [Advair 500-50 Diskus] 1 puff INHALATION RT- BID metFORMIN HCL [Glucophage] 500 mg PO BID Turmeric Root Extract [Turmeric] 1,500 mg PO DAILY Ezetimibe [Zetia] 10 mg PO DAILY Memantine [Namenda] 20 mg PO HS Aspirin EC [Ecotrin Low Dose] 81 mg PO Q48H Levocetirizine Dihydrochloride [Xyzal] 5 mg PO HS predniSONE 1 dose PO DIRECTED traZODone HCL [Desyrel] 100 mg PO HS Glucosam/Gonzalo-Msm1/C/Christian/Bosw [Glucosamine-Chondroitin Tablet] 1 tab PO DAILY Famotidine 20 mg PO HS Cetirizine HCl [Zyrtec] 10 mg PO DAILY Sucralfate [Carafate] 1 gm PO AC-TID Pantoprazole [Protonix] 40 mg PO BID Mexiletine [Mexitil] 150 mg PO HS Gabapentin 300 mg PO TID Acetyl L Carnitine Hcl 1000mg 1 tab PO DAILY Discharge Medication List Amitriptyline HCl [Elavil] 10 mg PO HS 07/09/14 [History] Citalopram Hydrobromide [Citalopram HBr] 60 mg PO DAILY 07/09/14 [History] Docusate Sodium [Stool Softener] 100 mg PO BID 07/09/14 [History] Ibuprofen [Motrin] 800 mg PO TID 07/09/14 [History] Montelukast [Singulair] 10 mg PO HS 07/09/14 [History] Fluticasone Nasal [place] [Flonase Nasal [place]] 2 spr EA NOSTRIL DAILY 09/21/15 [History] Multivitamins, Thera [Theragran] 1 tab PO DAILY 09/21/15 [History] Albuterol Inhaler [Ventolin Hfa Inhaler] 2 puff INHALATION RT-Q6H PRN 09/12/17 [History] Fluticasone Propion/Salmeterol [Advair 500-50 Diskus] 1 puff INHALATION RT-BID 09/12/17 [History] Turmeric Root Extract [Turmeric] 1,500 mg PO DAILY 09/12/17 [History] metFORMIN HCL [Glucophage] 500 mg PO BID 09/12/17 [History] Aspirin EC [Ecotrin Low Dose] 81 mg PO Q48H 03/02/19 [History] Ezetimibe [Zetia] 10 mg PO DAILY 03/02/19 [History] Memantine [Namenda] 20 mg PO HS 03/02/19 [History] Levocetirizine Dihydrochloride [Xyzal] 5 mg PO HS 09/02/19 [History] Acetyl L Carnitine Hcl 1000mg 1 tab PO DAILY 06/01/22 [History] Cetirizine HCl [Zyrtec] 10 mg PO DAILY 06/01/22 [History] Famotidine 20 mg PO HS 06/01/22 [History] Gabapentin 300 mg PO TID 06/01/22 [History] Glucosam/Gonzalo-Msm1/C/Christian/Bosw [Glucosamine-Chondroitin Tablet] 1 tab PO DAILY 06/01/22 [History] Mexiletine [Mexitil] 150 mg PO HS 06/01/22 [History] Pantoprazole [Protonix] 40 mg PO BID 06/01/22 [History] Sucralfate [Carafate] 1 gm PO AC-TID 06/01/22 [History] predniSONE 1 dose PO DIRECTED 06/01/22 [History] traZODone HCL [Desyrel] 100 mg PO HS 06/01/22 [History] HYDROcodone/APAP 5-325MG [[place] 5-325] 1 tab PO Q6HR PRN 3 Days #12 tab 06/15/22 [Rx] Follow up Appointment(s)/Referral(s): Jv Olivarez MD [Primary Care Provider] - 1-2 days Karan Lemus MD [STAFF PHYSICIAN] - 1 Week Activity/Diet/Wound Care/Special Instructions: Medicine service to complete discharge med rec No driving while taking [place] No lifting over 10 pounds Shower daily. No soaking or tub baths for 2 weeks Very light activity until you are reevaluated at your follow up appointment with your surgeon Discharge Disposition: HOME SELF-CARE
--- NOTE | 2022-06-18 14:57 | P.PN ---
Progress Note - Text Progress Note Date: 06/18/22 Hospital course: Patient with acute jejunal diverticulitis. 06/03/2022: I assumed care of patient today from [facility] hospitalist. Having abdominal pain. Clear liquids. IV cefepime added. Subcu Lovenox. Discussed with patient. At the patient sit up in a chair. 06/04/2022: On IV cefepime. Some improvement in abdominal pain. Had a BM. Diet advanced by surgery. Had a BM today. 06/05/2022: On IV cefepime. Slight decrease in abdominal distention. Had a BM. We will change diet to a ground diet. Abdominal tenderness still present though. Discussed with patient. Will watch another 24 hours. Abdominal x-ray reviewed. Some stool. No free air 06/06/2022: Remains on IV cefepime. Still having significant right sided abdominal pain. Had a small BM. Discussed with surgery. Repeat computed tomography scan showing worsening diverticulitis in the jejunal area. No perforation. Change diet to clear liquids. Significant stool burden. Soapsuds enema ordered. June 07 2222: Patient is put on clear liquids yesterday. Slight improvement in abdominal pain. Some nausea. Also patient sit up in a chair. Increase activity. IV Flagyl was added yesterday. June 082021: Abdominal pain better. On clear liquids. A small bowel movement. Feeling better. Only taking Tylenol for pain. Has been scheduled for surgery by Dr. Staton on Saturday. 06/09/2022: Abdominal pain pretty much resolved. On full liquids. Advance to ground diet. Current antibiotics. Discussed with patient.. 06/10/2022: Abdominal pain has resurfaced. Put back on clear liquids. Discussed with patient. For surgery tomorrow by Dr. Staton. 06/11/2022: Patient was seen this morning. Abdominal pain significant. Tender. Later patient went down for surgery. Small bowel resection carried out. 06/12/2022: Patient overnight was oozing from the incision site. Dressing was soaked. This morning required stitches and incision. Feeling tired. Remains nothing by mouth. IV fluids can by surgery. June 13: No further bleeding from incision site. Abdominal binder in place. She remains nothing by mouth. No flatus. Tired. June 14: Patient started on clear liquids yesterday. Did pass some flatus. Some abdominal pain. Laying in bed. IV fluids. June 15: Feeling better. Past good flatus. Did walk in the hallway. Pain moderate. Advance to full liquids per surgery. June 16: Tolerating. full liquid diet. Had a large loose BM last night. Has been out of bed. Pain better. June 17: On full liquid diet. Had flatus. No BM. Some abdominal pain. Has been out of bed. No nausea vomiting June 18: Tolerating a soft bland diet. Had a BM. Pain well controlled. Has been out of bed. Discussed with Geeta SURFACE SUPERVISOR from surgery. No antibiotics. Discussed with patient. Follow-up with PCP. Active Medications Acetaminophen (Acetaminophen Tab 325 Mg Tab) 650 mg PO Q4HR PRN PRN Reason: Fever and/ or Pain Last Admin: 06/17/22 13:18 Dose: 650 mg Hydrocodone Bitart/Acetaminophen (Hydrocodone/Apap 5-325mg 1 Each Tab) 1 each PO Q4HR PRN PRN Reason: Pain Last Admin: 06/17/22 14:26 Dose: 1 each Albuterol Sulfate (Albuterol Nebulized 2.5 Mg/3 Ml) 2.5 mg INHALATION RT-Q6H PRN PRN Reason: Shortness Of Breath Last Admin: 06/04/22 16:04 Dose: 2.5 mg Amitriptyline HCl (Amitriptyline Hcl 10 Mg Tab) 10 mg PO [facility] Last Admin: 06/17/22 21:41 Dose: 10 mg Benzocaine/Menthol (Benzocaine/Menthol Lozeng 1 Each Lozenge) 1 each MUCOUS MEM Q1HR PRN PRN Reason: Sore Throat Budesonide/Formoterol Fumarate (Symbicort 160-4.5 Mcg Inhaler) 2 puff INHALATION RT-BID [facility] Last Admin: 06/18/22 08:29 Dose: 2 puff Citalopram Hydrobromide (Citalopram Hydrobromide 20 Mg Tab) 60 mg PO DAILY [facility] Last Admin: 06/18/22 08:33 Dose: 60 mg Ezetimibe (Ezetimibe 10 Mg Tab) 10 mg PO DAILY [facility] Last Admin: 06/18/22 08:33 Dose: 10 mg Famotidine (Famotidine 20 Mg Tab) 20 mg PO [facility] Last Admin: 06/17/22 19:56 Dose: 20 mg Fluticasone Propionate (Fluticasone 50mcg/[place] Nasal 16gm) 2 spray EA NOSTRIL DAILY [facility] Last Admin: 06/18/22 08:34 Dose: 2 spray Gabapentin (Gabapentin 300 Mg Cap) 300 mg PO TID [facility] Last Admin: 06/18/22 08:33 Dose: 300 mg Heparin Sodium (Porcine) (Heparin Sodium,Porcine/Pf 5,000 Unit/0.5 Ml Syringe) 5,000 unit SQ Q12HR [facility] Last Admin: 06/18/22 08:34 Dose: 5,000 unit Hydromorphone HCl (Hydromorphone 0.5 Mg/0.5 Ml Syringe) 0.5 mg IVP Q3HR PRN PRN Reason: Severe Pain Last Admin: 06/17/22 20:01 Dose: 0.5 mg Cefepime HCl 2 gm/ Sodium (Chloride) 100 mls @ 25 mls/hr IVPB Q12H [facility]; Protocol Last Admin: 06/18/22 05:44 Dose: 25 mls/hr Insulin Aspart (Insulin Aspart (Novolog) 100 Unit/Ml Vial) 0 unit SQ ACHS [facility]; Protocol Last Admin: 06/18/22 12:55 Dose: 1 unit Levocarnitine (Levocarnitine (With Sugar) 100 Mg/Ml Bottle) 1,000 mg PO DAILY [facility] Last Admin: 06/18/22 08:34 Dose: 1,000 mg Loratadine (Loratadine 10 Mg Tab) 10 mg PO DAILY [facility] Last Admin: 06/18/22 08:34 Dose: 10 mg Memantine (Memantine 10 Mg Tab) 20 mg PO [facility] Last Admin: 06/17/22 19:55 Dose: 20 mg Metformin HCl (Metformin 500 Mg Tab) 500 mg PO BID [facility] Last Admin: 06/18/22 08:34 Dose: 500 mg Metronidazole (Metronidazole 500 Mg Tab) 500 mg PO TID [facility] Last Admin: 06/18/22 08:34 Dose: 500 mg Montelukast Sodium (Montelukast 10 Mg Tab) 10 mg PO [facility] Last Admin: 06/17/22 19:54 Dose: 10 mg Multivitamins (Multivitamins, Thera 1 Each Tab) 1 each PO DAILY [facility] Last Admin: 06/18/22 08:34 Dose: 1 each Naloxone HCl (Naloxone 0.4 Mg/Ml 1 Ml Vial) 0.2 mg IV Q2M PRN PRN Reason: Opioid Reversal Ondansetron HCl (Ondansetron 4 Mg/2 Ml Vial) 4 mg IVP Q8HR PRN PRN Reason: Nausea And Vomiting Last Admin: 06/18/22 06:30 Dose: 4 mg Pantoprazole Sodium (Pantoprazole 40 Mg Tablet) 40 mg PO AC-BID [facility] Last Admin: 06/18/22 08:33 Dose: 40 mg Trazodone HCl (Trazodone Hcl 100 Mg Tab) 100 mg PO HS [facility] Last Admin: 06/17/22 19:55 Dose: 100 mg On examination: VITAL SIGNS: 98.2, 98, 14, 169, 94% room air GENERAL APPEARANCE: Reclining bed, awake, comfortable HEENT: Normal external appearance of nose and ear. Oral cavity normal EYES: Pupils equal. Conjunctiva normal. NECK: JVD not raised. Mass not palpable. RESPIRATORY: Respiratory effort normal. Lungs clear to auscultation. CARDIOVASCULAR: First and second sounds normal. No edema. ABDOMEN: Soft. Liver and spleen not palpable. . No mass palpable. Tender. Binder in place over dressing. Minimal tenderness PSYCHIATRY: Alert and oriented x3. Mood and affect normal. INVESTIGATIONS, reviewed in the clinical context: June 16: WBC 7.5 hemoglobin 8 platelets 475 June 05: WBC 6.9 hemoglobin 9.8 pro-calcitonin 0.39 June 02: White count 12 hemoglobin 11.5 platelets 239 potassium 3.6 creatinine 0.9 Computed tomography scan of the abdomen: Large 4.7 cm diverticulum coming of occasional low. Surrounding subtle inflammation. Hydropic gallbladder. Moderate-sized hiatal hernia. Assessment and plan: -Acute jejunal diverticulitis: Followed by small bowel resection by Dr. Staton June 11 IV cefepime. Flagyl . No antibiotics upon discharge. Soft bland diet. -Postoperative bleeding at the surgical site. Stitches-Placed Stable -Acute blood loss anemia, with bleeding from abdominal incision site: No stabilized Follow H&H -Hiatal hernia -Primary osteoarthritis Tylenol as needed -GERD Protonix 40 mg twice a day -Hyperlipidemia Zetia 10 mg a day -Mild cognitive impairment Namenda 20 mg daily at bedtime -Diabetes mellitus type 2 on oral hypoglycemic Follow Accu-Cheks -Moderate persistent asthma Advair 500/50 one puff twice a day. Ventolin when necessary -Anxiety and depression No antibiotics upon discharge. Discussed with SURFACE SUPERVISOR from surgery. Follow-up with family doctor per discharge. Discussed with patient.
[2022-06-18 15:33] VITALS: BP 150/82; PULSE 100; RESP 16; TEMP 98.9
--- NOTE | 2022-06-19 14:04 | CDI ---
Documentation Clarification Form Date: 06/19/2022 01:27:55 PM From: Luzma Mcarthur RN CCDS Admit Date: 06/01/2022 03:26:00 PM Patient Name: Tarsha Tobias Visit Number: [id number] Discharge Date: 06/18/2022 05:12:00 PM ATTENTION: The Clinical Documentation Specialists (CDI) and [facility] Coding Staff appreciate your assistance in clarifying documentation. Please respond to the clarification below the line at the bottom and electronically sign. The CDI & [facility] Coding staff will review the response and follow-up if needed. Please note: Queries are made part of the Legal Health Record. If you have any questions, please contact the author of this message via ITS. Dr. Karan Staton Acute blood loss anemia, bleeding from the abdominal incision site is documented 06/12, Medicine PN and patient had small bowel resection, 06/11. Additional clarification is requested regarding the relationship, if any, that exists between the diagnosis and the procedure. Patients Admitting Diagnosis: Jejunal diverticulitis Post-Operative Diagnosis: Jejunal diverticulitis Procedure performed: Exploratory laparotomy, small bowel resection. History/Risk Factors:67-year-old woman presents to the ED with severe abdominal pain. Medical History: GERD. 06/01, H&P. Clinical Indicators: 06/12, Surgical PN: Postop day #1 Patient had significant amount of bleeding from her abdominal incision through the night. She saturated into incisional dressings. The Borden compression dressing and abdominal binder. Patient was found to have continuous blood oozing at the top portion of her incision. 06/11 Hgb 11.3; 06/12 Hgb 10.2; 06/13 Hgb 8.0; 06/15 Hgb 7.9 06/11, Procedure Note: EBL 5 06/12, Surgical PN: EBL 10 06/14, Surgical PN: -DVT prophylaxis on hold due to bleeding from incision site. Treatment: 06/11 Lovenox discontinued; 06/12 Sutures to the incision What relationship, if any, exists between the diagnosis ABLA, bleeding from the incision site and the procedure: [ ] ABLA, bleeding from the incision site is a complication of surgical procedure [ ] ABLA, bleeding from the incision site is an expected outcome of the surgical procedure [ ] ABLA, bleeding from the incision site is related to patients co-morbid condition(s) of [insert co-morbid dxs] & not a complication of the procedure [ ] Other please specify ____ [ xx ] Unable to determine (Template Last Revised: January 2021) TOMERD
--- NOTE | 2022-06-19 14:38 | CDI ---
Documentation Clarification Form Date: 06/19/2022 02:06:00 PM From: Luzma Mcarthur RN CCDS Admit Date: 06/01/2022 03:26:00 PM Patient Name: Tarsha Tobias Visit Number: [id number] Discharge Date: 06/18/2022 05:12:00 PM ATTENTION: The Clinical Documentation Specialists (CDI) and [facility] Coding Staff appreciate your assistance in clarifying documentation. Please respond to the clarification below the line at the bottom and electronically sign. The CDI & [facility] Coding staff will review the response and follow-up if needed. Please note: Queries are made part of the Legal Health Record. If you have any questions, please contact the author of this message via ITS. Dr. Karan Staton Hypotension is documented 06/13, Surgical PN and patient had small bowel resection, 06/11. Additional clarification is requested regarding the relationship, if any, that exists between the diagnosis and the procedure. Patients Admitting Diagnosis: Jejunal diverticulitis Post-Operative Diagnosis: Jejunal diverticulitis Procedure performed: Exploratory laparotomy, small bowel resection. History/Risk Factors:67-year-old woman presents to the ED with severe abdominal pain. Medical History: GERD, Asthma and Dementia 06/01, H&P. Clinical Indicators: VSS: 06/12 19:32 B/P 129/69; HR 87 06/13 00:06 B/P 93/56; HR 74 06/13 01:24 B/P 92/59; HR 81 06/13 05:30 B/P 98/70; HR 88 06/13 07:00 B/P 128/74; HR 91 06/11 Hgb 11.3; 06/12 Hgb 10.2; 06/13 Hgb 8.0; 06/13, Surgical PN: She was hypotensive required another 1L fluid bolus. 06/14, Surgical PN: Hypotension has improved. Treatment: 06/12 0.9NS 500cc IV bolus; 06/13 0.9NS 500cc IV bolus What relationship, if any, exists between the diagnosis of Hypotension and the procedure: [ ] Hypotension is a complication of surgical procedure [ ] Hypotension is an expected outcome of the surgical procedure [ ] Hypotension is related to patients co-morbid condition(s) of [insert co- morbid dxs] & not a complication of the procedure [ ] Hypotension related to medications [ ] Other please specify ____ [ xx] Unable to determine (Template Last Revised: January 2021) MTDD
== END 2022-06-18 17:12 | disposition home or self-care (01) | DRG 330 ==
LOC: EC 12:03 → 4SSUR 15:26
PROVIDERS: ADMIT Surgery; ATTEND Surgery
PROC: 0DTA0ZZ Resection of Jejunum, Open Approach (ICD-10-PCS; principal; 2022-06-11 14:00)
DX: K57.52 Diverticulitis of both small and large intestine without perforation or abscess without bleeding (principal); D62 Acute posthemorrhagic anemia; K82.1 Hydrops of gallbladder; F03.90 Unspecified dementia, unspecified severity, without behavioral disturbance, psychotic disturbance, mood disturbance, and anxiety; F32.A Depression, unspecified; J45.40 Moderate persistent asthma, uncomplicated; E11.9 Type 2 diabetes mellitus without complications; I95.9 Hypotension, unspecified; K44.9 Diaphragmatic hernia without obstruction or gangrene; R11.14 Bilious vomiting; J30.1 Allergic rhinitis due to pollen; E78.5 Hyperlipidemia, unspecified; M19.90 Unspecified osteoarthritis, unspecified site; M54.50 Low back pain, unspecified; Z96.652 Presence of left artificial knee joint; F41.9 Anxiety disorder, unspecified; K28.9 Gastrojejunal ulcer, unspecified as acute or chronic, without hemorrhage or perforation; R13.10 Dysphagia, unspecified; K21.9 Gastro-esophageal reflux disease without esophagitis; K59.00 Constipation, unspecified; M19.91 Primary osteoarthritis, unspecified site; G89.29 Other chronic pain; R58 Hemorrhage, not elsewhere classified; R00.0 Tachycardia, unspecified; R53.83 Other fatigue; Y83.2 Surgical operation with anastomosis, bypass or graft as the cause of abnormal reaction of the patient, or of later complication, without mention of misadventure at the time of the procedure; Z87.19 Personal history of other diseases of the digestive system; Z79.899 Other long term (current) drug therapy; Z79.51 Long term (current) use of inhaled steroids; Z79.84 Long term (current) use of oral hypoglycemic drugs; Z79.82 Long term (current) use of aspirin; Z91.048 Other nonmedicinal substance allergy status; Z91.02 Food additives allergy status; Z88.0 Allergy status to penicillin; Q03.1 Atresia of foramina of Magendie and Luschka; Z90.710 Acquired absence of both cervix and uterus; Z98.1 Arthrodesis status; Z87.891 Personal history of nicotine dependence; Z98.890 Other specified postprocedural states; Z82.49 Family history of ischemic heart disease and other diseases of the circulatory system; Z81.8 Family history of other mental and behavioral disorders
CPT/HCPCS: 30901; 36415; 64488; 71045; 74022; 74177; 80048; 80053; 83605; 83690; 83735; 84145; 84484; 85025; 85027; 85610; 85730; 88307; 93005; 94640; 94760; 96365; 96366; 96375; 96376; 99284

== ENCOUNTER → 2022-08-29 | Outpatient (CLI) | payer MEDICARE, OTHER ==
--- NOTE | 2022-08-30 19:07 | MM ---
Reason for Exam: Screening (asymptomatic). Last mammogram was performed 3 year(s) and 3 month(s) ago. Patient History: Menarche at age 14. First Full-Term at age 21. Postmenopausal. 1979, Bilateral Reduction. Risk Values: Meri 5 year model risk: 1.2%. NCI Lifetime model risk: 4.6%. Prior Study Comparison: 02/08/2010 Screening Mammogram, [facility]. 08/26/2013 Screening Mammogram, [facility]. 04/10/2018 Bilateral Screening Mammogram, [facility]. 05/21/2019 Bilateral Screening Mammogram, [facility]. Tissue Density: The breast tissue is heterogeneously dense. This may lower the sensitivity of mammography. Findings: Analyzed By CAD. Pattern appears stable. Chronic nodularity is within upper outer right posterior breast. No suspicious groups of microcalcifications, spiculated or lobular masses, architectural distortion or other secondary signs of malignancy are mammographically apparent. Overall Assessment: Benign, BI-RAD 2 Management: Screening Mammogram of both breasts in 1 year. A negative mammogram report should not preclude additional follow up of suspicious palpable abnormalities. Patient should continue monthly self breast exam. A clinical breast exam by your physician is recommended on an annual basis and results should be correlated with mammographic findings. Electronically signed and approved by: Thomas Ramos D.O. Radiologis
== END | disposition home or self-care (01) ==
LOC: RADMAMWWP 09:10
PROVIDERS: ATTEND Family Medicine
DX: Z12.31 Encounter for screening mammogram for malignant neoplasm of breast (principal); Z78.0 Asymptomatic menopausal state
CPT/HCPCS: 77063; 77067

== ENCOUNTER 2023-02-18 10:01 | Emergency (ER) | payer MEDICARE, OTHER ==
[2023-02-18 10:05] VITALS: RESP 18; TEMP 97.3
[2023-02-18] MEDS ORDERED: OXYMETAZOLINE 0.05% NASL SPRAY 1 SPRAY BOTTLE NASAL STA (10:40)
--- NOTE | 2023-02-18 10:46 | ED ---
ENT HPI - General Chief complaint: ENT Stated complaint: Nose Bleed Time Seen by Provider: 02/18/23 10:34 Source: patient, EMS, RN notes reviewed Mode of arrival: EMS Limitations: no limitations - History of Present Illness Initial comments: This is a 67-year-old female who presents to the emergency department for a nosebleed. Patient states that this started earlier today. Believes that it is coming out of both nostrils and is going down the back of her throat. This morning, the nursing aids where she lives were able to get it stopped temporarily, however it then resumed. She had a similar problem one month ago, however she ended up leaving from the waiting room because it was too busy. The bleed was able to stop on its own that day. She takes a baby aspirin but otherwise is not on any blood thinners. Denies any pain to the nose. Denies any fevers, chills, sore throat, cough, dyspnea, chest pain, palpitations, abdominal pain, nausea, vomiting, diarrhea, back pain, or headaches. MD complaint: epistaxis - Related Data Home Medications Medication Instructions Recorded Confirmed Amitriptyline HCl [Elavil] 10 mg PO HS 07/09/14 06/01/22 Citalopram Hydrobromide 60 mg PO DAILY 07/09/14 06/01/22 [Citalopram HBr] Montelukast [Singulair] 10 mg PO HS 07/09/14 06/01/22 Fluticasone Nasal [place] [Flonase 2 spr EA NOSTRIL DAILY 09/21/15 06/01/22 Nasal [place]] Multivitamins, Thera [Multivitamin 1 tab PO DAILY 09/21/15 06/01/22 (formulary)] Albuterol Inhaler [Ventolin Hfa 2 puff INHALATION RT-Q6H PRN 09/12/17 06/01/22 Inhaler] Fluticasone Propion/Salmeterol 1 puff INHALATION RT-BID 09/12/17 06/01/22 [Advair 500-50 Diskus] Turmeric Root Extract [Turmeric] 1,500 mg PO DAILY 09/12/17 06/01/22 metFORMIN HCL [Glucophage] 500 mg PO BID 09/12/17 06/01/22 Aspirin EC [Ecotrin Low Dose] 81 mg PO Q48H 03/02/19 06/01/22 Ezetimibe [Zetia] 10 mg PO DAILY 03/02/19 06/01/22 Memantine [Namenda] 20 mg PO HS 03/02/19 06/01/22 Levocetirizine Dihydrochloride 5 mg PO HS 09/02/19 06/01/22 [Xyzal] Acetyl L Carnitine Hcl 1000mg 1 tab PO DAILY 06/01/22 06/01/22 Cetirizine HCl [Zyrtec] 10 mg PO DAILY 06/01/22 06/01/22 Gabapentin 300 mg PO TID 06/01/22 06/01/22 Glucosam/Gonzalo-Msm1/C/Christian/Bosw 1 tab PO DAILY 06/01/22 06/01/22 [Glucosamine-Chondroitin Tablet] Mexiletine [Mexitil] 150 mg PO HS 06/01/22 06/01/22 Pantoprazole [Protonix] 40 mg PO BID 06/01/22 06/01/22 traZODone HCL [Desyrel] 100 mg PO HS 06/01/22 06/01/22 Previous Rx's Medication Instructions Recorded HYDROcodone/APAP 5-325MG [[place] 1 tab PO Q6HR PRN 3 Days #12 tab 06/15/22 5-325] Allergies Allergy/AdvReac Type Severity Reaction Status Date / Time adhesive tape Allergy tears skin Verified 06/01/22 17:30 "paper tape is ok" chocolate flavor Allergy Itching Verified 06/01/22 17:30 grass pollen Allergy Itching Verified 06/01/22 17:30 mold Allergy Itching Verified 06/01/22 17:30 nickel Allergy Itchy Red Verified 06/01/22 17:30 Skin & Area gets infected tomato Allergy Itching Verified 06/01/22 17:30 Penicillins AdvReac Severe Severe Verified 06/01/22 17:30 Headache, Nausea & Vomiting Review of Systems ROS Statement: Those systems with pertinent positive or pertinent negative responses have been documented in the HPI. ROS Other: All systems not noted in ROS Statement are negative. 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 with Dandy-Walker Syndrome. History of Any Multi-Drug Resistant Organisms: None Reported Past Surgical History: Back Surgery, Section, Hysterectomy, Joint Replacement, Orthopedic Surgery, Tubal Ligation Additional Past Surgical History / Comment(s): epidurals for pain, TOTAL L knee replacement, had a allergic reaction to the hardware and had it removed.-BACK SURGERY(LUMBAR FUSION) 2011,EGD/COLONOSCOPY. pain clinic procedure Past Anesthesia/Blood Transfusion Reactions: Postoperative Nausea & Vomiting (PONV) Past Psychological History: Anxiety, Depression Smoking Status: Former smoker Past Alcohol Use History: Rare Past Drug Use History: None Reported - Past Family History Mother Family Medical History: Dementia Father Family Medical History: Coronary Artery Disease (CAD), Deep Vein Thrombosis (DVT) Additional Family Medical History / Comment(s): CABG X 2 General Exam Limitations: no limitations General appearance: alert, in no apparent distress Head exam: Present: atraumatic, normocephalic, normal inspection ENT exam: Present: other (Dried blood in the bilateral nares. No active bleeding.) Respiratory exam: Present: normal lung sounds bilaterally. Absent: respiratory distress, wheezes, rales, rhonchi, stridor Cardiovascular Exam: Present: regular rate, normal rhythm, normal heart sounds. Absent: systolic murmur, diastolic murmur, rubs, gallop, clicks Neurological exam: Present: alert, oriented X3, CN II-XII intact Psychiatric exam: Present: normal affect, normal mood Skin exam: Present: warm, dry, intact, normal color. Absent: rash Course Vital Signs 02/18/23 02/18/23 02/18/23 10:02 11:06 12:12 Temperature 97.3 F L Pulse Rate 99 96 65 Respiratory 18 18 18 Rate Blood Pressure 122/94 125/80 138/74 O2 Sat by Pulse 100 98 98 Oximetry Medical Decision Making - Medical Decision Making This is a 67-year-old female who presents to the emergency department for epistaxis. Was pt. sent in by a medical professional or institution? @ -No Did you speak to anyone other than the patient for history? @ -No Did you review nursing and triage notes? @ -Yes, and I agree, it is accurate with regards to the patient's symptoms. Were old charts reviewed? @ -No Differential Diagnosis? @ -Differential Epistaxis: Trauma, dryness, allergic rhinitis, sinusitis, coagulopathy, tumor, this is not meant to be an all-inclusive list. What testing was considered but not performed? (CT, X-rays, U/S, labs)? Why? @ -None What meds were considered but not given? Why? @ -None Did you discuss the management of the patient with other professionals? @ -No Did you reconcile home meds? @ -No Was smoking cessation discussed for >3mins.? @ -No Was critical care preformed (if so, how long)? @ -No Were there social determinants of health that impacted care today? How? (Homelessness, low income, unemployed, alcoholism, drug addiction, transportati on, low edu. Level, literacy, decrease access to med. care, fpc, rehab)? @ -No Was there de-escalation of care discussed even if they declined? (Discuss DNR or withdrawal of care, Hospice)? @ -No What co-morbidities impacted this encounter? (DM, HTN, Smoking, COPD, CAD, Cancer, CVA, Hep., AIDS, mental health diagnosis, sleep apnea, morbid obesity)? @ -None Was patient admitted / discharged? @ -Discharged. Patient did have minor active bleeding on initial examination. States that she has tried clamping her nose with no success. Afrin nasal spray was applied and her nose was clamped for 15-20 minutes. The bleeding did successfully stop afterwards and the patient states that she felt much better. Advised she use saline nasal spray to keep the nostrils moist. She was sent home with the bottle of Afrin nasal spray and nasal clamps. Advised that if thi s happens again and the nosebleed does not stop with pressure, she can use the Afrin nasal spray like we did here. Undiagnosed new problem with uncertain prognosis? @ -None Drug Therapy requiring intensive monitoring for toxicity (Heparin, Nitro, Insulin, Cardizem)? @ -None Were any procedures done? @ -None Diagnosis/symptom? @ -Epistaxis Acute, or Chronic, or Acute on Chronic? @ -Acute Uncomplicated (without systemic symptoms) or Complicated (systemic symptoms)? @ -Uncomplicated Side effects of treatment? @ -None Exacerbation, Progression, or Severe Exacerbation] @ -Not applicable Poses a threat to life or bodily function? @ -No Return precautions reviewed in depth, the patient is instructed to return to the emergency department with any new, worsening, or concerning symptoms. Patient verbalized understanding. This case was discussed in detail with the attending ED physician, Dr. Perez. Presentation, findings, and treatment plan discussed in detail as well. Disposition Clinical Impression: Epistaxis Disposition: HOME SELF-CARE Instructions (If sedation given, give patient instructions): Nosebleed (ED) Additional Instructions: Return to the emergency department with any new, worsening, or concerning symptoms. Use saline nasal spray to make sure that your nostrils are moist. If you get a nosebleed again, try using the decongestant nasal spray provided here and then clamp the nose shut for 20 minutes to see if that stops the bleeding. Follow up with your primary care provider in 1-2 days. Is patient prescribed a controlled substance at d/c from ED?: No Referrals: Jv Olivarez MD [Primary Care Provider] - 1-2 days
[2023-02-18 12:13] VITALS: BP 138/74; PULSE 65
== END 2023-02-18 12:13 | disposition home or self-care (01) ==
LOC: EC 10:01
DX: R04.0 Epistaxis (principal); E78.5 Hyperlipidemia, unspecified; J45.909 Unspecified asthma, uncomplicated; K21.9 Gastro-esophageal reflux disease without esophagitis; M19.90 Unspecified osteoarthritis, unspecified site; F41.9 Anxiety disorder, unspecified; F32.A Depression, unspecified; Z79.51 Long term (current) use of inhaled steroids; Z79.84 Long term (current) use of oral hypoglycemic drugs; Z79.899 Other long term (current) drug therapy; Z87.891 Personal history of nicotine dependence; Z88.0 Allergy status to penicillin; Z88.8 Allergy status to other drugs, medicaments and biological substances; Z91.018 Allergy to other foods
CPT/HCPCS: 99284

== ENCOUNTER 2023-05-29 14:23 | Observation (INO) | payer MEDICARE, OTHER ==
--- NOTE | 2023-05-29 15:48 | ED ---
Recheck HPI - General Chief Complaint: Recheck/Abnormal Lab/Rx Stated Complaint: abnormal labs Time Seen by Provider: 05/29/23 15:39 Source: patient Mode of arrival: ambulatory Limitations: physical limitation - History of Present Illness Initial Comments: Tarsha is a pleasant 68yo F to the emergency department today by her daughter after outpatient labs revealed anemia with a hemoglobin of 7.3 and increased creatinine and decreased GFR though the daughter wasn't certain exactly what numbers were. Patient does state that she's been feeling somewhat fatigued lately she gets tired easily, she did short of breath with ambulation. She denies any chest pain. She denies any dark or tarry stools. No injuries or bleeding. No easy bruising. Recall when her last colonoscopy was in was told by her primary care that she should do: Guarded tests which she is planning to do. - Related Data Home Medications Medication Instructions Recorded Confirmed Amitriptyline HCl [Elavil] 10 mg PO HS 07/09/14 05/29/23 Citalopram Hydrobromide 60 mg PO DAILY 07/09/14 05/29/23 [Citalopram HBr] Montelukast [Singulair] 10 mg PO HS 07/09/14 05/29/23 Fluticasone Nasal [place] [Flonase 1 spr EA NOSTRIL BID 09/21/15 05/29/23 Nasal [place]] Multivitamins, Thera [Multivitamin 1 tab PO DAILY 09/21/15 05/29/23 (formulary)] Albuterol Inhaler [Ventolin Hfa 2 puff INHALATION RT-Q6H PRN 09/12/17 05/29/23 Inhaler] Fluticasone Propion/Salmeterol 1 puff INHALATION RT-BID 09/12/17 05/29/23 [Advair 500-50 Diskus] Turmeric Root Extract [Turmeric] 1,500 mg PO DAILY 09/12/17 05/29/23 metFORMIN HCL [Glucophage] 500 mg PO BID 09/12/17 05/29/23 Ezetimibe [Zetia] 10 mg PO DAILY 03/02/19 05/29/23 Memantine [Namenda] 20 mg PO HS 03/02/19 05/29/23 Levocetirizine Dihydrochloride 5 mg PO HS 09/02/19 05/29/23 [Xyzal] Acetyl L Carnitine Hcl 1000mg 1 tab PO DAILY 06/01/22 05/29/23 Cetirizine HCl [Zyrtec] 10 mg PO DAILY 06/01/22 05/29/23 Gabapentin 300 mg PO TID 06/01/22 05/29/23 Glucosam/Gonzalo-Msm1/C/Christian/Bosw 1 tab PO DAILY 06/01/22 05/29/23 [Glucosamine-Chondroitin Tablet] Pantoprazole [Protonix] 40 mg PO BID 06/01/22 05/29/23 traZODone HCL [Desyrel] 100 mg PO HS 06/01/22 05/29/23 Azelastine HCl [Astelin Nasal 1 puff EA NOSTRIL BID 05/29/23 05/29/23 [place]] Cholecalciferol (Vitamin D3) 75 mcg PO DAILY 05/29/23 05/29/23 [Vitamin D3 (3000 Iu)] Docusate [Colace] 100 mg PO BID 05/29/23 05/29/23 Famotidine [Pepcid] 20 mg PO HS 05/29/23 05/29/23 Furosemide [Lasix] 20 mg PO DAILY 05/29/23 05/29/23 Ibuprofen [Motrin] 800 mg PO TID 05/29/23 05/29/23 Sucralfate [Carafate] 1 gm PO TID 05/29/23 05/29/23 Allergies Allergy/AdvReac Type Severity Reaction Status Date / Time adhesive tape Allergy tears skin Verified 05/29/23 14:45 "paper tape is ok" chocolate flavor Allergy Itching Verified 05/29/23 14:45 grass pollen Allergy Itching Verified 05/29/23 14:45 mold Allergy Itching Verified 05/29/23 14:45 nickel Allergy Itchy Red Verified 05/29/23 14:45 Skin & Area gets infected tomato Allergy Itching Verified 05/29/23 14:45 Penicillins AdvReac Severe Severe Verified 05/29/23 16:43 Headache, Nausea & Vomiting Review of Systems ROS Statement: Those systems with pertinent positive or pertinent negative responses have been documented in the HPI. ROS Other: All systems not noted in ROS Statement are negative. 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 with Dandy-Walker Synd crystal. History of Any Multi-Drug Resistant Organisms: None Reported Past Surgical History: Back Surgery, Section, Hysterectomy, Joint Replacement, Orthopedic Surgery, Tubal Ligation Additional Past Surgical History / Comment(s): epidurals for pain, TOTAL L knee replacement, had a allergic reaction to the hardware and had it removed.-BACK SURGERY(LUMBAR FUSION) 2011,EGD/COLONOSCOPY. pain clinic procedure Past Anesthesia/Blood Transfusion Reactions: Postoperative Nausea & Vomiting (PONV) Past Psychological History: Anxiety, Depression Smoking Status: Former smoker Past Alcohol Use History: Rare Past Drug Use History: None Reported - Past Family History Mother Family Medical History: Dementia Father Family Medical History: Coronary Artery Disease (CAD), Deep Vein Thrombosis (DVT) Additional Family Medical History / Comment(s): CABG X 2 General Exam - General Exam Comments Initial Comments: Physical Exam GENERAL: Patient is well-developed and well-nourished. Patient is nontoxic and well-hydrated and is in no distress. HENT: Normocephalic, Atraumatic. EYES: PERRL, EOMI Conjunctival pallor PULMONARY: Unlabored respirations. No audible rales rhonchi or wheezing was noted. CARDIOVASCULAR: There is a regular rate and rhythm without any murmurs gallops or rubs. ABDOMEN: Soft and nontender with normal bowel sounds. SKIN: Skin is pale, no lesions or rashes and otherwise unremarkable. : Deferred NEUROLOGIC: Patient is alert and oriented x3. Moving all extremities spontaneously MUSCULOSKELETAL: Normal extremities with adequate strength and full range of motion. No lower ex tremity swelling or edema. No calf tenderness. PSYCHIATRIC: Normal psychiatric evaluation. Limitations: physical limitation Course Vital Signs 05/29/23 05/29/23 05/29/23 14:41 16:59 17:24 Temperature 99.2 F Pulse Rate 94 Respiratory 16 18 Rate Blood Pressure 115/68 134/85 145/81 O2 Sat by Pulse 95 97 98 Oximetry 05/29/23 05/29/23 05/29/23 19:52 20:02 20:22 Temperature 98.3 F 98.3 F 98.1 F Pulse Rate 92 96 85 Respiratory 18 18 18 Rate Blood Pressure 140/76 133/62 124/70 O2 Sat by Pulse 96 96 96 Oximetry Medical Decision Making - Medical Decision Making Patient was seen and evaluated, history was obtained from the patient daughter bedside. Patient had anemia noted on outpatient labs she's been fatigued short of breath very tired and sleeping more often. She is labs resulted with microcytic anemia hemoglobin of 7.2. Given her advanced age and evidence of heart failure transfusion was ordered. Considering the elevated BNP heart failure was new recommended admission for further evaluation. Patient will receive blood, possibly have an echo and repeat labs. Patient was agreeable to this patient care was discussed with [facility] hospitalist who accepts admission. Was pt. sent in by a medical professional or institution (, [facility], BAND REAMER MACHINE OPERATOR, urgent care, hospital, or senior living...) When possible be specific @ -Yes sent by primary care Did you speak to anyone other than the patient for history (EMS, parent, family, police, friend...)? What history was obtained from this source @ -Care was discussed with her daughter Did you review nursing and triage notes (agree or disagree)? Why? @ -I reviewed and agree with nursing and triage notes Were old charts reviewed (outside hosp., previous admission, EMS record, old EKG, old radiological studies, urgent care reports/EKG's, senior living records)? Report findings @ -Previous labs were reviewed Differential Diagnosis (chest pain, altered mental status, abdominal pain women, abdominal pain men, vaginal bleeding, weakness, fever, dyspnea, syncope, headache, dizziness, GI bleed, back pain, seizure, CVA, palpatations, mental health, musculoskeletal)? @ -Acute anemia, chronic anemia, lab where EKG interpreted by me (3pts min.). @ -As above X-rays interpreted by me (1pt min.). @ -None done CT interpreted by me (1pt min.). @ -None done U/S interpreted by me (1pt. min.). @ -None done What testing was considered but not performed or refused? (CT, X-rays, U/S, labs)? Why? @ -None What meds were considered but not given or refused? Why? @ -None Did you discuss the management of the patient with other professionals (professionals i.e. , PA, BAND REAMER MACHINE OPERATOR, lab, RT, psych nurse, social welfare administrator, filter bed placer, teacher, health promotion officer, senior case manager)? Give summary @ -Discussed with admitting team Was smoking cessation discussed for >3mins.? @ -No Was critical care preformed (if so, how long)? @ -Yes, 15 minutes Were there social determinants of health that impacted care today? How? (Homele ssness, low income, unemployed, alcoholism, drug addiction, transportation, low edu. Level, literacy, decrease access to med. care, assisted, rehab)? @ -Dementia Was there de-escalation of care discussed even if they declined (Discuss DNR or withdrawal of care, Hospice)? DNR status @ -No What co-morbidities impacted this encounter? (DM, HTN, Smoking, COPD, CAD, Cancer, CVA, ARF, Chemo, Hep., AIDS, mental health diagnosis, sleep apnea, morbid obesity)? @ -None Was patient admitted / discharged? Hospital course, mention meds given and route, prescriptions, significant lab abnormalities, going to OR and other pertinent info. @ -Admitted Undiagnosed new problem with uncertain prognosis? @ -Yes Drug Therapy requiring intensive monitoring for toxicity (Heparin, Nitro, Insulin, Cardizem)? @ -Blood transfusion Were any procedures done? @ -No Diagnosis/symptom? @ -Microcytic anemia Acute, or Chronic, or Acute on Chronic? @ -Likely acute on chronic Uncomplicated (without systemic symptoms) or Complicated (systemic symptoms)? @ -Complicated Side effects of treatment? @ -No Exacerbation, Progression, or Severe Exacerbation? @ -No Poses a threat to life or bodily function? How? (Chest pain, [place], [place], pneumonia, PE, COPD, DKA, ARF, appy, cholecystitis, CVA, Diverticulitis, Homicidal, Suicidal, threat to staff... and all critical care pts) @ -Yes, anemia resulting in end organ dysfunction including heart failure Diagnosis/symptom? @ -Heart failure Acute, or Chronic, or Acute on Chronic? @ -Acute Uncomplicated (without systemic symptoms) or Complicated (systemic symptoms)? @ -Complicated Side effects of treatment? @ -none Exacerbation, Progression, or Severe Exacerbation] @ -no Poses a threat to life or bodily function? @ -yes - Lab Data Result diagrams: 05/29/23 16:19 05/29/23 16:19 Lab Results 05/29/23 05/29/23 05/29/23 Range/Units 16:00 16:10 16:19 WBC 6.4 (3.8-10.6) k/uL RBC 3.32 L (3.80-5.40) m/uL Hgb 7.2 L (11.4-16.0) gm/dL Hct 23.9 L (34.0-46.0) % MCV 72.0 L (80.0-100.0) fL MCH 21.8 L (25.0-35.0) pg MCHC 30.3 L (31.0-37.0) g/dL RDW 17.5 H (11.5-15.5) % Plt Count 355 (150-450) k/uL MPV 7.6 Neutrophils % 68 % Lymphocytes % 21 % Monocytes % 4 % Eosinophils % 4 % Basophils % 1 % Neutrophils # 4.4 (1.3-7.7) k/uL Lymphocytes # 1.4 (1.0-4.8) k/uL Monocytes # 0.3 (0-1.0) k/uL Eosinophils # 0.2 (0-0.7) k/uL Basophils # 0.1 (0-0.2) k/uL Hypochromasia Marked Anisocytosis Slight Microcytosis Moderate Sodium (137-145) mmol/L Potassium (3.5-5.1) mmol/L Chloride (98-107) mmol/L Carbon Dioxide (22-30) mmol/L Anion Gap mmol/L BUN (7-17) mg/dL Creatinine (0.52-1.04) mg/dL Est GFR (CKD-EPI)AfAm (>60 ml/min/1.73 sqM) Est GFR (CKD-EPI)NonAf (>60 ml/min/1.73 sqM) Glucose (74-99) mg/dL Calcium (8.4-10.2) mg/dL Total Bilirubin (0.2-1.3) mg/dL AST (14-36) U/L ALT (4-34) U/L Alkaline Phosphatase (38-126) U/L Troponin I (0.000-0.034) ng/mL NT-Pro-B Natriuret Pep pg/mL Total Protein (6.3-8.2) g/dL Albumin (3.5-5.0) g/dL Blood Type B Positive Blood Type Confirm B Positive Blood Type Recheck No Previous Record Bld Type Recheck Status CABO Indicated Antibody Screen NEGATIVE Crossmatch See Detail Spec Expiration Date 06/01/2023 - 229905/29/23 05/29/23 Range/Units 16:19 16:19 WBC (3.8-10.6) k/uL RBC (3.80-5.40) m/uL Hgb (11.4-16.0) gm/dL Hct (34.0-46.0) % MCV (80.0-100.0) fL MCH (25.0-35.0) pg MCHC (31.0-37.0) g/dL RDW (11.5-15.5) % Plt Count (150-450) k/uL MPV Neutrophils % % Lymphocytes % % Monocytes % % Eosinophils % % Basophils % % Neutrophils # (1.3-7.7) k/uL Lymphocytes # (1.0-4.8) k/uL Monocytes # (0-1.0) k/uL Eosinophils # (0-0.7) k/uL Basophils # (0-0.2) k/uL Hypochromasia Anisocytosis Microcytosis Sodium 134 L (137-145) mmol/L Potassium 4.1 (3.5-5.1) mmol/L Chloride 102 (98-107) mmol/L Carbon Dioxide 23 (22-30) mmol/L Anion Gap 9 mmol/L BUN 27 H (7-17) mg/dL Creatinine 1.24 H (0.52-1.04) mg/dL Est GFR (CKD-EPI)AfAm 52 (>60 ml/min/1.73 sqM) Est GFR (CKD-EPI)NonAf 45 (>60 ml/min/1.73 sqM) Glucose 104 H (74-99) mg/dL Calcium 8.8 (8.4-10.2) mg/dL Total Bilirubin 0.2 (0.2-1.3) mg/dL AST 25 (14-36) U/L ALT 18 (4-34) U/L Alkaline Phosphatase 76 (38-126) U/L Troponin I 0.014 (0.000-0.034) ng/mL NT-Pro-B Natriuret Pep 1120 pg/mL Total Protein 6.3 (6.3-8.2) g/dL Albumin 3.9 (3.5-5.0) g/dL Blood Type Blood Type Confirm Blood Type Recheck Bld Type Recheck Status Antibody Screen Crossmatch Spec Expiration Date Disposition Clinical Impression: Microcytic anemia, Elevated brain natriuretic peptide (BNP) level Disposition: ADMITTED IP TO THIS HOSP Condition: Serious
[2023-05-29 16:38] LABS: Anisocytosis Slight; Basophils # (A) 0.1 k/uL (0-0.2); Basophils % (A) 1 %; Eosinophils # (A) 0.2 k/uL (0-0.7); Eosinophils % (A) 4 %; HCT 23.9 % (34.0-46.0); HGB 7.2 gm/dL (11.4-16.0); Hypochromasia Marked; Lymphocytes # (A) 1.4 k/uL (1.0-4.8); Lymphocytes % (A) 21 %; MCH 21.8 pg (25.0-35.0); MCHC 30.3 g/dL (31.0-37.0); Mean Platelet Volume 7.6; Microcytosis Moderate; Monocytes # (A) 0.3 k/uL (0-1.0); Monocytes % (A) 4 %; Neutrophils # (A) 4.4 k/uL (1.3-7.7); Neutrophils % (A) 68 %; Platelet Count 355 k/uL (150-450); RBC 3.32 m/uL (3.80-5.40); RDW 17.5 % (11.5-15.5); WBC 6.4 k/uL (3.8-10.6)
[2023-05-29 16:54] LABS: ALT 18 U/L (4-34); AST 25 U/L (14-36); African American GFR (CKD) 52 (>60 ml/min/1.73 sqM); Albumin 3.9 g/dL (3.5-5.0); Alkaline Phosphatase 76 U/L (38-126); Anion Gap 9 mmol/L; Blood Urea Nitrogen 27 mg/dL (7-17); Calcium 8.8 mg/dL (8.4-10.2); Carbon Dioxide 23 mmol/L (22-30); Chloride 102 mmol/L (98-107); Glucose 104 mg/dL (74-99); Non-African American GFR(CKD) 45 (>60 ml/min/1.73 sqM); Potassium 4.1 mmol/L (3.5-5.1); Sodium 134 mmol/L (137-145); Total Bilirubin 0.2 mg/dL (0.2-1.3); Total Protein 6.3 g/dL (6.3-8.2)
[2023-05-29 17:02] LABS: NT-Pro-B-Type Natriuretic Pept 1120 pg/mL
[2023-05-29] MEDS ORDERED: NALOXONE 0.4 MG/ML 1 ML VIAL IV PRN (19:33)
[2023-05-29] MEDS: traZODone HCL 100 MG TAB PO SCH (21:41)
[2023-05-29] MEDS ORDERED: ALBUTEROL NEBULIZED 2.5 MG/3 ML INHALATION PRN (23:17)
[2023-05-29] MEDS ORDERED: ONDANSETRON 4 MG/2 ML VIAL IVP PRN (23:20)
[2023-05-30 02:03] LABS: Anisocytosis Slight; HCT 27.2 % (34.0-46.0); HGB 8.6 gm/dL (11.4-16.0); Hypochromasia Marked; MCH 23.7 pg (25.0-35.0); MCHC 31.6 g/dL (31.0-37.0); Mean Platelet Volume 7.7; Microcytosis Moderate; Platelet Count 316 k/uL (150-450); Poikilocytosis Slight; RBC 3.63 m/uL (3.80-5.40); RDW 18.7 % (11.5-15.5); WBC 6.8 k/uL (3.8-10.6)
[2023-05-30 07:15] LABS: Anisocytosis Slight; Basophils # (A) 0.1 k/uL (0-0.2); Basophils % (A) 1 %; Eosinophils # (A) 0.3 k/uL (0-0.7); Eosinophils % (A) 5 %; HCT 28.8 % (34.0-46.0); HGB 9.1 gm/dL (11.4-16.0); Hypochromasia Marked; Lymphocytes # (A) 1.2 k/uL (1.0-4.8); Lymphocytes % (A) 22 %; MCH 23.9 pg (25.0-35.0); MCHC 31.6 g/dL (31.0-37.0); MCV 75.5 fL (80.0-100.0); Mean Platelet Volume 8.4; Microcytosis Moderate; Monocytes # (A) 0.4 k/uL (0-1.0); Monocytes % (A) 7 %; Neutrophils # (A) 3.4 k/uL (1.3-7.7); Neutrophils % (A) 63 %; Platelet Count 314 k/uL (150-450); Poikilocytosis Slight; RBC 3.82 m/uL (3.80-5.40); RDW 18.4 % (11.5-15.5); WBC 5.5 k/uL (3.8-10.6)
[2023-05-30 07:32] LABS: African American GFR (CKD) 71 (>60 ml/min/1.73 sqM); Anion Gap 7 mmol/L; Blood Urea Nitrogen 20 mg/dL (7-17); Calcium 8.7 mg/dL (8.4-10.2); Carbon Dioxide 25 mmol/L (22-30); Chloride 107 mmol/L (98-107); Glucose 115 mg/dL (74-99); Non-African American GFR(CKD) 61 (>60 ml/min/1.73 sqM); Sodium 139 mmol/L (137-145)
[2023-05-30 08:05] LABS: Glucose,Whole Blood 136 mg/dL (70-110)
[2023-05-30] MEDS: PANTOPRAZOLE 40 MG/10 ML VIAL IVP SCH ×2 (11:03→20:23)
[2023-05-30 11:33] LABS: Glucose,Whole Blood 145 mg/dL (70-110)
--- NOTE | 2023-05-30 11:51 | P.CRDCN ---
History of Present Illness History of present illness: HISTORY OF PRESENT ILLNESS: This is a 68-year-old female with a past medical history significant for asthma, hyperlipidemia, dementia, and former nicotine dependence. Patient does not follow with a digital media representative. We have been asked to see the patient in consultation for CHF. Patient examined at the bedside. Patient reports a history of dementia and states she is unsure of some of her medical history. She states that she was called by her physician regarding abnormal labs and was instructed to come to the ER. She believes it was Dr. Carissa Haas's office that called her but she is unsure of why she was seeing Dr. Haas. Patient was found to be anemic with hemoglobin of 7.2. She received RBC transfusion and repeat hemoglobin is 9.1. She reports any bloody stools or dark stools. She denies any chest pain or pressure. She reports mild shortness of breath but states she has asthma and her shortness of breath is near her baseline. She denies any swelling in her extremities. She is a nonsmoker. She denies any alcohol use or drug use. * EKG reveals sinus mechanism with no signs of acute ischemia * Chest xray not available at the time of dictation * Laboratory data: WBC 5.5. Hemoglobin 9.1. Platelet count 314. Sodium 139. Potassium 4.0. B UN 20. Creatinine 0.97. Troponin negative 1. ProBNP 1120. * Current home cardiac medications include Lasix 20 mg daily and Zetia 10 mg daily REVIEW OF SYSTEMS: At the time of my exam: CONSTITUTIONAL: Denies fever or chills. HEENT: Denies blurred vision, vision changes, or eye pain. Denies hemoptysis CARDIOVASCULAR: Denies chest pain. Denies orthopnea. Denies PND. Denies palpitations RESPIRATORY: Denies shortness of breath. GASTROINTESTINAL: Denies abdominal pain. Denies nausea or vomiting. HEMATOLOGIC: Denies bleeding disorders. GENITOURINARY: Denies any blood in urine. SKIN: Denies pruitis. Denies rash. PHYSICAL EXAM: VITAL SIGNS: Reviewed. GENERAL: Well-developed in no acute distress. HEENT: Head is normocephalic. Pupils are equal, round. Sclerae anicteric. Mucous membranes of the mouth are moist. Neck supple. No JVD or thyromegaly LUNGS: Respirations even and unlabored. Lungs essentially clear to auscultation bilaterally. HEART: Regular rate and rhythm. S1 and S2 heard. ABDOMEN: Soft. Nondistended. Nontender. EXTREMITIES: Normal range of motion. No clubbing or cyanosis. Peripheral pulses intact. No lower extremity edema NEUROLOGIC: Awake and alert. Oriented x 3. ASSESSMENT: Phong, etiology unclear Shortness of breath, likely secondary to above, no evidence of CHF Hyperlipidemia History of asthma History of dementia Former nicotine dependence PLAN: Obtain 2-D echo to assess cardiac structure and function Obtain chest x-ray Resume home cardiac medications Further recommendations pending patient's course Nurse practitioner note has been reviewed by physician. Signing provider agrees with the documented findings, assessment, and plan of care. 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 with Dandy-Walker Syndrome. History of Any Multi-Drug Resistant Organisms: None Reported Past Surgical History: Back Surgery, Section, Hysterectomy, Joint Replacement, Orthopedic Surgery, Tubal Ligation Additional Past Surgical History / Comment(s): epidurals for pain, TOTAL L knee replacement, had a allergic reaction to the hardware and had it removed.-BACK SURGERY(LUMBAR FUSION) 2011,EGD/COLONOSCOPY. pain clinic procedure Past Anesthesia/Blood Transfusion Reactions: Postoperative Nausea & Vomiting (PONV) Past Psychological History: Anxiety, Depression Smoking Status: Former smoker Past Alcohol Use History: Rare Additional Past Alcohol Use History / Comment(s): QUIT IN THE 1970S. ONLY SOCIAL. Past Drug Use History: None Reported - Past Family History Mother Family Medical History: Dementia Father Family Medical History: Coronary Artery Disease (CAD), Deep Vein Thrombosis (DVT) Additional Family Medical History / Comment(s): CABG X 2 Medications and Allergies Home Medications Medication Instructions Recorded Confirmed Type Amitriptyline HCl [Elavil] 10 mg PO HS 07/09/14 05/29/23 History Citalopram Hydrobromide 60 mg PO DAILY 07/09/14 05/29/23 History [Citalopram HBr] Montelukast [Singulair] 10 mg PO HS 07/09/14 05/29/23 History Fluticasone Nasal [place] [Flonase 1 spr EA NOSTRIL BID 09/21/15 05/29/23 History Nasal [place]] Multivitamins, Thera [Multivitamin 1 tab PO DAILY 09/21/15 05/29/23 History (formulary)] Albuterol Inhaler [Ventolin Hfa 2 puff INHALATION RT-Q6H PRN 09/12/17 05/29/23 History Inhaler] Fluticasone Propion/Salmeterol 1 puff INHALATION RT-BID 09/12/17 05/29/23 H istory [Advair 500-50 Diskus] Turmeric Root Extract [Turmeric] 1,500 mg PO DAILY 09/12/17 05/29/23 History metFORMIN HCL [Glucophage] 500 mg PO BID 09/12/17 05/29/23 History Ezetimibe [Zetia] 10 mg PO DAILY 03/02/19 05/29/23 History Memantine [Namenda] 20 mg PO HS 03/02/19 05/29/23 History Levocetirizine Dihydrochloride 5 mg PO HS 09/02/19 05/29/23 History [Xyzal] Acetyl L Carnitine Hcl 1000mg 1 tab PO DAILY 06/01/22 05/29/23 History Cetirizine HCl [Zyrtec] 10 mg PO DAILY 06/01/22 05/29/23 History Gabapentin 300 mg PO TID 06/01/22 05/29/23 History Glucosam/[place]onz[place]-Msm1/C/Christian/Bosw 1 tab PO DAILY 06/01/22 05/29/23 History [Glucosamine-Chondroitin Tablet] Pantoprazole [Protonix] 40 mg PO BID 06/01/22 05/29/23 History traZODone HCL [Desyrel] 100 mg PO HS 06/01/22 05/29/23 History Azelastine HCl [Astelin Nasal 1 puff EA NOSTRIL BID 05/29/23 05/29/23 History [place]] Cholecalciferol (Vitamin D3) 75 mcg PO DAILY 05/29/23 05/29/23 History [Vitamin D3 (3000 Iu)] Docusate [Colace] 100 mg PO BID 05/29/23 05/29/23 History Famotidine [Pepcid] 20 mg PO HS 05/29/23 05/29/23 History Furosemide [Lasix] 20 mg PO DAILY 05/29/23 05/29/23 History Ibuprofen [Motrin] 800 mg PO TID 05/29/23 05/29/23 History Sucralfate [Carafate] 1 gm PO TID 05/29/23 05/29/23 History Allergies Allergy/AdvReac Type Severity Reaction Status Date / Time adhesive tape Allergy tears skin Verified 05/29/23 14:45 "paper tape is ok" chocolate flavor Allergy Itching Verified 05/29/23 14:45 grass pollen Allergy Itching Verified 05/29/23 14:45 mold Allergy Itching Verified 05/29/23 14:45 nickel Allergy Itchy Red Verified 05/29/23 14:45 Skin & Area gets infected tomato Allergy Itching Verified 05/29/23 14:45 Penicillins AdvReac Severe Severe Verified 05/29/23 16:43 Headache, Nausea & Vomiting Physical Exam Vitals: Vital Signs Temp Pulse Pulse Resp BP BP Pulse Ox 05/30/23 08:15 97.5 F L 81 16 165/74 96 05/30/23 07:17 76 18 149/83 97 05/30/23 05:00 69 14 150/91 97 05/30/23 01:00 70 18 138/71 96 05/30/23 00:00 70 15 126/67 95 05/29/23 23:00 77 16 138/70 95 05/29/23 22:59 18 138/70 05/29/23 21:40 98.3 F 95 20 124/82 98 05/29/23 20:22 98.1 F 85 18 124/70 96 05/29/23 20:02 98.3 F 96 18 133/62 96 05/29/23 19:52 98.3 F 92 18 140/76 96 05/29/23 17:24 145/81 98 05/29/23 16:59 18 134/85 97 05/29/23 14:41 99.2 F 94 16 115/68 95 Intake and Output 05/29/23 05/30/23 05/30/23 22:59 06:59 14:59 Intake Total 310 780 Balance 310 780 Intake: Oral 780 Blood Product 310 Rc As-1 Unit 310 [id number] Other: Weight 50.802 kg Results 05/30/23 07:05 05/30/23 07:05 Cardiac Enzymes 05/29/23 05/29/23 Range/Units 16:19 16:19 AST 25 (14-36) U/L Troponin I 0.014 (0.000-0.034) ng/mL CBC 05/29/23 05/30/23 05/30/23 Range/Units 16:19 01:40 07:05 WBC 6.4 6.8 5.5 (3.8-10.6) k/uL RBC 3.32 L 3.63 L 3.82 (3.80-5.40) m/uL Hgb 7.2 L 8.6 L 9.1 L (11.4-16.0) gm/dL Hct 23.9 L 27.2 L 28.8 L (34.0-46.0) % Plt Count 355 316 314 (150-450) k/uL Comprehensive Metabolic Panel 05/29/23 05/30/23 Range/Units 16:19 07:05 Sodium 134 L 139 (137-145) mmol/L Potassium 4.1 4.0 (3.5-5.1) mmol/L Chloride 102 107 (98-107) mmol/L Carbon Dioxide 23 25 (22-30) mmol/L BUN 27 H 20 H (7-17) mg/dL Creatinine 1.24 H 0.97 (0.52-1.04) mg/dL Glucose 104 H 115 H (74-99) mg/dL Calcium 8.8 8.7 (8.4-10.2) mg/dL AST 25 (14-36) U/L ALT 18 (4-34) U/L Alkaline Phosphatase 76 (38-126) U/L Total Protein 6.3 (6.3-8.2) g/dL Albumin 3.9 (3.5-5.0) g/dL Current Medications Generic Name Dose Route Start Last Admin Trade Name Freq PRN Reason Stop Dose Admin Acetaminophen 650 mg 05/29/23 23:20 Acetaminophen Tab 325 Mg Tab PO Q6HR PRN Fever and/ or Pain Albuterol Sulfate 2.5 mg 05/29/23 23:17 Albuterol Nebulized 2.5 Mg/3 Ml INHALATION RT-Q6H PRN Shortness Of Breath Amitriptyline HCl 10 mg 05/30/23 21:00 Amitriptyline Hcl 10 Mg Tab PO HS [facility] Budesonide/Formoterol Fumarate 2 puff 05/30/23 08:00 Symbicort 160-4.5 Mcg Inhaler INHALATION RT-BID [facility] Cholecalciferol 75 mcg 05/30/23 09:00 Cholecalciferol 25 Mcg (1000 Iu) Tablet PO DAILY [facility] Citalopram Hydrobromide 60 mg 05/30/23 09:00 Citalopram Hydrobromide 20 Mg Tab PO DAILY [facility] Ezetimibe 10 mg 05/30/23 09:00 Ezetimibe 10 Mg Tab PO DAILY [facility] Fluticasone Propionate 1 spray 05/30/23 09:00 Fluticasone 50mcg/[place] Nasal 16gm EA NOSTRIL DAILY [facility] Gabapentin 300 mg 05/30/23 09:00 Gabapentin 300 Mg Cap PO TID [facility] Levocarnitine 1,000 mg 05/30/23 09:00 Levocarnitine (With Sugar) 100 Mg/Ml Bottle PO DAILY [facility] Memantine 20 mg 05/30/23 21:00 Memantine 10 Mg Tab PO HS [facility] Montelukast Sodium 10 mg 05/30/23 21:00 Montelukast 10 Mg Tab PO HS [facility] Multivitamins 1 each 05/30/23 09:00 Multivitamins, Thera 1 Each Tab PO DAILY [facility] Naloxone HCl 0.2 mg 05/29/23 19:33 Naloxone 0.4 Mg/Ml 1 Ml Vial IV Q2M PRN Opioid Reversal Ondansetron HCl 4 mg 05/29/23 23:20 Ondansetron 4 Mg/2 Ml Vial IVP Q6HR PRN Nausea And Vomiting Pantoprazole Sodium 40 mg 05/30/23 09:00 Pantoprazole 40 Mg/10 Ml Vial IVP BID [facility] Sucralfate 1 gm 05/30/23 09:00 Sucralfate 1 Gm Tab PO TID [facility] Trazodone HCl 100 mg 05/29/23 21:30 05/29/23 21:41 Trazodone Hcl 100 Mg Tab PO 100 mg [facility] Administration Intake and Output 05/29/23 05/30/23 05/30/23 22:59 06:59 14:59 Intake Total 310 780 Balance 310 780 Intake: Oral 780 Blood Product 310 Rc As-1 Unit 310 [id number] Other: Weight 50.802 kg Patient Weight 05/31/23 06:59 Weight 50.802 kg 05/30/23 07:05 05/30/23 07:05
[2023-05-30] MEDS: SYMBICORT 160-4.5 MCG INHALER INHALATION SCH ×2 (13:35→20:17)
[2023-05-30] MEDS: CITALOPRAM HYDROBROMIDE 20 MG TAB PO SCH (13:50)
[2023-05-30] MEDS: CHOLECALCIFEROL 25 MCG (1000 IU) TABLET PO SCH (13:50)
[2023-05-30] MEDS: EZETIMIBE 10 MG TAB PO SCH (13:51)
[2023-05-30] MEDS: GABAPENTIN 300 MG CAP PO SCH ×3 (13:51→20:23)
[2023-05-30] MEDS: MULTIVITAMINS, THERA 1 EACH TAB PO SCH (13:51)
[2023-05-30] MEDS: SUCRALFATE 1 GM TAB PO SCH ×3 (13:51→20:23)
[2023-05-30] MEDS ORDERED: PEG 3350 (236 GM/BTL) + LYTES 4,000 ML BOTTLE PO ONE (14:13)
--- NOTE | 2023-05-30 14:16 | P.CONS ---
History of Present Illness - Reason for Consult Consult date: 05/30/23 Anemia Requesting physician: Yina Lawrence - Chief Complaint Abnormal labs - History of Present Illness This a pleasant 68-year-old female who presented to the emergency department directed by her PCP for abnormal outpatient labs. Patient was admitted for anemia and congestive heart failure. Admitting hemoglobin 7.2 with 1 unit of blood transfused. Patient has a history of chronic anemia with a hemoglobin since 2021 that has been between a low 11.5 and 7.9. She has a past medical history including Dandy-Walker syndrome, GERD, diverticulosis and underwent sma ll bowel resection for diverticulitis in June 2022. She denies any blood in her stool or black stool. Denies any previous history GI bleed. Denies any abdominal pain but is having some nausea without vomiting. She denies any history of peptic ulcer disease, denies any anticoagulation and states that she has stopped her ibuprofen was told to no longer take it. Her last EGD and colonoscopy was in September [address] Hammond. Upper endoscopy with findings of moderate gastritis, elevate great T esophagitis and colonoscopy significant for polyp with polypectomy. Labs WBC 5.5 hemoglobin 9.1 hematocrit 28 platelet count 314,000 sodium 139 potassium 4.0 BUN 20 creatinine 0.9 total bilirubin 0.2 AST 25 ALT 18 alkaline phosphatase 76 Review of Systems REVIEW OF SYSTEMS: CARDIOPULMONARY: No chest pain, patient does have shortness of breath. Gastrointestinal: No abdominal pain or epigastric pain. Nausea without vomiting. No hematemesis, coffee-ground emesis. No rectal bleeding, or melena. GENITOURINARY: No dysuria or hematuria. MUSCULOSKELETAL: Reports normal range of motion., Joint pain. SKIN: No rashes. No jaundice. ENDOCRINE: No chills, fevers. No excessive weight gain or loss. No polydipsia or polyuria. PSYCHIATRIC: Unremarkable. NEUROLOGY: No change in mental status. Denies dizziness, headache. ENT: Vision unremarkable. CONSTITUTIONAL: No recent weight loss. No fever, chills, night sweats. 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 with Dandy-Walker Syndrome. History of Any Multi-Drug Resistant Organisms: None Reported Past Surgical History: Back Surgery, Section, Hysterectomy, Joint Replacement, Orthopedic Surgery, Tubal Ligation Additional Past Surgical History / Comment(s): epidurals for pain, TOTAL L knee replacement, had a allergic reaction to the hardware and had it removed.-BACK SURGERY(LUMBAR FUSION) 2011,EGD/COLONOSCOPY. pain clinic procedure Past Anesthesia/Blood Transfusion Reactions: Postoperative Nausea & Vomiting (PONV) Past Psychological History: Anxiety, Depression Smoking Status: Former smoker Past Alcohol Use History: Rare Additional Past Alcohol Use History / Comment(s): QUIT IN THE 1970S. ONLY SOCIAL. Past Drug Use History: None Reported - Past Family History Mother Family Medical History: Dementia Father Family Medical History: Coronary Artery Disease (CAD), Deep Vein Thrombosis (DVT) Additional Family Medical History / Comment(s): CABG X 2 Medications and Allergies Home Medications Medication Instructions Recorded Confirmed Type Amitriptyline HCl [Elavil] 10 mg PO HS 07/09/14 05/29/23 History Citalopram Hydrobromide 60 mg PO DAILY 07/09/14 05/29/23 History [Citalopram HBr] Montelukast [Singulair] 10 mg PO HS 07/09/14 05/29/23 History Fluticasone Nasal [place] [Flonase 1 spr EA NOSTRIL BID 09/21/15 05/29/23 History Nasal [place]] Multivitamins, Thera [Multivitamin 1 tab PO DAILY 09/21/15 05/29/23 History (formulary)] Albuterol Inhaler [Ventolin Hfa 2 puff INHALATION RT-Q6H PRN 09/12/17 05/29/23 History Inhaler] Fluticasone Propion/Salmeterol 1 puff INHALATION RT-BID 09/12/17 05/29/23 History [Advair 500-50 Diskus] Turmeric Root Extract [Turmeric] 1,500 mg PO DAILY 09/12/17 05/29/23 History metFORMIN HCL [Glucophage] 500 mg PO BID 09/12/17 05/29/23 History Ezetimibe [Zetia] 10 mg PO DAILY 03/02/19 05/29/23 History Memantine [Namenda] 20 mg PO HS 03/02/19 05/29/23 History Levocetirizine Dihydrochloride 5 mg PO HS 09/02/19 05/29/23 History [Xyzal] Acetyl L Carnitine Hcl 1000mg 1 tab PO DAILY 06/01/22 05/29/23 History Cetirizine HCl [Zyrtec] 10 mg PO DAILY 06/01/22 05/29/23 History Gabapentin 300 mg PO TID 06/01/22 05/29/23 History Glucosam/Gonzalo-Msm1/C/Christian/Bosw 1 tab PO DAILY 06/01/22 05/29/23 History [Glucosamine-Chondroitin Tablet] Pantoprazole [Protonix] 40 mg PO BID 06/01/22 05/29/23 History traZODone HCL [Desyrel] 100 mg PO HS 06/01/22 05/29/23 History Azelastine HCl [Astelin Nasal 1 puff EA NOSTRIL BID 05/29/23 05/29/23 History [place]] Cholecalciferol (Vitamin D3) 75 mcg PO DAILY 05/29/23 05/29/23 History [Vitamin D3 (3000 Iu)] Docusate [Colace] 100 mg PO BID 05/29/23 05/29/23 History Famotidine [Pepcid] 20 mg PO HS 05/29/23 05/29/23 History Furosemide [Lasix] 20 mg PO DAILY 05/29/23 05/29/23 History Ibuprofen [Motrin] 800 mg PO TID 05/29/23 05/29/23 History Sucralfate [Carafate] 1 gm PO TID 05/29/23 05/29/23 History Allergies Allergy/AdvReac Type Severity Reaction Status Date / Time adhesive tape Allergy tears skin Verified 05/29/23 14:45 "paper tape is ok" chocolate flavor Allergy Itching Verified 05/29/23 14:45 grass pollen Allergy Itching Verified 05/29/23 14:45 mold Allergy Itching Verified 05/29/23 14:45 nickel Allergy Itchy Red Verified 05/29/23 14:45 Skin & Area gets infected tomato Allergy Itching Verified 05/29/23 14:45 Penicillins AdvReac Severe Severe Verified 05/29/23 16:43 Headache, Nausea & Vomiting Physical Exam Vitals: Vital Signs Temp Pulse Pulse Resp BP BP Pulse Ox 05/30/23 08:15 97.5 F L 81 16 165/74 96 05/30/23 07:17 76 18 149/83 97 05/30/23 05:00 69 14 150/91 97 05/30/23 01:00 70 18 138/71 96 05/30/23 00:00 70 15 126/67 95 05/29/23 23:00 77 16 138/70 95 05/29/23 22:59 18 138/70 05/29/23 21:40 98.3 F 95 20 124/82 98 05/29/23 20:22 98.1 F 85 18 124/70 96 05/29/23 20:02 98.3 F 96 18 133/62 96 05/29/23 19:52 98.3 F 92 18 140/76 96 05/29/23 17:24 145/81 98 05/29/23 16:59 18 134/85 97 05/29/23 14:41 99.2 F 94 16 115/68 95 Intake and Output 05/29/23 05/30/23 05/30/23 22:59 06:59 14:59 Intake Total 310 780 Balance 310 780 Intake: Oral 780 Blood Product 310 Rc As-1 Unit 310 [id number] Other: Weight 50.802 kg General appearance: The patient is alert, oriented, appears in no acute distress. HET: Head is normocephalic and atraumatic. Conjunctiva pink. Sclera anicteric. Neck: Supple without lymphadenopathy. Trachea midline. Heart: S1 S2. Regular rate and rhythm. Lungs: Clear to auscultation. Diminished. Abdomen: Soft, nontender, nondistended with bowel sounds. No guarding or rigidity. Skin: No rashes. No jaundice. Extremities: Normal skin color and turgor. No pedal edema. Neurological: No focal deficits. Alert and oriented x3. Results CBC & Chem 7: 05/30/23 07:05 05/30/23 07:05 Labs: Abnormal Lab Results - Last 24 Hours (Table) 05/29/23 05/29/23 05/29/23 Range/Units 16:00 16:19 16:19 RBC 3.32 L (3.80-5.40) m/uL Hgb 7.2 L (11.4-16.0) gm/dL Hct 23.9 L (34.0-46.0) % MCV 72.0 L (80.0-100.0) fL MCH 21.8 L (25.0-35.0) pg MCHC 30.3 L (31.0-37.0) g/dL RDW 17.5 H (11.5-15.5) % Sodium 134 L (137-145) mmol/L BUN 27 H (7-17) mg/dL Creatinine 1.24 H (0.52-1.04) mg/dL Glucose 104 H (74-99) mg/dL POC Glucose (mg/dL) (70-110) mg/dL Crossmatch See Detail 05/30/23 05/30/23 05/30/23 Range/Units 01:40 07:05 07:05 RBC 3.63 L (3.80-5.40) m/uL Hgb 8.6 L 9.1 L (11.4-16.0) gm/dL Hct 27.2 L 28.8 L (34.0-46.0) % MCV 75.0 L 75.5 L (80.0-100.0) fL MCH 23.7 L 23.9 L (25.0-35.0) pg MCHC (31.0-37.0) g/dL RDW 18.7 H 18.4 H (11.5-15.5) % Sodium (137-145) mmol/L BUN 20 H (7-17) mg/dL Creatinine (0.52-1.04) mg/dL Glucose 115 H (74-99) mg/dL POC Glucose (mg/dL) (70-110) mg/dL Crossmatch 05/30/23 Range/Units 08:03 RBC (3.80-5.40) m/uL Hgb (11.4-16.0) gm/dL Hct (34.0-46.0) % MCV (80.0-100.0) fL MCH (25.0-35.0) pg MCHC (31.0-37.0) g/dL RDW (11.5-15.5) % Sodium (137-145) mmol/L BUN (7-17) mg/dL Creatinine (0.52-1.04) mg/dL Glucose (74-99) mg/dL POC Glucose (mg/dL) 136 H (70-110) mg/dL Crossmatch Assessment and Plan (1) Microcytic hypochromic anemia Narrative/Plan: This 68-year-old female presenting with anemia with a hemoglobin of 7.2 status post 1 unit of blood. No previous history of GI bleed. Does have a history of diverticulosis and had to undergo a small bowel resection in June 2022 for diverticulitis. Last EGD colonoscopy done by Dr. Hammond in September 2019. Upper endoscopy revealed moderate gastritis of a grade D esophagitis colonoscopy significant for polyp status post polypectomy. Patient does have occurred currently on Carafate, denies any anticoagulation, no NSAIDs currently. Denies any black stool or blood in her stool. Has some nausea but no vomiting. That's are consistent with a microcytic anemia need to consider iron deficiency anemia from a acute blood loss. No recommend proceeding with EGD and colonoscopy. Patient is agreeable. Current Visit: Yes Status: Acute Code(s): D50.9 - IRON DEFICIENCY ANEMIA, UNSPECIFIED SNOMED Code(s): 75449486 Plan: 1. Continue symptomatic and supportive care 2. Daily CBC, transfuse for hemoglobin less than 7 3. Protonix 40 mg daily 4. Continue Carafate 5. Bowel prep this afternoon 6. Antiemetics as needed 7. Clear liquid diet, nothing by mouth after midnight 8. Recommend proceeding with EGD and colonoscopy, patient is agreeable. Thank you for this consultation, we will continue to follow. Dr. Cameron Haas I agree with the dictator's note, documented as a scribe by Darby Kirkpatrick.
--- NOTE | 2023-05-30 14:38 | P.HPIM ---
History of Present Illness H&P Date: 05/30/23 This is a 68 year old female with history of asthma, dementia, GERD, gastritis, hyperlipidemia, Dandy-Walker syndrome, anxiety/depression and remote tobacco use in the 1970s. 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 Patient denies dark or tarry stools no hematemesis. Denying chest pain, reports mild shortness of breath but feels at her baseline with this, currently reports nausea and abdominal pain crampy epigastric area. Initial work up reveals hemoglobin of 7.2 microcytic with mild [place]KE creatinine of 1.24. Patient also had elevated proBNP of 1120 clinically does not appear to be in heart failure no elevated JVD no peripheral edema. Patient is status post 1 unit of PRBC and admitted to the hospital with GI and cardiology consultation. REVIEW OF SYSTEMS: CONSTITUTIONAL: No fever, no malaise, no fatigue. HEENT: No recent visual problems or hearing problems. Denied any sore throat. CARDIOVASCULAR: No chest pain, orthopnea, PND, no palpitations, no syncope. PULMONARY: No shortness of breath, no cough, no hemoptysis. GASTROINTESTINAL: No diarrhea, no vomiting, reports nausea and epigastric abdominal pain. NEUROLOGICAL: No headaches, no weakness, no numbness. HEMATOLOGICAL: Denies any bleeding or petechiae. GENITOURINARY: Denies any burning micturition, frequency, or urgency. MUSCULOSKELETAL/RHEUMATOLOGICAL: Denies any joint pain, swelling, or any muscle pain. ENDOCRINE: Denies any polyuria or polydipsia. The rest of the 14-point review of systems is negative. PHYSICAL EXAMINATION: GENERAL: The patient is alert and oriented x3, not in any acute distress. Well developed, well nourished. HEENT: Pupils are round and equally reacting to light. EOMI. No scleral icterus. No conjunctival pallor. Normocephalic, atraumatic. No pharyngeal erythema. No thyromegaly. CARDIOVASCULAR: S1 and S2 present. No murmurs, rubs, or gallops. PULMONARY: Chest is clear to auscultation, no wheezing or crackles. ABDOMEN: Soft, nontender, nondistended, normoactive bowel sounds. No palpable organomegaly. MUSCULOSKELETAL: No joint swelling or deformity. EXTREMITIES: No cyanosis, clubbing, or pedal edema. NEUROLOGICAL: Gross neurological examination did not reveal any focal deficits. SKIN: No rashes. Assessment Abdominal pain and nausea Anemia microcytic possible underlying iron deficiency rule out GI bleed Mild acute kidney injury prerenal likely poor oral intake improved Hyponatremia improved Dementia and Dandy-Walker syndrome Asthma with no acute exacerbation Gastroesophageal reflux disease Hx of bowel resection for diverticulitis Diabetes Mellitus type 2 diet controlled Hx hyperlipidemia Anxiety/Depression GI prophylaxis Full Code Plan Cardiology consultation, echocardiogram ordered GI consultation patient to undergo EGD/Colonoscopy tomorrow S/P 1 unit of PRBC and follow up labs in AM. The impression and plan of care has been dictated by Yina Lawrence Nurse Practitioner as directed. Dr. Fausto MD I have performed a history and physical examination and medical decision making of this patient, discussed the same with the dictator, and agree with the dictators assessment and plan as written, documented as a scribe. Based on total visit time, I have performed more than 50% of this visit. 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 with Dandy-Walker Syndrome. History of Any Multi-Drug Resistant Organisms: None Reported Past Surgical History: Back Surgery, Section, Hysterectomy, Joint Replacement, Orthopedic Surgery, Tubal Ligation Additional Past Surgical History / Comment(s): epidurals for pain, TOTAL L knee replacement, had a allergic reaction to the hardware and had it removed.-BACK SURGERY(LUMBAR FUSION) 2011,EGD/COLONOSCOPY. pain clinic procedure Past Anesthesia/Blood Transfusion Reactions: Postoperative Nausea & Vomiting (PONV) Past Psychological History: Anxiety, Depression Smoking Status: Former smoker Past Alcohol Use History: Rare Additional Past Alcohol Use History / Comment(s): QUIT IN THE 1970S. ONLY SO CIAL. Past Drug Use History: None Reported - Past Family History Mother Family Medical History: Dementia Father Family Medical History: Coronary Artery Disease (CAD), Deep Vein Thrombosis (DVT) Additional Family Medical History / Comment(s): CABG X 2 Medications and Allergies Home Medications Medication Instructions Recorded Confirmed Type Amitriptyline HCl [Elavil] 10 mg PO HS 07/09/14 05/29/23 History Citalopram Hydrobromide 60 mg PO DAILY 07/09/14 05/29/23 History [Citalopram HBr] Montelukast [Singulair] 10 mg PO HS 07/09/14 05/29/23 History Fluticasone Nasal [place] [Flonase 1 spr EA NOSTRIL BID 09/21/15 05/29/23 History Nasal [place]] Multivitamins, Thera [Multivitamin 1 tab PO DAILY 09/21/15 05/29/23 History (formulary)] Albuterol Inhaler [Ventolin Hfa 2 puff INHALATION RT-Q6H PRN 09/12/17 05/29/23 History Inhaler] Fluticasone Propion/Salmeterol 1 puff INHALATION RT-BID 09/12/17 05/29/23 History [Advair 500-50 Diskus] Turmeric Root Extract [Turmeric] 1,500 mg PO DAILY 09/12/17 05/29/23 History metFORMIN HCL [Glucophage] 500 mg PO BID 09/12/17 05/29/23 History Ezetimibe [Zetia] 10 mg PO DAILY 03/02/19 05/29/23 History Memantine [Namenda] 20 mg PO HS 03/02/19 05/29/23 History Levocetirizine Dihydrochloride 5 mg PO HS 09/02/19 05/29/23 History [Xyzal] Acetyl L Carnitine Hcl 1000mg 1 tab PO DAILY 06/01/22 05/29/23 History Cetirizine HCl [Zyrtec] 10 mg PO DAILY 06/01/22 05/29/23 History Gabapentin 300 mg PO TID 06/01/22 05/29/23 History Glucosam/[place]-Msm1/C/Christian/Bosw 1 tab PO DAILY 06/01/22 05/29/23 History [Glucosamine-Chondroitin Tablet] Pantoprazole [Protonix] 40 mg PO BID 06/01/22 05/29/23 History traZODone HCL [Desyrel] 100 mg PO HS 06/01/22 05/29/23 History Azelastine HCl [Astelin Nasal 1 puff EA NOSTRIL BID 05/29/23 05/29/23 History [place]] Cholecalciferol (Vitamin D3) 75 mcg PO DAILY 05/29/23 05/29/23 History [Vitamin D3 (3000 Iu)] Docusate [Colace] 100 mg PO BID 05/29/23 05/29/23 History Famotidine [Pepcid] 20 mg PO HS 05/29/23 05/29/23 History Furosemide [Lasix] 20 mg PO DAILY 05/29/23 05/29/23 History Ibuprofen [Motrin] 800 mg PO TID 05/29/23 05/29/23 History Sucralfate [Carafate] 1 gm PO TID 05/29/23 05/29/23 History Allergies Allergy/AdvReac Type Severity Reaction Status Date / Time adhesive tape Allergy tears skin Verified 05/29/23 14:45 "paper tape is ok" chocolate flavor Allergy Itching Verified 05/29/23 14:45 grass pollen Allergy Itching Verified 05/29/23 14:45 mold Allergy Itching Verified 05/29/23 14:45 nickel Allergy Itchy Red Verified 05/29/23 14:45 Skin & Area gets infected tomato Allergy Itching Verified 05/29/23 14:45 Penicillins AdvReac Severe Severe Verified 05/29/23 16:43 Headache, Nausea & Vomiting Physical Exam Vitals: Vital Signs Temp Pulse Pulse Resp BP BP Pulse Ox 05/30/23 08:15 97.5 F L 81 16 165/74 96 05/30/23 07:17 76 18 149/83 97 05/30/23 05:00 69 14 150/91 97 05/30/23 01:00 70 18 138/71 96 05/30/23 00:00 70 15 126/67 95 05/29/23 23:00 77 16 138/70 95 05/29/23 22:59 18 138/70 05/29/23 21:40 98.3 F 95 20 124/82 98 05/29/23 20:22 98.1 F 85 18 124/70 96 05/29/23 20:02 98.3 F 96 18 133/62 96 05/29/23 19:52 98.3 F 92 18 140/76 96 05/29/23 17:24 145/81 98 05/29/23 16:59 18 134/85 97 05/29/23 14:41 99.2 F 94 16 115/68 95 Intake and Output 05/29/23 05/30/23 05/30/23 22:59 06:59 14:59 Intake Total 310 780 Balance 310 780 Intake: Oral 780 Blood Product 310 Rc As-1 Unit 310 [id number] Other: Weight 50.802 kg Results CBC & Chem 7: 05/30/23 07:05 05/30/23 07:05 Labs: Abnormal Lab Results - Last 24 Hours (Table) 05/29/23 05/29/23 05/29/23 Range/Units 16:00 16:19 16:19 RBC 3.32 L (3.80-5.40) m/uL Hgb 7.2 L (11.4-16.0) gm/dL Hct 23.9 L (34.0-46.0) % MCV 72.0 L (80.0-100.0) fL MCH 21.8 L (25.0-35.0) pg MCHC 30.3 L (31.0-37.0) g/dL RDW 17.5 H (11.5-15.5) % Sodium 134 L (137-145) mmol/L BUN 27 H (7-17) mg/dL Creatinine 1.24 H (0.52-1.04) mg/dL Glucose 104 H (74-99) mg/dL POC Glucose (mg/dL) (70-110) mg/dL Crossmatch See Detail 05/30/23 05/30/23 05/30/23 Range/Units 01:40 07:05 07:05 RBC 3.63 L (3.80-5.40) m/uL Hgb 8.6 L 9.1 L (11.4-16.0) gm/dL Hct 27.2 L 28.8 L (34.0-46.0) % MCV 75.0 L 75.5 L (80.0-100.0) fL MCH 23.7 L 23.9 L (25.0-35.0) pg MCHC (31.0-37.0) g/dL RDW 18.7 H 18.4 H (11.5-15.5) % Sodium (137-145) mmol/L BUN 20 H (7-17) mg/dL Creatinine (0.52-1.04) mg/dL Glucose 115 H (74-99) mg/dL POC Glucose (mg/dL) (70-110) mg/dL Crossmatch 05/30/23 Range/Units 08:03 RBC (3.80-5.40) m/uL Hgb (11.4-16.0) gm/dL Hct (34.0-46.0) % MCV (80.0-100.0) fL MCH (25.0-35.0) pg MCHC (31.0-37.0) g/dL RDW (11.5-15.5) % Sodium (137-145) mmol/L BUN (7-17) mg/dL Creatinine (0.52-1.04) mg/dL Glucose (74-99) mg/dL POC Glucose (mg/dL) 136 H (70-110) mg/dL Crossmatch Thrombosis Risk Factor Assmnt - Choose All That Apply Each Risk Factor Represents 2 Points: Age 61-74 years Thrombosis Risk Factor Assessment Total Risk Factor Score: 2 Thrombosis Risk Factor Assessment Level: Low Risk Assessment and Plan Time with Patient: Less than 30
--- NOTE | 2023-05-30 15:41 | XR ---
EXAMINATION TYPE: XR chest 2V DATE OF EXAM: 05/30/2023 3:32 PM COMPARISON: Chest radiographs from 06/01/2022, CT chest abdomen and pelvis 02/02/2021 TECHNIQUE: XR chest 2V Frontal and lateral views of the chest. CLINICAL INDICATION:Female, 68 years old with history of SOB; FINDINGS: Lungs/Pleura: There is no evidence of pleural effusion, focal consolidation, or pneumothorax. Pulmonary vascularity: Unremarkable. Heart/mediastinum: Cardiomediastinal silhouette is unremarkable. Musculoskeletal: No acute osseous pathology. Redemonstration of chronic anterior compression deformit y of the T11 vertebral body. IMPRESSION: No acute cardiopulmonary disease/process.
[2023-05-30 16:21] LABS: Glucose,Whole Blood 134 mg/dL (70-110)
[2023-05-30] MEDS: levOCARNitine (WITH SUGAR) 100 MG/ML BOTTLE PO SCH (16:56)
[2023-05-30] MEDS: FLUTICASONE 50MCG/SPRAY NASAL 16GM EA NOSTRIL SCH (16:56)
[2023-05-30 17:17] LABS: % Iron Saturation 5.63 (12.00-45.00); Ferritin 12.2 ng/mL (10.0-291.0); Iron 26 UG/DL (50-170); Total Iron Binding Capacity 462 UG/DL (228-460)
[2023-05-30] MEDS: ACETAMINOPHEN TAB 325 MG TAB PO PRN (18:58)
[2023-05-30] MEDS: traZODone HCL 100 MG TAB PO SCH (20:23)
[2023-05-30 20:58] LABS: Glucose,Whole Blood 118 mg/dL (70-110)
[2023-05-30] MEDS ORDERED: MONTELUKAST 10 MG TAB PO SCH (21:00)
[2023-05-30] MEDS ORDERED: AMITRIPTYLINE HCL 10 MG TAB PO SCH (21:00)
[2023-05-30] MEDS ORDERED: MEMANTINE 10 MG TAB PO SCH (21:00)
[2023-05-31 06:27] LABS: Glucose,Whole Blood 131 mg/dL (70-110)
[2023-05-31 08:33] VITALS: RESP 16
[2023-05-31 09:27] LABS: Anisocytosis Slight; HCT 34.7 % (34.0-46.0); HGB 10.3 gm/dL (11.4-16.0); Hypochromasia Marked; MCH 23.3 pg (25.0-35.0); MCHC 29.6 g/dL (31.0-37.0); MCV 78.7 fL (80.0-100.0); Microcytosis Slight; Platelet Count 304 k/uL (150-450); Poikilocytosis Slight; RBC 4.41 m/uL (3.80-5.40); RDW 18.2 % (11.5-15.5); WBC 4.7 k/uL (3.8-10.6)
[2023-05-31] MEDS: SYMBICORT 160-4.5 MCG INHALER INHALATION SCH (09:31)
[2023-05-31 09:40] LABS: African American GFR (CKD) 89 (>60 ml/min/1.73 sqM); Anion Gap 8 mmol/L; Blood Urea Nitrogen 10 mg/dL (7-17); Calcium 8.8 mg/dL (8.4-10.2); Carbon Dioxide 25 mmol/L (22-30); Chloride 106 mmol/L (98-107); Glucose 122 mg/dL (74-99); Non-African American GFR(CKD) 77 (>60 ml/min/1.73 sqM); Sodium 139 mmol/L (137-145)
[2023-05-31] MEDS ORDERED: SODIUM FERRIC GLUCONAT-SUCROSE 125 MG in SODIUM CHLORIDE 0.9% 100 ML IVPB SCH (10:30)
[2023-05-31] MEDS: ACETAMINOPHEN TAB 325 MG TAB PO PRN (10:54)
[2023-05-31] MEDS: GABAPENTIN 300 MG CAP PO SCH ×2 (10:54→17:03)
[2023-05-31] MEDS: CHOLECALCIFEROL 25 MCG (1000 IU) TABLET PO SCH (10:54)
[2023-05-31] MEDS: SUCRALFATE 1 GM TAB PO SCH ×2 (10:54→17:04)
[2023-05-31] MEDS: MULTIVITAMINS, THERA 1 EACH TAB PO SCH (10:55)
[2023-05-31] MEDS: EZETIMIBE 10 MG TAB PO SCH (10:55)
[2023-05-31] MEDS: levOCARNitine (WITH SUGAR) 100 MG/ML BOTTLE PO SCH (10:55)
[2023-05-31] MEDS: CITALOPRAM HYDROBROMIDE 20 MG TAB PO SCH (10:55)
[2023-05-31] MEDS: FLUTICASONE 50MCG/SPRAY NASAL 16GM EA NOSTRIL SCH (10:55)
[2023-05-31] MEDS: PANTOPRAZOLE 40 MG/10 ML VIAL IVP SCH (10:56)
--- NOTE | 2023-05-31 11:50 | P.PN ---
Subjective HISTORY OF PRESENT ILLNESS: This is a 68-year-old female with a past medical history significant for asthma, hyperlipidemia, dementia, and former nicotine dependence. 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 We have been asked to see the patient in consultation for CHF. Patient examined at the bedside. Patient reports a history of dementia and states she is unsure of some of her medical history. She states that she was called by her physician regarding abnormal labs and was instructed to come to the ER. She believes it was Dr. Carissa Haas's office that called her but she is unsure of why she was seeing Dr. Haas. Patient was found to be anemic with hemoglobin of 7.2. She received RBC transfusion and repeat hemoglobin is 9.1. She reports any bloody stools or dark stools. She denies any chest pain or pressure. She reports mild shortness of breath but states she has asthma and her shortness of breath is near her baseline. She denies any swelling in her extremities. She is a nonsmoker. She denies any alcohol use or drug use. * EKG reveals sinus mechanism with no signs of acute ischemia * Chest xray not available at the time of dictation * Laboratory data: WBC 5.5. Hemoglobin 9.1. Platelet count 314. Sodium 139. Potassium 4.0. B UN 20. Creatinine 0.97. Troponin negative 1. ProBNP 1120. * Current home cardiac medications include Lasix 20 mg daily and Zetia 10 mg daily 05/31/2023 Patient examined this morning at the bedside. Patient denies chest pain or pressure. Denies SOB. She is scheduled to undergo endoscopy today with Dr. Haas. Vital signs are stable. Blood pressure slightly on the higher side. PHYSICAL EXAM: VITAL SIGNS: Reviewed. GENERAL: Well-developed in no acute distress. HEENT: Head is normocephalic. Pupils are equal, round. Sclerae anicteric. Mucous membranes of the mouth are moist. Neck supple. No JVD or thyromegaly LUNGS: Respirations even and unlabored. Lungs essentially clear to auscultation bilaterally. HEART: Regular rate and rhythm. S1 and S2 heard. ABDOMEN: Soft. Nondistended. Nontender. EXTREMITIES: Normal range of motion. No clubbing or cyanosis. Peripheral pulses intact. No lower extremity edema NEUROLOGIC: Awake and alert. Oriented x 3. ASSESSMENT: Anemia, etiology unclear Shortness of breath, likely secondary to above, no evidence of CHF Hyperlipidemia History of asthma History of dementia Former nicotine dependence PLAN: Continue current cardiac medications Echo ordered. Await results. Patient scheduled for endoscopy today with Dr. Haas Further recommendations pending patient's course Nurse practitioner note has been reviewed by physician. Signing provider agrees with the documented findings, assessment, and plan of care. Objective - Vital Signs Vital signs: Vital Signs Temp 98.2 F 05/31/23 11:09 Pulse 74 05/31/23 11:09 Resp 16 05/31/23 11:09 BP 154/77 05/31/23 11:09 Pulse Ox 97 05/31/23 11:09 FiO2 Intake & Output 05/30/23 05/31/23 05/31/23 18:59 06:59 18:59 Intake Total 1320 10 Output Total 550 Balance 770 10 Weight 50.802 kg Intake: IV 10 Invasive Line 1 5 Invasive Line 2 5 Oral 1320 Output: Urine 550 Other: Voiding Method Toilet Toilet # Voids 2 # Bowel Movements 3 - Labs CBC & Chem 7: 05/31/23 09:15 05/31/23 09:15 Labs: Abnormal Lab Results - Last 24 Hours (Table) 05/30/23 05/30/23 05/30/23 Range/Units 07:05 16:18 20:57 Hgb (11.4-16.0) gm/dL MCV (80.0-100.0) fL MCH (25.0-35.0) pg MCHC (31.0-37.0) g/dL RDW (11.5-15.5) % Glucose (74-99) mg/dL POC Glucose (mg/dL) 134 H 118 H (70-110) mg/dL Iron 26 L (50-170) UG/DL TIBC 462 H (228-460) UG/DL % Saturation 5.63 L (12.00-45.00) 05/31/23 05/31/23 05/31/23 Range/Units 06:26 09:15 09:15 Hgb 10.3 L (11.4-16.0) gm/dL MCV 78.7 L (80.0-100.0) fL MCH 23.3 L (25.0-35.0) pg MCHC 29.6 L (31.0-37.0) g/dL RDW 18.2 H (11.5-15.5) % Glucose 122 H (74-99) mg/dL POC Glucose (mg/dL) 131 H (70-110) mg/dL Iron (50-170) UG/DL TIBC (228-460) UG/DL % Saturation (12.00-45.00)
[2023-05-31 11:59] LABS: Glucose,Whole Blood 136 mg/dL (70-110)
--- NOTE | 2023-05-31 12:34 | CA ---
Transthoracic Echo Report Name: Tarsha Tobias Age: 68 Gender: F : 1955 Exam Date: 05/31/2023 08:02 Exam Location: [place] Echo Ht (in): 62 Wt (lb): 112 Ordering Physician: Danette Mooney Attending/Referring Phys: [id number], [place] Sound Cutter Marline Benson [facility] Procedure CPT: Indications: LV function Cardiac Hx: Technical Quality: Fair Contrast 1: Lumason Total Dose (mL): 5 Contrast 2: Total Dose (mL): MEASUREMENTS (Male / Female) Normal Values 2D ECHO LV Diastolic Diameter PLAX 5.3 cm 4.2 - 5.9 / 3.9 - 5.3 cm LV Systolic Diameter PLAX 4.8 cm IVS Diastolic Thickness 0.9 cm 0.6 - 1.0 / 0.6 - 0.9 cm LVPW Diastolic Thickness 1.0 cm 0.6 - 1.0 / 0.6 - 0.9 cm LV Relative Wall Thickness 0.4 LVOT Diameter 2.0 cm LV Diastolic Volume MOD BP 123.3 cm??? 67 - 155 / 56 - 104 cm??? LV Systolic Volume MOD BP 78.6 cm??? 22 - 58 / 19 - 49 cm??? LV Ejection Fraction MOD BP 36.2 % >= 55 % LV Cardiac Index MOD BP 2308.6 cm???/min???m??? LV Diastolic Volume MOD 4C 145.2 cm??? LV Systolic Volume MOD 4C 107.3 cm??? LV Ejection Fraction MOD 4C 26.1 % LV Cardiac Index MOD 4C 1959.5 cm???/min???m??? LV Diastolic Length 4C 8.2 cm LV Systolic Length 4C 7.2 cm LV Diastolic Volume MOD 2C 101.8 cm??? LV Systolic Volume MOD 2C 56.5 cm??? LV Ejection Fraction MOD 2C 44.5 % LV Cardiac Index MOD 2C 2339.6 cm???/min???m??? LV Diastolic Length 2C 8.5 cm LV Systolic Length 2C 7.1 cm M-MODE Aortic Root Diameter MM 2.9 cm LA Systolic Diameter MM 3.1 cm LA Ao Ratio MM 1.0 AV Cusp Separation MM 1.9 cm DOPPLER AV Peak Velocity 141.6 cm/s AV Peak Gradient 8.0 mmHg AV Mean Velocity 98.2 cm/s AV Mean Gradient 4.4 mmHg AV Velocity Time Integral 27.5 cm AI Peak Velocity 445.5 cm/s AI Peak Gradient 79.4 mmHg AI Pressure Half Time 453.8 ms LVOT Peak Velocity 86.4 cm/s LVOT Peak Gradient 3.0 mmHg LVOT Velocity Time Integral 17.5 cm LVOT Stroke Volume 57.6 cm??? LVOT Stroke Volume Index 38.6 ml/m??? LVOT Cardiac Index 2976.0 cm???/min???m??? AV Area Cont Eq vti 2.1 cm??? AV Area Cont Eq pk 2.0 cm??? Mitral E Point Velocity 68.9 cm/s Mitral A Point Velocity 126.5 cm/s Mitral E to A Ratio 0.5 MV Deceleration Time 172.4 ms Right Atrial Pressure 8.0 mmHg FINDINGS Left Ventricle Moderate left ventricular dilatation. Normal left ventricular wall thickness. Severe global decrease in contractility with estimated ejection fraction of about 25% Right Ventricle Normal right ventricular size and function. Right Atrium Normal right atrial size. Left Atrium Mild left atrial dilatation. Mitral Valve Mild mitral annular calcification. Mild mitral regurgitation. Aortic Valve Trileaflet aortic valve. Mild aortic regurgitation. Tricuspid Valve Structurally normal tricuspid valve. No tricuspid regurgitation. Pulmonic Valve Structurally normal pulmonic valve. Mild pulmonic regurgitation. Pericardium No pericardial effusion. Aorta Normal size aortic root. CONCLUSIONS Enlarged left ventricle with the global decrease in contractility mild mitral and aortic insufficiency no significant pulmonary hypertension no pericardial effusion Previewed by: Dr. Kulwant Lauren MD (Electronically Signed) Final Date: 31 May 2023 12:33
[2023-05-31] MEDS ORDERED: PROPOFOL 10 MG/ML 20 ML VIAL IV ONE (15:08)
[2023-05-31] MEDS ORDERED: LIDOCAINE 2% INJ 20 MG/ML (2 ML VIAL) ONE (15:08)
[2023-05-31] MEDS ORDERED: SODIUM CHLORIDE 0.9% 1,000 ML IV ONE (15:13)
--- NOTE | 2023-05-31 15:45 | P.PCN ---
Date of Procedure: 05/31/23 Procedure(s) Performed: Brief history: Patient is a pleasant 68-year-old pleasant white female admitted hospital with severe symptomatic anemia and hemoglobin of 7 g/dL and iron indices consistent with iron deficiency anemia. She denies any GI symptoms . She is scheduled for an upper endoscopy as well as colonoscopy to evaluate further. Procedure performed: Esophagogastroduodenoscopy with biopsy Colonoscopy Preoperative diagnosis: Severe iron deficiency anemia Anesthesia: [facility] – [place] Procedure: After informed consent was obtained from the patient was brought into the endoscopy unit and IV sedation was administered by anesthesia under continuous monitoring. Initially upper endoscopy was done. The Olympus GF 160 video endoscope was inserted inserted into the mouth and esophagus intubated without any difficulty and was gradually advanced into the stomach and duodenum and carefully examined. The bulb and second part of the duodenum appeared normal. Biopsies were done from the duodenum to rule out celiac disease. The scope was then withdrawn into the stomach adequately insufflated with air and upon careful examination the antrum had a 5 mm antral ulcer which was biopsied. No active bleeding noted. Mucosa of the, cardia and fundus appeared normal. The scope was then withdrawn into the esophagus. moderate size hiatal hernia noted. The GE junction was located at 34 cm to the incisors. It appeared regular with no erythema erosions or ulcerations. Rest of the esophagus appeared normal. Patient tolerated the procedure well. At this time the patient continued to remain sedation. Initial digital rectal examination was normal. Olympus CF 160 video colonoscope was then inserted into the rectum and gradually advanced to the cecum without any difficulty. Careful examination was performed as the scope was gradually being withdrawn. The prep was excellent. The cecum, ascending colon, transverse colon, descending colon, sigmoid colon and rectum appeared normal. Retroflexion was performed in the rectum and no lesions were noted. Patient tolerated the procedure well. Impression: 1. Upper endoscopy revealed 5 limited antral ulcer with no active bleeding and a moderate size hiatal hernia 2. Colonoscopy was within normal limits with no evidence of colorectal ne oplasia Recommendations: Findings of this examination were discussed with the patient. He was advised to follow with the biopsy results. Continue with Protonix 40 mg daily. Avoid NSAIDs. Start iron supplements twice daily. She can be discharged home with outpatient follow-up in 3-4 weeks..
[2023-05-31 15:49] VITALS: BP 170/82; PULSE 89; TEMP 98
--- NOTE | 2023-06-01 22:37 | P.DS ---
Providers Date of admission: 05/29/23 19:34 Attending physician: Haven Guerrero Consults: 05/29/23 23:21 Consult Physician Routine Consulting Provider: Carissa Haas Consult Reason/Comments: anemia Do you want consulting provider notified?: Yes, Notify in am Primary care physician: Stephanie Williamson [facility] Course: Final Diagnosis Abdominal pain and nausea likely due to antral ulcer with no acute GI bleeding Mild size hiatal hernia Iron deficiency anemia Mild acute kidney injury prerenal likely poor oral intake improved Hyponatremia improved Echocardiogam reveals decrease in global contractility EF 25% Dementia and Dandy-Walker syndrome Asthma with no acute exacerbation Gastroesophageal reflux disease Hx of bowel resection for diverticulitis Diabetes Mellitus type 2 diet controlled Hx hyperlipidemia Anxiety/Depression Full Code Hospital Course Patient is cleared medically for discharge home. Patient underwent EGD/colonscopy reveals 5 limited antral ulcer with no active bleeding and mild size hiatal hernia. Colonoscopy is normal. Patient to continue on 40 mg oral protonix on discharge and recommend to avoid NSAID therapy. Patient to continue on oral iron twice a day. Follow up CBC in 2 to 3 days. Follow up with GI Dr Cameron Haas and patient needs follow up with Dr. Gina Haas with cardiology on discharge as well. Hospital Course This is a 68 year old female with history of asthma, dementia, GERD, gastritis, hyperlipidemia, Dandy-Walker syndrome, anxiety/depression and remote tobacco use in the 1970s. 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 Patient denies dark or tarry stools no hematemesis. Denying chest pain, reports mild shortness of breath but feels at her baseline with this. Patient reports nausea and abdominal pain crampy epigastric area. Initial work up reveals hemoglobin of 7.2 microcytic with mild DUKE creatinine of 1.24. Patient also had elevated proBNP of 1120 clinically does not appear to be in heart failure no elevated JVD no peripheral edema. Patient is status post 1 unit of PRBC and admitted to the hospital with GI and cardiology consultation. Echocardiogram was completed revealing global decrease in contractility with EF 25% and no significant pulmonary hypertension and no pericardial effusion. Mild mitral and aortic insufficiency. Cardiology has ruled out acute CHF patient had mildly elevated BNP no reports of shortness of breath, no chest pain, and no peripheral edema. No prior echocardiogram to compare. Patient underwent EGD and colonoscopy reveals 5 limited antral ulcer with no active bleeding and mild size hiatal hernia. Colonoscopy is normal. Patient to continue on 40 mg oral protonix on discharge and recommend to avoid NSAID therapy. Iron studies reveals iron deficiency anemia and patient has received dose of IV ferrlecit. Patient to continue on oral iron twice a day. Hemoglobin has increased up to 10.3. Patient is denying any chest pain, any shortness of breath, no abdominal pain, no nausea vomiting or diarrhea. No reports of red or dark /tarry stools. Patient is denying chest pain denying shortness of breath. Lungs are clear S1 S2 auscultated regular rate and rhythm. Abdomen soft and nontender. Focal neurological exam is negative. Cleared for DC with the above mentioned recommendations. Please see medication reconciliation for a list of current medication. Thank you for allowing us to participate in the care of this patient. The impression and plan of care has been dictated by Yina Lawrence, Nurse Practitioner as directed. Dr. Fausto MD I have performed a history and physical examination and medical decision making of this patient, discussed the same with the dictator, and agree with the dictators assessment and plan as written, documented as a scribe. Based on total visit time, I have performed more than 50% of this visit. Patient Condition at Discharge: Stable Plan - Discharge Summary Discharge Rx Participant: Yes New Discharge Prescriptions: New Ferrous Sulfate [Feosol] 325 mg PO BID #60 tab Continue Montelukast [Singulair] 10 mg PO HS Amitriptyline HCl [Elavil] 10 mg PO HS Citalopram Hydrobromide [Citalopram HBr] 60 mg PO DAILY Multivitamins, Thera [Multivitamin (formulary)] 1 tab PO DAILY Fluticasone Nasal Napa [Flonase Nasal Napa] 1 spr EA NOSTRIL BID Albuterol Inhaler [Ventolin Hfa Inhaler] 2 puff INHALATION RT-Q6H PRN PRN Reason: Shortness Of Breath Fluticasone Propion/Salmeterol [Advair 500-50 Diskus] 1 puff INHALATION RT- BID metFORMIN HCL [Glucophage] 500 mg PO BID Turmeric Root Extract [Turmeric] 1,500 mg PO DAILY Ezetimibe [Zetia] 10 mg PO DAILY Memantine [Namenda] 20 mg PO HS traZODone HCL [Desyrel] 100 mg PO HS Glucosam/Gonzalo-Msm1/C/Christian/Bosw [Glucosamine-Chondroitin Tablet] 1 tab PO DAILY Cetirizine HCl [Zyrtec] 10 mg PO DAILY Famotidine [Pepcid] 20 mg PO HS Azelastine HCl [Astelin Nasal Napa] 1 puff EA NOSTRIL BID Gabapentin 300 mg PO TID Acetyl L Carnitine Hcl 1000mg 1 tab PO DAILY Sucralfate [Carafate] 1 gm PO TID Furosemide [Lasix] 20 mg PO DAILY Docusate [Colace] 100 mg PO BID Cholecalciferol (Vitamin D3) [Vitamin D3 (3000 Iu)] 75 mcg PO DAILY Discontinued Levocetirizine Dihydrochloride [Xyzal] 5 mg PO HS Ibuprofen [Motrin] 800 mg PO TID Pantoprazole [Protonix] 40 mg PO BID Discharge Medication List Amitriptyline HCl [Elavil] 10 mg PO HS 07/09/14 [History] Citalopram Hydrobromide [Citalopram HBr] 60 mg PO DAILY 07/09/14 [History] Montelukast [Singulair] 10 mg PO HS 07/09/14 [History] Fluticasone Nasal [place] [Flonase Nasal [place]] 1 spr EA NOSTRIL BID 09/21/15 [History] Multivitamins, Thera [Multivitamin (formulary)] 1 tab PO DAILY 09/21/15 [History] Albuterol Inhaler [Ventolin Hfa Inhaler] 2 puff INHALATION RT-Q6H PRN 09/12/17 [History] Fluticasone Propion/Salmeterol [Advair 500-50 Diskus] 1 puff INHALATION RT-BID 09/12/17 [History] Turmeric Root Extract [Turmeric] 1,500 mg PO DAILY 09/12/17 [History] metFORMIN HCL [Glucophage] 500 mg PO BID 09/12/17 [History] Ezetimibe [Zetia] 10 mg PO DAILY 03/02/19 [History] Memantine [Namenda] 20 mg PO HS 03/02/19 [History] Acetyl L Carnitine Hcl 1000mg 1 tab PO DAILY 06/01/22 [History] Cetirizine HCl [Zyrtec] 10 mg PO DAILY 06/01/22 [History] Gabapentin 300 mg PO TID 06/01/22 [History] Glucosam/Gonzalo-Msm1/C/Christian/Bosw [Glucosamine-Chondroitin Tablet] 1 tab PO DAILY 06/01/22 [History] traZODone HCL [Desyrel] 100 mg PO HS 06/01/22 [History] Azelastine HCl [Astelin Nasal [place]] 1 puff EA NOSTRIL BID 05/29/23 [History] Cholecalciferol (Vitamin D3) [Vitamin D3 (3000 Iu)] 75 mcg PO DAILY 05/29/23 [History] Docusate [Colace] 100 mg PO BID 05/29/23 [History] Famotidine [Pepcid] 20 mg PO HS 05/29/23 [History] Furosemide [Lasix] 20 mg PO DAILY 05/29/23 [History] Sucralfate [Carafate] 1 gm PO TID 05/29/23 [History] Ferrous Sulfate [Feosol] 325 mg PO BID #60 tab 05/31/23 [Rx] Follow up Appointment(s)/Referral(s): Carissa Haas MD [STAFF PHYSICIAN] - 4 Weeks (Offices are closed please call to make a follow up appointment) Stephanie Williamson MD [Primary Care Provider] - 1-2 days Ambulatory/Diagnostic Orders: Basic Metabolic Panel [LAB.AMB] Time Frame: 3 Days, Location: None Selected Complete Blood Count w/diff [LAB.AMB] Time Frame: 3 Days, Location: None Selected Patient Instructions/Handouts: Heart Failure (DC), Peptic Ulcer (DC), Hiatal Hernia (DC), Iron Rich Diet (DC), Iron Deficiency Anemia (GEN) Activity/Diet/Wound Care/Special Instructions: Continue on oral iron twice a day for 30 days afterwards can begin oral iron daily this medication can be constipating and can also cause GI upset recommend to continue on bowel regimen while taking this medication. Follow up with Dr. Cameron Haas on discharge and follow up with your PCP Repeat labs in 2 to 3 days Discharge Disposition: HOME SELF-CARE
== END 2023-05-31 17:18 | disposition home or self-care (01) ==
LOC: EC 14:23 → 3SCARD 19:34
PROVIDERS: ADMIT Hospitalist; ATTEND Hospitalist
DX: K25.4 Chronic or unspecified gastric ulcer with hemorrhage (principal); K44.9 Diaphragmatic hernia without obstruction or gangrene; E87.1 Hypo-osmolality and hyponatremia; D50.9 Iron deficiency anemia, unspecified; N17.9 Acute kidney failure, unspecified; R79.89 Other specified abnormal findings of blood chemistry; J45.909 Unspecified asthma, uncomplicated; K21.9 Gastro-esophageal reflux disease without esophagitis; F41.9 Anxiety disorder, unspecified; F03.93 Unspecified dementia, unspecified severity, with mood disturbance; F03.94 Unspecified dementia, unspecified severity, with anxiety; F32.A Depression, unspecified; E78.5 Hyperlipidemia, unspecified; M54.50 Low back pain, unspecified; G89.29 Other chronic pain; Q03.1 Atresia of foramina of Magendie and Luschka; M48.54XA Collapsed vertebra, not elsewhere classified, thoracic region, initial encounter for fracture; I08.0 Rheumatic disorders of both mitral and aortic valves; I37.1 Nonrheumatic pulmonary valve insufficiency; Z90.710 Acquired absence of both cervix and uterus; Z98.51 Tubal ligation status; Z96.652 Presence of left artificial knee joint; Z98.1 Arthrodesis status; Z87.891 Personal history of nicotine dependence; Z79.899 Other long term (current) drug therapy; Z79.84 Long term (current) use of oral hypoglycemic drugs; Z88.0 Allergy status to penicillin; Z82.49 Family history of ischemic heart disease and other diseases of the circulatory system; Z83.2 Family history of diseases of the blood and blood-forming organs and certain disorders involving the immune mechanism
CPT/HCPCS: 96365; 96375; 96376 ×2; 36430; 99284; 36415; 94640 ×3; 86900; 86901; 88305; 83880; 80053; 80048 ×2; 82728; 83540; 83550; 84484; 85025 ×2; 85027 ×2; 86850; 86920; 88342; 84466; 71046; 45378; 43239; G0378 ×3; C8929; P9016; J2916; J2704; C9113 ×2; Q9950; J2001; 93306

== ENCOUNTER 2023-07-24 09:09 | Day surgery (SDC) | payer MEDICARE, OTHER ==
[2023-07-18 08:58] VITALS: BMI 21.9
[~2023-07-24 09:09] MED LIST changes: +ALPRAZolam 0.25 MG TAB PO PRN; +ALPRAZolam 0.5 MG TAB PO PRN; +ASPIRIN 325 MG TAB PO STA; +ATORVASTATIN 80 MG TAB PO STA; -BUPIVACAINE (PF) 0.5% 30 ML VIAL ONE; +HEPARIN SODIUM,PORCINE (1 ML) 2,500 UNIT in SODIUM CHLORIDE 0.9% 250 ML IRRIGATION PRN; +HEPARIN SODIUM,PORCINE 10,000 UNIT in SODIUM CHLORIDE 0.9% 1,000 ML IRRIGATION PRN; -IV FLUID CONTINUATION 1,000 ML IV ONE; -LACTATED RINGERS 1,000 ML IV ONE; -LACTATED RINGERS 1,000 ML IV SCH; -MIDAZOLAM 2 MG/2 ML VIAL ONE; +NITROGLYCERIN SL TABS 0.4 MG TAB SUBLINGUAL PRN; +SODIUM CHLORIDE 0.9% 1,000 ML in EMPTY BAG 1 BAG IV SCH; -fentaNYL (PF) 50 MCG/ML 2 ML AMP ONE; -methylPREDNISolone ACETATE 40 MG/ML 1 ML VIAL ONE
[2023-07-24] MEDS ORDERED: SODIUM CHLORIDE 0.9% 1,000 ML IV ONE (09:34)
[2023-07-24 09:53] VITALS: RESP 16; TEMP 97.7
[2023-07-24 09:55] LABS: Glucose,Whole Blood 129 mg/dL (70-110)
[2023-07-24 10:22] LABS: African American GFR (CKD) 71 (>60 ml/min/1.73 sqM); Anion Gap 6 mmol/L; Blood Urea Nitrogen 21 mg/dL (7-17); Calcium 9.5 mg/dL (8.4-10.2); Carbon Dioxide 30 mmol/L (22-30); Chloride 101 mmol/L (98-107); Glucose 121 mg/dL (74-99); Non-African American GFR(CKD) 61 (>60 ml/min/1.73 sqM); Potassium 4.6 mmol/L (3.5-5.1); Sodium 137 mmol/L (137-145)
[2023-07-24] MEDS ORDERED: MIDAZOLAM 2 MG/2 ML VIAL IVP ONE (10:24)
[2023-07-24] MEDS ORDERED: fentaNYL (PF) 50 MCG/ML 2 ML AMP IVP ONE (10:24)
[2023-07-24] MEDS ORDERED: LIDOCAINE 1% INJ 10MG/ML (5 ML VIAL-PF) SQ ONE (10:25)
[2023-07-24] MEDS ORDERED: VERAPAMIL SYRINGE (5 MG/10 ML) INTRAARTER ONE (10:27)
[2023-07-24] MEDS ORDERED: HEPARIN SODIUM 1,000 UN/ML (10ML VL) IV ONE (10:32)
[2023-07-24] MEDS ORDERED: IOPAMIDOL-370 100ML BTL INJ ONE (10:35)
--- NOTE | 2023-07-24 10:42 | P.CARDCATH ---
Description of Procedure: PROCEDURES PERFORMED: Left heart catheterization, bilateral coronary angiography, ultrasound guided arterial access INDICATION: Cardiomyopathy CONSENT:I have discussed the risks, benefits and alternative therapies for the above-mentioned procedure and for both sedation/analgesia as well as necessary blood product administration, if indicated, as they pertain to this patient. The patient has indicated understanding and acceptance of the risks and procedures discussed. PROCEDURE: After the risks, benefits and alternatives of the above mentioned procedure explained in detail with the patient, informed consent was obtained. Patient was taken to the catheterization lab and prepped and draped in usual fashion. Ultrasound guidance was used to assess for arterial access. 1% lidocaine was used to anesthetize the right radial artery. A 6-Martiniquais sheath was placed in the right radial artery using modified Seldinger technique and ultrasound guidance. Left coronary angiography was performed with a 5-Martiniquais JL 3.5 catheter and right coronary angiography was performed with a 5-Martiniquais JR5 catheter in various views. A 5-Martiniquais FR5 catheter was inserted into the left ventricle and pressure measurements were obtained. The right radial sheath was removed and a TR band was placed with hemostasis achieved. The patient tolerate d the procedure well. Patient was transported back to the post catheterization holding area in stable condition. Conscious Sedation: Patient was monitored under the direct supervision of myself for conscious sedation using Versed and fentanyl for a total duration of 11 minutes HEMODYNAMICS: Aorta: 143 LV: 146/15, LVEDP 20 SELECTIVE CORONARY ARTERIOGRAPHY: LEFT MAIN: The left main is a large caliber vessel which bifurcates into the LAD and circumflex. There is no significant stenosis. LEFT ANTERIOR DESCENDING CORONARY ARTERY: LAD is a large caliber vessel which wraps around to the apex. There is no significant stenosis. LEFT CIRCUMFLEX CORONARY ARTERY: Left circumflex is a moderate caliber vessel without significant stenosis. RIGHT CORONARY ARTERY: The right coronary artery is a large caliber vessel which gives off a PDA and PLV branch and is the dominant vessel. There is no significant stenosis. FINAL IMPRESSION: 1. Normal coronary arteries as described above. 2. Elevated left sided filling pressures PLAN: 1. Aggressive risk factor modification per most recent ACC/AHA guidelines. 2. Follow-up in the office in 1-2 weeks.
[2023-07-24 10:49] LABS: Anisocytosis Moderate; Basophils # (A) 0.1 k/uL (0-0.2); Basophils % (A) 1 %; Eosinophils # (A) 0.2 k/uL (0-0.7); Eosinophils % (A) 3 %; HCT 40.1 % (34.0-46.0); Hypochromasia Slight; Lymphocytes # (A) 1.5 k/uL (1.0-4.8); Lymphocytes % (A) 26 %; MCH 28.5 pg (25.0-35.0); MCHC 32.5 g/dL (31.0-37.0); Mean Platelet Volume 7.5; Microcytosis Slight; Monocytes # (A) 0.4 k/uL (0-1.0); Monocytes % (A) 7 %; Neutrophils # (A) 3.6 k/uL (1.3-7.7); Neutrophils % (A) 62 %; Platelet Count 239 k/uL (150-450); RBC 4.57 m/uL (3.80-5.40); RDW 22.4 % (11.5-15.5); WBC 5.7 k/uL (3.8-10.6)
[2023-07-24 10:56] LABS: MCV 87.7 fL (80.0-100.0)
[2023-07-24 17:52] VITALS: BP 131/74; PULSE 73
== END 2023-07-24 14:10 | disposition home or self-care (01) ==
LOC: CATHCVL 09:09
PROVIDERS: ATTEND Internal Medicine
DX: I42.9 Cardiomyopathy, unspecified (principal); I50.22 Chronic systolic (congestive) heart failure; E11.9 Type 2 diabetes mellitus without complications; E78.5 Hyperlipidemia, unspecified; D64.9 Anemia, unspecified; Z79.891 Long term (current) use of opiate analgesic; Z79.83 Long term (current) use of bisphosphonates; Z79.84 Long term (current) use of oral hypoglycemic drugs; Z79.51 Long term (current) use of inhaled steroids; Z79.810 Long term (current) use of selective estrogen receptor modulators (SERMs); Z79.899 Other long term (current) drug therapy
CPT/HCPCS: 93458; 76937; 80048; 85025; C1769; C1894; J2250; J2001; J3010; J1644; Q9967

== ENCOUNTER → 2023-10-14 | Outpatient (CLI) | payer MEDICARE, OTHER ==
--- NOTE | 2023-10-14 10:04 | MM ---
Reason for Exam: Screening (asymptomatic). Last mammogram was performed 1 year(s) and 2 month(s) ago. Patient History: Menarche at age 14. First Full-Term at age 21. Postmenopausal. 1979, Bilateral Reduction. Risk Values: Meri 5 year model risk: 1.2%. NCI Lifetime model risk: 4.4%. Prior Study Comparison: 04/10/2018 Bilateral Screening Mammogram, [facility]. 05/21/2019 Bilateral Screening Mammogram, [facility]. 08/29/2022 Bilateral MG 3D screening mammo w/cad, [facility]. Tissue Density: The breast tissue is heterogeneously dense. This may lower the sensitivity of mammography. Findings: Analyzed By CAD. There is no suspicious group of microcalcifications or new suspicious mass in either breast. Chronic nodularity within the right breast. Overall Assessment: Benign, BI-RAD 2 Management: Screening Mammogram of both breasts in 1 year. A clinical breast exam by your physician is recommended on an annual basis and results should be correlated with mammographic findings. Note on Meri scores and lifetime risk: 1. A Meri score greater than 3% is considered moderate risk. If this is the case, consider specialist referral to assess eligibility for a risk reducing agent. If overall lifetime risk for the development of breast cancer is 20% or higher, the patient may qualify for future screening with alternating mammogram and breast MRI. Electronically signed and approved by: Lito Sheldon D.O.
--- NOTE | 2023-10-14 10:58 | BD ---
EXAMINATION TYPE: Axial Bone Density DATE OF EXAM: 10/14/2023 CLINICAL HISTORY: 68 years old Female. ICD-10 CODE: Z13.820 OSTEOPOROSIS SCREEN Height: 5 ft Weight: 116 FRAX RISK QUESTIONS: Alcohol (3 or more units per day): no Family History (Parent hip fracture): no Glucocorticoids (More than 3mos): no (Ex: prednisone, prednisolone, methylprednisolone, dexamethasone, and hydrocortisone). History of Fracture in Adulthood: yes Secondary Osteoporosis: 1. Type 1 Diabetes: type 2 2. Hyperthyroidism: no 3. Menopause before 45: yes 4. Malnutrition: no 5. Chronic liver disease: no Rheumatoid Arthritis: no Current Tobacco Use: no RISK FACTORS HISTORY OF: Surgery to Spine/Hip(right/left)/Wrist (right/left): lumbar surg with hardware When: approx 2001 Family History of Osteoporosis: no Active: not right now wearing a boot fx ankle Diet low in dairy products/other sources of calcium: no Postmenopausal woman: yes Take estrogen and/or progesterone medications: none now Lost more than 2 inches in height since high school: yes Frequent falls: no Poor Health: fair Hyperparathyroidism: no Adrenal Insufficiency: no MEDICATIONS: Additional Medications: Celexa, Zetia, zyrtec, l-carnitine, Advair, Flonase, Xyzal, amyltryptoline, s ingular, Namenda, Famotidine, metformin, Neurontin Additional History: EXAM MEASUREMENTS: Bone mineral density about the R hip (g/cm2): 0.583 Bone mineral density about the L hip (g/cm2): 0.625 T Score values are as follows: -----R Neck: -3.3 -----L Neck: -3.0 -----R Total: -3.5 -----L Total: -2.8 Z Score values are as follows: -----R Neck: -1.5 -----L Neck: -1.2 -----R Total: -2.0 -----L Total: -1.3 baseline Bone mineral density about the L Wrist (g/cm2): 0.519 T Score values are as follows: -----Dist. R+U: -3.1 -----Prox. R+U: -1.6 -----Radius total: -2.6 Z Score values are as follows: -----Dist. R+U: -1.6 -----Prox. R+U: -0.1 -----Radius total: -1.1 baseline FRAX%s: The graph provided illustrates a 37.0 % chance for a major osteoporotic fx and a 15.0 % chanc e for the hips probability for fx in 10 years time. IMPRESSION: Osteoporosis (T Score less than -2.5). There is increased fracture risk and therapy is usually indicated based on age. Re-Screen 1-2 years. NOTE: T-SCORE=SD OF THE YOUNG ADULT MEAN.
== END | disposition home or self-care (01) ==
LOC: RADBDWWP 08:20
PROVIDERS: ATTEND Family Medicine
DX: Z12.31 Encounter for screening mammogram for malignant neoplasm of breast (principal); Z13.820 Encounter for screening for osteoporosis; M81.0 Age-related osteoporosis without current pathological fracture; Z78.0 Asymptomatic menopausal state
CPT/HCPCS: 77063; 77067; 77080

== ENCOUNTER 2024-03-26 12:34 | Day surgery (SDC) | payer MEDICARE, OTHER ==
[2024-03-25 09:36] VITALS: BMI 21.5
[2024-03-26] MEDS: SODIUM CHLORIDE 0.9% 1,000 ML IV ONE (13:16)
[2024-03-26 13:28] LABS: Glucose,Whole Blood 123 mg/dL (70-110)
[2024-03-26 13:46] LABS: Basophils # (A) 0.1 k/uL (0-0.2); Basophils % (A) 0 %; Eosinophils # (A) 0.2 k/uL (0-0.7); Eosinophils % (A) 2 %; HCT 45.2 % (34.0-46.0); HGB 14.3 gm/dL (11.4-16.0); Lymphocytes # (A) 1.2 k/uL (1.0-4.8); Lymphocytes % (A) 11 %; MCH 29.8 pg (25.0-35.0); MCHC 31.7 g/dL (31.0-37.0); MCV 93.8 fL (80.0-100.0); Mean Platelet Volume 7.9; Monocytes # (A) 0.5 k/uL (0-1.0); Monocytes % (A) 5 %; Neutrophils % (A) 81 %; Platelet Count 273 k/uL (150-450); RBC 4.82 m/uL (3.80-5.40); RDW 14.1 % (11.5-15.5); WBC 11.1 k/uL (3.8-10.6)
[2024-03-26 13:55] LABS: African American GFR (CKD) 62 (>60 ml/min/1.73 sqM); Anion Gap 8 mmol/L; Blood Urea Nitrogen 21 mg/dL (7-17); Calcium 9.6 mg/dL (8.4-10.2); Carbon Dioxide 27 mmol/L (22-30); Chloride 105 mmol/L (98-107); Glucose 117 mg/dL (74-99); Non-African American GFR(CKD) 54 (>60 ml/min/1.73 sqM); Sodium 140 mmol/L (137-145)
[2024-03-26 13:56] LABS: Potassium 5.1 mmol/L (3.5-5.1)
[2024-03-26] MEDS ORDERED: FAMOTIDINE 20 MG/2 ML VIAL IV SCH (14:30)
[2024-03-26] MEDS: ONDANSETRON 4 MG/2 ML VIAL IVP STA (14:39)
[2024-03-26] MEDS: MIDAZOLAM 2 MG/2 ML VIAL IV STA (14:39)
[2024-03-26] MEDS: FAMOTIDINE 20 MG/2 ML VIAL IV ONE (14:39)
[2024-03-26] MEDS: FAMOTIDINE 20 MG/2 ML VIAL ONE ×2 (14:40)
[2024-03-26] MEDS: DEXAMETHASONE SOD PHOSPHATE 4 MG/ML 1 ML VIAL IVP STA (14:43)
[2024-03-26] MEDS: ONDANSETRON 4 MG/2 ML VIAL ONE (14:50)
[2024-03-26] MEDS ORDERED: PROPOFOL 10 MG/ML 20 ML VIAL IV ONE (15:05)
[2024-03-26] MEDS ORDERED: fentaNYL (PF) 50 MCG/ML 2 ML AMP ONE (15:05)
[2024-03-26] MEDS ORDERED: MIDAZOLAM 2 MG/2 ML VIAL ONE (15:05)
[2024-03-26] MEDS ORDERED: LIDOCAINE 1% INJ 10MG/ML (20 ML MDV) ONE ×2 (15:30)
[2024-03-26] MEDS: IOPAMIDOL-370 100ML BTL INJ ONE ×2 (15:40→15:44)
[2024-03-26] MEDS: ceFAZolin 1 GM in SODIUM CHLORIDE 0.9% IRRIG BTL 250 ML IRRIGATION PRN (15:45)
[2024-03-26] MEDS: LIDOCAINE 1% INJ 10MG/ML (20 ML MDV) SQ ONE ×2 (15:52)
--- NOTE | 2024-03-26 17:09 | P.EPPROC ---
- EP Procedure Note Electrophysiology Procedure Note: Diagnosis Cardiomyopathy, chronic, nonischemic Congestive heart failure, systolic, class II On guideline directed medical treatment guideline directed Procedure: Single ICD implantation for management of risk of sudden cardiac Continuous Still Operator: Dr. Madden Result: Single chamber ICD implantation, RV ICD lead: Pacing threshold 0.5 V at point 5 ms, R waves 12 mV and pacing impedance 850 ohms High-voltage impedance 71 ohms ICD generator Procedure details: Patient was brought to the EP lab in a fasting state. Written informed consent was obtained prior to the procedure. Options, pros and cons, benefits and risks and complications discussed with patient in detail prio r to the procedure (shared decision making document, from [facility]). Importance of continuing medical treatment emphasized. Alternatives discussed. Patient would like to proceed with ICD implant. Left upper extremity venogram performed. 15 mL IV dye injected in the left arm. Patent axillary/subclavian vein The left pectoral area was prepped and draped as a protocol. IV antibiotics ad ministered 1% lidocaine was used for local anesthesia. A 4 cm incision was made parallel to the deltopectoral groove, about 1.5 cm medial to it. The incision was carried down to the level of the pectoralis muscle and the subfascial pocket was made. Hemostasis was assured. The axillary vein access was obtained. Appropriately sized venous sheath was placed. ICD lead implanted in the right ventricle and screwed in. ICD lead tested for threshold, sensing, impedances and tested with high output pacing for diaphragmatic stimulation Lead secured to the underlying transverse muscle after removing sheaths . Pocket irrigated with antibiotic solution Leads connected to the ICD generator. Wound closed in 3 layers and dressed per protocol ICD was interrogated and programmed. Appropriate pacing parameters, antitachycardia therapies with antitachycardia pacing cardioversion defibrillations programmed. Patient tolerated the procedure well without any acute complications. See scanned device report in EMR for lead details
[2024-03-26] MEDS: ACETAMINOPHEN TAB 325 MG TAB PO PRN (17:54)
[2024-03-26] MEDS: ACETAMINOPHEN IV (For NPO) 1,000 MG in EMPTY BAG 1 BAG IVPB ONE (18:49)
[2024-03-26] MEDS: PANTOPRAZOLE 40 MG TABLET PO SCH (20:19)
[2024-03-26] MEDS: GABAPENTIN 300 MG CAP PO SCH (20:20)
[2024-03-26] MEDS: MONTELUKAST 10 MG TAB PO SCH (20:20)
[2024-03-26] MEDS: FAMOTIDINE 20 MG TAB PO SCH (20:20)
[2024-03-26] MEDS: LACTATED RINGERS 1,000 ML IV SCH (22:41)
[2024-03-26] MEDS: SODIUM CHLORIDE 0.9% 1,000 ML IV SCH (22:41)
[2024-03-27 08:07] VITALS: BP 146/81; PULSE 80; RESP 16; TEMP 99.1
[2024-03-27] MEDS: SPIRONOLACTONE 25 MG TAB PO SCH (09:26)
[2024-03-27] MEDS: LOSARTAN 25 MG TAB PO SCH (09:26)
[2024-03-27] MEDS: CITALOPRAM HYDROBROMIDE 20 MG TAB PO SCH (09:27)
[2024-03-27] MEDS: METOPROLOL SUCCINATE (ER) 25 MG TAB.ER.24H PO SCH (09:27)
[2024-03-27] MEDS: ATORVASTATIN 20 MG TAB PO SCH (09:27)
--- NOTE | 2024-03-27 11:44 | P.DS ---
Providers Attending physician: Lester Madden Primary care physician: [facility] Hospital Course: This is a 68-year-old female who underwent single ICD implantation for management of risk of sudden cardiac with Dr. Madden on 03/26/2024. Patient is doing well post procedure with no complications noted. She denies chest pain or pressure. She denies shortness of breath. Chest x-ray was completed with appropriate lead placement and no evidence of pneumothorax. The patient was deemed stable for discharge home today from a cardiac standpoint pending device interrogation. Please see EMR for further hospital course details Discharge diagnosis S/P ICD implantation Cardiomyopathy, chronic, nonischemic Congestive heart failure, systolic, class II On guideline directed medical treatment guideline directed Nurse practitioner note has been reviewed by physician. Signing provider agrees with the documented findings, assessment, and plan of care documented by STEELWORKER as a scribe. Plan - Discharge Summary Discharge Rx Participant: No New Discharge Prescriptions: No Action Montelukast [Singulair] 10 mg PO HS Fluticasone Nasal Purvis [Flonase Nasal Purvis] 2 spr EA NOSTRIL QAM Fluticasone Propion/Salmeterol [Advair 500-50 Diskus] 1 puff INHALATION BID metFORMIN HCL [Glucophage] 500 mg PO BID Turmeric Root Extract [Turmeric] 1,500 mg PO QAM Memantine [Namenda] 20 mg PO HS Glucosam/Gonzalo-Msm1/C/Christian/Bosw [Glucosamine-Chondroitin Tablet] 1 tab PO QAM Cetirizine HCl [Zyrtec] 10 mg PO QAM Multivit-Min/FA/Lycopen/Lutein [Centrum Silver Tablet] 1 each PO QAM Gabapentin [Neurontin] 300 mg PO TID Metoprolol Succinate (ER) [Toprol Xl] 25 mg PO QAM Azelastine HCl [Astelin Nasal Purvis] 2 spray NASAL DAILY Losartan [Cozaar] 25 mg PO QAM Ventolin Inhaler 1 puff INHALATION DIRECTED PRN PRN Reason: Shortness Of Breath Atorvastatin [Lipitor] 20 mg PO QAM Alendronate Sodium [Fosamax] 70 mg PO FR Lasix (Unknown Dose) 1 tab PO DIRECTED PRN PRN Reason: Edema Acetyl L Carnitine Hcl 1000mg 1 tab PO QAM Docusate [Colace] 100 mg PO BID Cholecalciferol (Vitamin D3) [Vitamin D3 (3000 Iu)] 75 mcg PO QAM Pantoprazole Sodium [Protonix] 40 mg PO BID Famotidine [Pepcid] 20 mg PO HS Spironolactone 25 mg PO QAM Empagliflozin [Jardiance] 10 mg PO QAM Citalopram Hydrobromide [CeleXA] 40 mg PO QAM Discharge Medication List Montelukast [Singulair] 10 mg PO HS 07/09/14 [History] Fluticasone Nasal Purvis [Flonase Nasal Purvis] 2 spr EA NOSTRIL QAM 09/21/15 [History] Fluticasone Propion/Salmeterol [Advair 500-50 Diskus] 1 puff INHALATION BID 09/12/17 [History] Turmeric Root Extract [Turmeric] 1,500 mg PO QAM 09/12/17 [History] metFORMIN HCL [Glucophage] 500 mg PO BID 09/12/17 [History] Memantine [Namenda] 20 mg PO HS 03/02/19 [History] Acetyl L Carnitine Hcl 1000mg 1 tab PO QAM 06/01/22 [History] Cetirizine HCl [Zyrtec] 10 mg PO QAM 06/01/22 [History] Glucosam/Gonzalo-Msm1/C/Christian/Bosw [Glucosamine-Chondroitin Tablet] 1 tab PO QAM 06/01/22 [History] Cholecalciferol (Vitamin D3) [Vitamin D3 (3000 Iu)] 75 mcg PO QAM 05/29/23 [History] Docusate [Colace] 100 mg PO BID 05/29/23 [History] Multivit-Min/FA/Lycopen/Lutein [Centrum Silver Tablet] 1 each PO QAM 07/18/23 [History] Pantoprazole Sodium [Protonix] 40 mg PO BID 07/18/23 [History] Azelastine HCl [Astelin Nasal Purvis] 2 spray NASAL DAILY 07/19/23 [History] Famotidine [Pepcid] 20 mg PO HS 07/19/23 [History] Gabapentin [Neurontin] 300 mg PO TID 07/19/23 [History] Metoprolol Succinate (ER) [Toprol Xl] 25 mg PO QAM 07/19/23 [History] Alendronate Sodium [Fosamax] 70 mg PO FR 03/25/24 [History] Atorvastatin [Lipitor] 20 mg PO QAM 03/25/24 [History] Citalopram Hydrobromide [CeleXA] 40 mg PO QAM 03/25/24 [History] Empagliflozin [Jardiance] 10 mg PO QAM 03/25/24 [History] Lasix (Unknown Dose) 1 tab PO DIRECTED PRN 03/25/24 [History] Losartan [Cozaar] 25 mg PO QAM 03/25/24 [History] Spironolactone 25 mg PO QAM 03/25/24 [History] Ventolin Inhaler 1 puff INHALATION DIRECTED PRN 03/25/24 [History] Follow up Appointment(s)/Referral(s): Lester Madden MD [STAFF PHYSICIAN] - 04/03/24 4:00 pm (SaturdayApril AT 4PM FOR DEVICE CLINIC APPOINTMENT. ) Patient Instructions/Handouts: Moderate Sedation (DC), Implantable Cardioverter Defibrillator (DC)
--- NOTE | 2024-03-27 13:28 | XR ---
EXAMINATION TYPE: XR chest 2V DATE OF EXAM: 03/27/2024 COMPARISON: 05/30/2023 HISTORY: 68-year-old female lead placement check TECHNIQUE: Frontal and lateral views FINDINGS: Left anterior chest wall AICD generator with right ventricular lead. Heart upper limits of normal in size. Mild interstitial prominence. Some low lung volumes. No appreciable pneumothorax. No consolidat ion or pleural effusion seen. Unchanged mild anterior wedge deformity in the lower thoracic spine. IMPRESSION: Left anterior chest wall AICD generator with single right ventricular lead. Some hypoventilatory hussein ges.
[2024-03-28] MEDS ORDERED: metFORMIN 500 MG TAB PO SCH (17:30)
== END 2024-03-27 12:59 | disposition home or self-care (01) ==
LOC: CATHEP 12:34 → 6NMEDSUR 16:42 → CATHEP 03-27 12:59
PROVIDERS: ATTEND Internal Medicine Clinical Cardiac Electrophysiology
DX: I42.8 Other cardiomyopathies (principal); I50.22 Chronic systolic (congestive) heart failure; E11.9 Type 2 diabetes mellitus without complications; E78.5 Hyperlipidemia, unspecified; Z88.0 Allergy status to penicillin; Z79.84 Long term (current) use of oral hypoglycemic drugs; Z79.899 Other long term (current) drug therapy
CPT/HCPCS: 33249; 80048; 85025; 71046; C1722; C1892; C1769; C1777; J2250; J1100; J0690 ×2; J2405; J2001; J3010; J3490; J2704; Q9967

== ENCOUNTER → 2024-06-02 | Outpatient (CLI) | payer MEDICARE, OTHER ==
--- NOTE | 2024-06-02 14:41 | US ---
EXAMINATION TYPE: US kidneys/renal and bladder DATE OF EXAM: 06/02/2024 COMPARISON: CT abdomen and pelvis 06/06/22 CLINICAL INDICATION: Female, 69 years old with history of N28.9 DISORDER OF KIDNEY AND URETER, UNSPEC IFIED; abnormal kidney function EXAM MEASUREMENTS: Right Kidney: 7.5 x 3.5 x 4.2 cm Left Kidney: 8.9 x 4.7 x 3.8 cm Right Kidney: limited due to excessive bowel gas Left Kidney: No hydronephrosis or masses seen Bladder: Not seen due to excessive bowel gas Bilateral Jets seen: No There is no evidence for hydronephrosis at this point in time. No nephrolithiasis is seen. No megan s are identified. Cortical medullary differentiation is maintained. The urinary bladder is nonvisual ized due to overlying bowel gas. Bilateral ureteral jets are not seen. IMPRESSION: No hydronephrosis or nephrolithiasis identified.
== END | disposition home or self-care (01) ==
LOC: RADUSWWP 13:31
PROVIDERS: ATTEND Family Medicine
DX: N28.9 Disorder of kidney and ureter, unspecified (principal); R94.4 Abnormal results of kidney function studies; R14.3 Flatulence
CPT/HCPCS: 76770

== ENCOUNTER 2024-06-26 10:04 | Day surgery (SDC) | payer MEDICARE, OTHER ==
[2024-06-24 10:59] VITALS: BMI 21.9
[~2024-06-26 10:04] MED LIST changes: -ALPRAZolam 0.25 MG TAB PO PRN; -ALPRAZolam 0.5 MG TAB PO PRN; -ASPIRIN 325 MG TAB PO STA; -ATORVASTATIN 80 MG TAB PO STA; -HEPARIN SODIUM,PORCINE (1 ML) 2,500 UNIT in SODIUM CHLORIDE 0.9% 250 ML IRRIGATION PRN; -HEPARIN SODIUM,PORCINE 10,000 UNIT in SODIUM CHLORIDE 0.9% 1,000 ML IRRIGATION PRN; +LIDOCAINE 1% (10MG/ML) FOR IV START INTRADERMA PRN; -NITROGLYCERIN SL TABS 0.4 MG TAB SUBLINGUAL PRN; -SODIUM CHLORIDE 0.9% 1,000 ML in EMPTY BAG 1 BAG IV SCH
[2024-06-26 10:28] VITALS: RESP 16; TEMP 97
[2024-06-26] MEDS: LACTATED RINGERS 1,000 ML IV SCH (10:35)
[2024-06-26 10:40] LABS: Glucose,Whole Blood 131 mg/dL (70-110)
[2024-06-26] MEDS ORDERED: PROPOFOL 10 MG/ML 20 ML VIAL IV ONE (11:01)
--- NOTE | 2024-06-26 11:13 | P.PCN ---
Date of Procedure: 06/26/24 Procedure(s) Performed: BRIEF HISTORY: Patient is a 69-year-old, pleasant, white female scheduled for an upper endoscopy as a part of evaluation of function history of GERD. She then put on 40 mg daily as well as Pepcid at bedtime maximum and symptomatic. She is on schedule for an upper endoscopy to evaluate further. PROCEDURE PERFORMED: Esophagogastroduodenoscopy with biopsy. PREOPERATIVE DIAGNOSIS: Longstanding history of GERD. IV sedation per anesthesia. PROCEDURE: After informed consent was obtained, the patient was brought into the endoscopy unit. IV sedation was administered by Anesthesia under continuous monitoring. Initially the Olympus GIF-140 video endoscope was inserted into the mouth. Esophagus intubated without any difficulty. It was gradually advanced into the stomach and duodenum and carefully examined. The bulb and the second part of the duodenum appeared normal. The scope at this time was withdrawn to the stomach, adequately insufflated with air, and upon careful examination, mucosa of the antrum had patchy areas of erythema in the prepyloric area that was biopsied. Mucosa of the, body, cardia and the fundus appeared normal. The scope was then withdrawn into the esophagus. Moderate size hiatal hernia noted. The GE junction was located at 30 cm from the incisors. There were linear erosions noted in the distal esophagus consistent with LA grade B reflux esophagitis. Rest of the esophagus appeared normal seen and the patient tolerated the procedure well. IMPRESSION: 1. Moderate size hiatal hernia. 2. Linear erosions of the distal esophagus consistent with LA grade B reflux esophagitis 3. Mild antral gastritis. RECOMMENDATIONS: The findings of this examination were discussed with the patient as well as her family. Follow-up with the biopsy results. She was advised to increase her Protonix to 40 mg twice daily and follow antireflux measures. Continue with Pepcid 20 mg at bedtime and follow antireflux measures.
[2024-06-26 11:39] VITALS: BP 125/79; PULSE 74
== END 2024-06-26 12:02 | disposition home or self-care (01) ==
LOC: ORWHC2ENDO 10:04
PROVIDERS: ATTEND Internal Medicine Gastroenterology
DX: K29.50 Unspecified chronic gastritis without bleeding (principal); K44.9 Diaphragmatic hernia without obstruction or gangrene; K21.9 Gastro-esophageal reflux disease without esophagitis; E78.5 Hyperlipidemia, unspecified; I50.9 Heart failure, unspecified; J44.9 Chronic obstructive pulmonary disease, unspecified; G35 Multiple sclerosis; E11.9 Type 2 diabetes mellitus without complications; F03.90 Unspecified dementia, unspecified severity, without behavioral disturbance, psychotic disturbance, mood disturbance, and anxiety; Z79.84 Long term (current) use of oral hypoglycemic drugs; Z79.899 Other long term (current) drug therapy; Z79.51 Long term (current) use of inhaled steroids; Z95.810 Presence of automatic (implantable) cardiac defibrillator; Z88.0 Allergy status to penicillin; Z91.048 Other nonmedicinal substance allergy status; Z88.8 Allergy status to other drugs, medicaments and biological substances
CPT/HCPCS: 88305; 43239; J2704

== ENCOUNTER → 2025-06-01 | Outpatient (CLI) | payer MEDICARE, OTHER ==
--- NOTE | 2025-06-01 13:29 | MM ---
Reason for Exam: Screening (asymptomatic). Last mammogram was performed 1 year(s) and 8 month(s) ago. Patient History: Menarche at age 14. First Full-Term at age 21. Postmenopausal. 1979, Bilateral Reduction. Risk Values: Meri 5 year model risk: 1.2%. NCI Lifetime model risk: 4.0%. Prior Study Comparison: 05/21/2019 Bilateral Screening Mammogram, [facility]. 08/29/2022 Bilateral MG 3D screening mammo w/cad, [facility]. 10/14/2023 Bilateral MG 3D screening mammo w/cad, [facility]. Tissue Density: The breasts are heterogeneously dense, which may obscure small masses. Findings: Analyzed By CAD. Degenerative device projects over the left pectoralis on the MLO view. Posteriorly and centrally on the left MLO view, there is an area of nodularity not well seen previously. Further evaluation is recommended. Otherwise, no significant change. Overall Assessment: Incomplete: need additional imaging evaluation, BI-RAD 0 Management: Special View Mammogram of the left breast. [facility] will attempt to contact patient to return for supplemental views and ultrasound if indicated. [facility], , 06/01/2025 1:26 PM. Electronically signed and approved by: Ibeth Bass M.D. Radiologist
== END | disposition home or self-care (01) ==
LOC: RADMAMWWP 09:31
PROVIDERS: ATTEND Family Medicine
DX: Z12.31 Encounter for screening mammogram for malignant neoplasm of breast (principal); R92.333 Mammographic heterogeneous density, bilateral breasts; Z78.0 Asymptomatic menopausal state
CPT/HCPCS: 77063; 77067

== ENCOUNTER → 2025-06-10 | Outpatient (CLI) | payer MEDICARE, OTHER ==
--- NOTE | 2025-06-10 13:51 | MM ---
Reason for Exam: Additional evaluation requested from abnormal screening. Last screening mammogram was performed less than 1 month ago. Patient History: Menarche at age 14. First Full-Term at age 21. Postmenopausal. 1979, Bilateral Reduction. Risk Values: Meri 5 year model risk: 1.2%. NCI Lifetime model risk: 4.0%. Prior Study Comparison: 08/29/2022 Bilateral MG 3D screening mammo w/cad, [facility]. 10/14/2023 Bilateral MG 3D screening mammo w/cad, [facility]. 06/01/2025 Bilateral MG 3D screening mammo w/cad, [facility]. Tissue Density: Left: There are scattered areas of fibroglandular density. Findings: Analyzed By CAD. No suspicious new lesion persists on additional views. Overall Assessment: Negative, BI-RAD 1 Management: Screening Mammogram of both breasts in 1 year. Return to routine follow-up. Results were given to the patient verbally at the time of exam. Patient should continue monthly self-breast exams. A clinical breast exam by your physician is recommended on an annual basis. This exam should not preclude additional follow-up of suspicious palpable abnormalities. Note on Meri scores and lifetime risk: 1. A Meri score greater than 3% is considered moderate risk. If this is the case, consider specialist referral to assess eligibility for a risk reducing agent. 2. If overall lifetime risk for the development of breast cancer is 20% or higher, the patient may qualify for future screening with alternating mammogram and breast MRI. [facility], , 06/10/2025 1:34 PM. Electronically signed and approved by: Manjit Reyes M.D.
== END | disposition home or self-care (01) ==
LOC: RADMAMWWP 13:14
PROVIDERS: ATTEND Family Medicine
DX: R92.8 Other abnormal and inconclusive findings on diagnostic imaging of breast (principal); R92.322 Mammographic fibroglandular density, left breast; Z78.0 Asymptomatic menopausal state
CPT/HCPCS: 77065; G0279; 77061